=== PATIENT | male | born 1965 ===

== ENCOUNTER 2022-01-11 19:27 | Inpatient (IN) | payer MEDICAID, SELFPAY ==
[2022-01-11] VITALS (7 sets, daily range): BP systolic 120–142; BP diastolic 75–84; PULSE 112–123; RESP 18–22; TEMP 36.9–39.5; O2SAT 93–96; BMI 25.7
--- NOTE | ~2022-01-11 | US_ITS ---
EXAMINATION: US ABDOMEN LIMITED CLINICAL INFORMATION: Mild elevation of serum alkaline phosphatase level.. COMPARISON: None TECHNIQUE: Real-time imaging of the right upper quadrant abdominal viscera, utilizing pulse, grayscale and Doppler modalities. FINDINGS: PANCREAS: Normal. LIVER: The caudate lobe is enlarged. The liver is otherwise normal in size. The liver contour is scalloped. Parenchymal echogenicity is generally increased. No focal hepatic lesion. There is no intrahepatic biliary duct dilatation seen. GALLBLADDER: There is wall thickening to 7 mm at the gallbladder fossa. The gallbladder is physiologically distended without evidence of stones, sludge, wall thickening or pericholecystic fluid. COMMON BILE DUCT: Normal in caliber measuring 0.4 cm in diameter. RIGHT KIDNEY: Somewhat malrotated, consistent with prior CT findings. No hydronephrosis. No renal calculi or focal parenchymal lesions. The kidney measures 11.1 cm in maximum dimension. FREE FLUID: None. US/US duplex arterial venous comp IMPRESSION: 1. Findings are consistent with cirrhosis. Discoid clinically. No focal hepatic mass or intrahepatic biliary ductal dilatation is seen. 2. There is gallbladder wall thickening, without calculus noted. The possibility of acalculous cholecystitis is raised. Please correlate clinically. If of continued clinical concern, this could be further evaluated with nuclear HIDA scan. EXAMINATION: COMPLETE DUPLEX ULTRASOUND OF THE ABDOMEN CLINICAL INFORMATION: Mild elevation of serum alkaline phosphatase level.. COMPARISON: None. TECHNIQUE: Real-time abdominal ultrasound performed. Duplex Doppler ultrasound and pulse wave Doppler with spectral analysis were also performed. FINDINGS: The main, right, and left portal veins demonstrate normal corrected hepato-petal venous waveforms. The right, middle, and left hepatic veins demonstrates normal hepatofugal venous waveforms. The hepatic artery demonstrates normal arterial waveforms. The splenic vein demonstrates normal direction of flow. No evidence for venous thrombosis. There is splenomegaly, with a longitudinal span of 15.7 cm. The proximal abdominal aorta and IVC are normal in appearance. IMPRESSION: 1. Unremarkable abdominal duplex evaluation. 2. There is splenomegaly.
--- NOTE | ~2022-01-11 | CT_ITS ---
: EXAMINATION: CT SCAN OF THE CHEST ABDOMEN AND PELVIS WITHOUT CONTRAST CLINICAL INFORMATION: Fever dyspnea diarrhea COMPARISON: Chest x-ray performed same day TECHNIQUE: CT scan of the chest, abdomen and pelvis was performed without contrast Additional sagittal and coronal two-dimensional reconstruction imaging was obtained at the acquisition workstation. Chest 278mGycm/ Abdpel 714mGycm FINDINGS: CHEST: Lungs and pleural spaces: Normal. Airways: Normal. Esophagus: Normal. Thoracic inlet: Normal. CARDIOVASCULAR: Normal. Lymph nodes: Normal. Soft tissues: Normal. Osseous structures: Mild multilevel spondylosis ABDOMEN AND PELVIS: LIVER: Caudate lobe appears enlarged. There is some irregularity of the surface of the liver. Findings raise the question of mild cirrhosis. GALLBLADDER AND BILIARY TREE: Normal. PANCREAS: Normal. SPLEEN: Enlarged measuring 17 cm AP ADRENAL GLANDS: Normal. URINARY TRACT (KIDNEYS, URETERS, BLADDER): Normal. PELVIC ORGANS: Normal. PERITONEAL CAVITY: Normal. MESENTERY/OMENTUM: There is scattered small subcentimeter lymph nodes throughout the mesentery. There is scattered increased density throughout much of the mesentery which could be due to edema but overall nonspecific. GI TRACT (STOMACH, SMALL BOWEL, LARGE BOWEL: Diverticulosis without diverticulitis in the distal colon. Borderline dilated small bowel loops measuring up to 3.5 cm APPENDIX: Normal. LYMPH NODES: As noted above there numerous subcentimeter lymph nodes throughout the retroperitoneum and mesentery VASCULAR: Minimal arterial calcification throughout.. ABDOMINAL WALL/SOFT TISSUES: Normal. SKELETAL: Mild multilevel spondylosis of the thoracolumbar sacral spine with multilevel degenerative disc changes CT/CT abdomen pelvis wo con IMPRESSION: CHEST: No acute abnormality ABDOMEN AND PELVIS: Findings suspicious for mild cirrhosis. Splenomegaly. Borderline dilated fluid-filled loops of small bowel uncertain significance. No definite obstruction. Findings in the mesentery and retroperitoneum with multiple subcentimeter lymph nodes nonspecific with minimal streaky nonspecific density in the mesentery. This could reflect edema or inflammatory change
--- NOTE | ~2022-01-11 | XR_ITS ---
EXAMINATION: XR CHEST CLINICAL INFORMATION: Chest pain COMPARISON: None TECHNIQUE: Frontal view of the chest was obtained. FINDINGS: There are low volumes, but the lungs are clear. There are no gross pleural effusions. The cardiomediastinal silhouette is not enlarged. XR/XR chest 1V IMPRESSION: Poor inspiratory effort, but grossly clear chest otherwise.
--- NOTE | 2022-01-11 19:36 | ECG_ITS ---
Test Reason : CHEST PAIN Blood Pressure : / mmHG Vent. Rate : 116 BPM Atrial Rate : 116 BPM P-R Int : 178 ms QRS Dur : 086 ms QT Int : 310 ms P-R-T Axes : 032 -07 -02 degrees QTc Int : 430 ms Sinus tachycardia Possible Anterolateral infarct , age undetermined Abnormal ECG No previous ECGs available Referred By: Generic ED Physician Electronically Signed By:Jake Valencia
[2022-01-11] MEDS: Acetaminophen 325 MG TABLET 650 MG PO (19:40)
[2022-01-11 20:05] LABS: Hematocrit 33.3 % (42.0-52.0); Monocytes Absolute Auto 0.5 X10*3/uL (0.1-1.2); Monocytes Percent Auto 4.8 % (2-11); SCAN SMEAR FLAG 1
[2022-01-11 20:07] LABS: Basophils Percent Auto 0.1 % (0-2); Eosinophils Percent Auto 0.2 % (0-4); Hemoglobin 10.1 g/dl (14.0-18.0); Imm Gran Abs Auto 0.05 X10*3/uL (0.00-0.03); Imm Gran Pct Auto 0.5 % (0.0-0.4); Lymphocytes Absolute Auto 0.5 X10*3/uL (1.2-4.9); Lymphocytes Percent Auto 5.6 % (20-40); MANUAL DIFF FLAG SCAN; Mean Corpuscular HGB Conc 30.3 g/dl (31.0-36.0); Mean Corpuscular Hemoglobin 21.1 pg (27.0-33.0); Mean Corpuscular Volume 69.5 fL (80.0-98.0); Neutrophils Absolute Auto 8.5 x10*3/uL (2.0-8.3); Neutrophils Percent Auto 88.8 % (45-73); Red Blood Count 4.79 X10*6/uL (4.60-5.80); Red Cell Distribution Width 19.5 % (11.0-16.0); White Blood Count 9.6 X10*3/uL (4.8-10.8)
[2022-01-11 20:08] LABS: PLT ABN DIST 1
[2022-01-11 20:09] LABS: Glucose, Whole Blood 319 mg/dL (60-115)
[2022-01-11 20:15] LABS: Anion Gap 13 (12-20); Blood Urea Nitrogen 7 mg/dL (9-16); Calcium 8.8 mg/dL (8.4-10.2); Carbon Dioxide 22 mmol/L (22-29); Chloride 101 mmol/L (96-108); Creatinine Clr Calc Pharmacy 91.8; Estimated Glomerular Filt Rate > 60; Glucose Random 334 mg/dL (60-115); Potassium 3.9 mmol/L (3.3-5.1); Sodium 132 mmol/L (135-145)
[2022-01-11 20:17] LABS: Lactic Acid 2.4 mmol/L (0.5-2.0)
[2022-01-11 20:22] LABS: Mean Platelet Volume 9.4 fL (9.4-12.4); Platelet Count 72 X10*3/uL (160-400); SLIDE REVIEW VERIFIED
[2022-01-11 20:26] LABS: IDNOW Serial# 16C4AD1C
[2022-01-11 20:27] LABS: COVID-19 Test Negative (Negative)
[2022-01-11 20:28] LABS: Influenza A Negative (Negative); Influenza B2 Negative (Negative)
[2022-01-11] MEDS: 0.9 % Sodium Chloride 1,000 ML 999 ML IV (20:28)
[2022-01-11] MEDS: cefTRIAXone sodium 1 GM in 0.9 % Sodium Chloride 50 ML IV (20:33)
[2022-01-11] MEDS: Ibuprofen 600 MG TABLET PO (20:33)
--- NOTE | 2022-01-11 20:58 | ED.CHESTPAIN ---
HPI - Chest Pain General Chief Complaint: Chest Pain Stated Complaint: chest pain,chills ,dizziness Time Seen by Provider: 01/11/22 20:14 Source: patient Mode of arrival: ambulatory Limitations: no limitations History of Present Illness complaint: chest pain (fevers, chills, body aches, weakness) Onset (ago): hour(s) (4pm today ) Timing of current episode: constant Prior episodes: No Onset: during rest Pain location: other (generalized pain) Pain radiation: none Severity: moderate Quality: aching Relieving factors: nothing Exacerbating factors: exertion Associated symptoms: nausea, dyspnea and fever Treatment prior to arrival: none Related Data Allergies Allergy/AdvReac Type Severity Reaction Status Date / Time No Known Allergies Allergy Verified 01/11/22 19:35 Review of Systems Review of Systems: Constitutional : No Weight loss, pos Fever, pos Chills ENT/Mouth : No sore throat, No Rhinorrhea Eyes: No Eye Pain, No Swelling Cardiovascular : pos Chest Pain, pos SOB, no Dyspnea on Exertion, No Orthopnea, No Edema, No Palpitations Respiratory : No Cough, No Sputum Gastrointestinal : pos Nausea, No Vomiting, No Diarrhea, No abdominal Pain, No Hematochezia, No Melena Genitourinary : No Dysuria, No Urinary Frequency Musculoskeletal : No joint pain, pos Myalgias, No Joint Swelling Skin : No Skin Lesions, No rash Neuro : pos Weakness, No Numbness, No Dizziness, No Headache Psych : No Anxiety/Panic, No Depression Heme/Lymph: No Bruising, No Lymphadenopathy Endocrine : No Polyuria, No Polydipsia All other systems reviewed and are negative [facility] Past Medical History Attestation statement: The following information was validated with the patient. Medical History Diabetes Social History Social History (Updated 01/11/22 @ 20:59 by Chloe Curiel DO) Patient Tobacco Use Status: Never used Tobacco Physical Exam Vital Signs: Vital Signs: Last Vital Signs Temp 103.1 F H 01/11/22 19:30 Pulse 114 H 01/11/22 20:06 Resp 22 H 01/11/22 20:06 BP 138/84 01/11/22 20:06 Pulse Ox 95 01/11/22 20:06 O2 Del Method 01/11/22 20:06 BMI result Body Mass Index 25.7 Appearance: Alert. Oriented X3. Mild acute distress. Eyes: Pupils equal, round and reactive to light. ENT: Pharynx normal. Neck: Normal inspection. Neck supple. CVS: tachycardic heart rate and rhythm. Pulses normal. Respiratory: No respiratory distress. Breath sounds diminished Abdomen: Soft and nontender. Skin: Skin warm and dry. Normal skin color. Normal skin turgor. Extremities: No lower extremity edema. Neuro: Oriented X 3. No motor deficit. No sensory deficit. Course Course Course Narrative: signed out to Dr. 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 He has no localizing signs at this time will need labs, cultures, fever control, IV fluids, UA and CXR - possibly viral in nature. Empiric ceftriaxone ordered. Likely admit. Lab Data Result diagrams: 01/11/22 19:41 01/11/22 19:41 Labs: Lab Results 01/11/22 01/11/22 01/11/22 Range/Units 19:41 19:41 19:41 WBC 9.6 (4.8-10.8) X10*3/uL RBC 4.79 (4.60-5.80) X10*6/uL Hgb 10.1 L (14.0-18.0) g/dl Hct 33.3 L (42.0-52.0) % MCV 69.5 L (80.0-98.0) fL MCH 21.1 L (27.0-33.0) pg MCHC 30.3 L (31.0-36.0) g/dl RDW 19.5 H (11.0-16.0) % Plt Count 72 L (160-400) X10*3/uL MPV 9.4 (9.4-12.4) fL Immature Gran % (Auto) 0.5 H (0.0-0.4) % Neut % (Auto) 88.8 H (45-73) % Lymph % (Auto) 5.6 L (20-40) % [place] % (Auto) 4.8 (2-11) % Eos % (Auto) 0.2 (0-4) % Baso % (Auto) 0.1 (0-2) % Lymph # (Auto) 0.5 L (1.2-4.9) X10*3/uL [place] # (Auto) 0.5 (0.1-1.2) X10*3/uL Eos # (Auto) 0.0 (0.0-0.4) X10*3/uL Baso # (Auto) 0.0 (0.0-0.2) X10*3/uL Abs Immat Gran (auto) 0.05 H (0.00-0.03) X10*3/uL Absolute Neuts (auto) 8.5 H (2.0-8.3) x10*3/uL Absolute Nucleated RBC 0.000 (0.0-0.012) X10*3/uL Nucleated RBC % (auto) 0.0 (0.0-0.2) /100WBC Smear Tech's Comments VERIFIED Sodium 132 L (135-145) mmol/L Potassium 3.9 (3.3-5.1) mmol/L Chloride 101 (96-108) mmol/L Carbon Dioxide 22 (22-29) mmol/L Anion Gap 13 (12-20) BUN 7 L (9-16) mg/dL Creatinine 0.77 (0.5-1.4) mg/dL Estim Creat Clear Calc 91.8 Estimated GFR > 60 POC Glucose (60-115) mg/dL Random Glucose 334 H (60-115) mg/dL Lactic Acid (0.5-2.0) mmol/L Calcium 8.8 (8.4-10.2) mg/dL Troponin I High Sens 6.0 (<3.5-35.0) ng/L COVID-19 (JACKIE) (Negative) COVID-19 Clin Com Influenza Type A (DEMARCUS) (Negative) Influenza Type B (DEMARCUS) (Negative) Influenza A & B Note 01/11/22 01/11/22 01/11/22 Range/Units 19:41 19:42 19:43 WBC (4.8-10.8) X10*3/uL RBC (4.60-5.80) X10*6/uL Hgb (14.0-18.0) g/dl Hct (42.0-52.0) % MCV (80.0-98.0) fL MCH (27.0-33.0) pg MCHC (31.0-36.0) g/dl RDW (11.0-16.0) % Plt Count (160-400) X10*3/uL MPV (9.4-12.4) fL Immature Gran % (Auto) (0.0-0.4) % Neut % (Auto) (45-73) % Lymph % (Auto) (20-40) % [place] % (Auto) (2-11) % Eos % (Auto) (0-4) % Baso % (Auto) (0-2) % Lymph # (Auto) (1.2-4.9) X10*3/uL [place] # (Auto) (0.1-1.2) X10*3/uL Eos # (Auto) (0.0-0.4) X10*3/uL Baso # (Auto) (0.0-0.2) X10*3/uL Abs Immat Gran (auto) (0.00-0.03) X10*3/uL Absolute Neuts (auto) (2.0-8.3) x10*3/uL Absolute Nucleated RBC (0.0-0.012) X10*3/uL Nucleated RBC % (auto) (0.0-0.2) /100WBC Smear Tech's Comments Sodium (135-145) mmol/L Potassium (3.3-5.1) mmol/L Chloride (96-108) mmol/L Carbon Dioxide (22-29) mmol/L Anion Gap (12-20) BUN (9-16) mg/dL Creatinine (0.5-1.4) mg/dL Estim Creat Clear Calc Estimated GFR POC Glucose (60-115) mg/dL Random Glucose (60-115) mg/dL Lactic Acid 2.4 H* (0.5-2.0) mmol/L Calcium (8.4-10.2) mg/dL Troponin I High Sens (<3.5-35.0) ng/L COVID-19 (JACKIE) Negative (Negative) COVID-19 Clin Com See Note Influenza Type A (DEMARCUS) Negative (Negative) Influenza Type B (DEMARCUS) Negative (Negative) Influenza A & B Note See Note 01/11/22 Range/Units 19:51 WBC (4.8-10.8) X10*3/uL RBC (4.60-5.80) X10*6/uL Hgb (14.0-18.0) g/dl Hct (42.0-52.0) % MCV (80.0-98.0) fL MCH (27.0-33.0) pg MCHC (31.0-36.0) g/dl RDW (11.0-16.0) % Plt Count (160-400) X10*3/uL MPV (9.4-12.4) fL Immature Gran % (Auto) (0.0-0.4) % Neut % (Auto) (45-73) % Lymph % (Auto) (20-40) % [place] % (Auto) (2-11) % Eos % (Auto) (0-4) % Baso % (Auto) (0-2) % Lymph # (Auto) (1.2-4.9) X10*3/uL [place] # (Auto) (0.1-1.2) X10*3/uL Eos # (Auto) (0.0-0.4) X10*3/uL Baso # (Auto) (0.0-0.2) X10*3/uL Abs Immat Gran (auto) (0.00-0.03) X10*3/uL Absolute Neuts (auto) (2.0-8.3) x10*3/uL Absolute Nucleated RBC (0.0-0.012) X10*3/uL Nucleated RBC % (auto) (0.0-0.2) /100WBC Smear Tech's Comments Sodium (135-145) mmol/L Potassium (3.3-5.1) mmol/L Chloride (96-108) mmol/L Carbon Dioxide (22-29) mmol/L Anion Gap (12-20) BUN (9-16) mg/dL Creatinine (0.5-1.4) mg/dL Estim Creat Clear Calc Estimated GFR POC Glucose 319 H (60-115) mg/dL Random Glucose (60-115) mg/dL Lactic Acid (0.5-2.0) mmol/L Calcium (8.4-10.2) mg/dL Troponin I High Sens (<3.5-35.0) ng/L COVID-19 (JACKIE) (Negative) COVID-19 Clin Com Influenza Type A (DEMARCUS) (Negative) Influenza Type B (DEMARCUS) (Negative) Influenza A & B Note Discharge Plan Discharge Clinical Impression: Fever Patient Disposition: Still a Patient
[2022-01-11 21:01] LABS: Alanine Aminotransferase 40 U/L (0-40); Albumin Level 3.8 g/dL (3.5-5.0); Alkaline Phosphatase 191 U/L (39-117); Aspartate Amino Transferase 43 U/L (5-37); Bilirubin Direct 0.4 mg/dL (0.0-0.5); Bilirubin Total 0.9 mg/dL (0.0-1.0); Lipase 10 U/L (8-78); Magnesium 1.6 mg/dL (1.6-2.6); Total Protein 6.8 g/dL (6.5-8.0)
[2022-01-11 21:29] LABS: Appearance Urine CLEAR; Color Urine YELLOW; Glucose Urine UA >=1000 MG/DL (NEG); Leukocyte Esterase Urine NEG (NEG); Nitrite Urine NEG (NEG); PH 6.5 (5.0-8.0); Urine Blood NEG (NEG); Urine Ketones NEG (NEG); Urine Protein NEG (NEG-TRACE)
[2022-01-11 21:54] LABS: Troponin-I High Sensitivity 6.8 ng/L (<3.5-35.0)
[2022-01-11 21:54] LABS: Reflex Lactate? Lactic Acid Added
[2022-01-11 22:35] LABS: Squamous Epithelial Cell Urine TRACE /LPF
[2022-01-11 22:51] LABS: ~Lactic Acid-LAB USE ONLY 1.7 mmol/L (0.5-2.0)
[2022-01-12] MEDS: Acetaminophen 325 MG TABLET 650 MG PO (01:14)
[2022-01-12 01:15] LABS: Troponin-I High Sensitivity 7.5 ng/L (<3.5-35.0)
[2022-01-12 04:12] VITALS: BP 102/59; PULSE 85; RESP 20; TEMP 36.7; O2SAT 97
--- NOTE | 2022-01-12 04:49 | P.HPHOSP_ITS ---
History of Present Illness Date of Service: 01/12/22 Chief Complaint: Chest pain 56-year-old male with a past medical history of hypertension, diabetes-not on medications; presented to the hospital today with a chief complaint of chest pain. Patient reported that he had chest pain, located in the center of the chest, nonradiating, associated mild nausea; denies any shortness of breath or dyspnea on exertion. Denies any fever chills cough. Denies any urinary symptoms. Denies any chest pain with the time of my interview. Denies any recent travel or sick contacts. Mentioned that he has diabetes but not on any medications. Patient mentioned that he used to drink alcohol remotely. Review of all other systems is negative except mentioned above ER course: Per ER team patient's troponins x3 were negative; EKG was nonischemic; noted to have fever of 103 F; and also thrombocytopenia. Unclear source of fever. Received ceftriaxone. Send cultures. Also had mild lactic acidosis. COUNT INCLUDES THE [facility] Medical History Diabetes Pertinent family history: Mentioned the fall has heart disease Social History (Updated 01/11/22 @ 20:59 by Chloe Curiel DO) Patient Tobacco Use Status: Never used Tobacco Advance Directives: No Meds Allergies Allergy/AdvReac Type Severity Reaction Status Date / Time No Known Allergies Allergy Verified 01/11/22 19:35 Active Medications: Current Medications Acetaminophen (Acetaminophen 325 Mg Tablet) 650 mg PO Q6H PRN PRN Reason: Pain, Mild (Pain Scale 1-3) Doxycycline Hyclate (Doxycycline Hyclate 100 Mg Tablet) 100 mg PO Q12H ISHA Enoxaparin Sodium (Enoxaparin Sodium 40 Mg/0.4 Ml Syringe) 40 mg SUBCUT Q24H ISHA Sodium Chloride (Ns) 1,000 mls @ 100 mls/hr IVCONT .Q10H ISHA Ceftriaxone Sodium 1 gm/ (Sodium Chloride) 50 mls @ 100 mls/hr IV Q24H ISHA Melatonin (Melatonin 3 Mg Tablet) 6 mg PO BEDTIME PRN PRN Reason: Insomnia Senna (Sennosides 8.6 Mg Tablet) 17.2 mg PO BEDTIME PRN PRN Reason: Constipation Sodium Chloride (0.9 % Sodium Chloride Flush 3 Ml Syringe) 3 ml IVFLUSH QSHIFT ISHA Physical Exam Vital Signs and Narrative: Vital Signs: Last Vital Signs Temp 98.1 F 01/12/22 04:12 Pulse 85 01/12/22 04:12 Resp 20 01/12/22 04:12 BP 102/59 L 01/12/22 04:12 Pulse Ox 97 01/12/22 04:12 O2 Del Method 01/12/22 04:12 BMI result Body Mass Index 25.7 Gen: Appears be in no acute distress HEENT: NCAT, Moist mucosa. Pulmonary: Vesicular breath sounds, fair air entry CVS: Normal S1-S2 Abdomen: BS+, Soft, Nontender Extremities: Warm well perfused Neuro: Alert and awake. Results Labs CBC and Chem 7: 01/11/22 19:41 01/11/22 19:41 Labs: Laboratory Results - last 24 hr 01/11/22 01/11/22 01/11/22 19:41 19:41 19:41 MCV 69.5 L MCH 21.1 L MCHC 30.3 L RDW 19.5 H Plt Count 72 L MPV 9.4 Immature Gran % (Auto) 0.5 H Neut % (Auto) 88.8 H Lymph % (Auto) 5.6 L Edwards % (Auto) 4.8 Eos % (Auto) 0.2 Baso % (Auto) 0.1 Lymph # (Auto) 0.5 L Edwards # (Auto) 0.5 Eos # (Auto) 0.0 Baso # (Auto) 0.0 Abs Immat Gran (auto) 0.05 H Absolute Neuts (auto) 8.5 H Absolute Nucleated RBC 0.000 Nucleated RBC % (auto) 0.0 Smear Tech's Comments VERIFIED Anion Gap 13 Estim Creat Clear Calc 91.8 Estimated GFR > 60 POC Glucose Random Glucose 334 H Lactic Acid Lactic Acid F/U @ 2Hr Calcium 8.8 Magnesium 1.6 Total Bilirubin 0.9 Direct Bilirubin 0.4 AST 43 H ALT 40 Alkaline Phosphatase 191 H Troponin I High Sens 6.0 Total Protein 6.8 Albumin 3.8 Lipase 10 Urine Color Urine Appearance Urine pH Ur Specific [place] Urine Protein Urine Glucose (UA) Urine Ketones Urine Blood Urine Nitrite Ur Leukocyte Esterase Urine RBC Urine WBC Ur Squamous Epith Cells Urine Bacteria Urine Yeast COVID-19 (JACKIE) COVID-19 Clin Com Influenza Type A (DEMARCUS) Influenza Type B (DEMARCUS) Influenza A & B Note 01/11/22 01/11/22 01/11/22 19:41 19:42 19:43 MCV MCH MCHC RDW Plt Count MPV Immature Gran % (Auto) Neut % (Auto) Lymph % (Auto) Edwards % (Auto) Eos % (Auto) Baso % (Auto) Lymph # (Auto) Edwards # (Auto) Eos # (Auto) Baso # (Auto) Abs Immat Gran (auto) Absolute Neuts (auto) Absolute Nucleated RBC Nucleated RBC % (auto) Smear Tech's Comments Anion Gap Estim Creat Clear Calc Estimated GFR POC Glucose Random Glucose Lactic Acid 2.4 H* Lactic Acid F/U @ 2Hr Calcium Magnesium Total Bilirubin Direct Bilirubin AST ALT Alkaline Phosphatase Troponin I High Sens Total Protein Albumin Lipase Urine Color Urine Appearance Urine pH Ur Specific [place] Urine Protein Urine Glucose (UA) Urine Ketones Urine Blood Urine Nitrite Ur Leukocyte Esterase Urine RBC Urine WBC Ur Squamous Epith Cells Urine Bacteria Urine Yeast COVID-19 (JACKIE) Negative COVID-19 Clin Com See Note Influenza Type A (DEMARCUS) Negative Influenza Type B (DEMARCUS) Negative Influenza A & B Note See Note 01/11/22 01/11/22 01/11/22 19:51 21:06 21:28 MCV MCH MCHC RDW Plt Count MPV Immature Gran % (Auto) Neut % (Auto) Lymph % (Auto) Edwards % (Auto) Eos % (Auto) Baso % (Auto) Lymph # (Auto) Edwards # (Auto) Eos # (Auto) Baso # (Auto) Abs Immat Gran (auto) Absolute Neuts (auto) Absolute Nucleated RBC Nucleated RBC % (auto) Smear Tech's Comments Anion Gap Estim Creat Clear Calc Estimated GFR POC Glucose 319 H Random Glucose Lactic Acid Lactic Acid F/U @ 2Hr Calcium Magnesium Total Bilirubin Direct Bilirubin AST ALT Alkaline Phosphatase Troponin I High Sens 6.8 Total Protein Albumin Lipase Urine Color YELLOW Urine Appearance CLEAR Urine pH 6.5 Ur Specific [place] 1.010 Urine Protein NEG Urine Glucose (UA) >=1000 H Urine Ketones NEG Urine Blood NEG Urine Nitrite NEG Ur Leukocyte Esterase NEG Urine RBC 1-4 Urine WBC 1-4 Ur Squamous Epith Cells TRACE Urine Bacteria NONE Urine Yeast TRACE COVID-19 (JACKIE) COVID-19 Clin Com Influenza Type A (DEMARCUS) Influenza Type B (DEMARCUS) Influenza A & B Note 01/11/22 01/12/22 22:29 00:45 MCV MCH MCHC RDW Plt Count MPV Immature Gran % (Auto) Neut % (Auto) Lymph % (Auto) Edwards % (Auto) Eos % (Auto) Baso % (Auto) Lymph # (Auto) Edwards # (Auto) Eos # (Auto) Baso # (Auto) Abs Immat Gran (auto) Absolute Neuts (auto) Absolute Nucleated RBC Nucleated RBC % (auto) Smear Tech's Comments Anion Gap Estim Creat Clear Calc Estimated GFR POC Glucose Random Glucose Lactic Acid Lactic Acid F/U @ 2Hr 1.7 Calcium Magnesium Total Bilirubin Direct Bilirubin AST ALT Alkaline Phosphatase Troponin I High Sens 7.5 Total Protein Albumin Lipase Urine Color Urine Appearance Urine pH Ur Specific [place] Urine Protein Urine Glucose (UA) Urine Ketones Urine Blood Urine Nitrite Ur Leukocyte Esterase Urine RBC Urine WBC Ur Squamous Epith Cells Urine Bacteria Urine Yeast COVID-19 (JACKIE) COVID-19 Clin Com Influenza Type A (DEMARCUS) Influenza Type B (DEMARCUS) Influenza A & B Note Imaging Radiologist's Impressions: Impressions Chest X-Ray 01/11/22 20:17 IMPRESSION: Poor inspiratory effort, but grossly clear chest otherwise. Abdomen/Pelvis CT 01/11/22 22:30 IMPRESSION: CHEST: No acute abnormality ABDOMEN AND PELVIS: Findings suspicious for mild cirrhosis. Splenomegaly. Borderline dilated fluid-filled loops of small bowel uncertain significance. No definite obstruction. Findings in the mesentery and retroperitoneum with multiple subcentimeter lymph nodes nonspecific with minimal streaky nonspecific density in the mesentery. This could reflect edema or inflammatory change Chest CT 01/11/22 22:30 IMPRESSION: CHEST: No acute abnormality ABDOMEN AND PELVIS: Findings suspicious for mild cirrhosis. Splenomegaly. Borderline dilated fluid-filled loops of small bowel uncertain significance. No definite obstruction. Findings in the mesentery and retroperitoneum with multiple subcentimeter lymph nodes nonspecific with minimal streaky nonspecific density in the mesentery. This could reflect edema or inflammatory change Assessment and Plan (1) Fever: Qualifiers: Fever type: unspecified Qualified Code(s): R50.9 - Fever, unspecified Status: Acute Plan 56-year-old male with a past medical history of hypertension, diabetes-not on medications; presented to the hospital today with a chief complaint of chest pain. Noted to have fever. Admitted for further management. Fever: Unclear source. Urinalysis negative; CT chest showed no evidence of pneumonia. CT abdomen showed dilated bowel loops-unclear significance; patient denies any GI symptoms. Noted to have thrombocytopenia-will obtain tick panel, Anaplasma, babesia Also had mild elevation of alk-phos, ALT-> will obtain right upper quadrant ultrasound Empirically being covered with ceftriaxone and doxycycline. Id consult for further recommendations Follow up cultures Chest pain: Currently resolved. EKG nonischemic. Troponins x3 negative. Cardiology follow-up D-dimer pending Diabetes/hyperglycemia: Patient denies taking any home medications. Will obtain hemoglobin A1c. Insulin sliding scale for now. Liver cirrhosis: Patient currently denies any alcohol use. GI follow-up as outpatient. Mesenteric and retroperitoneal lymphadenopathy: Appears inflammatory Radiology. Follow-up with PCP. Anemia: Patient denies any signs of bleeding. Will obtain iron studies, folate, B12, stool guaiac test DVT prophylaxis: SCD boots. Avoiding pharmacological agents given thrombocytopenia. Code status: Full code Quality Stroke Does the patient have a stroke diagnosis?: No VTE Prior VTE?: No VTE Risk Level:: Medical - moderate - high VTE Device Contraindication: Treatment Not Indicated VTE Drug Contraindication: N/A - Med Ordered
[2022-01-12] MEDS: 0.9 % Sodium Chloride 1,000 ML 100 ML IVCONT ×2 (05:36→14:27)
[2022-01-12 05:40] VITALS: BP 100/59; PULSE 77; RESP 16; TEMP 37.2; O2SAT 97
[2022-01-12 06:02] LABS: Eosinophils Percent Auto 0.1 % (0-4); Hemoglobin 9.2 g/dl (14.0-18.0); PLT CLUMP 1; SCAN SMEAR FLAG 1
[2022-01-12 06:04] LABS: Imm Gran Abs Auto 0.05 X10*3/uL (0.00-0.03); Imm Gran Pct Auto 0.6 % (0.0-0.4); Lymphocytes Absolute Auto 0.5 X10*3/uL (1.2-4.9); Lymphocytes Percent Auto 5.9 % (20-40); Mean Corpuscular HGB Conc 29.7 g/dl (31.0-36.0); Mean Corpuscular Volume 70.6 fL (80.0-98.0); Mean Platelet Volume 9.1 fL (9.4-12.4); Monocytes Absolute Auto 0.4 X10*3/uL (0.1-1.2); Monocytes Percent Auto 5.3 % (2-11); Neutrophils Absolute Auto 6.9 x10*3/uL (2.0-8.3); Neutrophils Percent Auto 88.1 % (45-73); Red Blood Count 4.39 X10*6/uL (4.60-5.80); Red Cell Distribution Width 19.5 % (11.0-16.0)
[2022-01-12 06:05] LABS: Platelet Count 60 X10*3/uL (160-400); White Blood Count 7.8 X10*3/uL (4.8-10.8)
[2022-01-12 06:06] LABS: MANUAL DIFF FLAG NO
[2022-01-12 06:09] LABS: D Dimer High Sensitivity 1144 NG/ML
[2022-01-12 06:19] LABS: Anion Gap 10 (12-20); Blood Urea Nitrogen 9 mg/dL (9-16); Calcium 8.1 mg/dL (8.4-10.2); Carbon Dioxide 26 mmol/L (22-29); Chloride 104 mmol/L (96-108); Creatinine Clr Calc Pharmacy 88.3; Estimated Glomerular Filt Rate > 60; Glucose Random 279 mg/dL (60-115); Iron 22 mcg/dL (45-160); Percent Iron Saturation 6 % (15-50); Potassium 4.2 mmol/L (3.3-5.1); Sodium 136 mmol/L (135-145); Total Iron Binding Capacity 398 mcg/dL (228-428); Unsaturated Iron Binding 376 ug/dL
[2022-01-12 06:36] LABS: Ferritin 24 ng/mL (20-250)
--- NOTE | 2022-01-12 07:00 | CA_ITS ---
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 The visually estimated ejection fraction is between 60-65%. Diastolic function is normal for age. - Mildly increased right ventricular cavity size. There is normal right ventricular systolic function. Findings Left Ventricle Normal left ventricular size, thickness, systolic function, and wall motion. The visually estimated ejection fraction is between 60-65%. Diastolic function is normal for age. Right Ventricle Mildly increased right ventricular cavity size. There is normal right ventricular systolic function. Atria The left atrium is likely dilated. The right atrium is likely dilated. Aortic Valve Normal aortic valve structure and function. There is no aortic valve stenosis. There is no aortic valve regurgitation. Mitral Valve Normal mitral valve structure and function. There is no mitral valve regurgitation. There is no mitral valve stenosis. Pulmonic Valve Normal pulmonic valve structure and function. There is no pulmonic valve regurgitation. Tricuspid Valve There is trace tricuspid valve regurgitation. Normal right atrial pressure. There is no evidence of pulmonary hypertension. Great Vessels All visible segments of the aorta are normal in size. The visualized portions of the pulmonary artery and branches are normal. Venous The inferior vena cava is normal in size and collapses greater than 50% with inspiration. Pericardium/Pleural There is no evidence of pericardial effusion. Prior Study Comparison No prior study available for comparison. Measurements 2D Linear Measurements IVSd: 0.97 0.6-0.9/0.6-1.0 cm LVIDd: 5.07 3.9-5.3/4.2-5.9 cm LVIDd Index: 2.93 2.4-3.2/2.2-3.1 cm/m2 LVIDs: 3.16 2.0-3.6 cm LVPWd: 0.76 0.7-1.1 cm LA Diam: 3.60 2.7-3.8/3.0-4.0 cm LAIDs Index: 2.08 1.5-2.3 cm/m2 LV Mass: 191.33 67-162/88-224 g LV Mass Index: 110.59 43-95/49-115 g/m2 LVOT Diam: 2.40 3.0+(-)1.3 cm 2D Systolic Function EF 4C: 62.10 >55% EF 2C: 69.40 >55% EF BiP: 65.30 >55% Mitral Valve MV Pk E: 1.04 MV PK A: 0.84 MV Decel Time: 200.00 E/A: 1.20 E'Lateral: 9.79 E'Medial: 8.92 E/E' Med: 11.70 E/E' Lat: 10.60 PHT: 58.00 MVA PHT: 3.79 Decel [place]: 5.19 Aortic Valve AoV Pk [place]: 1.51 AoV Mn Taran: 1.07 AoV VTI: 0.26 AoV Pk Grad: 9.00 Aov Mn Grad: 5.00 EROS Cont.VTI: 3.73 LVOT LVOT Pk [place]: 1.04 LVOT Mn Taran: 0.76 LVOT VTI: 0.21 LVOT Pk Grad: 4.00 LVOT Mn Grad: 3.00 LVOT Diam: 2.40 LVOT Area: 4.52 Diastolic Function MV Pk E: 1.04 MV Pk A: 0.84 E/A: 1.20 E'Medial: 8.92 E/E' Med: 11.70 E' Laterial: 9.79 E/E' Lat: 10.60 Right Ventricle TAPSE (mm): 29.10 TVS' Taran: 15.10 Tricuspid Valve TR Pk Taran: 2.19 TR Pk Grad: 19.00 RA Press: 3.00 RVSP: 22.00 Great Vessels Aorta Sinus of Valsalva: 3.52 2.0-3.[address] [place]: 2.98 1.7-3.4 cm Ao Asc: 3.30 2.1-3.4 cm Updated in Other Vendor System with Status of Final Jake Valencia MD electronically signed on 01/12/2022 8:46:12 PM with status of Final
[2022-01-12 07:02] LABS: Estimated Average Glucose 286 mg/dL; Hemoglobin A1c % 11.6 %
[2022-01-12 07:17] VITALS: BP 113/69; PULSE 79; RESP 21; O2SAT 98
[2022-01-12 07:20] LABS: Glucose, Whole Blood 275 mg/dL (60-115)
--- NOTE | 2022-01-12 07:31 | PHA.PROG ---
Admission Date/Time: January 12, 2022 04:44 Indication: Bacteremia Weight in k.039 kg Adjusted body weight in K.736 [place] body weight in K.2 Obesity Dosing Indication % IBW: Serum Creatinine - Last 168 Hours 01/11/22 01/12/22 19:41 05:55 Creatinine 0.77 0.80 Estimated CrCl and GFR - Last 168 Hours 01/11/22 01/12/22 19:41 05:55 Estim Creat Clear Calc 91.8 88.3 Estimated GFR > 60 > 60 Vancomycin Loading Dose: 1500 mg Current Vancomycin Dosing Regimen: 1000 mg q12h Vancomycin Monitoring using AUC goal of 400 - 600 range with trough as surrogate marker: 505; 15.3 trough Date and Time for next Vancomycin Level to be drawn: 01/13 @1800 Pharmacist Comments on Vancomycin Plan: 22mg/kg load Vancomycin dosing will take advantage of [employer] as a clinical decision support tool that uses Bayesian modeling to calculate individual patient's pharmacokinetic parameters and forecast the patient's drug concentration time course with the target goal AUC 24 range of 400 - 600 mg/L/hr.
[2022-01-12] MEDS: Insulin Lispro 100 UNIT/ML 3 ML VIAL SUBCUT ×3 (07:34→21:09)
[2022-01-12] MEDS: vancomycin HCL 1,500 MG in 0.9 % Sodium Chloride 500 ML 333.33 MG IV (07:35)
[2022-01-12 08:26] LABS: Folate 12.6 ng/mL (> or = 4.0); Vitamin B12 716 pg/mL (200-900)
[2022-01-12 08:48] LABS: Immature Retic Fraction 29.4 % (2.3-13.4); Reticulocyte Percent 1.6 % (0.5-1.8)
[2022-01-12 09:03] LABS: C Reactive Protein 3.36 mg/dL (< or = 0.50); Lactate Dehydrogenase 186 U/L (118-273)
[2022-01-12 09:36] LABS: INTERNATIONAL NORM RATIO 1.4 (0.9-1.1); Prothrombin Time 15.7 SEC (9.9-13.0)
[2022-01-12 10:37] LABS: Procalcitonin 2.03 ng/mL
--- NOTE | 2022-01-12 12:09 | PM.EVENT ---
Event Note Date of Service: 01/12/22 Event Note: day hospitalist update S This history was taken in French from the patient. Fever resolved No abd pain Chest pain resolved Quit EtOH after heavy use about 4yr ago. Denies hepatitis or other liver problems O Last Vital Signs Temp 98.9 F 01/12/22 05:40 Pulse 79 01/12/22 07:17 Resp 21 H 01/12/22 07:17 BP 113/69 01/12/22 07:17 Pulse Ox 98 01/12/22 07:17 O2 Del Method 01/12/22 07:17 BMI result Body Mass Index 25.7 Gen: in no acute distress HEENT: sclera anicteric, moist mucus membranes Neck: supple Lungs: clear to auscultation bilaterally Heart: regular rate and rhythm, no murmurs Abd: soft, non-tender, non-distended Ext: no edema Skin: warm/well-perfused Neuro: alert and oriented x3, no focal findings Psych: appropriate affect A/P 56yo M with HTN, DM2 presenting with chest pain + found to be febrile, admitted for sepsis and found to have GPC bacteremia # severe sepsis # bacteremia - follow identification/susceptibilities, ceftriaxone + vancomycin d#1, TTE, surveillance BCx, ID consult # cirrhosis - not decompensated. ?cause. check HBV/HCV. US pending. GI consult. # iron deficiency anemia - FOBT, monitor Hb, avoid heparinoids # thrombocytopenia - due to cirrhosis vs. sepsis? monitor + avoid heparinoids # HTN - holding lisinopril # chest pain, atypical - resolved, hs-Tn-I x3 flat # DM2 - A1c 11.6, give correction-dose lispro, not on any home meds # VTE ppx - SCDs In my clinical judgment, the patient requires continued hospitalization for the following reasons: IV ABX for bacteremia
--- NOTE | 2022-01-12 12:14 | PHA.MEDREC ---
Pharmacy Consult ? Medication Reconciliation Pharmacy has completed the medication reconciliation. SPOKE WITH PT
--- NOTE | 2022-01-12 12:25 | PM.GICN ---
History of Present Illness Data of Consult Service Date: 01/12/22 Requesting physician: Dale Hewitt Primary Care Provider: Unknown Physician HPI Reason for consult: fever, cirrhosis 56-year-old male with a past medical history of hypertension, diabetes-not on medications; who I am seeing for assessment for cirrhosis and fever. He initially presented with central chest tightness radiating into the left arm worse with exertion asscoiated with SOB, dry mouth and feeling of the heart racing. He was noted to have fever but denies night sweats, no productive cough or sputum, sick contacts. He also describes a chronic epigastric burning pain for 3-4 yrs, takes ibuprofen on average 3 times a week for years. he also has reflux but denies dysphagia, only takes tums, no PPI per his report. This pain is worsened with food of any type. No diarrhea, no constiaption, no rectal bleeding no melena. He use to be heavy drinker of bacardi and rum but not drank for years. TESTS: troponins x3 were negative; EKG w/ poor r wave progression, no acute changes mild lactic acidosis. thrombocytopenia.' microcytic anemia, ferritin 24, low iron sat CT - possible cirrhosis, fluid filled small bowel, diverticulosis Review of Systems Review of Systems: Constitutional : No Weight loss, + Fever, No Chills ENT/Mouth : No sore throat, No Rhinorrhea Eyes: No Swelling, No Redness Cardiovascular :+ Chest Pain, + SOB, No Edema Respiratory : No Cough, No Sputum, No Wheezing Gastrointestinal : see HPI Genitourinary : NO Dysuria, No Urinary Frequency, No Hematuria, No Urgency Musculoskeletal : No joint pain, No Myalgias, No Joint Swelling Skin : No Skin Lesions, No rash Neuro : No Weakness, No Numbness, No Dizziness, No Headache Psych : No Anxiety/Panic, No Depression Heme/Lymph: No Bruising, No Lymphadenopathy Endocrine : No Polyuria, No Polydipsia All other systems reviewed and are negative. [facility] Past Medical History Medical History (Updated 01/12/22 @ 19:01 by Kellen Canseco MD) Diabetes Family History Pertinent family history: heart disease no liver disease Social History Social History Patient Tobacco Use Status: Never used Tobacco Advance Directives: No Meds Allergies Allergy/AdvReac Type Severity Reaction Status Date / Time No Known Allergies Allergy Verified 01/11/22 19:35 Active Medications: Current Medications Acetaminophen (Acetaminophen 325 Mg Tablet) 650 mg PO Q6H PRN PRN Reason: Pain, Mild (Pain Scale 1-3) Dextrose (Dextrose 50 % 25 Gm/50 Ml Syringe) 25 gm IVPUSH Q15M PRN; Protocol PRN Reason: per Hypoglycemia Standing Ord. Doxycycline Hyclate (Doxycycline Hyclate 100 Mg Tablet) 100 mg PO Q12H [facility] Last Admin: 01/12/22 07:35 Dose: 100 mg Glucose (Glucose Gel 15 Gm Gel..Gram.) 15 gm PO Q15M PRN; Protocol PRN Reason: per Hypoglycemia Standing Ord. Sodium Chloride (Ns) 1,000 mls @ 100 mls/hr IVCONT .Q10H [facility] Last Admin: 01/12/22 05:36 Dose: 100 mls/hr Ceftriaxone Sodium 1 gm/ (Sodium Chloride) 50 mls @ 100 mls/hr IV Q24H [facility] Vancomycin HCl 1,000 mg/ (Sodium Chloride) 270 mls @ 270 mls/hr IV Q12H [facility] Insulin Human Lispro (Insulin Lispro 100 Unit/Ml 3 Ml Vial) 0 unit SUBCUT QIDACHS [facility]; Protocol Last Admin: 01/12/22 07:34 Dose: 6 unit Melatonin (Melatonin 3 Mg Tablet) 6 mg PO BEDTIME PRN PRN Reason: Insomnia Pharmacy Consult (Consult Rx Vancomycin Dosing) 1 each MISCELLANE DAILY PRN PRN Reason: Consult order Senna (Sennosides 8.6 Mg Tablet) 17.2 mg PO BEDTIME PRN PRN Reason: Constipation Sodium Chloride (0.9 % Sodium Chloride Flush 3 Ml Syringe) 3 ml IVFLUSH QSHIFT [facility] Last Admin: 01/12/22 07:29 Dose: Not Given Home Medications Medication Instructions Recorded Confirmed Last Taken Type glipizide 5 mg tablet, extended 5 mg PO BID 01/12/22 01/12/22 Unknown History release 24 hr lisinopril 10 mg tablet 10 mg PO DAILY 01/12/22 01/12/22 Unknown History Physical Exam Vital Signs: Vital Signs: Last Vital Signs Temp 98.9 F 01/12/22 05:40 Pulse 79 01/12/22 07:17 Resp 21 H 01/12/22 07:17 BP 113/69 01/12/22 07:17 Pulse Ox 98 01/12/22 07:17 O2 Del Method 01/12/22 07:17 BMI result Body Mass Index 25.7 EXAM: GENERAL: The patient is lethargic VITAL SIGNS:see workflow HEENT: Nonicteric sclerae, PERRLA, EOMI. Oropharynx clear. Moist mucous membranes. Conjunctivae appear well perfused. No thyroid mass. CHEST: Chest wall is nontender. HEART: Regular rate and rhythm without murmurs. LUNGS: Clear to auscultation bilaterally. ABDOMEN: Soft, positive bowel sounds, nontender, no organomegaly.no flank tenderness SKIN: No rash, no excessive bruising, petechiae, or purpura. NEUROLOGIC: Cranial nerves II-XII intact without motor/sensory deficit. psych-nml affect Const: General: cooperative HEENT: Head: Yes normal to inspection Mouth: Normal oral and palatal mucosa present Resp: Effort & Inspection: normal respiratory effort Cardio: Rate: regular rate Rhythm: regular rhythm GI: Palpation (GI): Soft to palpation and nontender Extrem: General: Yes normal to inspection Results Labs CBC & Chem 7: 01/12/22 05:55 01/12/22 05:55 Labs: Short CBC 01/11/22 01/12/22 Range/Units 19:41 05:55 WBC 9.6 7.8 (4.8-10.8) X10*3/uL Hgb 10.1 L 9.2 L (14.0-18.0) g/dl Hct 33.3 L 31.0 L (42.0-52.0) % Plt Count 72 L 60 L (160-400) X10*3/uL BMP 01/11/22 01/12/22 19:41 05:55 Sodium 132 L 136 Potassium 3.9 4.2 Chloride 101 104 Carbon Dioxide 22 26 BUN 7 L 9 Creatinine 0.77 0.80 Calcium 8.8 8.1 L D Liver Function 01/11/22 Range/Units 19:41 Total Bilirubin 0.9 (0.0-1.0) mg/dL Direct Bilirubin 0.4 (0.0-0.5) mg/dL AST 43 H (5-37) U/L ALT 40 (0-40) U/L Alkaline Phosphatase 191 H (39-117) U/L Albumin 3.8 (3.5-5.0) g/dL Urine 01/11/22 Range/Units 21:06 Urine Color YELLOW Urine Appearance CLEAR Urine pH 6.5 (5.0-8.0) Ur Specific [place] 1.010 (1.005-1.025) Urine Protein NEG (NEG-TRACE) MG/DL Urine Glucose (UA) >=1000 H (NEG) MG/DL Microbiology Microbiology Results: Microbiology 01/11/22 20:25 Blood - Venous Blood Culture - Preliminary Prelim: GPC Gram Stain only ECG Attestation: I personally reviewed and interpreted this ECG as follows: (poor r wave progression, sinus tach) Assessment and Plan (1) Cirrhosis: Qualifiers: Hepatic cirrhosis type: unspecified hepatic cirrhosis Ascites presence: without ascites Qualified Code(s): K74.60 - Unspecified cirrhosis of liver Status: Acute (2) Fever: Qualifiers: Fever type: unspecified Qualified Code(s): R50.9 - Fever, unspecified Status: Acute Plan 1/Imaging and biochemical suspicion for cirrhosis possibly OLIVARES related or from prior alcohol use. Hep B/C status unknown. 2/ Chest pain with abn ECG, being seen by cardiology 3/ Fever with GPC on bld culture, no ascites on CT imaging, but mesenteric stranding noted 4/ Microcytic anemia, low iron indices, maybe due to low level blood loss, chronic gastritis and nsaid use PLAN: 1/ Needs to complete cardiac work up first 2/ o/p liver work up 3/ o/p EGD and colonoscopy unless he has overt GIB or worsening anemia 4/ [facility] status 5/ make usre up to date with pneumovax and other vaccines 6/ would commence on pantoprazole 40 mg daily, check H pylori first if possible Procedures Date of Service Date of Service: 01/12/22
--- NOTE | 2022-01-12 13:14 | MHC.CM.PN ---
Attempted to meet with patient in regards to discharge planning. Patient currently sleeping. No family present. Will attempt to meet again. Continue to monitor for d/c needs.
[2022-01-12 14:00] LABS: Glucose, Whole Blood 188 mg/dL (60-115)
--- NOTE | 2022-01-12 14:45 | P.CNID_ITS ---
History of Present Illness Data of Consult Service Date: 01/12/22 Requesting physician: Dale Hewitt Primary Care Provider: Unknown Physician HPI Reason for consult: fever of unknown origin,bacteremia He presents with temperature of 103 as well as fatigue. He has alcohol use disorder. He has no specific focal symptoms. CT abdomen and pelvis cirrhosis and splenomegaly but no ascites mentioned. Review of Systems Review of Systems: Yes all other systems are reviewed and are negative PMFSH Past Medical History Medical History (Updated 01/12/22 @ 14:49 by Denisa Sanchez MD) Bacteremia Diabetes Family History Family history: reviewed and not pertinent Social History Social History Patient Tobacco Use Status: Never used Tobacco Advance Directives: No Meds Allergies Allergy/AdvReac Type Severity Reaction Status Date / Time No Known Allergies Allergy Verified 01/11/22 19:35 Active Medications: Current Medications Acetaminophen (Acetaminophen 325 Mg Tablet) 650 mg PO Q6H PRN PRN Reason: Pain, Mild (Pain Scale 1-3) Dextrose (Dextrose 50 % 25 Gm/50 Ml Syringe) 25 gm IVPUSH Q15M PRN; Protocol PRN Reason: per Hypoglycemia Standing Ord. Doxycycline Hyclate (Doxycycline Hyclate 100 Mg Tablet) 100 mg PO Q12H [facility] Last Admin: 01/12/22 07:35 Dose: 100 mg Glucose (Glucose Gel 15 Gm Gel..Gram.) 15 gm PO Q15M PRN; Protocol PRN Reason: per Hypoglycemia Standing Ord. Sodium Chloride (Ns) 1,000 mls @ 100 mls/hr IVCONT .Q10H [facility] Last Admin: 01/12/22 14:27 Dose: 100 mls/hr Ceftriaxone Sodium 1 gm/ (Sodium Chloride) 50 mls @ 100 mls/hr IV Q24H [facility] Vancomycin HCl 1,000 mg/ (Sodium Chloride) 270 mls @ 270 mls/hr IV Q12H [facility] Insulin Human Lispro (Insulin Lispro 100 Unit/Ml 3 Ml Vial) 0 unit SUBCUT QIDACHS [facility]; Protocol Last Admin: 01/12/22 14:11 Dose: Not Given Melatonin (Melatonin 3 Mg Tablet) 6 mg PO BEDTIME PRN PRN Reason: Insomnia Pharmacy Consult (Consult Rx Vancomycin Dosing) 1 each MISCELLANE DAILY PRN PRN Reason: Consult order Senna (Sennosides 8.6 Mg Tablet) 17.2 mg PO BEDTIME PRN PRN Reason: Constipation Sodium Chloride (0.9 % Sodium Chloride Flush 3 Ml Syringe) 3 ml IVFLUSH QSHIFT [facility] Last Admin: 01/12/22 07:29 Dose: Not Given Home Medications Medication Instructions Recorded Confirmed Last Taken Type glipizide 5 mg tablet, extended 5 mg PO BID 01/12/22 01/12/22 Unknown History release 24 hr lisinopril 10 mg tablet 10 mg PO DAILY 01/12/22 01/12/22 Unknown History Physical Exam Vital Signs: Vital Signs: Last Vital Signs Temp 98.9 F 01/12/22 05:40 Pulse 79 01/12/22 07:17 Resp 21 H 01/12/22 07:17 BP 113/69 01/12/22 07:17 Pulse Ox 98 01/12/22 07:17 O2 Del Method 01/12/22 07:17 BMI result Body Mass Index 25.7 Const: General: cooperative HEENT: Head: Yes normal to inspection Mouth: Normal oral and palatal mucosa present Resp: Effort & Inspection: normal respiratory effort Cardio: Rate: regular rate Rhythm: regular rhythm GI: Palpation (GI): Soft to palpation and nontender Extrem: General: Yes normal to inspection Results Labs CBC & Chem 7: 01/12/22 05:55 01/12/22 05:55 Labs: Short CBC 01/11/22 01/12/22 Range/Units 19:41 05:55 WBC 9.6 7.8 (4.8-10.8) X10*3/uL Hgb 10.1 L 9.2 L (14.0-18.0) g/dl Hct 33.3 L 31.0 L (42.0-52.0) % Plt Count 72 L 60 L (160-400) X10*3/uL BMP 01/11/22 01/12/22 19:41 05:55 Sodium 132 L 136 Potassium 3.9 4.2 Chloride 101 104 Carbon Dioxide 22 26 BUN 7 L 9 Creatinine 0.77 0.80 Calcium 8.8 8.1 L D Liver Function 01/11/22 Range/Units 19:41 Total Bilirubin 0.9 (0.0-1.0) mg/dL Direct Bilirubin 0.4 (0.0-0.5) mg/dL AST 43 H (5-37) U/L ALT 40 (0-40) U/L Alkaline Phosphatase 191 H (39-117) U/L Albumin 3.8 (3.5-5.0) g/dL Urine 01/11/22 Range/Units 21:06 Urine Color YELLOW Urine Appearance CLEAR Urine pH 6.5 (5.0-8.0) Ur Specific [place] 1.010 (1.005-1.025) Urine Protein NEG (NEG-TRACE) MG/DL Urine Glucose (UA) >=1000 H (NEG) MG/DL Microbiology Microbiology Results: Microbiology 01/11/22 20:25 Blood - Venous Blood Culture - Preliminary Prelim: GPC Gram Stain only Assessment and Plan (1) Fever: Qualifiers: Fever type: unspecified Qualified Code(s): R50.9 - Fever, unspecified Status: Acute (2) Bacteremia: Status: Acute Fever likely due to bacteremia He may have skin source and [place] typeable Group A or B strep bacteria. He may have enterococcus,but doubt SBE is no ascites. Plan Continue Vancomycin and Ceftriaxone until organism in blood identified ?even contaminant. Consider abdominal u/s check for ascites Check echo evaluate endocarditis.
--- NOTE | 2022-01-12 15:17 | P.CONCA_ITS ---
History of Present Illness History of Present Illness Date of Service: 01/12/22 Requesting physician: Dale Hewitt Chief complaint: fever, chest pain Narrative: 56-year-old gentleman who is presenting with fever and chest discomfort. He is describing a pressure-like feeling which happened yesterday when he was coming back from [place]. He said he did not feel good and went back home to rest. He then called his friend and came to the emergency department. He has risk factor for coronary artery disease. Father had NH in his 70s and from heart attack. He is saying he did not have similar chest pressure before. He is quite vague in his description of symptoms as well as duration. Overall history is quite limited. He also has been experiencing fevers at home and inside the hospital has had fever as high as 103.1. [facility] Past Medical History Medical History (Updated 01/12/22 @ 15:20 by Jake Valencia MD) Bacteremia Diabetes Family History Family history: reviewed and not pertinent Social History Social History Patient Tobacco Use Status: Never used Tobacco Advance Directives: No Meds Allergies Allergy/AdvReac Type Severity Reaction Status Date / Time No Known Allergies Allergy Verified 01/11/22 19:35 Active Medications: Current Medications Acetaminophen (Acetaminophen 325 Mg Tablet) 650 mg PO Q6H PRN PRN Reason: Pain, Mild (Pain Scale 1-3) Dextrose (Dextrose 50 % 25 Gm/50 Ml Syringe) 25 gm IVPUSH Q15M PRN; Protocol PRN Reason: per Hypoglycemia Standing Ord. Doxycycline Hyclate (Doxycycline Hyclate 100 Mg Tablet) 100 mg PO Q12H [facility] Last Admin: 01/12/22 07:35 Dose: 100 mg Glucose (Glucose Gel 15 Gm Gel..Gram.) 15 gm PO Q15M PRN; Protocol PRN Reason: per Hypoglycemia Standing Ord. Sodium Chloride (Ns) 1,000 mls @ 100 mls/hr IVCONT .Q10H [facility] Last Admin: 01/12/22 14:27 Dose: 100 mls/hr Ceftriaxone Sodium 1 gm/ (Sodium Chloride) 50 mls @ 100 mls/hr IV Q24H [facility] Vancomycin HCl 1,000 mg/ (Sodium Chloride) 270 mls @ 270 mls/hr IV Q12H [facility] Insulin Human Lispro (Insulin Lispro 100 Unit/Ml 3 Ml Vial) 0 unit SUBCUT QIDACHS [facility]; Protocol Last Admin: 01/12/22 14:11 Dose: Not Given Melatonin (Melatonin 3 Mg Tablet) 6 mg PO BEDTIME PRN PRN Reason: Insomnia Pharmacy Consult (Consult Rx Vancomycin Dosing) 1 each MISCELLANE DAILY PRN PRN Reason: Consult order Senna (Sennosides 8.6 Mg Tablet) 17.2 mg PO BEDTIME PRN PRN Reason: Constipation Sodium Chloride (0.9 % Sodium Chloride Flush 3 Ml Syringe) 3 ml IVFLUSH QSHIFT [facility] Last Admin: 01/12/22 07:29 Dose: Not Given Home Medications Medication Instructions Recorded Confirmed Last Taken Type glipizide 5 mg tablet, extended 5 mg PO BID 01/12/22 01/12/22 Unknown History release 24 hr lisinopril 10 mg tablet 10 mg PO DAILY 01/12/22 01/12/22 Unknown History Physical Exam Vital Signs: Vital Signs: Last Vital Signs Temp 98.9 F 01/12/22 05:40 Pulse 79 01/12/22 07:17 Resp 21 H 01/12/22 07:17 BP 113/69 01/12/22 07:17 Pulse Ox 98 01/12/22 07:17 O2 Del Method 01/12/22 07:17 BMI result Body Mass Index 25.7 GENERAL APPEARANCE: in no acute distress, pleasant. NECK: no carotid bruit, no jugular venous distention. SKIN: no suspicious lesions, warm and dry. HEART: no murmurs, regular rate and rhythm. LUNGS: clear to auscultation bilaterally. ABDOMEN: soft, nontender. EXTREMITIES: no edema. PERIPHERAL PULSES: equal. NEUROLOGIC: No gross deficits, AAO X 3 Objective Labs and Meds Result diagrams: 01/12/22 05:55 01/12/22 05:55 Lab results: Laboratory Results - last 24 hr 01/11/22 01/11/22 01/11/22 19:41 19:41 19:41 WBC 9.6 RBC 4.79 Hgb 10.1 L Hct 33.3 L MCV 69.5 L MCH 21.1 L MCHC 30.3 L RDW 19.5 H Plt Count 72 L MPV 9.4 Immature Gran % (Auto) 0.5 H Neut % (Auto) 88.8 H Lymph % (Auto) 5.6 L [place] % (Auto) 4.8 Eos % (Auto) 0.2 Baso % (Auto) 0.1 Lymph # (Auto) 0.5 L [place] # (Auto) 0.5 Eos # (Auto) 0.0 Baso # (Auto) 0.0 Abs Immat Gran (auto) 0.05 H Absolute Neuts (auto) 8.5 H Absolute Nucleated RBC 0.000 Nucleated RBC % (auto) 0.0 Smear Tech's Comments VERIFIED Absolute Retic Percent Retic Immature Retic Fraction Retic Hgb Equivalent PT INR D-Dimer High Sensitivty Sodium 132 L Potassium 3.9 Chloride 101 Carbon Dioxide 22 Anion Gap 13 BUN 7 L Creatinine 0.77 Estim Creat Clear Calc 91.8 Estimated GFR > 60 POC Glucose Random Glucose 334 H Estimat Average Glucose Hemoglobin A1c % Lactic Acid Lactic Acid F/U @ 2Hr Calcium 8.8 Magnesium 1.6 Iron TIBC % Saturation Unsat Iron Binding Ferritin Total Bilirubin 0.9 Direct Bilirubin 0.4 AST 43 H ALT 40 Alkaline Phosphatase 191 H Lactate Dehydrogenase Troponin I High Sens 6.0 C-Reactive Protein Total Protein 6.8 Albumin 3.8 Lipase 10 Vitamin B12 Folate Procalcitonin Urine Color Urine Appearance Urine pH Ur Specific [place] Urine Protein Urine Glucose (UA) Urine Ketones Urine Blood Urine Nitrite Ur Leukocyte Esterase Urine RBC Urine WBC Ur Squamous Epith Cells Urine Bacteria Urine Yeast COVID-19 (JACKIE) COVID-19 Clin Com Influenza Type A (DEMARCUS) Influenza Type B (DEMARCUS) Influenza A & B Note 01/11/22 01/11/22 01/11/22 19:41 19:41 19:42 WBC RBC Hgb Hct MCV MCH MCHC RDW Plt Count MPV Immature Gran % (Auto) Neut % (Auto) Lymph % (Auto) [place] % (Auto) Eos % (Auto) Baso % (Auto) Lymph # (Auto) [place] # (Auto) Eos # (Auto) Baso # (Auto) Abs Immat Gran (auto) Absolute Neuts (auto) Absolute Nucleated RBC Nucleated RBC % (auto) Smear Tech's Comments Absolute Retic Percent Retic Immature Retic Fraction Retic Hgb Equivalent PT INR D-Dimer High Sensitivty Sodium Potassium Chloride Carbon Dioxide Anion Gap BUN Creatinine Estim Creat Clear Calc Estimated GFR POC Glucose Random Glucose Estimat Average Glucose 286 Hemoglobin A1c % 11.6 Lactic Acid 2.4 H* Lactic Acid F/U @ 2Hr Calcium Magnesium Iron TIBC % Saturation Unsat Iron Binding Ferritin Total Bilirubin Direct Bilirubin AST ALT Alkaline Phosphatase Lactate Dehydrogenase Troponin I High Sens C-Reactive Protein Total Protein Albumin Lipase Vitamin B12 Folate Procalcitonin Urine Color Urine Appearance Urine pH Ur Specific [place] Urine Protein Urine Glucose (UA) Urine Ketones Urine Blood Urine Nitrite Ur Leukocyte Esterase Urine RBC Urine WBC Ur Squamous Epith Cells Urine Bacteria Urine Yeast COVID-19 (JACKIE) COVID-19 Clin Com Influenza Type A (DEMARCUS) Negative Influenza Type B (DEMARCUS) Negative Influenza A & B Note See Note 01/11/22 01/11/22 01/11/22 19:43 19:51 21:06 WBC RBC Hgb Hct MCV MCH MCHC RDW Plt Count MPV Immature Gran % (Auto) Neut % (Auto) Lymph % (Auto) [place] % (Auto) Eos % (Auto) Baso % (Auto) Lymph # (Auto) [place] # (Auto) Eos # (Auto) Baso # (Auto) Abs Immat Gran (auto) Absolute Neuts (auto) Absolute Nucleated RBC Nucleated RBC % (auto) Smear Tech's Comments Absolute Retic Percent Retic Immature Retic Fraction Retic Hgb Equivalent PT INR D-Dimer High Sensitivty Sodium Potassium Chloride Carbon Dioxide Anion Gap BUN Creatinine Estim Creat Clear Calc Estimated GFR POC Glucose 319 H Random Glucose Estimat Average Glucose Hemoglobin A1c % Lactic Acid Lactic Acid F/U @ 2Hr Calcium Magnesium Iron TIBC % Saturation Unsat Iron Binding Ferritin Total Bilirubin Direct Bilirubin AST ALT Alkaline Phosphatase Lactate Dehydrogenase Troponin I High Sens C-Reactive Protein Total Protein Albumin Lipase Vitamin B12 Folate Procalcitonin Urine Color YELLOW Urine Appearance CLEAR Urine pH 6.5 Ur Specific [place] 1.010 Urine Protein NEG Urine Glucose (UA) >=1000 H Urine Ketones NEG Urine Blood NEG Urine Nitrite NEG Ur Leukocyte Esterase NEG Urine RBC 1-4 Urine WBC 1-4 Ur Squamous Epith Cells TRACE Urine Bacteria NONE Urine Yeast TRACE COVID-19 (JACKIE) Negative COVID-19 Clin Com See Note Influenza Type A (DEMARCUS) Influenza Type B (DEMARCUS) Influenza A & B Note 01/11/22 01/11/22 01/12/22 21:28 22:29 00:45 WBC RBC Hgb Hct MCV MCH MCHC RDW Plt Count MPV Immature Gran % (Auto) Neut % (Auto) Lymph % (Auto) [place] % (Auto) Eos % (Auto) Baso % (Auto) Lymph # (Auto) [place] # (Auto) Eos # (Auto) Baso # (Auto) Abs Immat Gran (auto) Absolute Neuts (auto) Absolute Nucleated RBC Nucleated RBC % (auto) Smear Tech's Comments Absolute Retic Percent Retic Immature Retic Fraction Retic Hgb Equivalent PT INR D-Dimer High Sensitivty Sodium Potassium Chloride Carbon Dioxide Anion Gap BUN Creatinine Estim Creat Clear Calc Estimated GFR POC Glucose Random Glucose Estimat Average Glucose Hemoglobin A1c % Lactic Acid Lactic Acid F/U @ 2Hr 1.7 Calcium Magnesium Iron TIBC % Saturation Unsat Iron Binding Ferritin Total Bilirubin Direct Bilirubin AST ALT Alkaline Phosphatase Lactate Dehydrogenase Troponin I High Sens 6.8 7.5 C-Reactive Protein Total Protein Albumin Lipase Vitamin B12 Folate Procalcitonin Urine Color Urine Appearance Urine pH Ur Specific [place] Urine Protein Urine Glucose (UA) Urine Ketones Urine Blood Urine Nitrite Ur Leukocyte Esterase Urine RBC Urine WBC Ur Squamous Epith Cells Urine Bacteria Urine Yeast COVID-19 (JACKIE) COVID-19 Clin Com Influenza Type A (DEMARCUS) Influenza Type B (DEMARCUS) Influenza A & B Note 01/12/22 01/12/22 01/12/22 05:55 05:55 05:55 WBC 7.8 RBC 4.39 L Hgb 9.2 L Hct 31.0 L MCV 70.6 L MCH 21.0 L MCHC 29.7 L RDW 19.5 H Plt Count 60 L MPV 9.1 L Immature Gran % (Auto) 0.6 H Neut % (Auto) 88.1 H Lymph % (Auto) 5.9 L [place] % (Auto) 5.3 Eos % (Auto) 0.1 Baso % (Auto) 0.0 Lymph # (Auto) 0.5 L [place] # (Auto) 0.4 Eos # (Auto) 0.0 Baso # (Auto) 0.0 Abs Immat Gran (auto) 0.05 H Absolute Neuts (auto) 6.9 Absolute Nucleated RBC 0.000 Nucleated RBC % (auto) 0.0 Smear Tech's Comments Absolute Retic 0.070 Percent Retic 1.6 Immature Retic Fraction 29.4 H Retic Hgb Equivalent 26.0 L PT INR D-Dimer High Sensitivty 1144 Sodium 136 Potassium 4.2 Chloride 104 Carbon Dioxide 26 Anion Gap 10 L BUN 9 Creatinine 0.80 Estim Creat Clear Calc 88.3 Estimated GFR > 60 POC Glucose Random Glucose 279 H Estimat Average Glucose Hemoglobin A1c % Lactic Acid Lactic Acid F/U @ 2Hr Calcium 8.1 L D Magnesium Iron 22 L TIBC 398 % Saturation 6 L Unsat Iron Binding 376 Ferritin Total Bilirubin Direct Bilirubin AST ALT Alkaline Phosphatase Lactate Dehydrogenase 186 Troponin I High Sens C-Reactive Protein 3.36 H Total Protein Albumin Lipase Vitamin B12 Folate Procalcitonin Urine Color Urine Appearance Urine pH Ur Specific [place] Urine Protein Urine Glucose (UA) Urine Ketones Urine Blood Urine Nitrite Ur Leukocyte Esterase Urine RBC Urine WBC Ur Squamous Epith Cells Urine Bacteria Urine Yeast COVID-19 (JACKIE) COVID-19 Clin Com Influenza Type A (DEMARCUS) Influenza Type B (DEMARCUS) Influenza A & B Note 01/12/22 01/12/22 01/12/22 05:55 05:55 05:55 WBC RBC Hgb Hct MCV MCH MCHC RDW Plt Count MPV Immature Gran % (Auto) Neut % (Auto) Lymph % (Auto) [place] % (Auto) Eos % (Auto) Baso % (Auto) Lymph # (Auto) [place] # (Auto) Eos # (Auto) Baso # (Auto) Abs Immat Gran (auto) Absolute Neuts (auto) Absolute Nucleated RBC Nucleated RBC % (auto) Smear Tech's Comments Absolute Retic Percent Retic Immature Retic Fraction Retic Hgb Equivalent PT 15.7 H INR 1.4 H D-Dimer High Sensitivty Sodium Potassium Chloride Carbon Dioxide Anion Gap BUN Creatinine Estim Creat Clear Calc Estimated GFR POC Glucose Random Glucose Estimat Average Glucose Hemoglobin A1c % Lactic Acid Lactic Acid F/U @ 2Hr Calcium Magnesium Iron TIBC % Saturation Unsat Iron Binding Ferritin 24 Total Bilirubin Direct Bilirubin AST ALT Alkaline Phosphatase Lactate Dehydrogenase Troponin I High Sens C-Reactive Protein Total Protein Albumin Lipase Vitamin B12 716 Folate 12.6 Procalcitonin Urine Color Urine Appearance Urine pH Ur Specific [place] Urine Protein Urine Glucose (UA) Urine Ketones Urine Blood Urine Nitrite Ur Leukocyte Esterase Urine RBC Urine WBC Ur Squamous Epith Cells Urine Bacteria Urine Yeast COVID-19 (JACKIE) COVID-19 Clin Com Influenza Type A (DEMARCUS) Influenza Type B (DEMARCUS) Influenza A & B Note 01/12/22 01/12/22 01/12/22 05:55 07:15 13:57 WBC RBC Hgb Hct MCV MCH MCHC RDW Plt Count MPV Immature Gran % (Auto) Neut % (Auto) Lymph % (Auto) [place] % (Auto) Eos % (Auto) Baso % (Auto) Lymph # (Auto) [place] # (Auto) Eos # (Auto) Baso # (Auto) Abs Immat Gran (auto) Absolute Neuts (auto) Absolute Nucleated RBC Nucleated RBC % (auto) Smear Tech's Comments Absolute Retic Percent Retic Immature Retic Fraction Retic Hgb Equivalent PT INR D-Dimer High Sensitivty Sodium Potassium Chloride Carbon Dioxide Anion Gap BUN Creatinine Estim Creat Clear Calc Estimated GFR POC Glucose 275 H 188 H Random Glucose Estimat Average Glucose Hemoglobin A1c % Lactic Acid Lactic Acid F/U @ 2Hr Calcium Magnesium Iron TIBC % Saturation Unsat Iron Binding Ferritin Total Bilirubin Direct Bilirubin AST ALT Alkaline Phosphatase Lactate Dehydrogenase Troponin I High Sens C-Reactive Protein Total Protein Albumin Lipase Vitamin B12 Folate Procalcitonin 2.03 Urine Color Urine Appearance Urine pH Ur Specific [place] Urine Protein Urine Glucose (UA) Urine Ketones Urine Blood Urine Nitrite Ur Leukocyte Esterase Urine RBC Urine WBC Ur Squamous Epith Cells Urine Bacteria Urine Yeast COVID-19 (JACKIE) COVID-19 Clin Com Influenza Type A (DEMARCUS) Influenza Type B (DEMARCUS) Influenza A & B Note Imaging Radiologist's impression: Impressions Chest X-Ray 01/11/22 20:17 IMPRESSION: Poor inspiratory effort, but grossly clear chest otherwise. Abdomen/Pelvis CT 01/11/22 22:30 IMPRESSION: CHEST: No acute abnormality ABDOMEN AND PELVIS: Findings suspicious for mild cirrhosis. Splenomegaly. Borderline dilated fluid-filled loops of small bowel uncertain significance. No definite obstruction. Findings in the mesentery and retroperitoneum with multiple subcentimeter lymph nodes nonspecific with minimal streaky nonspecific density in the mesentery. This could reflect edema or inflammatory change Chest CT 01/11/22 22:30 IMPRESSION: CHEST: No acute abnormality ABDOMEN AND PELVIS: Findings suspicious for mild cirrhosis. Splenomegaly. Borderline dilated fluid-filled loops of small bowel uncertain significance. No definite obstruction. Findings in the mesentery and retroperitoneum with multiple subcentimeter lymph nodes nonspecific with minimal streaky nonspecific density in the mesentery. This could reflect edema or inflammatory change Assessment and Plan (1) Chest pain: Status: Acute Plan 56 year gentleman presenting with fever and chest pain. He is describing a pressure-like feeling in his chest. This is the 1st time he ever felt this way. Biomarkers for inflammation are elevated. He also had high-grade fever. He is being worked for tick-borne disease. 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 He will need echocardiography to approved this and to assess his ejection fraction. I think as his fevers improved he will need an exercise stress tests. Obviously if he has cardiomyopathy on echocardiography or wall motion abnormalities then we may pursue diagnostic injured in him. This is yet to be decided. Currently focus is to find a cause and treat treat his fever. His troponins are negative. Thank you for allowing me to participate in the care of your patient. Please feel free to contact me if you have any questions. Procedures Date of Service Date of Service: 01/12/22
[2022-01-12 16:15] VITALS: BP 129/72; PULSE 88; RESP 27; O2SAT 95
[2022-01-12 17:19] VITALS: BP 131/80; PULSE 82; RESP 16; TEMP 36.8; O2SAT 97
[2022-01-12 17:25] LABS: Glucose, Whole Blood 208 mg/dL (60-115)
[2022-01-12 20:00] VITALS: BP 122/70; PULSE 83; RESP 16; TEMP 37.8; O2SAT 98
[2022-01-12 20:47] LABS: Glucose, Whole Blood 272 mg/dL (60-115)
[2022-01-12] MEDS: vancomycin HCL 1,000 MG in 0.9 % Sodium Chloride 250 ML 270 MG IV (21:10)
[2022-01-12] MEDS: cefTRIAXone sodium 1 GM in 0.9 % Sodium Chloride 50 ML IV (21:10)
[2022-01-13] MEDS: 0.9 % Sodium Chloride 1,000 ML 100 ML IVCONT ×3 (00:23→22:23)
[2022-01-13 02:40] VITALS: BP 152/76; PULSE 82; RESP 15; TEMP 37.1; O2SAT 96
[2022-01-13 07:01] LABS: Hematocrit 31.4 % (42.0-52.0)
[2022-01-13 07:03] LABS: Hemoglobin 9.3 g/dl (14.0-18.0); Mean Corpuscular HGB Conc 29.6 g/dl (31.0-36.0); Mean Corpuscular Hemoglobin 21.4 pg (27.0-33.0); Mean Corpuscular Volume 72.2 fL (80.0-98.0); Mean Platelet Volume 9.5 fL (9.4-12.4); Red Blood Count 4.35 X10*6/uL (4.60-5.80); Red Cell Distribution Width 19.7 % (11.0-16.0)
[2022-01-13 07:04] LABS: Platelet Count 50 X10*3/uL (160-400); White Blood Count 4.2 X10*3/uL (4.8-10.8)
[2022-01-13 07:32] LABS: Alanine Aminotransferase 37 U/L (0-40); Albumin Level 3.1 g/dL (3.5-5.0); Alkaline Phosphatase 142 U/L (39-117); Anion Gap 8 (12-20); Aspartate Amino Transferase 37 U/L (5-37); Bilirubin Total 0.7 mg/dL (0.0-1.0); Blood Urea Nitrogen 8 mg/dL (9-16); Carbon Dioxide 26 mmol/L (22-29); Chloride 106 mmol/L (96-108); Creatinine Clr Calc Pharmacy 95.5; Estimated Glomerular Filt Rate > 60; Glucose Random 245 mg/dL (60-115); Potassium 4.1 mmol/L (3.3-5.1); Sodium 136 mmol/L (135-145); Total Protein 5.6 g/dL (6.5-8.0)
[2022-01-13 07:53] LABS: Glucose, Whole Blood 227 mg/dL (60-115)
--- NOTE | 2022-01-13 07:58 | HE.PHANOTE ---
ROSALIE Rodriguez Continue current dose, next trough 01/13 @1800
[2022-01-13 08:00] VITALS: BP 129/71; PULSE 73; RESP 18; TEMP 36.7; O2SAT 96
[2022-01-13 08:50] LABS: HBS Num1 0.69 mIU/mL (0-7.99); HIV AB/AG Nonreactive (Nonreactive); HIV Num 1 0.06 S/CO (0.00-0.99); Hepatitis B Core Antibody Nonreactive (Nonreactive); Hepatitis B Surface Antigen Negative (Negative); ~HepC Num1 0.06 S/CO (0.00-0.79); ~Hepatitis B Surface Antibody NONREACTIVE (Nonreactive); ~Hepatitis C Antibody Nonreactive (Nonreactive)
[2022-01-13] MEDS: vancomycin HCL 1,000 MG in 0.9 % Sodium Chloride 250 ML 270 MG IV (09:28)
[2022-01-13] MEDS: Insulin Lispro 100 UNIT/ML 3 ML VIAL SUBCUT ×4 (09:30→20:40)
[2022-01-13] MEDS: 0.9 % Sodium Chloride Flush 3 ML SYRINGE IVFLUSH ×3 (09:30→20:40)
[2022-01-13 11:29] LABS: Glucose, Whole Blood 280 mg/dL (60-115)
[2022-01-13 11:49] VITALS: BP 120/77; PULSE 76; RESP 18; TEMP 36.6; O2SAT 96
--- NOTE | 2022-01-13 12:17 | MHC.CM.PN ---
Male 56 DX FEVER Chest pain He lives by himself. He is independent with all functional mobility. No PCP, [facility] list provided. Education re HCP. The patient declined the offer to document. A financial consult referral has been faxed. The patient states that he has health insurance. He does not have any information, Name or type of insurance. DP home no services, private transport.
--- NOTE | 2022-01-13 12:37 | PM.PNCARD ---
Subjective Subjective Date of Service: 01/13/22 <ROLA Roper - Last Filed: 01/13/22 12:53> 01/13/22 <Jake Valencia MD - Last Filed: 01/13/22 14:50> Principal diagnosis: Chest pain, bactermia, thrombocytopenia <ROLA Roper - Last Filed: 01/13/22 12:53> Interval history: Seen at 1000. Today he reports feeling better overall. No longer febrile. Does report discomfort in mid chest if he takes deep inspiration. No other CPs. No sob, palpitation, dizziness, edema. Tele shows table SR, without ectopy. <ROLA Roper - Last Filed: 01/13/22 12:53> Review of Systems Review of Systems as above <ROLA Roper - Last Filed: 01/13/22 12:53> Yes all other systems are reviewed and are negative <ROLA Roper - Last Filed: 01/13/22 12:53> Physical Exam Vital Signs: Last Vital Signs Temp 97.8 F 01/13/22 11:49 Pulse 76 01/13/22 11:49 Resp 18 01/13/22 11:49 BP 120/77 01/13/22 11:49 Pulse Ox 96 01/13/22 11:49 O2 Del Method 01/13/22 11:49 BMI result Body Mass Index 25.7 <ROLA Roper - Last Filed: 01/13/22 12:53> Const General: cooperative, no acute distress, alert and awake <ROLA Roper - Last Filed: 01/13/22 12:53> HEENT Head: Yes normal to inspection <ROLA Roper - Last Filed: 01/13/22 12:53> Neck Neck: Yes normal visual inspection <ROLA Roper Last Filed: 01/13/22 12:53> Resp Effort & Inspection: normal respiratory effort, able to speak in complete sentences and not labored <ROLA Roper - Last Filed: 01/13/22 12:53> Auscultation: clear to auscultation bilaterally, no crackles, no rales, no rhonchi and no wheezes <ROLA Roper - Last Filed: 01/13/22 12:53> Cardio Rate: regular rate <ROLA Roper - Last Filed: 01/13/22 12:53> Rhythm: regular rhythm <ROLA Roper Last Filed: 01/13/22 12:53> Heart sounds: S1 normal heart sound present and S2 normal heart sound present <ROLA Roper - Last Filed: 01/13/22 12:53> GI Inspection: Yes normal to inspection <ROLA Roper Last Filed: 01/13/22 12:53> Extrem General: Yes normal to inspection and No edema <ROLA Roper - Last Filed: 01/13/22 12:53> Objective Labs and Meds Result diagrams: : 01/13/22 06:42 01/13/22 06:42 <ROLA Roper - Last Filed: 01/13/22 12:53> Lab results: Laboratory Results - last 24 hr 01/12/22 01/12/22 01/12/22 13:57 17:17 20:42 WBC RBC Hgb Hct MCV MCH MCHC RDW Plt Count MPV Absolute Nucleated RBC Nucleated RBC % (auto) Sodium Potassium Chloride Carbon Dioxide Anion Gap BUN Creatinine Estim Creat Clear Calc Estimated GFR POC Glucose 188 H 208 H 272 H Random Glucose Calcium Total Bilirubin AST ALT Alkaline Phosphatase Total Protein Albumin Hep Bs Antigen Hep Bs Antibody Hep B Core Total Ab Hepatitis C Ab (EIA) HIV 1&2 Ab/P24 Ag 4thGn 01/13/22 01/13/22 01/13/22 06:42 06:42 06:42 WBC 4.2 L RBC 4.35 L Hgb 9.3 L Hct 31.4 L MCV 72.2 L MCH 21.4 L MCHC 29.6 L RDW 19.7 H Plt Count 50 L MPV 9.5 Absolute Nucleated RBC 0.000 Nucleated RBC % (auto) 0.0 Sodium 136 Potassium 4.1 Chloride 106 Carbon Dioxide 26 Anion Gap 8 L BUN 8 L Creatinine 0.74 Estim Creat Clear Calc 95.5 Estimated GFR > 60 POC Glucose Random Glucose 245 H Calcium 8.0 L Total Bilirubin 0.7 AST 37 ALT 37 Alkaline Phosphatase 142 H D Total Protein 5.6 L Albumin 3.1 L Hep Bs Antigen Negative Hep Bs Antibody NONREACTIVE Hep B Core Total Ab Nonreactive Hepatitis C Ab (EIA) Nonreactive HIV 1&2 Ab/P24 Ag 4thGn Nonreactive 01/13/22 01/13/22 07:13 11:15 WBC RBC Hgb Hct MCV MCH MCHC RDW Plt Count MPV Absolute Nucleated RBC Nucleated RBC % (auto) Sodium Potassium Chloride Carbon Dioxide Anion Gap BUN Creatinine Estim Creat Clear Calc Estimated GFR POC Glucose 227 H 280 H Random Glucose Calcium Total Bilirubin AST ALT Alkaline Phosphatase Total Protein Albumin Hep Bs Antigen Hep Bs Antibody Hep B Core Total Ab Hepatitis C Ab (EIA) HIV 1&2 Ab/P24 Ag 4thGn <ROLA Roper - Last Filed: 01/13/22 12:53> Imaging Radiologist's impression: Impressions Abdomen Ultrasound 01/12/22 17:09 IMPRESSION: 1. Findings are consistent with cirrhosis. Discoid clinically. No focal hepatic mass or intrahepatic biliary ductal dilatation is seen. 2. There is gallbladder wall thickening, without calculus noted. The possibility of acalculous cholecystitis is raised. Please correlate clinically. If of continued clinical concern, this could be further evaluated with nuclear HIDA scan. EXAMINATION: COMPLETE DUPLEX ULTRASOUND OF THE ABDOMEN CLINICAL INFORMATION: Mild elevation of serum alkaline phosphatase level.. COMPARISON: None. TECHNIQUE: Real-time abdominal ultrasound performed. Duplex Doppler ultrasound and pulse wave Doppler with spectral analysis were also performed. FINDINGS: The main, right, and left portal veins demonstrate normal corrected hepato-petal venous waveforms. The right, middle, and left hepatic veins demonstrates normal hepatofugal venous waveforms. The hepatic artery demonstrates normal arterial waveforms. The splenic vein demonstrates normal direction of flow. No evidence for venous thrombosis. There is splenomegaly, with a longitudinal span of 15.7 cm. The proximal abdominal aorta and IVC are normal in appearance. IMPRESSION: 1. Unremarkable abdominal duplex evaluation. 2. There is splenomegaly. Doppler Study Ultrasound 01/12/22 17:09 IMPRESSION: 1. Findings are consistent with cirrhosis. Discoid clinically. No focal hepatic mass or intrahepatic biliary ductal dilatation is seen. 2. There is gallbladder wall thickening, without calculus noted. The possibility of acalculous cholecystitis is raised. Please correlate clinically. If of continued clinical concern, this could be further evaluated with nuclear HIDA scan. EXAMINATION: COMPLETE DUPLEX ULTRASOUND OF THE ABDOMEN CLINICAL INFORMATION: Mild elevation of serum alkaline phosphatase level.. COMPARISON: None. TECHNIQUE: Real-time abdominal ultrasound performed. Duplex Doppler ultrasound and pulse wave Doppler with spectral analysis were also performed. FINDINGS: The main, right, and left portal veins demonstrate normal corrected hepato-petal venous waveforms. The right, middle, and left hepatic veins demonstrates normal hepatofugal venous waveforms. The hepatic artery demonstrates normal arterial waveforms. The splenic vein demonstrates normal direction of flow. No evidence for venous thrombosis. There is splenomegaly, with a longitudinal span of 15.7 cm. The proximal abdominal aorta and IVC are normal in appearance. IMPRESSION: 1. Unremarkable abdominal duplex evaluation. 2. There is splenomegaly. <ROLA Roper - Last Filed: 01/13/22 12:53> Progress Note: A&P Assessment and plan (1) Chest pain: Status: Acute <ROLA Roper - Last Filed: 01/13/22 12:53> Assessment and Plan: Report of chest pain and fever on admit. No known cardiac hx. 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 Troponins normal. CRP elevated. Echo showed normal EF, No regional WMA, mild increase in RV size, normal valves, normal pericardium. No ACS. He was noted to have bactermia and is being followed by hospitalist and ID. He is on IV antibiotics and no longer febrile. repeat blood cultures drawn today are still pending. If blood cultures are again positive, then he may need FAN. He is still reporting a pain in his mid chest with deep inspiration. CT of chest done on admit, did not show any lung or pleural abnormalities. We will follow. <ROLA Roper - Last Filed: 01/13/22 12:53> (2) Bacteremia: Status: Acute <ROLA Roper - Last Filed: 01/13/22 12:53> Assessment and Plan: Patient seen at bedside. Significant issues going on and he is being worked up for his fevers. He also has positive blood cultures. Once he improves from his medical issues and we can consider stress testing inpatient versus outpatient. Thank you for allowing me to participate in the care of your patient. Please feel free to contact me if you have any questions. <Jake Valencia MD - Last Filed: 01/13/22 14:50> Time Spent With Patient Time: Total time spent is greater than 50% in coordination of care (as documented) at patient's floor/unit and/or counseling patient: 18 <ROLA Roper - Last Filed: 01/13/22 12:53> Progress Note: Quality Stroke Does the patient have a stroke diagnosis?: No <ROLA Roper - Last Filed: 01/13/22 12:53> Procedures Date of Service Date of Service: 01/13/22 <ROLA Roper - Last Filed: 01/13/22 12:53>
--- NOTE | 2022-01-13 14:05 | P.PNIM_ITS ---
Subjective Subjective Date of Service: 01/13/22 Interval History: This history was taken in Slovak from the patient. BCx growing GBS No fever Chest pain resolved Review of Systems Review of Systems: Yes all other systems are reviewed and are negative Physical Exam Vital Signs: Vital Signs: Last Vital Signs Temp 97.8 F 01/13/22 11:49 Pulse 76 01/13/22 11:49 Resp 18 01/13/22 11:49 BP 120/77 01/13/22 11:49 Pulse Ox 96 01/13/22 11:49 O2 Del Method 01/13/22 11:49 BMI result Body Mass Index 25.7 Gen: in no acute distress HEENT: sclera anicteric, moist mucus membranes Neck: supple Lungs: clear to auscultation bilaterally Heart: regular rate and rhythm, no murmurs Abd: soft, non-tender, non-distended Ext: no edema Skin: warm/well-perfused Neuro: alert and oriented x3, no focal findings Psych: appropriate affect Objective Data Active Medications Acetaminophen (Acetaminophen 325 Mg Tablet) 650 mg PO Q6H PRN PRN Reason: Pain, Mild (Pain Scale 1-3) Dextrose (Dextrose 50 % 25 Gm/50 Ml Syringe) 25 gm IVPUSH Q15M PRN; Protocol PRN Reason: per Hypoglycemia Standing Ord. Doxycycline Hyclate (Doxycycline Hyclate 100 Mg Tablet) 100 mg PO Q12H [facility] Last Admin: 01/13/22 09:30 Dose: 100 mg Documented By: MICKY Glucose (Glucose Gel 15 Gm Gel..Gram.) 15 gm PO Q15M PRN; Protocol PRN Reason: per Hypoglycemia Standing Ord. Sodium Chloride (Ns) 1,000 mls @ 100 mls/hr IVCONT .Q10H [facility] Last Admin: 01/13/22 09:30 Dose: 100 mls/hr Documented By: MICKY Ceftriaxone Sodium 1 gm/ (Sodium Chloride) 50 mls @ 100 mls/hr IV Q24H [facility] Last Infusion: 01/13/22 05:58 Dose: 0 mls/hr Documented By: MGEHAN Insulin Human Lispro (Insulin Lispro 100 Unit/Ml 3 Ml Vial) 0 unit SUBCUT QIDACHS [facility]; Protocol Last Admin: 01/13/22 12:55 Dose: 6 unit Documented By: MICKY Melatonin (Melatonin 3 Mg Tablet) 6 mg PO BEDTIME PRN PRN Reason: Insomnia Pantoprazole Sodium (Pantoprazole Sodium 40 Mg/10 Ml Vial) 40 mg IVPUSH DAILY@0630 [facility] Pharmacy Consult (Consult Rx Vancomycin Dosing) 1 each MISCELLANE DAILY PRN PRN Reason: Consult order Senna (Sennosides 8.6 Mg Tablet) 17.2 mg PO BEDTIME PRN PRN Reason: Constipation Sodium Chloride (0.9 % Sodium Chloride Flush 3 Ml Syringe) 3 ml IVFLUSH QSHIFT [facility] Last Admin: 01/13/22 09:30 Dose: 3 ml Documented By: MICKY Labs CBC & Chem 7: 01/13/22 06:42 01/13/22 06:42 Labs: Laboratory Results - last 24 hr 01/12/22 01/12/22 01/13/22 17:17 20:42 06:42 MCV 72.2 L MCH 21.4 L MCHC 29.6 L RDW 19.7 H Plt Count 50 L MPV 9.5 Absolute Nucleated RBC 0.000 Nucleated RBC % (auto) 0.0 Anion Gap Estim Creat Clear Calc Estimated GFR POC Glucose 208 H 272 H Random Glucose Calcium Total Bilirubin AST ALT Alkaline Phosphatase Total Protein Albumin Hep Bs Antigen Hep Bs Antibody Hep B Core Total Ab Hepatitis C Ab (EIA) HIV 1&2 Ab/P24 Ag 4thGn 01/13/22 01/13/22 01/13/22 06:42 06:42 07:13 MCV MCH MCHC RDW Plt Count MPV Absolute Nucleated RBC Nucleated RBC % (auto) Anion Gap 8 L Estim Creat Clear Calc 95.5 Estimated GFR > 60 POC Glucose 227 H Random Glucose 245 H Calcium 8.0 L Total Bilirubin 0.7 AST 37 ALT 37 Alkaline Phosphatase 142 H D Total Protein 5.6 L Albumin 3.1 L Hep Bs Antigen Negative Hep Bs Antibody NONREACTIVE Hep B Core Total Ab Nonreactive Hepatitis C Ab (EIA) Nonreactive HIV 1&2 Ab/P24 Ag 4thGn Nonreactive 01/13/22 11:15 MCV MCH MCHC RDW Plt Count MPV Absolute Nucleated RBC Nucleated RBC % (auto) Anion Gap Estim Creat Clear Calc Estimated GFR POC Glucose 280 H Random Glucose Calcium Total Bilirubin AST ALT Alkaline Phosphatase Total Protein Albumin Hep Bs Antigen Hep Bs Antibody Hep B Core Total Ab Hepatitis C Ab (EIA) HIV 1&2 Ab/P24 Ag 4thGn TTE (01/12/22) - Normal left ventricular size, thickness, systolic function, and wall motion. The visually estimated ejection fraction is between 60-65%.? Diastolic function is normal for age. ? - Mildly increased right ventricular cavity size.? There is? ? ? normal right ventricular systolic function.?? Microbiology Microbiology Results: Microbiology 01/11/22 20:25 Blood Culture - Preliminary Blood - Venous Strep agalactiae (Grp B) 01/11/22 20:30 Blood Culture - Preliminary Blood - Venous No growth after 24 hours. Assessment and Plan (1) Cirrhosis: Status: Acute (2) Chest pain: Status: Acute Plan hospital d#2 56yo M with HTN, DM2 presenting with chest pain + found to be febrile, admitted for sepsis and found to have GPC bacteremia # severe sepsis # GBS bacteremia - ceftriaxone d#2, d/c vancomycin, ID following, surveillance BCx sent today # cirrhosis - not decompensated.? ?cause- could be OLIVARES or past EtOH abuse. HBV/HCV negative. GI consulted- will need outpt f/u for EGD. check H pylori stool Ag + start PI # iron deficiency anemia - FOBT, monitor Hb, avoid heparinoids # thrombocytopenia - due to cirrhosis vs. sepsis?? monitor + avoid heparinoids # HTN - holding lisinopril # chest pain, atypical - resolved, hs-Tn-I x3 flat. 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 No RWMA on TTE. Cardiology consulted; plan exercise stress when infection improves. # DM2 - A1c 11.6, give correction-dose lispro, not on any home meds [old Rx for GPZ only] # VTE ppx - SCDs In my clinical judgment, the patient requires continued hospitalization for the following reasons: IV ABX for bacteremia Quality Stroke Does the patient have a stroke diagnosis?: No VTE Prior VTE?: No VTE Risk Level:: Medical - moderate - high VTE Device Contraindication: Treatment Not Indicated VTE Drug Contraindication: N/A - Med Ordered
[2022-01-13 15:30] VITALS: BP 137/87; PULSE 78; RESP 17; TEMP 36.6; O2SAT 97
[2022-01-13 16:08] LABS: Glucose, Whole Blood 224 mg/dL (60-115)
[2022-01-13 19:23] LABS: Glucose, Whole Blood 240 mg/dL (60-115)
[2022-01-13 19:29] VITALS: BP 109/67; PULSE 81; RESP 17; TEMP 36.6; O2SAT 96
[2022-01-13] MEDS: cefTRIAXone sodium 1 GM in 0.9 % Sodium Chloride 50 ML IV (20:39)
[2022-01-14] VITALS (7 sets, daily range): BP systolic 113–139; BP diastolic 65–86; PULSE 72–87; RESP 15–20; TEMP 36.3–37.1; O2SAT 96–98
[2022-01-14] MEDS: Pantoprazole Sodium 40 MG/10 ML VIAL IVPUSH (05:50)
[2022-01-14 06:51] LABS: Hematocrit 33.6 % (42.0-52.0); Hemoglobin 9.9 g/dl (14.0-18.0); Mean Corpuscular HGB Conc 29.5 g/dl (31.0-36.0); Mean Corpuscular Hemoglobin 21.3 pg (27.0-33.0); Mean Corpuscular Volume 72.3 fL (80.0-98.0); Mean Platelet Volume 9.3 fL (9.4-12.4); Platelet Count 55 X10*3/uL (160-400); Red Blood Count 4.65 X10*6/uL (4.60-5.80); Red Cell Distribution Width 19.9 % (11.0-16.0)
[2022-01-14 07:09] LABS: Anion Gap 12 (12-20); Blood Urea Nitrogen 9 mg/dL (9-16); Calcium 8.4 mg/dL (8.4-10.2); Carbon Dioxide 23 mmol/L (22-29); Chloride 108 mmol/L (96-108); Creatinine Clr Calc Pharmacy 95.5; Estimated Glomerular Filt Rate > 60; Glucose Random 236 mg/dL (60-115); Potassium 4.6 mmol/L (3.3-5.1); Sodium 138 mmol/L (135-145)
[2022-01-14 08:44] LABS: Glucose, Whole Blood 241 mg/dL (60-115)
[2022-01-14] MEDS: 0.9 % Sodium Chloride Flush 3 ML SYRINGE IVFLUSH ×3 (09:16→21:47)
[2022-01-14] MEDS: Insulin Lispro 100 UNIT/ML 3 ML VIAL SUBCUT ×4 (09:16→21:45)
[2022-01-14 11:33] LABS: Glucose, Whole Blood 285 mg/dL (60-115)
--- NOTE | 2022-01-14 13:01 | MHC.CM.PN ---
Male 56 DX fever chest pain. Patient does not have a PCP. [facility] providers contact info provided. A financial consult has been sent for insurance coverage. DP home no services Patient will arrange for transport.
--- NOTE | 2022-01-14 13:58 | P.PNIM_ITS ---
Subjective Subjective Date of Service: 01/14/22 Interval History: This history was taken in Lithuanian from the patient. No fever No N/V Review of Systems Review of Systems: Yes all other systems are reviewed and are negative Physical Exam Vital Signs: Vital Signs: Last Vital Signs Temp 98.0 F 01/14/22 12:00 Pulse 77 01/14/22 12:00 Resp 20 01/14/22 12:00 BP 117/70 01/14/22 12:00 Pulse Ox 96 01/14/22 12:00 O2 Del Method 01/14/22 12:00 BMI result Body Mass Index 25.7 Gen: in no acute distress HEENT: sclera anicteric, moist mucus membranes Neck: supple Lungs: clear to auscultation bilaterally Heart: regular rate and rhythm, no murmurs Abd: soft, non-tender, non-distended Ext: no edema Skin: warm/well-perfused Neuro: alert and oriented x3, no focal findings Psych: appropriate affect Objective Data Active Medications Acetaminophen (Acetaminophen 325 Mg Tablet) 650 mg PO Q6H PRN PRN Reason: Pain, Mild (Pain Scale 1-3) Dextrose (Dextrose 50 % 25 Gm/50 Ml Syringe) 25 gm IVPUSH Q15M PRN; Protocol PRN Reason: per Hypoglycemia Standing Ord. Doxycycline Hyclate (Doxycycline Hyclate 100 Mg Tablet) 100 mg PO Q12H [facility] Last Admin: 01/14/22 09:16 Dose: 100 mg Documented By: MICKY Glucose (Glucose Gel 15 Gm Gel..Gram.) 15 gm PO Q15M PRN; Protocol PRN Reason: per Hypoglycemia Standing Ord. Ceftriaxone Sodium 1 gm/ (Sodium Chloride) 50 mls @ 100 mls/hr IV Q24H [facility] Last Infusion: 01/13/22 22:01 Dose: 0 mls/hr Documented By: LUCIEN Insulin Human Lispro (Insulin Lispro 100 Unit/Ml 3 Ml Vial) 0 unit SUBCUT QIDA [facility]; Protocol Last Admin: 01/14/22 12:25 Dose: 6 unit Documented By: MICKY Melatonin (Melatonin 3 Mg Tablet) 6 mg PO BEDTIME PRN PRN Reason: Insomnia Pantoprazole Sodium (Pantoprazole Sodium 40 Mg/10 Ml Vial) 40 mg IVPUSH DAILY@0630 [facility] Last Admin: 01/14/22 05:50 Dose: 40 mg Documented By: LUCIEN Pharmacy Consult (Consult Rx Vancomycin Dosing) 1 each MISCELLANE DAILY PRN PRN Reason: Consult order Senna (Sennosides 8.6 Mg Tablet) 17.2 mg PO BEDTIME PRN PRN Reason: Constipation Sodium Chloride (0.9 % Sodium Chloride Flush 3 Ml Syringe) 3 ml IVFLUSH QSHIFT [facility] Last Admin: 01/14/22 09:16 Dose: 3 ml Documented By: MICKY Labs CBC & Chem 7: 01/14/22 06:28 01/14/22 06:28 Labs: Laboratory Results - last 24 hr 01/13/22 01/13/22 01/13/22 16:02 18:03 19:03 MCV MCH MCHC RDW Plt Count MPV Absolute Nucleated RBC Nucleated RBC % (auto) Anion Gap Estim Creat Clear Calc Estimated GFR POC Glucose 224 H 240 H Random Glucose Calcium Vancomycin Trough 7.0 L 01/14/22 01/14/22 01/14/22 06:28 06:28 08:21 MCV 72.3 L MCH 21.3 L MCHC 29.5 L RDW 19.9 H Plt Count 55 L MPV 9.3 L Absolute Nucleated RBC 0.000 Nucleated RBC % (auto) 0.0 Anion Gap 12 Estim Creat Clear Calc 95.5 Estimated GFR > 60 POC Glucose 241 H Random Glucose 236 H Calcium 8.4 Vancomycin Trough 01/14/22 11:16 MCV MCH MCHC RDW Plt Count MPV Absolute Nucleated RBC Nucleated RBC % (auto) Anion Gap Estim Creat Clear Calc Estimated GFR POC Glucose 285 H Random Glucose Calcium Vancomycin Trough Microbiology Microbiology Results: Microbiology 01/13/22 06:42 Blood Culture - Preliminary Blood - Subclavian No growth after 24 hours. 01/13/22 06:42 Blood Culture - Preliminary Blood - Subclavian No growth after 24 hours. 01/11/22 20:25 Blood Culture - Final Blood - Venous Strep agalactiae (Grp B) 01/11/22 20:30 Blood Culture - Preliminary Blood - Venous No growth after 48 hours. Assessment and Plan (1) Cirrhosis: Status: Acute (2) Chest pain: Status: Acute Plan hospital d#3 56yo M with HTN and DM2 presenting with chest pain + found to be febrile, admitted for sepsis and found to have GPC bacteremia # severe sepsis # GBS bacteremia - ceftriaxone d#3, ID following, surveillance BCx from 01/13 negative thus far. if negative BCx tomorrow, complete therapy with cefuroxime for total 14d - was started on doxycycline for possibility of tickborne illness- will discontinue. PCR panel pending though unlikely # cirrhosis, new diagnosis - not decompensated.? ?cause- could be OLIVARES or past EtOH abuse. HBV/HCV negative. GI consulted- will need outpt f/u for EGD. check H pylori stool Ag + started PPI # iron deficiency anemia - FOBT, monitor Hb, avoid heparinoids # thrombocytopenia - due to cirrhosis + sepsis. monitor + avoid heparinoids # HTN - holding lisinopril due to severe sepsis and BP is normal # chest pain, atypical - resolved, hs-Tn-I x3 flat. old anterolateral infarct and poor RWP on EKG. No RWMA on TTE. Cardiology consulted; plan exercise stress testing as outpatient # DM2 - A1c 11.6, give correction-dose lispro, not on any home meds [old Rx for GPZ only] so will need oral hypoglycemic upon discharge # VTE ppx - SCDs In my clinical judgment, the patient requires continued hospitalization for the following reasons: IV ABX for bacteremia Quality Stroke Does the patient have a stroke diagnosis?: No VTE Prior VTE?: No VTE Risk Level:: Medical - moderate - high VTE Device Contraindication: Treatment Not Indicated VTE Drug Contraindication: N/A - Med Ordered
[2022-01-14 16:18] LABS: Glucose, Whole Blood 154 mg/dL (60-115)
[2022-01-14] MEDS: cefTRIAXone sodium 1 GM in 0.9 % Sodium Chloride 50 ML IV (20:03)
[2022-01-14 20:54] LABS: Glucose, Whole Blood 221 mg/dL (60-115)
[2022-01-14 21:27] LABS: A. Phagocytphilium DNA,RT-PCR NOT DETECTED (NOT DETECTED); Babesia Microti DNA, RT-PCR NOT DETECTED (NOT DETECTED); Borrelia Miyamotoi,DNA RT-PCR NOT DETECTED (NOT DETECTED); E.Chaffeensis DNA RT-PCR NOT DETECTED (NOT DETECTED); Lyme(Borrelia ssp)DNA RT-PCR NOT DETECTED (NOT DETECTED); Source-Tick borne disease BLOOD
[2022-01-14] MEDS: Melatonin 3 MG TABLET 6 MG PO (21:46)
[2022-01-15] VITALS: BP 131/82; PULSE 72; RESP 16; TEMP 36.7; O2SAT 96
[2022-01-15 03:28] LABS: A. Phagocytophilum Ab IgG <1:64 (<1:64); A. Phagocytophilum Ab IgM <1:20 (<1:20); E. Chaffeensis Ab IgG <1:64 (<1:64); E. Chaffeensis Ab IgM <1:20 (<1:20)
[2022-01-15 03:33] VITALS: BP 117/61; PULSE 70; RESP 17; TEMP 36.2; O2SAT 97
[2022-01-15 04:00] VITALS: BP 117/61; PULSE 70; RESP 17; TEMP 36.2; O2SAT 97
[2022-01-15] MEDS: Pantoprazole Sodium 40 MG/10 ML VIAL IVPUSH (05:45)
[2022-01-15 07:09] VITALS: BP 135/78; PULSE 73; RESP 18; TEMP 36.5; O2SAT 96
[2022-01-15 07:44] LABS: Glucose, Whole Blood 234 mg/dL (60-115)
[2022-01-15] MEDS: Insulin Lispro 100 UNIT/ML 3 ML VIAL SUBCUT ×2 (08:03→12:55)
[2022-01-15] MEDS: Ferrous Sulfate 324 MG TABLET.DR PO (08:03)
[2022-01-15] MEDS: 0.9 % Sodium Chloride Flush 3 ML SYRINGE IVFLUSH (08:04)
[2022-01-15 11:27] VITALS: BP 123/72; PULSE 75; RESP 18; TEMP 36.7; O2SAT 97
[2022-01-15 11:41] LABS: Glucose, Whole Blood 272 mg/dL (60-115)
--- NOTE | 2022-01-15 11:53 | PM.DS ---
DS: Providers Provider Date of Service: 01/15/22 Date of admission: 01/12/22 04:44 Date of discharge: 01/15/22 Primary care physician: Unknown Physician Consults: 01/12/22 04:45 Consult to Infectious Diseases Routine Consulting Provider: Denisa Sanchez Reason for consultation: Fever; unclear source 01/12/22 04:58 Consult to Cardiology Routine Consulting Provider: Melvin Nunez Reason for consultation: chest pain 01/12/22 08:23 Consult to Gastroenterology Routine Consulting Provider: [facility] Reason for consultation: new onset cirrhosis Attending physician on discharge: Dhruv Jeong Discharging clinician: Rufina Mccloud DS: Diagnosis Discharge Diagnosis (1) Cirrhosis: Status: Acute (2) Chest pain: Status: Acute (3) Bacteremia: Status: Acute (4) Thrombocytopenia: Status: Acute DS: Summary Hospital Course Hospital Course: From H&P on day of admission 56-year-old male with a past medical history of hypertension, diabetes-not on medications; presented to the hospital today with a chief complaint of chest pain.? Patient reported that he had chest pain, located in the center of the chest, nonradiating, associated mild nausea; denies any shortness of breath or dyspnea on exertion.? Denies any fever chills cough.? Denies any urinary symptoms.? Denies any chest pain with the time of my interview.? Denies any recent travel or sick contacts. Mentioned that he has diabetes but not on any medications. Patient mentioned that he used to drink alcohol remotely. Review of all other systems is negative except mentioned above ER course: Per ER team patient's troponins x3 were negative; EKG was nonischemic; noted to have fever of 103 F; and also thrombocytopenia.? Unclear source of fever.? Received ceftriaxone.? Send cultures.? Also had mild lactic acidosis. severe sepsis secondary to GBS bacteremia. Patient was initially treated with IV ceftriaxone. He was seen in consultation by ID who recommended abdominal ultrasound to rule out ascites as well as echocardiogram. Abdominal ultrasound showed no evidence of ascites, echocardiogram showed no evidence of endocarditis. surveillance BCx from 01/13 has remained negative times 48 hours. Will discharge with cefuroxime for total 14d He was started on doxycycline for possibility of tickborne illness this was discontinued and PCR panel negative cirrhosis, new diagnosis - not decompensated.? ?cause- could be OLIVARES or past EtOH abuse.? HBV/HCV negative.? GI consulted- will need outpt f/u for EGD . started on PPI iron deficiency anemia No evidence of overt bleeding. Started on iron supplementation. Outpatient follow-up with GI thrombocytopenia - due to cirrhosis + sepsis.? Outpatient follow-up HTN Lisinopril was initially held due to severe sepsis. Blood pressure has remained controlled without lisinopril, lisinopril will be discontinued. chest pain, atypical - resolved, hs-Tn-I x3 flat.? old anterolateral infarct and poor RWP on EKG.? No RWMA on TTE.? Cardiology consulted; plan exercise stress testing as outpatient DM2 - A1c 11.6, give correction-dose lispro, not on any home meds. Ran out of glipizide, will send prescription for the same at previous dose. He will be sent home with prescription for glucometer and testing supplies. He is encouraged should check his blood sugar at least twice daily morning and evening. Consider outpatient nutritional consult when PCP has been established. Patient does not have PCP. Recommended for patient to obtain PCP when able. Will need outpatient follow-up with Gastroenterology as well as Cardiology. He was unable be discharged home with [facility] services as he does not an active PCP. Case Management discussed with him in detail about renewing his insurance in obtaining PCP. Time Spent with Patient Time attestation: Total time spent providing and/or coordinating discharge services: Discharge coordination time: Greater than 30 minutes Quality: Safe Use of Opioids Does Pt have an Active Cancer Diagnosis on the Problem List?: No Quality: Stroke Does the patient have a stroke diagnosis?: No Physical Exam Vital Signs: Vital Signs: Last Vital Signs Temp 98.0 F 01/15/22 11:27 Pulse 75 01/15/22 11:27 Resp 18 01/15/22 11:27 BP 123/72 01/15/22 11:27 Pulse Ox 97 01/15/22 11:27 O2 Del Method 01/15/22 11:27 BMI result Body Mass Index 25.7 Const: General: cooperative, comfortable, no acute distress, alert and awake Nutritional Appearance: average body habitus Orientation/consciousness: patient oriented x3 Resp: Effort & Inspection: normal respiratory effort and able to speak in complete sentences Cardio: Rate: regular rate GI: Inspection: No distended Palpation (GI): Soft to palpation and nontender Neuro: General: patient oriented x3 Extrem: General: Yes no pedal edema DS: Data Data Completed and Pending Labs on day of discharge: Laboratory Results - last 24 hr 01/12/22 01/12/22 01/14/22 05:55 05:55 16:11 POC Glucose 154 H A. phagocytophilum IgG <1:64 A. phagocytophilum IgM <1:20 A.phagocytophil DNA PCR NOT DETECTED A.phagocytophilum Intrp A. phagocytophilum Cmmt See Below Babesia microti DNA PCR NOT DETECTED Borrelia sp DNA (PCR) NOT DETECTED Borrelia miyamotoi (PCR) NOT DETECTED E. chaffeensis IgG Ab <1:64 E. chaffeensis IgM Ab <1:20 E.chaffeensis DNA (PCR) NOT DETECTED E. chaffeensis Interp E. chaffeensis Comment See Below Tick-borne Disease PCR BLOOD 01/14/22 01/15/22 01/15/22 20:49 07:08 11:31 POC Glucose 221 H 234 H 272 H A. phagocytophilum IgG A. phagocytophilum IgM A.phagocytophil DNA PCR A.phagocytophilum Intrp A. phagocytophilum Cmmt Babesia microti DNA PCR Borrelia sp DNA (PCR) Borrelia miyamotoi (PCR) E. chaffeensis IgG Ab E. chaffeensis IgM Ab E.chaffeensis DNA (PCR) E. chaffeensis Interp E. chaffeensis Comment Tick-borne Disease PCR Preliminary micro results at discharge 01/13/22 06:42 Blood Culture - Preliminary Blood - Subclavian No growth after 48 hours. 01/13/22 06:42 Blood Culture - Preliminary Blood - Subclavian No growth after 48 hours. 01/11/22 20:30 Blood Culture - Preliminary Blood - Venous No growth after 48 hours. Discharge Plan Discharge Patient Disposition: Home, Self-Care Discharge Diagnosis: severe sepsis/bacteremia Liver cirrhosis Iron deficiency anemia Thrombocytopenia HTN atypical chest pain Diabetes Referrals: Kellen Canseco MD [Physician] - 1 Week Melvin Nunez MD [Physician] - 1 Week Physician,Unknown J [Primary Care Provider] - 1 Week Discharge Medications: New cefuroxime axetil 500 mg tablet 500 mg PO BID 12 Days Qty: 24 0RF ferrous sulfate 324 mg (65 mg iron) Tablet,Delayed Release (Dr/Ec) 324 mg PO DAILY 30 Days Qty: 30 0RF pantoprazole 40 mg tablet,delayed release (DR/EC) 40 mg PO DAILY 30 Days Qty: 30 0RF (DME) blood-glucose meter [FreeStyle Lite Meter] Kit See Rx Instructions .Route Qty: 1 0RF Rx Instructions: As directed (DME) FreeStyle Lite Strips Strip See Rx Instructions .Route Qty: 100 0RF Rx Instructions: As directed (DME) lancets [Lancets,Ultra Thin] Misc See Rx Instructions .Route Qty: 100 0RF Rx Instructions: As directed Continued glipizide 5 mg Tablet Extended Release 24 Hr 5 mg PO BID 30 Days Qty: 60 0RF Discontinued lisinopril 10 mg Tablet 10 mg PO DAILY Discharge Orders: Discharge Order (Routine); Ordered 01/15/22 Ordered By: Rufina Mccloud Activity on Discharge: As tolerated Stand Alone Forms: Patient Portal Discharge page Care Plan Goals: see below Health Concerns: severe sepsis secondary to Group B strep bacteremia liver cirrhosis anemia low platelets atypical chest pain Plan of Treatment: Complete antibiotics as prescribed for bacteremia Call to schedule follow-up appointment with GI office due to new diagnosis of liver cirrhosis/iron deficiency anemia Call to schedule follow-up appointment with cardiology office for possible outpatient exercise stress test Obtain PCP and schedule follow-up appointment for monitoring of blood pressure and blood sugar check blood sugar at least twice daily morning and at bedtime, keep track of blood sugar to discuss with PCP Assessment: see discharge summary Discharge Date/Time: 01/15/22 16:11
--- NOTE | 2022-01-15 12:54 | MHC.CM.PN ---
Patient has been medically cleared for dc to home today, self care.
== END 2022-01-15 16:11 | disposition home or self-care (01) | DRG 872 ==
LOC: HO.ED 01-12 03:38 → HO.EDOVER 01-12 04:59 → HO.IMC 01-13 00:42
PROVIDERS: Family Medicine; Internal Medicine; Admitting Provider Hospitalist; Emergency Provider Emergency Medicine; Responsible Provider Physician Assistant Medical; Visit Provider Family Medicine
DX: A40.1 Sepsis due to streptococcus, group B (principal); E87.2 Acidosis; R65.20 Severe sepsis without septic shock; D69.6 Thrombocytopenia, unspecified; K21.9 Gastro-esophageal reflux disease without esophagitis; I10 Essential (primary) hypertension; K75.81 Nonalcoholic steatohepatitis (NASH); D50.9 Iron deficiency anemia, unspecified; F10.11 Alcohol abuse, in remission; E11.65 Type 2 diabetes mellitus with hyperglycemia; Z20.822 Contact with and (suspected) exposure to COVID-19; Z79.899 Other long term (current) drug therapy
CPT/HCPCS: 36415; 71045; 71250; 74176; 76705; 80048; 80053; 80076; 80202; 81001; 82607; 82728; 82746; 82947; 83036; 83540; 83605; 83615; 83690; 83735; 84145; 84484; 85025; 85027; 85045; 85379; 85610; 86140; 86666; 86704; 86706; 86803; 87040; 87147; 87186; 87205; 87340; 87389; 87502; 87635; 87798; 87801; 93005; 93306; 93975; 96361; 96374; 99285; J0696; J3370

== ENCOUNTER → 2022-03-10 14:34 | Outpatient (BNVA) | payer OTHER, SELFPAY | PROVIDERS: Visit Provider Nurse Practitioner Family | DX: R07.89 Other chest pain (principal); R06.02 Shortness of breath; R94.31 Abnormal electrocardiogram [ECG] [EKG]; E11.22 Type 2 diabetes mellitus with diabetic chronic kidney disease; I10 Essential (primary) hypertension; Z09 Encounter for follow-up examination after completed treatment for conditions other than malignant neoplasm; Z79.899 Other long term (current) drug therapy | CPT/HCPCS: 99212 ==

== ENCOUNTER → 2022-03-13 08:40 | Outpatient (REF) | payer OTHER, SELFPAY ==
--- NOTE | ~2022-03-13 | NM_ITS ---
Lexiscan Myocardial perfusion study Indication: Chest pain, assess for coronary disease and ischemia Technique: The patient was brought in for a Lexiscan perfusion study on 03/13/2022 and was injected 0.4 mg of Lexiscan intravenously. Within a minute of this injection 30 mCi of sestamibi was given intravenously. Images were obtained using the SPECT gamma camera interlaced with the gating device. Images were obtained in supine position. Resting perfusion study was performed on 03/18/2022. Patient was administered 30 mCi of sestamibi intravenously at rest. Images were then obtained in supine position. Total DLP 133mGy-cm. Images were processed with the software and compared side to side in short axis, horizontal long axis and vertical long axis views. Findings: Raw acquisition reviewed. During stress arms by the patient's side. During rest left arm up and right arm down. The stress perfusion study showed diminished tracer uptake along the inferior wall, most prominently in the basal portion. With CT attenuation correction, there is some improvement but doesn't resolve completely. The gated study shows normal LV systolic function with calculated LVEF of 71%. LV cavity is normal in size. The gated study shows normal wall thickening and contraction of segments; basal inferior wall with some hypokinesis. Resting study shows slightly reduced tracer uptake in the basal part of inferior wall. There is significant improvement with CT attenuation correction suggestive of diaphragmatic attenuation artifact. Gating at rest reveals normal wall motion with ejection fraction at 70%. The findings are consistent with reversible basal inferior defect probably from diaphragmatic attenuation artifact. NM/NM cardiolite stress test Impression: 1. Myocardial perfusion imaging study shows reversible basal inferior defect probably from diaphragmatic attenuation artifact. Less likely ischemia. 2. Gated LVEF is 71% during stress and 70% during rest. 3. Transient ischemic dilatation not present. EKG component of the test reported separately.
--- NOTE | 2022-03-13 08:45 | CA_ITS ---
Acquisition Time: 2022-03-13 09:16:02 Total Exercise Time: 00:02:00 Test Indications: CP Medications: SEE CHART Protocol: LEXISCAN Max HR: 099 BPM 59% of Pred: 166 BPM Max BP: 136/072 mmHG Max Work Load: 1.6 METS Phaarmacological stress test with Lexiscan injection, while walking slow on treadmill, without anginal symptoms, without arrythmia, with normotensive response to injection, with nondiagnostic EKG for ischemia. Nuclear images pending. Test reviewed with Dr Nunez. Referred By: Meg Dimas Overread By: MEG DIMAS
== END ==
LOC: HO.CARD 08:40
PROVIDERS: Visit Provider Nurse Practitioner Family
DX: R07.9 Chest pain, unspecified (principal); R94.31 Abnormal electrocardiogram [ECG] [EKG]; E11.9 Type 2 diabetes mellitus without complications
CPT/HCPCS: 78452; 93017; A9500; J0280; J2785

== ENCOUNTER 2022-04-01 07:31 | Inpatient (IN) | payer OTHER, SELFPAY ==
[2022-04-01] VITALS (10 sets, daily range): BP systolic 123–152; BP diastolic 75–82; PULSE 75–101; RESP 14–20; TEMP 36.9–37.7; O2SAT 96–99; BMI 30.9
--- NOTE | ~2022-04-01 | XR_ITS ---
EXAMINATION: XR CHEST CLINICAL INFORMATION: Right-sided and left-sided chest pain. COMPARISON: 01/11/2022 chest radiograph. TECHNIQUE: 2 views of the chest were obtained. FINDINGS: No significant abnormality is noted involving the heart, lungs, mediastinum, bony thorax or soft tissues. XR/XR chest 2V IMPRESSION: No acute cardiopulmonary process.
--- NOTE | ~2022-04-01 | CT_ITS ---
EXAMINATION: CT ANGIOGRAM OF THE CHEST WITH AND WITHOUT CONTRAST (CT PULMONARY ANGIOGRAM FOR PE) CLINICAL INFORMATION: Left pleuritic chest pain with positive ddimer COMPARISON: None TECHNIQUE: Prior to contrast administration, noncontrast localization images were obtained. Subsequently, multidetector volumetric imaging was performed from the thoracic inlet to below the diaphragms following the administration of 80 mL Omnipaque 350 intravenous contrast. No contrast reaction reported Sagittal, coronal, and MIP oblique sagittal reformatted images were obtained on the CT workstation, uploaded to PACS, and reviewed. This CT examination was performed using dose optimization techniques as appropriate, variously including the following: *Automated exposure control *Adjustment of mA and/or kV according to patient size (this includes techniques or standardized protocols for targeted exams where dose is matched to indication/reason for exam; i.e. extremities or head) *Use of iterative reconstruction technique Total exam dose-length product 282 mGy-cm FINDINGS: QUALITY OF STUDY/CONTRAST BOLUS: Suboptimal distally with mild motion artifact. PULMONARY ARTERIES: Small filling defects in segmental and subsegmental branches in the upper and lower lobes. THORACIC AORTA: No aneurysm or dissection. LUNGS/PLEURA/AIRWAYS: No significant/suspicious pulmonary nodules. No pleural effusions. The airways are patent. MEDIASTINUM: The visualized thyroid gland is unremarkable. Normal heart size. No pericardial effusion. No hilar or mediastinal lymphadenopathy. No evidence of septal bowing or right heart strain. CHEST WALL/AXILLA: No axillary or internal mammary lymphadenopathy. OSSEOUS STRUCTURES: Mild multilevel degenerative changes. UPPER ABDOMEN: Diffuse decreased hepatic attenuation. Splenic enlargement measuring up to 16.6 cm present image 405, series 9). Trace ascites. No reflux of contrast into the hepatic veins to suggest elevated right heart pressures. CT/CT angio chest PE protocol IMPRESSION: 1. Limited study secondary to motion artifact however they do appear to be several definitive small filling defects in distal segmental and subsegmental branches in the upper and lower lobes of indeterminate age. No large central filling defects. 2. No acute cardiopulmonary process. 3. Hepatic enlargement, steatosis and probable cirrhosis. Splenomegaly. Trace ascites. VTE: positive
--- NOTE | ~2022-04-01 | US_ITS ---
EXAMINATION: US VENOUS ULTRASOUND WITH DOPPLER LOWER EXTREMITY, BILATERAL CLINICAL INFORMATION: Pain and swelling. Evaluate for deep vein thrombosis. COMPARISON: None TECHNIQUE: Ultrasound of the deep veins is performed from the hip to the calf with compression sonography and color and pulse Doppler assessment. Spectral analysis with color-flow imaging is performed. FINDINGS: RIGHT: There is normal venous compression and respiratory variation and augmented flow. The visualized common femoral vein, superficial femoral vein, profunda femoral vein, popliteal vein, and the trifurcation region shows no evidence of deep venous thrombosis. There is no significant popliteal fossa cyst. LEFT: There is normal venous compression and respiratory variation and augmented flow. The visualized common femoral vein, superficial femoral vein, profunda femoral vein, popliteal vein, and the trifurcation region shows no evidence of deep venous thrombosis. There is no significant popliteal fossa cyst. If the patient's symptoms persist, followup ultrasound in 5 days 7 days might be of value to exclude proximal propagation from a non-visualized calf vein. US/US venous duplex LE BI IMPRESSION: No DVT demonstrated in the bilateral lower extremity.
--- NOTE | 2022-04-01 07:48 | ED.DIZZY ---
HPI - Dizziness General Chief Complaint: Dizziness Stated Complaint: dizzy, not feeling well Time Seen by Provider: 04/01/22 07:48 Source: patient Mode of arrival: ambulatory Limitations: no limitations History of Present Illness HPI Narrative: Patient describes lightheadedness, with nausea with ambulation. patient with left side pleuritic chest pain. MD elicited complaint: dizziness and lightheadedness Onset (ago): hour(s) Timing: gradual onset Severity: moderate Description: lightheadedness Exacerbating factors: movement/ambulation Related Data Previous Rx's Medication Instructions Recorded blood sugar diagnostic (FreeStyle #100 ea 01/15/22 Lite Strips) blood-glucose meter (FreeStyle #1 ea 01/15/22 Lite Meter kit) cefuroxime axetil 500 mg tablet 500 mg PO BID 12 days #24 tabs 01/15/22 ferrous sulfate 324 mg (65 mg 324 mg PO DAILY 30 days #30 tabs 01/15/22 iron) tablet,delayed release glipizide 5 mg tablet, extended 5 mg PO BID 30 days #60 tabs 01/15/22 release 24 hr lancets (Lancets,Ultra Thin) #100 ea 01/15/22 pantoprazole 40 mg tablet,delayed 40 mg PO DAILY 30 days #30 tabs 01/15/22 release Allergies Allergy/AdvReac Type Severity Reaction Status Date / Time No Known Allergies Allergy Verified 03/10/22 14:58 Review of Systems Constitutional: Constitutional: Reports no additional constitutional complaints Eyes: Eyes: Reports no additional eye complaints ENT: Denies dizziness Cardiovascular: Cardiovascular: Reports no additional cardiovascular complaints Respiratory: Respiratory: Reports as per HPI Gastrointestinal: Gastrointestinal: Reports no additional gastrointestinal complaints Musculoskeletal: Musculoskeletal: Reports no additional musculoskeletal complaints Integumentary/Breasts: Skin/Breast: Denies rash Neurologic: Reports system reviewed and no additional complaints, except as documented, Denies dizziness and Denies Sensory deficit (Neuro) Psychiatric: Psychiatric: Denies anxiety PMFSH Past Medical History Medical History Bacteremia Diabetes Social History Social History Household Members: None Housing: House Do you presently have visiting nurse or other home services: No Patient Tobacco Use Status: Never used Tobacco Advance Directives: No Advance Directives Information Provided: No service: No Current occupational status: unemployed Physical Exam Vital Signs: Vital Signs: Last Vital Signs Temp 98.4 F 04/01/22 07:34 Pulse 83 04/01/22 09:39 Resp 16 04/01/22 09:39 BP 127/77 04/01/22 09:39 Pulse Ox 97 04/01/22 09:39 O2 Del Method 04/01/22 09:39 BMI result Body Mass Index 30.9 Const: Other: chronically ill male appearing weak Nutritional Appearance: average body habitus Orientation/consciousness: oriented to person and patient oriented x3 Limitations: no limitations HEENT: Head: Yes normal to inspection Ears: external ears normal General nose exam: Normal external nose present Mouth: Normal oral and palatal mucosa present and oropharynx normal Throat: Yes posterior oropharynx normal Eyes: Other: pale conjunctiva Neck: Other: supple Neck: Yes normal visual inspection Chest: Chest palpation & inspection: normal inspection of the chest Resp: Auscultation: clear to auscultation bilaterally Cardio: Other: loud click over the aorta., no other murmur Jugular venous distension: no JVD Rate: regular rate Rhythm: regular rhythm GI: Inspection: Yes normal to inspection Palpation (GI): Soft to palpation, nontender and No hepatosplenomegaly present Auscultation: normal bowel sounds : General: Yes no CVA tenderness Back/Spine/Pelvis: Back: no CVA tenderness Skin: General skin exam: no rashes or lesions noted Neuro: General: oriented to person and patient oriented x3 Cranial nerves: Yes CN's II-XII intact bilaterally Motor exam (neuro): 5/5 motor strength present throughout Sensory Exam: No Sensory deficit (Neuro) Extrem: General: Yes normal to inspection Psych: Appearance: grossly normal Course Reevaluation(s) Reevaluation #1: patient with positive ddimer and postive CTA will admit for PE MDM - Dizziness Lab Data Result diagrams: 04/01/22 08:13 04/01/22 08:13 Labs: Lab Results 04/01/22 04/01/22 04/01/22 Range/Units 08:13 08:13 08:13 WBC 2.6 L (4.8-10.8) X10*3/uL RBC 3.82 L (4.60-5.80) X10*6/uL Hgb 9.1 L (14.0-18.0) g/dl Hct 28.2 L (42.0-52.0) % MCV 73.8 L (80.0-98.0) fL MCH 23.8 L (27.0-33.0) pg MCHC 32.3 (31.0-36.0) g/dl RDW 17.7 H (11.0-16.0) % Plt Count 59 L (160-400) X10*3/uL MPV 9.1 L (9.4-12.4) fL Immature Gran % (Auto) 0.4 (0.0-0.4) % Neut % (Auto) 80.6 H (45-73) % Lymph % (Auto) 9.5 L (20-40) % [place] % (Auto) 8.7 (2-11) % Eos % (Auto) 0.8 (0-4) % Baso % (Auto) 0.0 (0-2) % Lymph # (Auto) 0.3 L (1.2-4.9) X10*3/uL [place] # (Auto) 0.2 (0.1-1.2) X10*3/uL Eos # (Auto) 0.0 (0.0-0.4) X10*3/uL Baso # (Auto) 0.0 (0.0-0.2) X10*3/uL Abs Immat Gran (auto) 0.01 (0.00-0.03) X10*3/uL Absolute Neuts (auto) 2.1 (2.0-8.3) x10*3/uL Absolute Nucleated RBC 0.000 (0.0-0.012) X10*3/uL Nucleated RBC % (auto) 0.0 (0.0-0.2) /100WBC D-Dimer High Sensitivty 503 NG/ML Sodium 136 (135-145) mmol/L Potassium 4.3 (3.3-5.1) mmol/L Chloride 104 (96-108) mmol/L Carbon Dioxide 22 (22-29) mmol/L Anion Gap 14 (12-20) BUN 14 D (9-16) mg/dL Creatinine 0.80 (0.5-1.4) mg/dL Estim Creat Clear Calc 101.7 Estimated GFR > 60 POC Glucose (60-115) mg/dL Random Glucose 419 H* (60-115) mg/dL Calcium 8.6 (8.4-10.2) mg/dL Total Bilirubin 0.6 (0.0-1.0) mg/dL AST 36 (5-37) U/L ALT 42 H (0-40) U/L Alkaline Phosphatase 168 H (39-117) U/L Troponin I High Sens (<3.5-35.0) ng/L Total Protein 6.3 L (6.5-8.0) g/dL Albumin 3.5 (3.5-5.0) g/dL 04/01/22 04/01/22 Range/Units 08:13 10:02 WBC (4.8-10.8) X10*3/uL RBC (4.60-5.80) X10*6/uL Hgb (14.0-18.0) g/dl Hct (42.0-52.0) % MCV (80.0-98.0) fL MCH (27.0-33.0) pg MCHC (31.0-36.0) g/dl RDW (11.0-16.0) % Plt Count (160-400) X10*3/uL MPV (9.4-12.4) fL Immature Gran % (Auto) (0.0-0.4) % Neut % (Auto) (45-73) % Lymph % (Auto) (20-40) % [place] % (Auto) (2-11) % Eos % (Auto) (0-4) % Baso % (Auto) (0-2) % Lymph # (Auto) (1.2-4.9) X10*3/uL [place] # (Auto) (0.1-1.2) X10*3/uL Eos # (Auto) (0.0-0.4) X10*3/uL Baso # (Auto) (0.0-0.2) X10*3/uL Abs Immat Gran (auto) (0.00-0.03) X10*3/uL Absolute Neuts (auto) (2.0-8.3) x10*3/uL Absolute Nucleated RBC (0.0-0.012) X10*3/uL Nucleated RBC % (auto) (0.0-0.2) /100WBC D-Dimer High Sensitivty NG/ML Sodium (135-145) mmol/L Potassium (3.3-5.1) mmol/L Chloride (96-108) mmol/L Carbon Dioxide (22-29) mmol/L Anion Gap (12-20) BUN (9-16) mg/dL Creatinine (0.5-1.4) mg/dL Estim Creat Clear Calc Estimated GFR POC Glucose 285 H (60-115) mg/dL Random Glucose (60-115) mg/dL Calcium (8.4-10.2) mg/dL Total Bilirubin (0.0-1.0) mg/dL AST (5-37) U/L ALT (0-40) U/L Alkaline Phosphatase (39-117) U/L Troponin I High Sens 4.1 (<3.5-35.0) ng/L Total Protein (6.5-8.0) g/dL Albumin (3.5-5.0) g/dL Imaging Data Chest x-ray: Radiologist's impression: IMPRESSION: No acute cardiopulmonary process. Critical Care Time Critical Care Time Attestation: I spent 40 minutes of critical care, with interventions, assessments, speaking to patient, consultants, and family. Discharge Plan Discharge Clinical Impression: Pulmonary emboli, Shortness of breath, Hyperglycemia Patient Disposition: Admitted As Inpatient
--- NOTE | 2022-04-01 07:57 | ECG_ITS ---
Test Reason : dizziness Blood Pressure : / mmHG Vent. Rate : 085 BPM Atrial Rate : 085 BPM P-R Int : 176 ms QRS Dur : 088 ms QT Int : 380 ms P-R-T Axes : 020 003 003 degrees QTc Int : 452 ms Normal sinus rhythm Cannot rule out Anterior infarct (cited on or before 11-JAN-2022) Abnormal ECG When compared with ECG of 11-JAN-2022 19:39, Questionable change in initial forces of Lateral leads Referred By: Negrito Wright Electronically Signed By:MELLISA MCMANUS
[2022-04-01 08:17] LABS: MANUAL DIFF FLAG NO
[2022-04-01 08:20] LABS: Eosinophils Percent Auto 0.8 % (0-4); Hematocrit 28.2 % (42.0-52.0); Hemoglobin 9.1 g/dl (14.0-18.0); Imm Gran Abs Auto 0.01 X10*3/uL (0.00-0.03); Imm Gran Pct Auto 0.4 % (0.0-0.4); Lymphocytes Absolute Auto 0.3 X10*3/uL (1.2-4.9); Lymphocytes Percent Auto 9.5 % (20-40); Mean Corpuscular HGB Conc 32.3 g/dl (31.0-36.0); Mean Corpuscular Hemoglobin 23.8 pg (27.0-33.0); Mean Corpuscular Volume 73.8 fL (80.0-98.0); Mean Platelet Volume 9.1 fL (9.4-12.4); Monocytes Absolute Auto 0.2 X10*3/uL (0.1-1.2); Monocytes Percent Auto 8.7 % (2-11); Neutrophils Absolute Auto 2.1 x10*3/uL (2.0-8.3); Neutrophils Percent Auto 80.6 % (45-73); Red Blood Count 3.82 X10*6/uL (4.60-5.80); Red Cell Distribution Width 17.7 % (11.0-16.0); White Blood Count 2.6 X10*3/uL (4.8-10.8)
[2022-04-01 08:27] LABS: Platelet Count 59 X10*3/uL (160-400)
[2022-04-01 08:30] LABS: D Dimer High Sensitivity 503 NG/ML
[2022-04-01 08:44] LABS: Troponin-I High Sensitivity 4.1 ng/L (<3.5-35.0)
[2022-04-01 08:47] LABS: Alanine Aminotransferase 42 U/L (0-40); Albumin Level 3.5 g/dL (3.5-5.0); Alkaline Phosphatase 168 U/L (39-117); Anion Gap 14 (12-20); Aspartate Amino Transferase 36 U/L (5-37); Bilirubin Total 0.6 mg/dL (0.0-1.0); Blood Urea Nitrogen 14 mg/dL (9-16); Calcium 8.6 mg/dL (8.4-10.2); Carbon Dioxide 22 mmol/L (22-29); Chloride 104 mmol/L (96-108); Creatinine Clr Calc Pharmacy 101.7; Estimated Glomerular Filt Rate > 60; Glucose Random 419 mg/dL (60-115); Potassium 4.3 mmol/L (3.3-5.1); Sodium 136 mmol/L (135-145); Total Protein 6.3 g/dL (6.5-8.0)
[2022-04-01] MEDS: Insulin Lispro 100 UNIT/ML 3 ML VIAL 10 UNIT SUBCUT (09:04)
[2022-04-01] MEDS: 0.9 % Sodium Chloride 1,000 ML 999 ML IVCONT ×2 (09:55→11:44)
[2022-04-01] MEDS: iohexoL 350 MG/ML 100 ML INFUS..BTL IV (10:02)
[2022-04-01 10:05] LABS: Glucose, Whole Blood 285 mg/dL (60-115)
[2022-04-01] MEDS: Enoxaparin Sodium 80 MG/0.8 ML SYRINGE SUBCUT (11:46)
--- NOTE | 2022-04-01 11:46 | PC.NURSE ---
Addendum entered by Gayle Marinelli RN 04/01/22 12:01: PT AMBULATING TO RESTROOM STEADILY AND INDEPENDENTLY WITH NO ISSUE. Original Note: INTRODUCED SELF TO PT. PT IN NAD AT THIS TIME, C/O L SIDED CHEST PRESSURE ON DEEP INSPIRATION AND SOB WITH EXERTION X 2-3 MONTHS. STATES DIZZINESS NOW RESOLVED. NSR ON MONITOR. SPEAKING IN CLEAR FULL SENTENCES. IVF RUNNING. SUBQ LOVENOX ADMINISTERED FOLLOWING ANTICOAG PANEL DRAW.
[2022-04-01 12:01] LABS: INTERNATIONAL NORM RATIO 1.2 (0.9-1.1); Prothrombin Time 13.5 SEC (10.0-13.1)
[2022-04-01 12:04] LABS: Partial Thromboplastin Time 29.3 SEC (26.0-36.4)
--- NOTE | 2022-04-01 12:12 | PHA.MEDREC ---
Pharmacy Consult ? Medication Reconciliation Pharmacy has completed the medication reconciliation. Spoke to patient. Patient knew medications
[2022-04-01 12:34] LABS: COVID-19 Test Negative (Negative); IDNOW Serial# 9DB6401D
[2022-04-01 13:28] LABS: Glucose, Whole Blood 184 mg/dL (60-115)
--- NOTE | 2022-04-01 13:59 | P.HPHOSP_ITS ---
History of Present Illness Date of Service: 04/01/22 Attending physician on admission: Ronaldo Galindo Chief Complaint: PE 56 year old with history of compensated cirrhosis with history of alcohol abuse, pancytopenia, non-insulin dependent type 2 diabetes, anemia, and GERD presented to ED this morning with 1 day of lightheadedness with nausea but no vomiting and gradual onset, left sided pleuritic chest pain currently rated as a 5/10. D- Dimer positive at 503 with follow up CTA chest showing small filling defects in fili distal segmental and subsegmental branches of the upper and lower lobes of indeterminate age. No central filling deficits. Received 80mg lovenox in ED. CTA chest Also a showed hepatic enlargement steatosis, and probable cirrhosis with trace ascites. No history of varices. AST 36, ALT 42, alk phos 168, total protein 6.3, total and direct bili normal. PT 13.5, INR 1.2, PTT 29.3. Glucose 419 improved to 186 following 10 units regular insulin. Last alcoholic beverage 7 years ago. No illicit drug use or tobacco use. No personal or family history of bleeding/clotting disorder. Review of Systems Review of Systems: General: No fevers, malaise, unintentional weight loss Cardiovascular: +left sided pleuritic chest pain. No chest pressure, palpitations, or leg edema Respiratory: +sob. Nowheezing, cough GI: + nausea, +diarrhea. No abdominal pain, vomiting, constipation, melena, hematochezia Neuro: No headaches, weakness, paresthesias Skin: No rashes or lesions PMFSH Medical History Bacteremia Cirrhosis Diabetes GERD (gastroesophageal reflux disease) Pancytopenia Pulmonary emboli Family History Father CVA (cerebral vascular accident) Social History Household Members: None Housing: House Do you presently have visiting nurse or other home services: No Patient Tobacco Use Status: Never used Tobacco Use of substances other than those prescribed or required for medical reasons: No Advance Directives: No Advance Directives Information Provided: No service: No Current occupational status: unemployed Meds Allergies Allergy/AdvReac Type Severity Reaction Status Date / Time No Known Allergies Allergy Verified 03/10/22 14:58 Active Medications: Current Medications Pharmacy Consult (Consult Rx Perform Med Rec) 1 each MISCELLANE ONCE PRN PRN Reason: Consult order Home Medications Medication Instructions Recorded Confirmed Last Taken Type glipizide 5 mg tablet 1 tab PO BID 04/01/22 04/01/22 Unknown History Physical Exam Vital Signs and Narrative: Vital Signs: Last Vital Signs Temp 98.4 F 04/01/22 07:34 Pulse 75 04/01/22 13:48 Resp 19 04/01/22 13:48 BP 125/76 04/01/22 13:48 Pulse Ox 98 04/01/22 13:48 O2 Del Method 04/01/22 13:48 BMI result Body Mass Index 30.9 Constitutional - Awake and Alert, No apparent distress Eyes - PERRLA, EOMI Cardiovascular - S1S2, RRR, No edema. 2+ radial and pedal pulses b/l Respiratory - Normal lung expansion, Normal respiratory effort, No respiratory distress, CTA bilaterally Gastrointestinal - NT / ND; +BS; No rebound or guarding Extremities - no calf tenderness bilaterally, no swelling Skin - Warm/Dry Neurological - Alert & oriented x3, No focal deficit Psychological - Appropriate affect Results Labs CBC and Chem 7: 04/01/22 08:13 04/01/22 08:13 Labs: Laboratory Results - last 24 hr 04/01/22 04/01/22 04/01/22 08:13 08:13 08:13 MCV 73.8 L MCH 23.8 L MCHC 32.3 RDW 17.7 H Plt Count 59 L MPV 9.1 L Immature Gran % (Auto) 0.4 Neut % (Auto) 80.6 H Lymph % (Auto) 9.5 L [place] % (Auto) 8.7 Eos % (Auto) 0.8 Baso % (Auto) 0.0 Lymph # (Auto) 0.3 L [place] # (Auto) 0.2 Eos # (Auto) 0.0 Baso # (Auto) 0.0 Abs Immat Gran (auto) 0.01 Absolute Neuts (auto) 2.1 Absolute Nucleated RBC 0.000 Nucleated RBC % (auto) 0.0 PT INR APTT D-Dimer High Sensitivty 503 Anion Gap 14 Estim Creat Clear Calc 101.7 Estimated GFR > 60 POC Glucose Random Glucose 419 H* Calcium 8.6 Total Bilirubin 0.6 AST 36 ALT 42 H Alkaline Phosphatase 168 H Total Protein 6.3 L Albumin 3.5 COVID-19 (JACKIE) COVID-19 Clin Com 04/01/22 04/01/22 04/01/22 10:02 11:49 11:49 MCV MCH MCHC RDW Plt Count MPV Immature Gran % (Auto) Neut % (Auto) Lymph % (Auto) [place] % (Auto) Eos % (Auto) Baso % (Auto) Lymph # (Auto) [place] # (Auto) Eos # (Auto) Baso # (Auto) Abs Immat Gran (auto) Absolute Neuts (auto) Absolute Nucleated RBC Nucleated RBC % (auto) PT 13.5 H INR 1.2 H APTT 29.3 D-Dimer High Sensitivty Anion Gap Estim Creat Clear Calc Estimated GFR POC Glucose 285 H Random Glucose Calcium Total Bilirubin AST ALT Alkaline Phosphatase Total Protein Albumin COVID-19 (JACKIE) Negative COVID-19 Clin Com See Note 04/01/22 12:49 MCV MCH MCHC RDW Plt Count MPV Immature Gran % (Auto) Neut % (Auto) Lymph % (Auto) [place] % (Auto) Eos % (Auto) Baso % (Auto) Lymph # (Auto) [place] # (Auto) Eos # (Auto) Baso # (Auto) Abs Immat Gran (auto) Absolute Neuts (auto) Absolute Nucleated RBC Nucleated RBC % (auto) PT INR APTT D-Dimer High Sensitivty Anion Gap Estim Creat Clear Calc Estimated GFR POC Glucose 184 H Random Glucose Calcium Total Bilirubin AST ALT Alkaline Phosphatase Total Protein Albumin COVID-19 (JACKIE) COVID-19 Clin Com Imaging Radiologist's Impressions: Impressions Chest X-Ray 04/01/22 08:26 IMPRESSION: No acute cardiopulmonary process. Chest CTA 04/01/22 10:00 IMPRESSION: 1. Limited study secondary to motion artifact however they do appear to be several definitive small filling defects in distal segmental and subsegmental branches in the upper and lower lobes of indeterminate age. No large central filling defects. 2. No acute cardiopulmonary process. 3. Hepatic enlargement, steatosis and probable cirrhosis. Splenomegaly. Trace ascites. VTE: positive Assessment and Plan (1) Pulmonary emboli: Status: Acute (2) Cirrhosis: Qualifiers: Hepatic cirrhosis type: unspecified hepatic cirrhosis Ascites presence: without ascites Qualified Code(s): K74.60 - Unspecified cirrhosis of liver Status: Acute Plan 56 year old with history of compensated cirrhosis with history of alcohol abuse, pancytopenia, non-insulin dependent type 2 diabetes, anemia, and GERD admitted for acute pulmonary embolism. 1- Acute pulmonary embolism- d-dimer 503 with small filling defects in upper and lower lobes on chest cta -increased risk due to cirrhosis, though PT/INR and PTT relatively stable at 13.5/1.2 and 29.3 respectively -Given 80mg lovenox in ED this morning. Transition to po eliquis tonight BID -Monitor CBC daily to evaluate for bleeding -Venous duplex ble to look for extensive DVT 2-Cirrhosis- compensated -LFTs stable -No history of varices. Small ascites on CTA to be follow outpatient GI -Serologies negative for hep B and C and HIV in 01/21 3-Chronic pancytopenia- stable -secondary to cirrhosis. Continue ferrous sulfate -Follow CBC daily 7-Gld-dcfbqqo dependent type 2 diabetes- uncontrolled -Hyperglycemia at 416 on arrival -Continue glipizide -Add humalog per sliding scale -POC glucose -Diabetic diet 5-GERD- stable -Continue pantoprazole DVT- prophylaxis- lovenox to be transitioned to eliquis Full code Patient requires inpatient stay of at least 2 midnights for treatment of acute PE requiring initiation of anticoagulation and monitoring in patient at high risk for bleeding to due cirrhosis. Quality Stroke Does the patient have a stroke diagnosis?: No VTE Prior VTE?: No VTE Risk Level:: Medical - moderate - high VTE Device Contraindication: Treatment Not Indicated VTE Drug Contraindication: N/A - Med Ordered
[2022-04-01 18:09] LABS: Glucose, Whole Blood 161 mg/dL (60-115)
[2022-04-01] MEDS: Insulin Lispro 100 UNIT/ML 3 ML VIAL SUBCUT ×2 (18:12→21:40)
[2022-04-01] MEDS: glipiZIDE 5 MG TABLET PO (18:37)
--- NOTE | 2022-04-01 19:34 | MHC.CM.PN ---
CM met with admitted patient with bed assignment pending. A&Ox4. Independent. Employed. Lives alone. Will stay with sister at discharge for recovery. No PCP. Has first appointment on 04/29. Cannot remember name. Sees Meg Dimas RN [facility] for Cardiology. Pfizer x2. No booster. Has DM supplies. No services. Uses a scooter to get to work. HCP reviewed, completed and signed. Copies given. [place] into [facility] [place] [facility] [place] [facility]. HCP/sister Tamar Brody ([phone]). D/C plan: home to sister's house. Pt to arrange transport. CM to follow for d/c needs.
[2022-04-01 21:29] LABS: Glucose, Whole Blood 236 mg/dL (60-115)
[2022-04-01] MEDS: Apixaban 5 MG TABLET PO (21:40)
[2022-04-01] MEDS: Acetaminophen 325 MG TABLET 650 MG PO (23:01)
--- NOTE | 2022-04-01 23:27 | PC.NURSE ---
Report received and care assumed. pt awake, alert, oriented with skin pwd, respirations even and unlabored without distress noted. pt up to restroom independently with even and steady gait without assistance required; pt denied dizziness/lightheadedness and/or SOB. Pt returned to bed, declines hospital bed at this time and call ayala is in reach. Pt sinus on the monitor with VSS at this time. RN will continue to monitor.
[2022-04-02] VITALS (7 sets, daily range): BP systolic 109–144; BP diastolic 66–77; PULSE 84–96; RESP 16–22; TEMP 36.8–38.7; O2SAT 95–97
[2022-04-02 04:41] LABS: MANUAL DIFF FLAG NO
[2022-04-02 04:42] LABS: Basophils Percent Auto 0.4 % (0-2); Eosinophils Percent Auto 0.4 % (0-4); Hematocrit 27.6 % (42.0-52.0); Hemoglobin 8.8 g/dl (14.0-18.0); Imm Gran Abs Auto 0.01 X10*3/uL (0.00-0.03); Imm Gran Pct Auto 0.4 % (0.0-0.4); Lymphocytes Absolute Auto 0.5 X10*3/uL (1.2-4.9); Lymphocytes Percent Auto 18.5 % (20-40); Mean Corpuscular HGB Conc 31.9 g/dl (31.0-36.0); Mean Corpuscular Hemoglobin 23.8 pg (27.0-33.0); Mean Corpuscular Volume 74.8 fL (80.0-98.0); Monocytes Absolute Auto 0.2 X10*3/uL (0.1-1.2); Monocytes Percent Auto 9.1 % (2-11); Neutrophils Absolute Auto 1.9 x10*3/uL (2.0-8.3); Neutrophils Percent Auto 71.2 % (45-73); Red Blood Count 3.69 X10*6/uL (4.60-5.80); Red Cell Distribution Width 17.6 % (11.0-16.0); White Blood Count 2.7 X10*3/uL (4.8-10.8)
[2022-04-02 04:46] LABS: Platelet Count 59 X10*3/uL (160-400)
[2022-04-02 07:16] LABS: Glucose, Whole Blood 138 mg/dL (60-115)
[2022-04-02] MEDS: Ferrous Sulfate 324 MG TABLET.DR PO (08:02)
[2022-04-02] MEDS: Apixaban 5 MG TABLET PO (08:03)
[2022-04-02] MEDS: Omeprazole 20 MG CAPSULE.DR PO (08:03)
[2022-04-02] MEDS: 0.9 % Sodium Chloride Flush 3 ML SYRINGE IVFLUSH ×3 (08:04→20:02)
--- NOTE | 2022-04-02 09:52 | MHC.CLN ---
PT NOTED 34# WT LOSS ON NURSING ADMISSION ASSESSMENT ADMISSION WT 81.6KG (04/01/22) PREVIOUS WT 68KG (01/11/22) PT WITH 19% SIGNIFICANT WT GAIN X 2 MONTHS
[2022-04-02 11:34] LABS: Glucose, Whole Blood 213 mg/dL (60-115)
[2022-04-02] MEDS: Insulin Lispro 100 UNIT/ML 3 ML VIAL SUBCUT ×3 (11:49→20:02)
--- NOTE | 2022-04-02 12:53 | HO.PM.IMPN ---
Subjective Subjective Date of Service: 04/02/22 Interval History: cc: chest pain interval history:some ipmrovement, still with pain on inspiration Cardiovascular Cardiovascular: Reports no additional cardiovascular complaints Respiratory Respiratory: Reports no additional respiratory complaints Physical Exam Vital Signs: Vital Signs: Last Vital Signs Temp 100 F 04/02/22 11:38 Pulse 90 04/02/22 11:38 Resp 20 04/02/22 11:38 BP 135/67 04/02/22 11:38 Pulse Ox 96 04/02/22 11:38 O2 Del Method 04/02/22 11:38 BMI result Body Mass Index 30.9 General: AO X 3, no acute distress Resp: CTA bilateral, no accessory muscles used CVS: S1,S2,RRR GI: soft, non tender, non distended Neuro: motor grossly intact, alert Psych: appropriate affect, appropriate insight Objective Data Active Medications Apixaban (Apixaban 5 Mg Tablet) 10 mg PO BID [facility] Ferrous Sulfate (Ferrous Sulfate 324 Mg Tablet.) 324 mg PO DAILY [facility] Last Admin: 04/02/22 08:02 Dose: 324 mg Documented By: LESLEE Insulin Human Lispro (Insulin Lispro 100 Unit/Ml 3 Ml Vial) 0 unit SUBCUT QIDACHS [facility]; Protocol Last Admin: 04/02/22 11:49 Dose: 4 unit Documented By: SABIHA Omeprazole (Omeprazole 20 Mg Capsule.) 20 mg PO DAILY@0630 [facility] Last Admin: 04/02/22 08:03 Dose: 20 mg Documented By: LESLEE Pharmacy Consult (Consult Rx Perform Med Rec) 1 each MISCELLANE ONCE PRN PRN Reason: Consult order Sodium Chloride (0.9 % Sodium Chloride Flush 3 Ml Syringe) 3 ml IVFLUSH QSHIFT [facility] Last Admin: 04/02/22 08:04 Dose: 3 ml Documented By: LESLEE Labs CBC & Chem 7: 04/02/22 04:38 04/01/22 08:13 Labs: Laboratory Results - last 24 hr 04/01/22 04/01/22 04/01/22 12:49 17:58 21:24 MCV MCH MCHC RDW Plt Count MPV Immature Gran % (Auto) Neut % (Auto) Lymph % (Auto) [place] % (Auto) Eos % (Auto) Baso % (Auto) Lymph # (Auto) [place] # (Auto) Eos # (Auto) Baso # (Auto) Abs Immat Gran (auto) Absolute Neuts (auto) Absolute Nucleated RBC Nucleated RBC % (auto) POC Glucose 184 H 161 H 236 H 04/02/22 04/02/22 04/02/22 04:38 07:09 11:07 MCV 74.8 L MCH 23.8 L MCHC 31.9 RDW 17.6 H Plt Count 59 L MPV 9.0 L Immature Gran % (Auto) 0.4 Neut % (Auto) 71.2 Lymph % (Auto) 18.5 L [place] % (Auto) 9.1 Eos % (Auto) 0.4 Baso % (Auto) 0.4 Lymph # (Auto) 0.5 L [place] # (Auto) 0.2 Eos # (Auto) 0.0 Baso # (Auto) 0.0 Abs Immat Gran (auto) 0.01 Absolute Neuts (auto) 1.9 L Absolute Nucleated RBC 0.000 Nucleated RBC % (auto) 0.0 POC Glucose 138 H 213 H Assessment and Plan (1) Cirrhosis: Status: Acute (2) Chest pain: Status: Resolved Plan 56 year old with history of compensated cirrhosis with history of alcohol abuse, pancytopenia, non-insulin dependent type 2 diabetes, anemia, and GERD admitted for acute pulmonary embolism. Acute pulmonary embolism- d-dimer 503 with small filling defects in upper and lower lobes on chest cta -increased risk due to cirrhosis continue eliquis 10mg bid for 7 days then decrease to 5mg bid -Monitor CBC daily to evaluate for bleeding -Venous duplex negative Cirrhosis- etoh -LFTs stable -No history of varices. Small ascites on CTA to be follow outpatient GI -Serologies negative for hep B and C and HIV in 01/21 Chronic pancytopenia- stable -secondary to cirrhosis. Continue ferrous sulfate -Follow CBC daily Non-insulin dependent type 2 diabetes- uncontrolled -Hyperglycemia at 416 on arrival -Continue insulin, monitor poc GERD- stable -Continue pantoprazole DVT- prophylaxis- eliquis Full code reason for continued hospitalization:close monitoring, new AC with thrombocytopenia Quality Stroke Does the patient have a stroke diagnosis?: No VTE Prior VTE?: No VTE Risk Level:: Medical - moderate - high VTE Device Contraindication: Treatment Not Indicated VTE Drug Contraindication: N/A - Med Ordered
[2022-04-02 15:51] LABS: Glucose, Whole Blood 169 mg/dL (60-115)
[2022-04-02 19:36] LABS: Glucose, Whole Blood 199 mg/dL (60-115)
[2022-04-02] MEDS: Apixaban 5 MG TABLET 10 MG PO (20:01)
[2022-04-03 03:04] VITALS: BP 134/76; PULSE 85; RESP 18; TEMP 37.1; O2SAT 96
[2022-04-03 06:17] LABS: Hematocrit 30.8 % (42.0-52.0); Hemoglobin 9.7 g/dl (14.0-18.0); Mean Corpuscular HGB Conc 31.5 g/dl (31.0-36.0); Mean Corpuscular Hemoglobin 23.3 pg (27.0-33.0); Mean Platelet Volume 10.2 fL (9.4-12.4); Red Blood Count 4.16 X10*6/uL (4.60-5.80); Red Cell Distribution Width 17.5 % (11.0-16.0)
[2022-04-03 06:20] LABS: Platelet Count 59 X10*3/uL (160-400)
[2022-04-03] MEDS: Omeprazole 20 MG CAPSULE.DR PO (06:34)
[2022-04-03 06:45] LABS: Anion Gap 13 (12-20); Blood Urea Nitrogen 10 mg/dL (9-16); Calcium 8.2 mg/dL (8.4-10.2); Carbon Dioxide 22 mmol/L (22-29); Chloride 104 mmol/L (96-108); Creatinine Clr Calc Pharmacy 114.6; Estimated Glomerular Filt Rate > 60; Glucose Fasting 173 mg/dL (60-99); Potassium 3.8 mmol/L (3.3-5.1); Sodium 135 mmol/L (135-145)
[2022-04-03 07:22] VITALS: BP 119/72; PULSE 89; RESP 20; TEMP 37.2; O2SAT 95
[2022-04-03 08:05] LABS: Glucose, Whole Blood 164 mg/dL (60-115)
[2022-04-03] MEDS: 0.9 % Sodium Chloride Flush 3 ML SYRINGE IVFLUSH (08:06)
[2022-04-03] MEDS: Apixaban 5 MG TABLET 10 MG PO (08:06)
[2022-04-03] MEDS: Insulin Lispro 100 UNIT/ML 3 ML VIAL SUBCUT ×2 (08:06→11:29)
[2022-04-03] MEDS: Ferrous Sulfate 324 MG TABLET.DR PO (08:06)
--- NOTE | 2022-04-03 10:12 | P.DS_ITS ---
DS: Providers Provider Date of Service: 04/03/22 Date of admission: 04/01/22 14:09 Primary care physician: Unknown Physician DS: Diagnosis Discharge Diagnosis (1) Cirrhosis: Status: Acute (2) Chest pain: Status: Resolved DS: Summary Hospital Course Hospital Course: from initial hpi: 56 year old with history of compensated cirrhosis with history of alcohol abuse, pancytopenia, non-insulin dependent type 2 diabetes, anemia, and GERD presented to ED this morning with 1 day of lightheadedness with nausea but no vomiting and gradual onset, left sided pleuritic chest pain currently rated as a 5/10. D- Dimer positive at 503 with follow up CTA chest showing small filling defects in fili distal segmental and subsegmental branches of the upper and lower lobes of indeterminate age. No central filling deficits. Received 80mg lovenox in ED.? CTA chest Also a showed hepatic enlargement steatosis, and probable cirrhosis with trace ascites. No history of varices. AST 36, ALT 42, alk phos 168, total protein 6.3, total and direct bili normal. PT 13.5, INR 1.2, PTT 29.3. Glucose? 419 improved to 186 following 10 units regular insulin. Last alcoholic beverage 7 years ago. No illicit drug use or tobacco use. No personal or family history of bleeding/clotting disorder. hospital course: Patient was admitted for acute bilateral pulmonary embolism with small filling defects in the upper and lower lobes. He was started on loading dose of apixaban, he was monitor closely due to high risk for bleed due to alcoholic cirrhosis with pancytopenia. Patient seems to be tolerating apixaban well and has not had any signs of bleeding. Venous duplex was negative for DVT. For his diabetes he was initially hypoglycemic, sugars became better controlled on insulin. For his history of GERD he was continued on pantoprazole. Patient is feeling will be discharged home on apixaban. Time Spent with Patient Time attestation: Total time spent providing and/or coordinating discharge services: Discharge coordination time: Greater than 30 minutes Quality: Safe Use of Opioids Does Pt have an Active Cancer Diagnosis on the Problem List?: No Quality: Stroke Does the patient have a stroke diagnosis?: No Physical Exam Vital Signs: Vital Signs: Last Vital Signs Temp 98.9 F 04/03/22 07:22 Pulse 89 04/03/22 07:22 Resp 20 04/03/22 07:22 BP 119/72 04/03/22 07:22 Pulse Ox 95 04/03/22 07:22 O2 Del Method 04/03/22 07:22 BMI result Body Mass Index 30.9 General: AO X 3, no acute distress Resp: CTA bilateral, no accessory muscles used CVS: S1,S2,RRR GI: soft, non tender, non distended Neuro: motor grossly intact, alert Psych: appropriate affect, appropriate insight DS: Data Data Completed and Pending Labs on day of discharge: Laboratory Results - last 24 hr 04/02/22 04/02/22 04/02/22 11:07 15:43 19:28 WBC RBC Hgb Hct MCV MCH MCHC RDW Plt Count MPV Absolute Nucleated RBC Nucleated RBC % (auto) Sodium Potassium Chloride Carbon Dioxide Anion Gap BUN Creatinine Estim Creat Clear Calc Estimated GFR POC Glucose 213 H 169 H 199 H Fasting Glucose Calcium 04/03/22 04/03/22 04/03/22 05:57 05:57 07:23 WBC 3.0 L RBC 4.16 L Hgb 9.7 L Hct 30.8 L MCV 74.0 L MCH 23.3 L MCHC 31.5 RDW 17.5 H Plt Count 59 L MPV 10.2 Absolute Nucleated RBC 0.000 Nucleated RBC % (auto) 0.0 Sodium 135 Potassium 3.8 Chloride 104 Carbon Dioxide 22 Anion Gap 13 BUN 10 Creatinine 0.71 Estim Creat Clear Calc 114.6 Estimated GFR > 60 POC Glucose 164 H Fasting Glucose 173 H Calcium 8.2 L Discharge Plan Discharge Patient Disposition: Home, Self-Care Discharge Diagnosis: PE Referrals: Physician,Unknown J [Primary Care Provider] - 1 Week Discharge Medications: New Eliquis 5 mg Tablet 10 mg PO BID Qty: 70 0RF Rx Instructions: 10mg bid for 6 more days, then decrease to 5mg bid Continued glipizide 5 mg tablet 1 tab PO BID ferrous sulfate 324 mg (65 mg iron) Tablet,Delayed Release (Dr/Ec) 324 mg PO DAILY 30 Days Qty: 30 0RF pantoprazole 40 mg tablet,delayed release (DR/EC) 40 mg PO DAILY 30 Days Qty: 30 0RF (DME) blood-glucose meter [FreeStyle Lite Meter] Kit See Rx Instructions .Route Qty: 1 0RF Rx Instructions: As directed (DME) FreeStyle Lite Strips Strip See Rx Instructions .Route Qty: 100 0RF Rx Instructions: As directed (DME) lancets [Lancets,Ultra Thin] Misc See Rx Instructions .Route Qty: 100 0RF Rx Instructions: As directed Discharge Orders: Discharge Order (Routine); Ordered 04/03/22 Ordered By: Ronaldo Galindo Diet: Advance to usual diet Activity on Discharge: As tolerated Stand Alone Forms: Patient Portal Discharge page Care Plan Goals: recovery Health Concerns: PE with cirrhosis Plan of Treatment: eliquis 10mg bid for 6 more days, then decrease to 5mg bid, watch for bleeding Assessment: see above
--- NOTE | 2022-04-03 10:24 | MHC.CM.PN ---
PT TO DC HOME TODAY WITH NO SERVICES PT WILL BE DISCHARGED WITH A NEW SCRIPT FOR ELIQUIS 30 COUPON PROVIDED ALONG WITH INSTRUCTIONS FOR USE PT INDICATES UNDERSTANDING PT TO ARRANGE TRANSPORT
[2022-04-03 11:06] VITALS: BP 116/70; PULSE 90; RESP 20; TEMP 37.2; O2SAT 97
[2022-04-03 11:23] LABS: Glucose, Whole Blood 218 mg/dL (60-115)
--- NOTE | 2022-04-03 13:43 | PC.NURSE ---
Alert and oriented. Denies pain, VSS, afebrile, no acute resp. distress noted. Took all schedule meds as ordered. New order to discharge patient home. Went over discharge instructions, follow up apt, medication administrations with patient, verbalized understanding back. [facility] Left via car with his friend.
== END 2022-04-03 14:00 | disposition home or self-care (01) | DRG 134 ==
LOC: HO.ED 11:26 → HO.EDOVER 14:19 → HO.IMC 04-02 06:46
PROVIDERS: Admitting Provider Physician Assistant; Emergency Provider Emergency Medicine; PCP Internal Medicine; Visit Provider Internal Medicine
DX: I26.99 Other pulmonary embolism without acute cor pulmonale (principal); D61.818 Other pancytopenia; K70.30 Alcoholic cirrhosis of liver without ascites; K21.9 Gastro-esophageal reflux disease without esophagitis; E11.65 Type 2 diabetes mellitus with hyperglycemia; Z20.822 Contact with and (suspected) exposure to COVID-19; Z79.01 Long term (current) use of anticoagulants; Z79.84 Long term (current) use of oral hypoglycemic drugs; Z79.899 Other long term (current) drug therapy
CPT/HCPCS: 36415; 71046; 71275; 80048; 80053; 82947; 84484; 85025; 85027; 85379; 85610; 85730; 87635; 93005; 93970; 99219; 99285; J1650; Q9967

== ENCOUNTER 2022-04-17 09:54 | Inpatient (IN) | payer OTHER, SELFPAY ==
--- NOTE | ~2022-04-17 | US_ITS ---
EXAMINATION: US ABDOMEN COMPLETE CLINICAL INFORMATION: Upper abdominal pain. COMPARISON: CT abdomen from 01/11/2022 and 04/01/2022. TECHNIQUE: Real-time imaging of the abdominal viscera. FINDINGS: PANCREAS: The pancreatic tail is obscured by bowel gas. Otherwise, the visualized pancreas is has homogeneous echotexture. No focal pancreatic lesion or pancreatic ductal dilatation. ABDOMINAL AORTA: The visualized proximal and distal abdominal aorta are normal in caliber. The mid abdominal aorta is obscured by bowel gas. INFERIOR VENA CAVA: Visualized portions are normal. LIVER: The cirrhotic liver has nodular contour and coarse parenchymal echotexture. No evidence of focal liver lesion or intrahepatic bile duct dilatation. GALLBLADDER: Normal. The gallbladder is physiologically distended without evidence of stones, sludge, polyps, wall thickening or pericholecystic fluid. COMMON BILE DUCT: Normal in caliber measuring 0.3 cm in diameter. KIDNEYS: The right kidney is approximately 11.5 cm and left kidney 13 cm in length. The kidneys have normal cortical thickness and echotexture. No focal parenchymal lesion, nephrolithiasis or hydronephrosis. SPLEEN: Chronic splenomegaly. The spleen measures up to 16 cm maximum dimension. 1.1 cm hyperechoic focus within the spleen is statistically likely a hemangioma. Otherwise, spleen is unremarkable. FREE FLUID: Trace volume of ascitic fluid is detected within the upper abdomen. US/US abdomen complete IMPRESSION: * Liver cirrhosis and splenomegaly. * A trace amount of ascitic fluid is visualized in the upper abdomen. * A small, 1.1 cm echogenic focus in the spleen is likely a hemangioma.
--- NOTE | ~2022-04-17 | XR_ITS ---
EXAMINATION: XR CHEST CLINICAL INFORMATION: Shortness of breath, chest pain COMPARISON: CXR from 04/01/2022 TECHNIQUE: 2 views of the chest were obtained. FINDINGS: Lungs are hypoinflated. Minimal linear opacity of discoid atelectasis at the left lateral base. No airspace disease, edema or pleural effusion. Cardiac silhouette is normal in size and contour. No acute osseous abnormality. There is chronic narrowing of the acromiohumeral distances at each shoulder, as may be observed in the setting of chronic rotator cuff tears. XR/XR chest 2V IMPRESSION: No acute cardiopulmonary disease. However, evaluation of lower lobes is partially limited by the hypoinflation.
--- NOTE | ~2022-04-17 | CT_ITS ---
EXAMINATION: CT ANGIOGRAM OF THE CHEST WITH AND WITHOUT CONTRAST (CT PULMONARY ANGIOGRAM FOR PE) CLINICAL INFORMATION: Reason for Exam hx of pe c sob noncompliant with meds/poor histori COMPARISON: Previous chest CTA 04/01/2022 and chest x-ray from earlier the same day TECHNIQUE: Prior to contrast administration, noncontrast localization images were obtained. Subsequently, multidetector volumetric imaging was performed from the thoracic inlet to below the diaphragms following the administration of 85 mL Omnipaque 350 intravenous contrast. No contrast reaction reported Sagittal, coronal, and MIP oblique sagittal reformatted images were obtained on the CT workstation, uploaded to PACS, and reviewed. This CT examination was performed using dose optimization techniques as appropriate, variously including the following: *Automated exposure control *Adjustment of mA and/or kV according to patient size (this includes techniques or standardized protocols for targeted exams where dose is matched to indication/reason for exam; i.e. extremities or head) *Use of iterative reconstruction technique Total exam dose-length product 359 mGy-cm FINDINGS: QUALITY OF STUDY/CONTRAST BOLUS: Satisfactory. PULMONARY ARTERIES: No central or segmental pulmonary emboli. THORACIC AORTA: No aneurysm or dissection. LUNG: No focal consolidation, nodules or masses. PLEURA: No pleural effusion or pneumothorax. MEDIASTINUM: Normal heart size. No pericardial effusion. No hilar or mediastinal lymphadenopathy. Small right cardiophrenic angle or anterior diaphragmatic lymph nodes. No evidence of septal bowing or right heart strain. There are small paraesophageal varices. CHEST WALL/AXILLA: No axillary or internal mammary lymphadenopathy. OSSEOUS STRUCTURES: No acute or suspicious osseous abnormality. UPPER ABDOMEN: No reflux of contrast into the hepatic veins to suggest elevated right heart pressures. CT/CT angio chest PE protocol IMPRESSION: No evidence of pulmonary embolism. VTE: negative
--- NOTE | ~2022-04-17 | CT_ITS ---
EXAMINATION: CT ABDOMEN AND PELVIS WITH CONTRAST CLINICAL INFORMATION: Abdominal pain and shortness of breath COMPARISON: Previous abdominal ultrasound most recent from earlier the same day and CT of the abdomen and pelvis December 2021 TECHNIQUE: Multidetector volumetric images were obtained from the superior aspect of the liver through the pubic symphysis following administration 85 mL of Omnipaque 350 intravenous contrast. Sagittal and coronal reformatted images were obtained on the technologist's workstation. Oral contrast: Yes This CT examination was performed using dose optimization techniques as appropriate, variously including the following: *Automated exposure control *Adjustment of mA and/or kV according to patient size (this includes techniques or standardized protocols for targeted exams where dose is matched to indication/reason for exam; i.e. extremities or head) *Use of iterative reconstruction technique DLP: 610 mGy-cm FINDINGS: LUNG BASES: The visualized lung bases are unremarkable. LIVER, GALLBLADDER, AND BILIARY TREE: The liver is cirrhotic. No focal liver lesion. The gallbladder is upper normal in size. There is no intra or extrahepatic biliary duct dilatation. PANCREAS: The pancreas appears atrophic. SPLEEN: The spleen is enlarged and measures 15.5 cm in length. ADRENAL GLANDS: Unremarkable. KIDNEYS AND URETERS: The kidneys are normal in size, shape, and attenuation. No hydronephrosis, hydroureter, or calculi seen. No perinephric stranding. BLADDER: Unremarkable. GASTROINTESTINAL TRACT: There is wall thickening and edema of the right colon and hepatic flexure questionable for colitis. There is question of mild dilatation and wall thickening of the proximal small bowel/jejunum in the left upper quadrant as well. Small and large bowel is otherwise unremarkable. The appendix is unremarkable. Stomach is unremarkable. ABDOMINAL WALL: No significant hernia is appreciated. LYMPH NODES: There is periportal, upper abdominal retroperitoneal, small bowel mesentery and bilateral inguinal shotty lymphadenopathy. No enlarged lymph nodes are seen. VASCULAR: There are multiple varices and evidence of portal hypertension. No evidence of arteriovenous occlusion is seen. PELVIC VISCERA: Unremarkable. OSSEOUS STRUCTURES: Unremarkable. CT/CT abdomen pelvis w IV con IMPRESSION: Cirrhosis, splenomegaly, small amount of ascites, multiple varices and evidence of portal hypertension. Wall thickening and edema of the right colon and hepatic flexure suggestive of colitis and question mild dilatation and wall thickening of the jejunum. Fleischner guidelines were followed.
--- NOTE | ~2022-04-17 | CT_ITS ---
STUDY PERFORMED: CTA ABDOMEN AND PELVIS WITHOUT AND WITH CONTRAST HISTORY: Abdominal pain, evaluate for mesenteric ischemia DESCRIPTION: Routine abdomen and pelvis CTA protocol with contrast was performed. 80 mL of Omnipaque 350 was administered. 3D POSTPROCESSING: Multiple 3-D angiographic images were processed from the initial data set by the tomography technologist at the modality workstation under concurrent physician supervision. DOSE LOWERING TECHNIQUES: This CT examination was performed using dose optimization techniques as appropriate, variously including the following: - Automated exposure control - Adjustment of mA and/or kV according to patient size (this includes techniques or standardized protocols for targeted exams where dose is matched to indication/reason for exam; i.e. extremities or head) - Use of iterative reconstruction technique DLP: 700 mGycm. COMPARISON: CT of the abdomen and pelvis from 04/17/2022 FINDINGS: VASCULAR: ABDOMINAL AORTA: Normal in caliber and widely patent. No evidence of atherosclerotic plaque, aneurysm or stenosis. RIGHT LOWER EXTREMITY: Common iliac, external iliac, internal iliac and visualized femoral arteries are widely patent. LEFT LOWER EXTREMITY: Common iliac, external iliac, internal iliac and visualized femoral arteries are widely patent. CELIOMESENTERIC ARTERIES: Celiac artery including the hepatic artery, splenic artery and a gastric arteries are widely patent. The superior mesenteric artery and inferior mesenteric artery are widely patent. Secondary and tertiary branches of the mesenteric arteries are patent RENAL ARTERIES: Patent. NONVASCULAR: Lung Bases: Dependent atelectasis seen in the bilateral lower globes. No pleural effusions Liver, Gallbladder and Biliary Tree: Liver is nodular contour consistent with underlying cirrhosis. No focal hepatic lesions seen. Trace perihepatic ascites is unchanged The gallbladder is unremarkable with no evidence of radiopaque gallstones, gallbladder wall thickening, or obvious pericholecystic inflammatory changes. Pancreas: Unremarkable. Spleen: Spleen is markedly enlarged consistent with underlying portal hypertension Adrenal Glands: Unremarkable. Kidneys and Ureters: The kidneys are normal in size, shape, and attenuation. No hydronephrosis, hydroureter, or calculi seen. No perinephric stranding. Bladder: Unremarkable. Gastrointestinal Tract: The small is decompressed and appears unremarkable. Colon is decompressed. There appears to be some persistent wall thickening along the right colon which is grossly unchanged. The appendix is unremarkable. Diffuse mesenteric edema is seen and unchanged. Abdominal Wall: No significant hernia is appreciated. Lymph Nodes: Normal. Pelvic Viscera: Unremarkable. Osseous Structures: Unremarkable. CT/CT angio abdomen pelvis IMPRESSION: Mesenteric vessels are widely patent. Nonspecific wall thickening and edema of the right colon is grossly unchanged. Cirrhosis with splenomegaly consistent with portal hypertension. Nonspecific mesenteric edema and trace perihepatic ascites is unchanged.
[2022-04-17 10:02] VITALS: BP 121/55; PULSE 103; O2SAT 97
[2022-04-17 10:09] VITALS: BP 141/99; PULSE 100; RESP 20; TEMP 39.5; O2SAT 97; BMI 29.5
[2022-04-17 10:38] LABS: IDNOW Serial# 9DB6401D
[2022-04-17 10:39] LABS: COVID-19 Test Negative (Negative)
--- NOTE | 2022-04-17 11:37 | ECG_ITS ---
Test Reason : fever Blood Pressure : / mmHG Vent. Rate : 108 BPM Atrial Rate : 108 BPM P-R Int : 176 ms QRS Dur : 088 ms QT Int : 346 ms P-R-T Axes : 021 -04 -01 degrees QTc Int : 463 ms Sinus tachycardia Nonspecific T wave abnormality Cannot rule out Anterior infarct (cited on or before 11-JAN-2022) Abnormal ECG When compared with ECG of 01-APR-2022 07:52, Nonspecific T wave abnormality now evident in Lateral leads Referred By: Anastacia Hardy Electronically Signed By:MELLISA MCMANUS
--- NOTE | 2022-04-17 11:38 | ED.FEVER ---
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 Patient reports he was in his normal state of health this morning however when he was at work he developed symptoms suddenly shortness of breath and dizziness, prompting his coworkers to call 911. Patient states ?I feel like it did last time ?. Patient has recent admission on 04/02 for acute bilateral pulmonary embolisms with small filling defects in the upper in lowers lobes. Patient is unable to tell me if he has been taking his medications as prescribed at home. Denies vomiting, diarrhea, recent fevers, hematochezia, hematemesis. Denies any smoking, denies recent alcohol use. Patient seems to be a poor historian. MD elicited complaint: fever Pertinent past history: diabetes and other (Pulmonary embolisms) Onset (ago): hour(s) Context: recent hospitalization Associated symptoms: chills and myalgias Related Data Home Medications Medication Instructions Recorded Confirmed glipizide 5 mg tablet 1 tab PO BID 04/01/22 04/17/22 apixaban 5 mg tablet (Eliquis) 5 mg PO BID 04/17/22 04/17/22 lisinopril 5 mg tablet 1 tab PO DAILY 04/17/22 04/17/22 metformin 1,000 mg tablet 1 tab PO BIDAC 04/17/22 04/17/22 Previous Rx's Medication Instructions Recorded blood sugar diagnostic (FreeStyle #100 ea 01/15/22 Lite Strips) blood-glucose meter (FreeStyle #1 ea 01/15/22 Lite Meter kit) ferrous sulfate 324 mg (65 mg 324 mg PO DAILY 30 days #30 tabs 01/15/22 iron) tablet,delayed release lancets (Lancets,Ultra Thin) #100 ea 01/15/22 pantoprazole 40 mg tablet,delayed 40 mg PO DAILY 30 days #30 tabs 01/15/22 release Allergies Allergy/AdvReac Type Severity Reaction Status Date / Time No Known Allergies Allergy Verified 03/10/22 14:58 Review of Systems Review of Systems: Constitutional : No Weight loss, No Fever, No Chills, No Night Sweats, + Fatigue, + malaise ENT/Mouth : No Hearing loss, No Ear Pain, No Nasal Congestion, No Sinus Pain, No hoarseness, No sore throat, No Rhinorrhea, No Swallowing Difficulty Eyes: No Eye Pain, No Swelling, No Redness, No Foreign Body, No Discharge, No Vision changes Cardiovascular : +chest pain, + SOB, + Dyspnea on Exertion, No Orthopnea, No Edema, No extremity swelling, No Palpitations Respiratory : + Cough, No Sputum, No Wheezing, + Dyspnea Gastrointestinal : + Nausea, No Vomiting, No Diarrhea, + abdominal Pain, No hematochezia, No Melena Genitourinary : No irregular bleeding, No Dysuria, No Urinary Frequency, No Hematuria, No Urinary Incontinence, No Urgency, No Flank Pain, No Urinary Flow Changes, No Hesitancy Musculoskeletal : No joint pain, + Myalgias, No Joint Swelling Skin : No Skin Lesions, No rash Neuro : + Weakness, No Numbness, No Paresthesias, No Loss of Consciousness, + dizziness, No Headache Psych : No Anxiety/Panic, No Depression, No SI/HI/AH/VH Heme/Lymph: No Bruising, No Bleeding,No Lymphadenopathy Endocrine : No Polyuria, No Polydipsia, No Temperature Intolerance Yes all other systems are reviewed and are negative [facility] Past Medical History Attestation statement: The following information was validated with the patient. Source: old records reviewed, obtained from family and nursing notes reviewed Medical History Bacteremia Cirrhosis Diabetes GERD (gastroesophageal reflux disease) Pancytopenia Pulmonary emboli Family History Family History Father CVA (cerebral vascular accident) Social History Social History (Updated 04/17/22 @ 17:41 by LUZ Reilly) Household Members: None Housing: Apartment Do you presently have visiting nurse or other home services: No Alcohol intake: former Patient Tobacco Use Status: Never used Tobacco e-Cigarette/Vaping Use: Never Used Second Hand Smoke Exposure: No Advance Directives: Yes Advance Directives on File: Yes Advance Directives Date on File: 04/02/22 service: No Current occupational status: employed Physical Exam Vital Signs: Vital Signs: Last Vital Signs Temp 100.1 F 04/17/22 13:39 Pulse 104 H 04/17/22 17:18 Resp 25 H 04/17/22 17:18 BP 94/57 L 04/17/22 17:18 Pulse Ox 98 04/17/22 17:18 O2 Del Method 04/17/22 17:18 BMI result Body Mass Index 29.5 Vital signs reviewed patient with a blood pressure of 141/99. Pulse 100. Respiration 20. Temperature 103.1 degrees. Oxygen saturation 97% on room air. Appearance: Alert. Oriented X3. Appears uncomfortable. Head: Normal external exam. Normocephalic. Atraumatic. Eyes: PERRLA. EOMI. Conjunctiva and sclera normal. Eyelids normal. ENT: No teeth, EAC normal. TM's Normal. Pharynx normal. Uvula midline. Moist mucous membranes. No lesions/ulcerations or masses noted on the tongue. Neck: Normal inspection. Neck supple. FROM. No adenopathy. Thyroid Normal. CVS: Tachycardic, normal rhythm Heart sound normal. No murmurs/rales/gallops. Respiratory: Increased respiratory rate, chest pain with inspiration. Breath sounds normal. No wheezes/rales/rhonchi noted. No accessory muscle usage noted or decreased air movement noted. No signs of trauma. Abdomen: Soft, epigastric tenderness, left lower quadrant tenderness, nondistended. No guarding. No rigidity. Bowel sounds normal in all 4 quadrants. Back: No CVA tenderness. Full range of motion noted. Nontender. No signs of trauma. Skin: Appears diaphoretic, skin warm Normal skin color. Normal skin turgor. No rashes/lesions/lacerations noted. Extremities: No lower extremity edema. No calf tenderness is noted. Extremities exhibit normal range of motion and nontender. Neuro: Oriented X 3. No motor deficit. No sensory deficit. Reflexes normal. Normal steady gait. No focal neuro deficits noted. CN's II-XII intact bilaterally? Course Course Course Narrative: 11:40am 56 year old with history of compensated cirrhosis with history of alcohol abuse, pancytopenia, non-insulin dependent type 2 diabetes, anemia, and GERD presented to ED via EMS with sudden onset of shortness of breath, dizziness, nausea, body aches, sweating. Patient recently admitted for bilateral pulmonary embolisms. On exam, patient appears uncomfortable with increased respiratory rate. Temperature 103.1 degrees on arrival, pulse tachycardic, satting 97% on room air. Lungs clear to auscultation bilaterally, no wheezes rales rhonchi noted. Patient tender to palpation in epigastric area as low well as left lower quadrant, abdomen soft, nondistended. Plan: Will obtain labs, EKG, chest x-ray, abdominal ultrasound, COVID swab, blood cultures, lactic acid. Provide a L of IV fluids along with 975 mg of Tylenol and obtain a UA and re-evaluate Reevaluation(s) Reevaluation #1: - labs reviewed patient mild baseline anemia similar when compared to prior. Random glucose 215. AST 43. Alkaline phosphate 186. Similar compared to prior. CRP 1.21. BNP 105. Total protein 6.1. Albumin 3.3. Troponin 6.1. Lactic acid 1.9. Patient negative for COVID. Negative for any ETOH intake. Chest x-ray was negative for any acute processes although not a great x-ray revealed hypoinflation. - abdominal ultrasound revealed liver cirrhosis and splenomegaly. A trace amount of ascites fluid is visual in the upper abdomen. A small 1.1 cm focus in the spleen is likely a hemangioma otherwise no other acute processes. - therefore at this time will obtain a CTA of chest for PE due to patient being noncompliant with medications and being a poor historian and a CT scan abdomen pelvis with IV contrast and re-evaluate. Time: 13:21 Reevaluation #2: - CTA of chest for PE negative for PE. - CT scan of abdomen and pelvis with IV contrast return at this time and reveals possible colitis. Therefore Zosyn ordered at this time for possible colitis - otherwise the CT scan of abdomen pelvis with IV contrast also reveals cirrhosis, splenomegaly, small amount of ascites, multiple varices and evidence of portal hypertension. Wall thickening and edema of the right colon and hepatic flexure suggestive of colitis and question mild dilatation and wall thickening of the jejunum. - Time: 16:06 MDM - Fever Medical Records Attestation: I reviewed the patient's medical records. Lab Data Attestation: I reviewed the patient's lab results. Result diagrams: 04/17/22 12:16 04/17/22 12:16 Labs: Lab Results 04/17/22 04/17/22 04/17/22 Range/Units 10:13 12:14 12:15 WBC (4.8-10.8) X10*3/uL RBC (4.60-5.80) X10*6/uL Hgb (14.0-18.0) g/dl Hct (42.0-52.0) % MCV (80.0-98.0) fL MCH (27.0-33.0) pg MCHC (31.0-36.0) g/dl RDW (11.0-16.0) % Plt Count (160-400) X10*3/uL MPV (9.4-12.4) fL Immature Gran % (Auto) (0.0-0.4) % Neut % (Auto) (45-73) % Lymph % (Auto) (20-40) % [place] % (Auto) (2-11) % Eos % (Auto) (0-4) % Baso % (Auto) (0-2) % Lymph # (Auto) (1.2-4.9) X10*3/uL [place] # (Auto) (0.1-1.2) X10*3/uL Eos # (Auto) (0.0-0.4) X10*3/uL Baso # (Auto) (0.0-0.2) X10*3/uL Abs Immat Gran (auto) (0.00-0.03) X10*3/uL Absolute Neuts (auto) (2.0-8.3) x10*3/uL Absolute Nucleated RBC (0.0-0.012) X10*3/uL Nucleated RBC % (auto) (0.0-0.2) /100WBC Smear Tech's Comments ESR 14 (0-15) MM/HR PT (10.0-13.1) SEC INR (0.9-1.1) Sodium (135-145) mmol/L Potassium (3.3-5.1) mmol/L Chloride (96-108) mmol/L Carbon Dioxide (22-29) mmol/L Anion Gap (12-20) BUN (9-16) mg/dL Creatinine (0.5-1.4) mg/dL Estim Creat Clear Calc Estimated GFR Random Glucose (60-115) mg/dL Lactic Acid 1.9 (0.5-2.0) mmol/L Calcium (8.4-10.2) mg/dL Magnesium (1.6-2.6) mg/dL Total Bilirubin (0.0-1.0) mg/dL AST (5-37) U/L ALT (0-40) U/L Alkaline Phosphatase (39-117) U/L Lactate Dehydrogenase (118-273) U/L Total Creatine Kinase (38-174) U/L Troponin I High Sens (<3.5-35.0) ng/L C-Reactive Protein (< or = 0.50) mg/dL B-Natriuretic Peptide (<100) pg/mL Total Protein (6.5-8.0) g/dL Albumin (3.5-5.0) g/dL Amylase (28-100) U/L Lipase (8-78) U/L Urine Color Urine Appearance Urine pH (5.0-9.0) Ur Specific [place] (1.005-1.025) Urine Protein (Neg-Trace) mg/dL Urine Glucose (UA) (Negative) mg/dL Urine Ketones (Negative) mg/dL Urine Blood (Negative) Urine Nitrite (Negative) Ur Leukocyte Esterase (Negative) Urine RBC (0-2) /HPF Urine WBC (0-5) /HPF Ur Squamous Epith Cells (0-2) /HPF Urine Bacteria (None Seen) Hyaline Casts (0-2) /LPF Stool Occult Blood (NEGATIVE) Ethyl Alcohol mg/dL COVID-19 (JACKIE) Negative (Negative) COVID-19 Clin Com See Note 04/17/22 04/17/22 04/17/22 Range/Units 12:15 12:16 12:16 WBC 7.5 (4.8-10.8) X10*3/uL RBC 4.21 L (4.60-5.80) X10*6/uL Hgb 9.6 L (14.0-18.0) g/dl Hct 31.2 L (42.0-52.0) % MCV 74.1 L (80.0-98.0) fL MCH 22.8 L (27.0-33.0) pg MCHC 30.8 L (31.0-36.0) g/dl RDW 16.4 H (11.0-16.0) % Plt Count 103 L D (160-400) X10*3/uL MPV 9.4 (9.4-12.4) fL Immature Gran % (Auto) 0.1 (0.0-0.4) % Neut % (Auto) 93.7 H (45-73) % Lymph % (Auto) 3.6 L (20-40) % [place] % (Auto) 2.4 (2-11) % Eos % (Auto) 0.1 (0-4) % Baso % (Auto) 0.1 (0-2) % Lymph # (Auto) 0.3 L (1.2-4.9) X10*3/uL [place] # (Auto) 0.2 (0.1-1.2) X10*3/uL Eos # (Auto) 0.0 (0.0-0.4) X10*3/uL Baso # (Auto) 0.0 (0.0-0.2) X10*3/uL Abs Immat Gran (auto) 0.01 (0.00-0.03) X10*3/uL Absolute Neuts (auto) 7.1 (2.0-8.3) x10*3/uL Absolute Nucleated RBC 0.000 (0.0-0.012) X10*3/uL Nucleated RBC % (auto) 0.0 (0.0-0.2) /100WBC Smear Tech's Comments VERIFIED ESR (0-15) MM/HR PT 16.6 H (10.0-13.1) SEC INR 1.4 H (0.9-1.1) Sodium (135-145) mmol/L Potassium (3.3-5.1) mmol/L Chloride (96-108) mmol/L Carbon Dioxide (22-29) mmol/L Anion Gap (12-20) BUN (9-16) mg/dL Creatinine (0.5-1.4) mg/dL Estim Creat Clear Calc Estimated GFR Random Glucose (60-115) mg/dL Lactic Acid (0.5-2.0) mmol/L Calcium (8.4-10.2) mg/dL Magnesium (1.6-2.6) mg/dL Total Bilirubin (0.0-1.0) mg/dL AST (5-37) U/L ALT (0-40) U/L Alkaline Phosphatase (39-117) U/L Lactate Dehydrogenase (118-273) U/L Total Creatine Kinase (38-174) U/L Troponin I High Sens (<3.5-35.0) ng/L C-Reactive Protein (< or = 0.50) mg/dL B-Natriuretic Peptide (<100) pg/mL Total Protein (6.5-8.0) g/dL Albumin (3.5-5.0) g/dL Amylase 72 (28-100) U/L Lipase (8-78) U/L Urine Color Urine Appearance Urine pH (5.0-9.0) Ur Specific [place] (1.005-1.025) Urine Protein (Neg-Trace) mg/dL Urine Glucose (UA) (Negative) mg/dL Urine Ketones (Negative) mg/dL Urine Blood (Negative) Urine Nitrite (Negative) Ur Leukocyte Esterase (Negative) Urine RBC (0-2) /HPF Urine WBC (0-5) /HPF Ur Squamous Epith Cells (0-2) /HPF Urine Bacteria (None Seen) Hyaline Casts (0-2) /LPF Stool Occult Blood (NEGATIVE) Ethyl Alcohol < 10 mg/dL COVID-19 (JACKIE) (Negative) COVID-19 Clin Com 04/17/22 04/17/22 04/17/22 Range/Units 12:16 12:16 12:16 WBC (4.8-10.8) X10*3/uL RBC (4.60-5.80) X10*6/uL Hgb (14.0-18.0) g/dl Hct (42.0-52.0) % MCV (80.0-98.0) fL MCH (27.0-33.0) pg MCHC (31.0-36.0) g/dl RDW (11.0-16.0) % Plt Count (160-400) X10*3/uL MPV (9.4-12.4) fL Immature Gran % (Auto) (0.0-0.4) % Neut % (Auto) (45-73) % Lymph % (Auto) (20-40) % [place] % (Auto) (2-11) % Eos % (Auto) (0-4) % Baso % (Auto) (0-2) % Lymph # (Auto) (1.2-4.9) X10*3/uL [place] # (Auto) (0.1-1.2) X10*3/uL Eos # (Auto) (0.0-0.4) X10*3/uL Baso # (Auto) (0.0-0.2) X10*3/uL Abs Immat Gran (auto) (0.00-0.03) X10*3/uL Absolute Neuts (auto) (2.0-8.3) x10*3/uL Absolute Nucleated RBC (0.0-0.012) X10*3/uL Nucleated RBC % (auto) (0.0-0.2) /100WBC Smear Tech's Comments ESR (0-15) MM/HR PT (10.0-13.1) SEC INR (0.9-1.1) Sodium 138 (135-145) mmol/L Potassium 3.9 (3.3-5.1) mmol/L Chloride 105 (96-108) mmol/L Carbon Dioxide 23 (22-29) mmol/L Anion Gap 14 (12-20) BUN 16 D (9-16) mg/dL Creatinine 0.73 (0.5-1.4) mg/dL Estim Creat Clear Calc 109.1 Estimated GFR > 60 Random Glucose 215 H D (60-115) mg/dL Lactic Acid (0.5-2.0) mmol/L Calcium 8.6 (8.4-10.2) mg/dL Magnesium 1.6 (1.6-2.6) mg/dL Total Bilirubin 0.9 (0.0-1.0) mg/dL AST 43 H (5-37) U/L ALT 40 (0-40) U/L Alkaline Phosphatase 186 H (39-117) U/L Lactate Dehydrogenase 241 (118-273) U/L Total Creatine Kinase 104 (38-174) U/L Troponin I High Sens 6.1 (<3.5-35.0) ng/L C-Reactive Protein 1.21 H (< or = 0.50) mg/dL B-Natriuretic Peptide 105 H (<100) pg/mL Total Protein 6.1 L (6.5-8.0) g/dL Albumin 3.3 L (3.5-5.0) g/dL Amylase (28-100) U/L Lipase 14 (8-78) U/L Urine Color Urine Appearance Urine pH (5.0-9.0) Ur Specific [place] (1.005-1.025) Urine Protein (Neg-Trace) mg/dL Urine Glucose (UA) (Negative) mg/dL Urine Ketones (Negative) mg/dL Urine Blood (Negative) Urine Nitrite (Negative) Ur Leukocyte Esterase (Negative) Urine RBC (0-2) /HPF Urine WBC (0-5) /HPF Ur Squamous Epith Cells (0-2) /HPF Urine Bacteria (None Seen) Hyaline Casts (0-2) /LPF Stool Occult Blood (NEGATIVE) Ethyl Alcohol mg/dL COVID-19 (JACKIE) (Negative) COVID-19 Clin Com 04/17/22 04/17/22 04/17/22 Range/Units 16:02 16:26 16:27 WBC (4.8-10.8) X10*3/uL RBC (4.60-5.80) X10*6/uL Hgb (14.0-18.0) g/dl Hct (42.0-52.0) % MCV (80.0-98.0) fL MCH (27.0-33.0) pg MCHC (31.0-36.0) g/dl RDW (11.0-16.0) % Plt Count (160-400) X10*3/uL MPV (9.4-12.4) fL Immature Gran % (Auto) (0.0-0.4) % Neut % (Auto) (45-73) % Lymph % (Auto) (20-40) % [place] % (Auto) (2-11) % Eos % (Auto) (0-4) % Baso % (Auto) (0-2) % Lymph # (Auto) (1.2-4.9) X10*3/uL [place] # (Auto) (0.1-1.2) X10*3/uL Eos # (Auto) (0.0-0.4) X10*3/uL Baso # (Auto) (0.0-0.2) X10*3/uL Abs Immat Gran (auto) (0.00-0.03) X10*3/uL Absolute Neuts (auto) (2.0-8.3) x10*3/uL Absolute Nucleated RBC (0.0-0.012) X10*3/uL Nucleated RBC % (auto) (0.0-0.2) /100WBC Smear Tech's Comments ESR (0-15) MM/HR PT (10.0-13.1) SEC INR (0.9-1.1) Sodium (135-145) mmol/L Potassium (3.3-5.1) mmol/L Chloride (96-108) mmol/L Carbon Dioxide (22-29) mmol/L Anion Gap (12-20) BUN (9-16) mg/dL Creatinine (0.5-1.4) mg/dL Estim Creat Clear Calc Estimated GFR Random Glucose (60-115) mg/dL Lactic Acid (0.5-2.0) mmol/L Calcium (8.4-10.2) mg/dL Magnesium (1.6-2.6) mg/dL Total Bilirubin (0.0-1.0) mg/dL AST (5-37) U/L ALT (0-40) U/L Alkaline Phosphatase (39-117) U/L Lactate Dehydrogenase (118-273) U/L Total Creatine Kinase (38-174) U/L Troponin I High Sens 6.3 (<3.5-35.0) ng/L C-Reactive Protein (< or = 0.50) mg/dL B-Natriuretic Peptide (<100) pg/mL Total Protein (6.5-8.0) g/dL Albumin (3.5-5.0) g/dL Amylase (28-100) U/L Lipase (8-78) U/L Urine Color Dark Yellow Urine Appearance Clear Urine pH 6.0 (5.0-9.0) Ur Specific [place] >= 1.030 H (1.005-1.025) Urine Protein Negative (Neg-Trace) mg/dL Urine Glucose (UA) 100 H (Negative) mg/dL Urine Ketones Negative (Negative) mg/dL Urine Blood Negative (Negative) Urine Nitrite Negative (Negative) Ur Leukocyte Esterase Small (1+) H (Negative) Urine RBC 0-2 (0-2) /HPF Urine WBC 6-10 H (0-5) /HPF Ur Squamous Epith Cells 0-2 (0-2) /HPF Urine Bacteria None Seen (None Seen) Hyaline Casts 0-2 (0-2) /LPF Stool Occult Blood POSITIVE (NEGATIVE) Ethyl Alcohol mg/dL COVID-19 (JACKIE) (Negative) COVID-19 Clin Com Imaging Data Abdominal ultrasound: Attestation: I personally reviewed and interpreted this imaging study as follows: Radiologist's impression: FINDINGS: PANCREAS: The pancreatic tail is obscured by bowel gas. Otherwise, the visualized pancreas is has homogeneous echotexture. No focal pancreatic lesion or pancreatic ductal dilatation. ABDOMINAL AORTA: The visualized proximal and distal abdominal aorta are normal in caliber. The mid abdominal aorta is obscured by bowel gas. INFERIOR VENA CAVA: Visualized portions are normal. LIVER: The cirrhotic liver has nodular contour and coarse parenchymal echotexture. No evidence of focal liver lesion or intrahepatic bile duct dilatation. GALLBLADDER: Normal. The gallbladder is physiologically distended without evidence of stones, sludge, polyps, wall thickening or pericholecystic fluid. COMMON BILE DUCT: Normal in caliber measuring 0.3 cm in diameter. KIDNEYS: The right kidney is approximately 11.5 cm and left kidney 13 cm in length. The kidneys have normal cortical thickness and echotexture. No focal parenchymal lesion, nephrolithiasis or hydronephrosis. SPLEEN: Chronic splenomegaly. The spleen measures up to 16 cm maximum dimension. 1.1 cm hyperechoic focus within the spleen is statistically likely a hemangioma. Otherwise, spleen is unremarkable. FREE FLUID: Trace volume of ascitic fluid is detected within the upper abdomen. US/US abdomen complete IMPRESSION: *? Liver cirrhosis and splenomegaly. *? A trace amount of ascitic fluid is visualized in the upper abdomen. *? A small, 1.1 cm echogenic focus in the spleen is likely a hemangioma. Chest x-ray: Attestation: I personally reviewed and interpreted this imaging study as follows: Radiologist's impression: FINDINGS: Lungs are hypoinflated. Minimal linear opacity of discoid atelectasis at the left lateral base. No airspace disease, edema or pleural effusion. Cardiac silhouette is normal in size and contour. No acute osseous abnormality. There is chronic narrowing of the acromiohumeral distances at each shoulder, as may be observed in the setting of chronic rotator cuff tears. XR/XR chest 2V IMPRESSION: No acute cardiopulmonary disease. However, evaluation of lower lobes is partially limited by the hypoinflation. CTA of chest for PE: Attestation: I personally reviewed and interpreted this imaging study as follows: Radiologist's impression: FINDINGS: QUALITY OF STUDY/CONTRAST BOLUS: Satisfactory. PULMONARY ARTERIES: No central or segmental pulmonary emboli.? THORACIC AORTA: No aneurysm or dissection. LUNG: No focal consolidation, nodules or masses. PLEURA: No pleural effusion or pneumothorax. MEDIASTINUM: Normal heart size.? No pericardial effusion.? No hilar or mediastinal lymphadenopathy. Small right cardiophrenic angle or anterior diaphragmatic lymph nodes. No evidence of septal bowing or right heart strain. There are small paraesophageal varices. CHEST WALL/AXILLA: No axillary or internal mammary lymphadenopathy. OSSEOUS STRUCTURES: No acute or suspicious osseous abnormality.? UPPER ABDOMEN:? No reflux of contrast into the hepatic veins to suggest elevated right heart pressures. CT/CT angio chest PE protocol IMPRESSION: No evidence of pulmonary embolism. ? VTE: negative CT scan of abdomen pelvis with IV contrast: Attestation: I personally reviewed and interpreted this imaging study as follows: Radiologist's impression: FINDINGS: LUNG BASES: The visualized lung bases are unremarkable.? LIVER, GALLBLADDER, AND BILIARY TREE: The liver is cirrhotic. No focal liver lesion. The gallbladder is upper normal in size. There is no intra or extrahepatic biliary duct dilatation. PANCREAS: The pancreas appears atrophic. SPLEEN: The spleen is enlarged and measures 15.5 cm in length. ADRENAL GLANDS: Unremarkable.? KIDNEYS AND URETERS: The kidneys are normal in size, shape, and attenuation. No hydronephrosis, hydroureter, or calculi seen. No perinephric stranding. ? BLADDER: Unremarkable.? GASTROINTESTINAL TRACT: There is wall thickening and edema of the right colon and hepatic flexure questionable for colitis. There is question of mild dilatation and wall thickening of the proximal small bowel/jejunum in the left upper quadrant as well. Small and large bowel is otherwise unremarkable. The appendix is unremarkable. Stomach is unremarkable. ABDOMINAL WALL: No significant hernia is appreciated.? LYMPH NODES: There is periportal, upper abdominal retroperitoneal, small bowel mesentery and bilateral inguinal shotty lymphadenopathy. No enlarged lymph nodes are seen. VASCULAR: There are multiple varices and evidence of portal hypertension. No evidence of arteriovenous occlusion is seen. PELVIC VISCERA: Unremarkable.? OSSEOUS STRUCTURES: Unremarkable.? CT/CT abdomen pelvis w IV con IMPRESSION: Cirrhosis, splenomegaly, small amount of ascites, multiple varices and evidence of portal hypertension. Wall thickening and edema of the right colon and hepatic flexure suggestive of colitis and question mild dilatation and wall thickening of the jejunum. ? Fleischner guidelines were followed. ECG Data ECG #1: Attestation: I personally reviewed and interpreted this ECG as follows: ECG interpretation date: 04/17/22 ECG interpretation time: 11:47 Interpretation: Sinus tachycardia ventricular rate of 108 with a normal FL interval normal QRS duration normal QT/QTC interval. No acute ischemic change are noted. Similar compared to prior EKG. Critical Care Time Critical Care Time Critical Care Time: Yes Total Critical Care Time: 60 Attestation: I personally attest to this time spent taking care of the patient Discharge Plan Discharge Clinical Impression: Colitis, Breath shortness, Fever, Fecal occult blood test positive, Anemia
[2022-04-17] MEDS: 0.9 % Sodium Chloride 1,000 ML 999 ML IVCONT ×3 (11:41→21:44)
[2022-04-17 12:26] LABS: Basophils Percent Auto 0.1 % (0-2); Eosinophils Percent Auto 0.1 % (0-4); Hematocrit 31.2 % (42.0-52.0); Hemoglobin 9.6 g/dl (14.0-18.0); Imm Gran Abs Auto 0.01 X10*3/uL (0.00-0.03); Imm Gran Pct Auto 0.1 % (0.0-0.4); Lymphocytes Absolute Auto 0.3 X10*3/uL (1.2-4.9); Lymphocytes Percent Auto 3.6 % (20-40); MANUAL DIFF FLAG SCAN; Mean Corpuscular HGB Conc 30.8 g/dl (31.0-36.0); Mean Corpuscular Hemoglobin 22.8 pg (27.0-33.0); Mean Corpuscular Volume 74.1 fL (80.0-98.0); Mean Platelet Volume 9.4 fL (9.4-12.4); Monocytes Absolute Auto 0.2 X10*3/uL (0.1-1.2); Monocytes Percent Auto 2.4 % (2-11); Neutrophils Absolute Auto 7.1 x10*3/uL (2.0-8.3); Neutrophils Percent Auto 93.7 % (45-73); Platelet Count 103 X10*3/uL (160-400); Red Blood Count 4.21 X10*6/uL (4.60-5.80); Red Cell Distribution Width 16.4 % (11.0-16.0); SCAN SMEAR FLAG 1; White Blood Count 7.5 X10*3/uL (4.8-10.8)
[2022-04-17 12:33] LABS: INTERNATIONAL NORM RATIO 1.4 (0.9-1.1); Prothrombin Time 16.6 SEC (10.0-13.1)
[2022-04-17 12:37] LABS: Lactic Acid 1.9 mmol/L (0.5-2.0)
[2022-04-17 12:41] LABS: Ethanol < 10 mg/dL
[2022-04-17 12:43] LABS: Alanine Aminotransferase 40 U/L (0-40); Albumin Level 3.3 g/dL (3.5-5.0); Alkaline Phosphatase 186 U/L (39-117); Anion Gap 14 (12-20); Aspartate Amino Transferase 43 U/L (5-37); Bilirubin Total 0.9 mg/dL (0.0-1.0); Blood Urea Nitrogen 16 mg/dL (9-16); C Reactive Protein 1.21 mg/dL (< or = 0.50); Calcium 8.6 mg/dL (8.4-10.2); Carbon Dioxide 23 mmol/L (22-29); Chloride 105 mmol/L (96-108); Creatinine Clr Calc Pharmacy 109.1; Estimated Glomerular Filt Rate > 60; Glucose Random 215 mg/dL (60-115); Lactate Dehydrogenase 241 U/L (118-273); Lipase 14 U/L (8-78); Magnesium 1.6 mg/dL (1.6-2.6); Potassium 3.9 mmol/L (3.3-5.1); Sodium 138 mmol/L (135-145); Total Protein 6.1 g/dL (6.5-8.0)
[2022-04-17 12:47] LABS: B Type Natriuretic Peptide 105 pg/mL (<100); Troponin-I High Sensitivity 6.1 ng/L (<3.5-35.0)
[2022-04-17 12:48] LABS: Amylase 72 U/L (28-100)
[2022-04-17 13:04] LABS: SLIDE REVIEW VERIFIED
[2022-04-17 13:24] LABS: Erythrocyte Sedimentation Rate 14 MM/HR (0-15)
[2022-04-17 13:39] VITALS: BP 106/64; PULSE 101; RESP 20; TEMP 37.8; O2SAT 96
[2022-04-17] MEDS: iohexoL 350 MG/ML 100 ML INFUS..BTL IV (14:58)
[2022-04-17] MEDS: Acetaminophen 325 MG TABLET 975 MG PO (16:20)
[2022-04-17 16:27] LABS: Troponin-I High Sensitivity 6.3 ng/L (<3.5-35.0)
[2022-04-17 16:39] LABS: OBS Int Ctl Valid YES; OBS1 POSITIVE (NEGATIVE)
[2022-04-17 16:40] LABS: Appearance Urine Clear; Color Urine Dark Yellow; Glucose Urine UA 100 mg/dL (Negative); Leukocyte Esterase Urine Small (1+) (Negative); Nitrite Urine Negative (Negative); Specific Gravity - Urine >= 1.030 (1.005-1.025); UMIC TRIGGER UACC YES; Urine Blood Negative (Negative); Urine Ketones Negative (Negative); Urine Protein Negative (Neg-Trace)
[2022-04-17] MEDS: Piperacillin Sodium/Tazobactam 2.25 GM in 0.9 % Sodium Chloride 50 ML IV (16:42)
[2022-04-17 16:46] LABS: Bacteria Urine None Seen (None Seen); Hyaline Casts Urine 0-2 /LPF (0-2); RBC Urine 0-2 /HPF (0-2); Squamous Epithelial Cell Urine 0-2 /HPF (0-2); UACC Culture Trigger YES
[2022-04-17 17:18] VITALS: BP 94/57; PULSE 104; RESP 25; O2SAT 98
--- NOTE | 2022-04-17 17:37 | P.HPHOSP_ITS ---
History of Present Illness Date of Service: 04/17/22 Attending physician on admission: Patrice Waterman Chief Complaint: abdominal pain This is a 56-year-old male with history of alcoholic liver cirrhosis, diabetes and recent diagnosis of bilateral PE who presents to the emergency department to day with complaints of abdominal pain. Patient starts that yesterday morning he began having epigastric abdominal pain which has been constant since onset. He denies any associated nausea, vomiting, diarrhea. He denies any rectal bleeding or bloody diarrhea. He has had fever and associated chills. He was admitted to the hospital at the end of March and diagnosed with bilateral PE, he was dis charged on April 03 with apixaban. Today in the ED he was noted to have an initial temperature of a 103.1 degrees, he was tachycardic as well. Repeat CTA showed no evidence of PE. CT scan of the abdomen showed evidence of colitis involving the right colon and hepatic flexure as well as changes associated with cirrhosis, varices and portal hypertension. He was treated with IV Zosyn and IV fluid and a decision was made to admit him to the hospital for further management. He denies any chest pain or palpitations at this time. Review of Systems Review of Systems: Yes all other systems are reviewed and are negative Constitutional: Constitutional: Reports chills and Reports fever(s) Cardiovascular: Cardiovascular: Denies chest pain, Denies palpitations and Denies dyspnea Respiratory: Respiratory: Denies cough and Denies dyspnea Gastrointestinal: Gastrointestinal: Denies diarrhea, Denies nausea and Denies vomiting Endocrine: Endocrine: Denies palpitations [facility] Medical History Bacteremia Cirrhosis Diabetes GERD (gastroesophageal reflux disease) Pancytopenia Pulmonary emboli Family History Father CVA (cerebral vascular accident) Social History (Updated 04/17/22 @ 17:41 by LUZ Reilly) Household Members: None Housing: Apartment Do you presently have visiting nurse or other home services: No Alcohol intake: former Patient Tobacco Use Status: Never used Tobacco e-Cigarette/Vaping Use: Never Used Second Hand Smoke Exposure: No Advance Directives: Yes Advance Directives on File: Yes Advance Directives Date on File: 04/02/22 service: No Current occupational status: employed Meds Allergies Allergy/AdvReac Type Severity Reaction Status Date / Time No Known Allergies Allergy Verified 03/10/22 14:58 Active Medications: Current Medications Apixaban (Apixaban 5 Mg Tablet) 5 mg PO BID [facility] Ferrous Sulfate (Ferrous Sulfate 324 Mg Tablet.Dr) 324 mg PO DAILY [facility] Pharmacy Consult (Consult Rx Perform Med Rec) 1 each MISCELLANE ONCE PRN PRN Reason: Consult order Home Medications Medication Instructions Recorded Confirmed Last Taken Type glipizide 5 mg tablet 1 tab PO BID 04/01/22 04/17/22 Unknown History apixaban 5 mg tablet (Eliquis) 5 mg PO BID 04/17/22 04/17/22 Unknown History lisinopril 5 mg tablet 1 tab PO DAILY 04/17/22 04/17/22 Unknown History metformin 1,000 mg tablet 1 tab PO BIDAC 04/17/22 04/17/22 Unknown History Physical Exam Vital Signs and Narrative: Vital Signs: Last Vital Signs Temp 100.1 F 04/17/22 13:39 Pulse 104 H 04/17/22 17:18 Resp 25 H 04/17/22 17:18 BP 94/57 L 04/17/22 17:18 Pulse Ox 98 04/17/22 17:18 O2 Del Method 04/17/22 17:18 BMI result Body Mass Index 29.5 Const: Other: appears uncomfortable General: alert and awake Nutritional Appearance: average body habitus Orientation/consciousness: patient oriented x3 Resp: Effort & Inspection: normal respiratory effort and able to speak in complete sentences Auscultation: clear to auscultation bilaterally Cardio: Rate: regular rate Heart sounds: S1 normal heart sound present and S2 normal heart sound present GI: Other: tender primarily epigastrum; +BS Inspection: No distended Palpation (GI): Soft to palpation Neuro: General: patient oriented x3 and CN's II-XI intact bilaterally Extrem: Other: trace b/l LE edema; wearing b/l compression socks Results Labs CBC and Chem 7: 04/17/22 12:16 04/17/22 12:16 Labs: Laboratory Results - last 24 hr 04/17/22 04/17/22 04/17/22 10:13 12:14 12:15 MCV MCH MCHC RDW Plt Count MPV Immature Gran % (Auto) Neut % (Auto) Lymph % (Auto) Emmet % (Auto) Eos % (Auto) Baso % (Auto) Lymph # (Auto) Emmet # (Auto) Eos # (Auto) Baso # (Auto) Abs Immat Gran (auto) Absolute Neuts (auto) Absolute Nucleated RBC Nucleated RBC % (auto) Smear Tech's Comments ESR 14 PT INR Anion Gap Estim Creat Clear Calc Estimated GFR Random Glucose Lactic Acid 1.9 Calcium Magnesium Total Bilirubin AST ALT Alkaline Phosphatase Lactate Dehydrogenase Total Creatine Kinase C-Reactive Protein B-Natriuretic Peptide Total Protein Albumin Amylase Lipase Urine Color Urine Appearance Urine pH Ur Specific [place] Urine Protein Urine Glucose (UA) Urine Ketones Urine Blood Urine Nitrite Ur Leukocyte Esterase Urine RBC Urine WBC Ur Squamous Epith Cells Urine Bacteria Hyaline Casts Stool Occult Blood Ethyl Alcohol COVID-19 (JACKIE) Negative COVID-[place]perian Com See Note 04/17/22 04/17/22 04/17/22 12:15 12:16 12:16 MCV 74.1 L MCH 22.8 L MCHC 30.8 L RDW 16.4 H Plt Count 103 L D MPV 9.4 Immature Gran % (Auto) 0.1 Neut % (Auto) 93.7 H Lymph % (Auto) 3.6 L Emmet % (Auto) 2.4 Eos % (Auto) 0.1 Baso % (Auto) 0.1 Lymph # (Auto) 0.3 L Emmet # (Auto) 0.2 Eos # (Auto) 0.0 Baso # (Auto) 0.0 Abs Immat Gran (auto) 0.01 Absolute Neuts (auto) 7.1 Absolute Nucleated RBC 0.000 Nucleated RBC % (auto) 0.0 Smear Tech's Comments VERIFIED ESR PT 16.6 H INR 1.4 H Anion Gap Estim Creat Clear Calc Estimated GFR Random Glucose Lactic Acid Calcium Magnesium Total Bilirubin AST ALT Alkaline Phosphatase Lactate Dehydrogenase Total Creatine Kinase C-Reactive Protein B-Natriuretic Peptide Total Protein Albumin Amylase 72 Lipase Urine Color Urine Appearance Urine pH Ur Specific [place] Urine Protein Urine Glucose (UA) Urine Ketones Urine Blood Urine Nitrite Ur Leukocyte Esterase Urine RBC Urine WBC Ur Squamous Epith Cells Urine Bacteria Hyaline Casts Stool Occult Blood Ethyl Alcohol < 10 COVID-19 (JACKIE) COVID-19 Clin Com 04/17/22 04/17/22 04/17/22 12:16 12:16 16:26 MCV MCH MCHC RDW Plt Count MPV Immature Gran % (Auto) Neut % (Auto) Lymph % (Auto) Emmet % (Auto) Eos % (Auto) Baso % (Auto) Lymph # (Auto) Emmet # (Auto) Eos # (Auto) Baso # (Auto) Abs Immat Gran (auto) Absolute Neuts (auto) Absolute Nucleated RBC Nucleated RBC % (auto) Smear Tech's Comments ESR PT INR Anion Gap 14 Estim Creat Clear Calc 109.1 Estimated GFR > 60 Random Glucose 215 H D Lactic Acid Calcium 8.6 Magnesium 1.6 Total Bilirubin 0.9 AST 43 H ALT 40 Alkaline Phosphatase 186 H Lactate Dehydrogenase 241 Total Creatine Kinase 104 C-Reactive Protein 1.21 H B-Natriuretic Peptide 105 H Total Protein 6.1 L Albumin 3.3 L Amylase Lipase 14 Urine Color Dark Yellow Urine Appearance Clear Urine pH 6.0 Ur Specific [place] >= 1.030 H Urine Protein Negative Urine Glucose (UA) 100 H Urine Ketones Negative Urine Blood Negative Urine Nitrite Negative Ur Leukocyte Esterase Small (1+) H Urine RBC 0-2 Urine WBC 6-10 H Ur Squamous Epith Cells 0-2 Urine Bacteria None Seen Hyaline Casts 0-2 Stool Occult Blood Ethyl Alcohol COVID-19 (JACKIE) COVID-19 Engrade Com 04/17/22 16:27 MCV MCH MCHC RDW Plt Count MPV Immature Gran % (Auto) Neut % (Auto) Lymph % (Auto) Emmet % (Auto) Eos % (Auto) Baso % (Auto) Lymph # (Auto) Emmet # (Auto) Eos # (Auto) Baso # (Auto) Abs Immat Gran (auto) Absolute Neuts (auto) Absolute Nucleated RBC Nucleated RBC % (auto) Smear Tech's Comments ESR PT INR Anion Gap Estim Creat Clear Calc Estimated GFR Random Glucose Lactic Acid Calcium Magnesium Total Bilirubin AST ALT Alkaline Phosphatase Lactate Dehydrogenase Total Creatine Kinase C-Reactive Protein B-Natriuretic Peptide Total Protein Albumin Amylase Lipase Urine Color Urine Appearance Urine pH Ur Specific [place] Urine Protein Urine Glucose (UA) Urine Ketones Urine Blood Urine Nitrite Ur Leukocyte Esterase Urine RBC Urine WBC Ur Squamous Epith Cells Urine Bacteria Hyaline Casts Stool Occult Blood POSITIVE Ethyl Alcohol COVID-19 (JACKIE) COVID-19 Clin Com Imaging Radiologist's Impressions: Impressions Chest X-Ray 04/17/22 11:59 IMPRESSION: No acute cardiopulmonary disease. However, evaluation of lower lobes is partially limited by the hypoinflation. Abdomen Ultrasound 04/17/22 12:23 IMPRESSION: * Liver cirrhosis and splenomegaly. * A trace amount of ascitic fluid is visualized in the upper abdomen. * A small, 1.1 cm echogenic focus in the spleen is likely a hemangioma. Abdomen/Pelvis CT 04/17/22 14:49 IMPRESSION: Cirrhosis, splenomegaly, small amount of ascites, multiple varices and evidence of portal hypertension. Wall thickening and edema of the right colon and hepatic flexure suggestive of colitis and question mild dilatation and wall thickening of the jejunum. Fleischner guidelines were followed. Chest CTA 04/17/22 14:49 IMPRESSION: No evidence of pulmonary embolism. VTE: negative Assessment and Plan (1) Colitis: Status: Acute (2) Occult blood positive stool: Status: Acute (3) Pulmonary emboli: Status: Acute Plan This is a 56-year-old male with history of alcoholic liver cirrhosis, diabetes, recently diagnosed bilateral PE on Eliquis who presents to the emergency department with abdominal pain found to colitis and heme-positive stools Sepsis secondary to Acute colitis patient with fever 103 and tachycardia. no leukocytosis no severe features, lactic acid 1.9. (thrombocytopenia chronic and r/t liver dz not sepsis) -IV zosyn -clear liquid diet -GI eval -pain control -GI panel, cdif ordered if pt develops diarrhea -follow blood cultures Guaiac-positive stools No evidence of active bleeding Likely secondary to colitis Given bilateral PE diagnosed in previous 2 weeks will continue Eliquis unless patient develops active bleeding -follow CBC -IV PPI Alcoholic liver cirrhosis with thrombocytopenia Denies drinking in the past 7 years; hepatitis screen negative from CT abdomen shows evidence of varices, small ascites and portal hypertension b/l PE Multiple segmental and subsegmental emboli seen on last CTA. Repeat CTA from today shows no pulmonary emboli no hypoxia, currently saturating well on room air Continue Eliquis Chronic anemia H/H at baseline -continue baseline iron supplementation -follow CBC DM Hold metformin, glipizide -SSI,follow POCs HTN hold lisinopril DVT ppx - eliquis code status - full code Given sepsis and colitis patient will require 2 midnight stay in the hospital for further management with IV antibiotics, IV pain control as well as Quality Stroke Does the patient have a stroke diagnosis?: No VTE Prior VTE?: No VTE Risk Level:: Medical - moderate - high VTE Device Contraindication: N/A - Device Ordered VTE Drug Contraindication: N/A - Med Ordered
--- NOTE | 2022-04-17 17:42 | PHA.MEDREC ---
Pharmacy Consult ? Medication Reconciliation Pharmacy has completed the medication reconciliation. Patient is a poor historian. Patient does not know any medication he takes. He reports he takes medications for diabetes. Called [facility] pharmacy to confirm medicaitons and that they were picked up. patient reported he took medications prior to coming to the ER. Tabatha Malhotra, AmritD
[2022-04-17 18:45] LABS: Glucose, Whole Blood 148 mg/dL (60-115)
[2022-04-17] MEDS: Lactated Ringers 1,000 ML 100 ML IVCONT (21:40)
[2022-04-17 22:17] LABS: Glucose, Whole Blood 106 mg/dL (60-115)
[2022-04-17] MEDS: Apixaban 5 MG TABLET PO (22:45)
[2022-04-17] MEDS: Docusate Sodium 100 MG CAPSULE PO (22:45)
[2022-04-17 22:46] VITALS: BP 92/54; PULSE 89; RESP 15; TEMP 36.9; O2SAT 98
--- NOTE | 2022-04-17 23:01 | PC.NURSE ---
pt resting in bed during shift, did get oob to have a bowl movement at 2100, pt alert oriented, able to take meds whole. verbalizes he feels better than this morning upper aqbdominal pain now 11/09. LR running at 100ml/hour as directed. no acute distress
[2022-04-18] MEDS: Piperacillin Sodium/Tazobactam 3.375 GM in 0.9 % Sodium Chloride 50 ML IV ×3 (02:31→21:40)
[2022-04-18 06:44] LABS: MANUAL DIFF FLAG NO
[2022-04-18 08:02] LABS: Anion Gap 12 (12-20); Blood Urea Nitrogen 12 mg/dL (9-16); Carbon Dioxide 22 mmol/L (22-29); Chloride 109 mmol/L (96-108); Creatinine Clr Calc Pharmacy 117.2; Estimated Glomerular Filt Rate > 60; Glucose Random 143 mg/dL (60-115); Potassium 3.8 mmol/L (3.3-5.1); Sodium 139 mmol/L (135-145)
[2022-04-18] MEDS: Apixaban 5 MG TABLET PO (08:33)
[2022-04-18] MEDS: Docusate Sodium 100 MG CAPSULE PO ×2 (08:33→21:41)
[2022-04-18] MEDS: Ferrous Sulfate 324 MG TABLET.DR PO (08:33)
[2022-04-18] MEDS: 0.9 % Sodium Chloride Flush 3 ML SYRINGE IVFLUSH (08:33)
[2022-04-18 08:48] LABS: Calcium 7.9 mg/dL (8.4-10.2)
[2022-04-18] MEDS: Pantoprazole Sodium 40 MG/10 ML VIAL IVPUSH (08:49)
[2022-04-18 08:52] LABS: Glucose, Whole Blood 104 mg/dL (60-115)
[2022-04-18 08:55] LABS: Basophils Percent Auto 0.2 % (0-2); Eosinophils Absolute Auto 0.1 X10*3/uL (0.0-0.4); Eosinophils Percent Auto 0.5 % (0-4); Hematocrit 27.6 % (42.0-52.0); Hemoglobin 8.5 g/dl (14.0-18.0); Imm Gran Abs Auto 0.09 X10*3/uL (0.00-0.03); Imm Gran Pct Auto 0.6 % (0.0-0.4); Lymphocytes Absolute Auto 0.8 X10*3/uL (1.2-4.9); Lymphocytes Percent Auto 5.5 % (20-40); Mean Corpuscular HGB Conc 30.8 g/dl (31.0-36.0); Mean Corpuscular Hemoglobin 23.4 pg (27.0-33.0); Mean Corpuscular Volume 75.8 fL (80.0-98.0); Mean Platelet Volume 10.7 fL (9.4-12.4); Monocytes Absolute Auto 0.6 X10*3/uL (0.1-1.2); Monocytes Percent Auto 4.2 % (2-11); Neutrophils Absolute Auto 12.4 x10*3/uL (2.0-8.3); Red Blood Count 3.64 X10*6/uL (4.60-5.80); Red Cell Distribution Width 16.9 % (11.0-16.0); White Blood Count 13.9 X10*3/uL (4.8-10.8)
[2022-04-18 08:57] LABS: Platelet Count 90 X10*3/uL (160-400)
[2022-04-18] MEDS: Lactated Ringers 1,000 ML 100 ML IVCONT (09:07)
[2022-04-18 11:40] VITALS: BP 105/65; PULSE 77; RESP 22; O2SAT 97
--- NOTE | 2022-04-18 11:53 | P.PNIM_ITS ---
Subjective Subjective Date of Service: 04/18/22 Interval History: Follow-up abdominal pain, colitis Still with pain to the mid abdomen Denies nausea, vomiting, diarrhea Cardiovascular Cardiovascular: Reports no additional cardiovascular complaints Respiratory Respiratory: Reports no additional respiratory complaints Physical Exam Vital Signs: Vital Signs: Last Vital Signs Temp 98.4 F 04/17/22 22:46 Pulse 77 04/18/22 11:40 Resp 22 H 04/18/22 11:40 BP 105/65 04/18/22 11:40 Pulse Ox 97 04/18/22 11:40 O2 Del Method 04/18/22 11:40 BMI result Body Mass Index 29.5 Appearing in no acute distress heart regular rate rhythm, clear S1, S2 positive bowel sounds, abdomen is soft, nontender neuro patient is alert x3, no focal deficits Objective Data Active Medications Apixaban (Apixaban 5 Mg Tablet) 5 mg PO BID [facility] Last Admin: 04/18/22 08:33 Dose: 5 mg Documented By: NATI Dextrose (Dextrose 50 % 25 Gm/50 Ml Syringe) 25 gm IVPUSH Q15M PRN; Protocol PRN Reason: per Hypoglycemia Standing Ord. Docusate Sodium (Docusate Sodium 100 Mg Capsule) 100 mg PO BID [facility] Last Admin: 04/18/22 08:33 Dose: 100 mg Documented By: NATI Ferrous Sulfate (Ferrous Sulfate 324 Mg Tablet.Dr) 324 mg PO DAILY [facility] Last Admin: 04/18/22 08:33 Dose: 324 mg Documented By: NATI Glucose (Glucose Gel 15 Gm Gel..Gram.) 15 gm PO Q15M PRN; Protocol PRN Reason: per Hypoglycemia Standing Ord. Lactated Ringer's (Lr) 1,000 mls @ 100 mls/hr IVCONT .Q10H [facility] Last Admin: 04/18/22 09:07 Dose: 100 mls/hr Documented By: NATI Piperacillin Sod/Tazobactam (Sod 3.375 gm/ Sodium Chloride) 50 mls @ 100 mls/hr IV Q6H [facility] Last Infusion: 04/18/22 09:26 Dose: 0 mls/hr Documented By: NATI Insulin Human Lispro (Insulin Lispro 100 Unit/Ml 3 Ml Vial) 0 unit SUBCUT QIDACHS [facility]; Protocol Last Admin: 04/18/22 09:10 Dose: Not Given Documented By: NATI Non-Admin Reason: No Insulin Coverage Morphine Sulfate (Morphine Sulfate 4 Mg/Ml Cartridge) 2 mg IVPUSH Q3H PRN; Protocol PRN Reason: Pain, Severe (Pain Scale 7-10) Oxycodone HCl (Oxycodone Hcl Immed Release 5 Mg Tablet) 5 mg PO Q6H PRN PRN Reason: Pain, Severe (Pain Scale 7-10) Pantoprazole Sodium (Pantoprazole Sodium 40 Mg/10 Ml Vial) 40 mg IVPUSH DAILY@0630 [facility] Last Admin: 04/18/22 08:49 Dose: 40 mg Documented By: NATI Pharmacy Consult (Consult Rx Perform Med Rec) 1 each MISCELLANE ONCE PRN PRN Reason: Consult order Sodium Chloride (0.9 % Sodium Chloride Flush 3 Ml Syringe) 3 ml IVFLUSH QSHIFT [facility] Last Admin: 04/18/22 08:33 Dose: 3 ml Documented By: NATI Labs CBC & Chem 7: 04/18/22 06:24 04/18/22 06:24 Labs: Laboratory Results - last 24 hr 04/17/22 04/17/22 04/17/22 12:14 12:15 12:15 MCV MCH MCHC RDW Plt Count MPV Immature Gran % (Auto) Neut % (Auto) Lymph % (Auto) [place] % (Auto) Eos % (Auto) Baso % (Auto) Lymph # (Auto) [place] # (Auto) Eos # (Auto) Baso # (Auto) Abs Immat Gran (auto) Absolute Neuts (auto) Absolute Nucleated RBC Nucleated RBC % (auto) Smear Tech's Comments ESR 14 PT INR Anion Gap Estim Creat Clear Calc Estimated GFR POC Glucose Random Glucose Lactic Acid 1.9 Calcium Magnesium Total Bilirubin AST ALT Alkaline Phosphatase Lactate Dehydrogenase Total Creatine Kinase C-Reactive Protein B-Natriuretic Peptide Total Protein Albumin Amylase 72 Lipase Urine Color Urine Appearance Urine pH Ur Specific [place] Urine Protein Urine Glucose (UA) Urine Ketones Urine Blood Urine Nitrite Ur Leukocyte Esterase Urine RBC Urine WBC Ur Squamous Epith Cells Urine Bacteria Hyaline Casts Stool Occult Blood Ethyl Alcohol < 10 04/17/22 04/17/22 04/17/22 12:16 12:16 12:16 MCV 74.1 L MCH 22.8 L MCHC 30.8 L RDW 16.4 H Plt Count 103 L D MPV 9.4 Immature Gran % (Auto) 0.1 Neut % (Auto) 93.7 H Lymph % (Auto) 3.6 L [place] % (Auto) 2.4 Eos % (Auto) 0.1 Baso % (Auto) 0.1 Lymph # (Auto) 0.3 L [place] # (Auto) 0.2 Eos # (Auto) 0.0 Baso # (Auto) 0.0 Abs Immat Gran (auto) 0.01 Absolute Neuts (auto) 7.1 Absolute Nucleated RBC 0.000 Nucleated RBC % (auto) 0.0 Smear Tech's Comments VERIFIED ESR PT 16.6 H INR 1.4 H Anion Gap 14 Estim Creat Clear Calc 109.1 Estimated GFR > 60 POC Glucose Random Glucose 215 H D Lactic Acid Calcium 8.6 Magnesium 1.6 Total Bilirubin 0.9 AST 43 H ALT 40 Alkaline Phosphatase 186 H Lactate Dehydrogenase 241 Total Creatine Kinase 104 C-Reactive Protein 1.21 H B-Natriuretic Peptide Total Protein 6.1 L Albumin 3.3 L Amylase Lipase 14 Urine Color Urine Appearance Urine pH Ur Specific [place] Urine Protein Urine Glucose (UA) Urine Ketones Urine Blood Urine Nitrite Ur Leukocyte Esterase Urine RBC Urine WBC Ur Squamous Epith Cells Urine Bacteria Hyaline Casts Stool Occult Blood Ethyl Alcohol 04/17/22 04/17/22 04/17/22 12:16 16:26 16:27 MCV MCH MCHC RDW Plt Count MPV Immature Gran % (Auto) Neut % (Auto) Lymph % (Auto) [place] % (Auto) Eos % (Auto) Baso % (Auto) Lymph # (Auto) [place] # (Auto) Eos # (Auto) Baso # (Auto) Abs Immat Gran (auto) Absolute Neuts (auto) Absolute Nucleated RBC Nucleated RBC % (auto) Smear Tech's Comments ESR PT INR Anion Gap Estim Creat Clear Calc Estimated GFR POC Glucose Random Glucose Lactic Acid Calcium Magnesium Total Bilirubin AST ALT Alkaline Phosphatase Lactate Dehydrogenase Total Creatine Kinase C-Reactive Protein B-Natriuretic Peptide 105 H Total Protein Albumin Amylase Lipase Urine Color Dark Yellow Urine Appearance Clear Urine pH 6.0 Ur Specific [place] >= 1.030 H Urine Protein Negative Urine Glucose (UA) 100 H Urine Ketones Negative Urine Blood Negative Urine Nitrite Negative Ur Leukocyte Esterase Small (1+) H Urine RBC 0-2 Urine WBC 6-10 H Ur Squamous Epith Cells 0-2 Urine Bacteria None Seen Hyaline Casts 0-2 Stool Occult Blood POSITIVE Ethyl Alcohol 04/17/22 04/17/22 04/18/22 18:41 22:14 06:24 MCV 75.8 L MCH 23.4 L MCHC 30.8 L RDW 16.9 H Plt Count 90 L MPV 10.7 Immature Gran % (Auto) 0.6 H Neut % (Auto) 89.0 H Lymph % (Auto) 5.5 L [place] % (Auto) 4.2 Eos % (Auto) 0.5 Baso % (Auto) 0.2 Lymph # (Auto) 0.8 L [place] # (Auto) 0.6 Eos # (Auto) 0.1 Baso # (Auto) 0.0 Abs Immat Gran (auto) 0.09 H Absolute Neuts (auto) 12.4 H Absolute Nucleated RBC 0.000 Nucleated RBC % (auto) 0.0 Smear Tech's Comments ESR PT INR Anion Gap Estim Creat Clear Calc Estimated GFR POC Glucose 148 H 106 Random Glucose Lactic Acid Calcium Magnesium Total Bilirubin AST ALT Alkaline Phosphatase Lactate Dehydrogenase Total Creatine Kinase C-Reactive Protein B-Natriuretic Peptide Total Protein Albumin Amylase Lipase Urine Color Urine Appearance Urine pH Ur Specific [place] Urine Protein Urine Glucose (UA) Urine Ketones Urine Blood Urine Nitrite Ur Leukocyte Esterase Urine RBC Urine WBC Ur Squamous Epith Cells Urine Bacteria Hyaline Casts Stool Occult Blood Ethyl Alcohol 04/18/22 04/18/22 06:24 08:47 MCV MCH MCHC RDW Plt Count MPV Immature Gran % (Auto) Neut % (Auto) Lymph % (Auto) [place] % (Auto) Eos % (Auto) Baso % (Auto) Lymph # (Auto) [place] # (Auto) Eos # (Auto) Baso # (Auto) Abs Immat Gran (auto) Absolute Neuts (auto) Absolute Nucleated RBC Nucleated RBC % (auto) Smear Tech's Comments ESR PT INR Anion Gap 12 Estim Creat Clear Calc 117.2 Estimated GFR > 60 POC Glucose 104 Random Glucose 143 H Lactic Acid Calcium 7.9 L D Magnesium Total Bilirubin AST ALT Alkaline Phosphatase Lactate Dehydrogenase Total Creatine Kinase C-Reactive Protein B-Natriuretic Peptide Total Protein Albumin Amylase Lipase Urine Color Urine Appearance Urine pH Ur Specific [place] Urine Protein Urine Glucose (UA) Urine Ketones Urine Blood Urine Nitrite Ur Leukocyte Esterase Urine RBC Urine WBC Ur Squamous Epith Cells Urine Bacteria Hyaline Casts Stool Occult Blood Ethyl Alcohol Microbiology Microbiology Results: Microbiology 04/17/22 17:42 Urine Culture - Preliminary Urine clean catch - Urine zheng top Culture too young to evaluate. Assessment and Plan (1) Colitis: Status: Acute Plan 56-year-old male with history of alcoholic liver cirrhosis, diabetes, recently diagnosed bilateral PE on Eliquis who presents to the emergency department with abdominal pain found to colitis and heme-positive stools Sepsis secondary to Acute colitis patient with fever 103 and tachycardia. no leukocytosis, normal lactic acid (thrombocytopenia chronic and r/t liver dz not sepsis) Continue IV Zosyn NPO Discussed with Gastroenterology question of ischemia will obtain CT angio of the abdomen and pelvis Will stop Eliquis for now and start IV heparin If positive consult General surgery Pain control Blood cultures Guaiac-positive stools No evidence of active bleeding Likely secondary to colitis Given bilateral PE diagnosed in previous 2 weeks will continue anticoagulation with heparin for now IV PPI Alcoholic liver cirrhosis with thrombocytopenia Denies drinking in the past 7 years; hepatitis screen negative from December CT abdomen shows evidence of varices, small ascites and portal hypertension b/l PE Multiple segmental and subsegmental emboli seen on last CTA.? Repeat CTA from today shows no pulmonary emboli no hypoxia, currently saturating well on room air On Eliquis but stopped due to concern for ischemia, heparin IV started Chronic anemia H/H at baseline Iron supplementation DM Sliding scale HTN with hypotension hold lisinopril DVT ppx -IV heparin Attending Dr. Galindo code status - full code Patient requires continued hospitalization for further management of colitis with IV antibiotics, IV pain control as well, further workup Quality Stroke Does the patient have a stroke diagnosis?: No VTE Prior VTE?: No VTE Risk Level:: Medical - moderate - high VTE Device Contraindication: N/A - Device Ordered VTE Drug Contraindication: N/A - Med Ordered
[2022-04-18 12:25] VITALS: BMI 31.1
[2022-04-18] MEDS: iohexoL 350 MG/ML 100 ML INFUS..BTL 80 ML IV (12:44)
[2022-04-18 12:46] LABS: PTT Heparin Drip 35.7 SEC (53-77.9)
[2022-04-18] MEDS: iohexoL 350 MG/ML 100 ML INFUS..BTL IV (12:51)
[2022-04-18 13:12] VITALS: BP 109/67; PULSE 82; RESP 22; O2SAT 97
--- NOTE | 2022-04-18 13:26 | P.CNGI_ITS ---
History of Present Illness Data of Consult Service Date: 04/18/22 Requesting physician: Rufina Mccloud Primary Care Provider: [facility] Reason for consult: Fever, colitis This is a 56-year-old gentleman with past medical history of alcohol use disorder, that has led to cirrhosis, type 2 diabetes, anemia, GERD, who was sent to the hospital for chills and shakes noted at work. Patient states that for the past 1 week he has been having feeling of unwellness with some shortness of breath. No fevers or chills until the day of arrival. Denies any nausea or vomiting. A day before admission he also developed RLQ abd pain with nausea and loose stools. No blood in stools. He had a similar admission in December when he was found to have group B strep bacteremia. No endocarditis at that time. He was treated with cefuroxime for 2 weeks. GI was also involved during that same admission for question of anemia and abdominal pain. On arrival patient was noted to have T-max of 103 degrees. Labs were significant for elevated white count and microcytic anemia. Chem 7 within normal limits including renal function. Noted to have low calcium, no concurrent albumin available. Imaging so far includes CT abdomen and pelvis with IV contrast that shows cirrhosis with splenomegaly as well as trace ascites. He also has evidence of portal hypertension with varices. Right colon wall is thickened up to hepatic flexure. Review of Systems Review of Systems: Yes all other systems are reviewed and are negative [facility] Past Medical History Medical History Bacteremia Cirrhosis Diabetes GERD (gastroesophageal reflux disease) Pancytopenia Pulmonary emboli Family History Family History Father CVA (cerebral vascular accident) Social History Social History (Updated 04/17/22 @ 17:41 by LUZ Reilly) Household Members: None Housing: Apartment Do you presently have visiting nurse or other home services: No Alcohol intake: former Patient Tobacco Use Status: Never used Tobacco e-Cigarette/Vaping Use: Never Used Second Hand Smoke Exposure: No Advance Directives: Yes Advance Directives on File: Yes Advance Directives Date on File: 04/02/22 service: No Current occupational status: employed Meds Allergies Allergy/AdvReac Type Severity Reaction Status Date / Time No Known Allergies Allergy Verified 03/10/22 14:58 Active Medications: Current Medications Dextrose (Dextrose 50 % 25 Gm/50 Ml Syringe) 25 gm IVPUSH Q15M PRN; Protocol PRN Reason: per Hypoglycemia Standing Ord. Docusate Sodium (Docusate Sodium 100 Mg Capsule) 100 mg PO BID [facility] Last Admin: 04/18/22 08:33 Dose: 100 mg Ferrous Sulfate (Ferrous Sulfate 324 Mg Tablet.Dr) 324 mg PO DAILY [facility] Last Admin: 04/18/22 08:33 Dose: 324 mg Glucose (Glucose Gel 15 Gm Gel..Gram.) 15 gm PO Q15M PRN; Protocol PRN Reason: per Hypoglycemia Standing Ord. Heparin Sodium (Porcine) (Heparin Sodium,Porcine 5,000 Unit/Ml Vial) 3,300 unit 40 unit/kg (3300 unit) IVPUSH PROTOCOL BOLUS PRN; Protocol PRN Reason: 40 unit/kg - Heparin Protocol Heparin Sodium (Porcine) (Heparin Sodium,Porcine 5,000 Unit/Ml Vial) 6,600 unit 80 unit/kg (6600 unit) IVPUSH PROTOCOL BOLUS PRN; Protocol PRN Reason: 80 unit/kg - Heparin Protocol Lactated Ringer's (Lr) 1,000 mls @ 100 mls/hr IVCONT .Q10H [facility] Last Admin: 04/18/22 09:07 Dose: 100 mls/hr Piperacillin Sod/Tazobactam (Sod 3.375 gm/ Sodium Chloride) 50 mls @ 100 mls/hr IV Q6H [facility] Last Infusion: 04/18/22 09:26 Dose: Infused Heparin Sodium/Sodium Chloride (Heparin Sodium,Porcine/1/2ns) 25,000 unit in 250 mls @ 0 mls/hr IVCONT .Q0M [facility]; Protocol Insulin Human Lispro (Insulin Lispro 100 Unit/Ml 3 Ml Vial) 0 unit SUBCUT QIDACHS [facility]; Protocol Last Admin: 04/18/22 09:10 Dose: Not Given Morphine Sulfate (Morphine Sulfate 4 Mg/Ml Cartridge) 2 mg IVPUSH Q3H PRN; Protocol PRN Reason: Pain, Severe (Pain Scale 7-10) Oxycodone HCl (Oxycodone Hcl Immed Release 5 Mg Tablet) 5 mg PO Q6H PRN PRN Reason: Pain, Severe (Pain Scale 7-10) Pantoprazole Sodium (Pantoprazole Sodium 40 Mg/10 Ml Vial) 40 mg IVPUSH DAILY@0630 [facility] Last Admin: 04/18/22 08:49 Dose: 40 mg Pharmacy Consult (Consult Rx Perform Med Rec) 1 each MISCELLANE ONCE PRN PRN Reason: Consult order Sodium Chloride (0.9 % Sodium Chloride Flush 3 Ml Syringe) 3 ml IVFLUSH QSHIFT [facility] Last Admin: 04/18/22 08:33 Dose: 3 ml Home Medications Medication Instructions Recorded Confirmed Last Taken Type glipizide 5 mg tablet 1 tab PO BID 04/01/22 04/17/22 04/17/22 History apixaban 5 mg tablet (Eliquis) 5 mg PO BID 04/17/22 04/17/22 04/17/22 History lisinopril 5 mg tablet 1 tab PO DAILY 04/17/22 04/17/22 04/17/22 History metformin 1,000 mg tablet 1 tab PO BIDAC 04/17/22 04/17/22 04/17/22 History Physical Exam Vital Signs: Vital Signs: Last Vital Signs Temp 98.4 F 04/17/22 22:46 Pulse 82 04/18/22 13:12 Resp 22 H 04/18/22 13:12 BP 109/67 04/18/22 13:12 Pulse Ox 97 04/18/22 13:12 O2 Del Method 04/18/22 13:12 BMI result Body Mass Index 31.1 Gen appear: Appears older than stated age, ill appearing HEENT: no icterus, no cervical lymphadenopathy Chest: No overt resp distress CVS: S1/S2, regular Abd: soft, exquisitely tender, no guarding, bowel sounds + Psych: Stable affect, answering questions appropriately Neuro: A/Ox3 noted to move all extremities spontaneously Ext: no peripheral edema, no rash Results Labs CBC & Chem 7: 04/18/22 06:24 04/18/22 06:24 Labs: Short CBC 04/18/22 Range/Units 06:24 WBC 13.9 H (4.8-10.8) X10*3/uL Hgb 8.5 L (14.0-18.0) g/dl Hct 27.6 L (42.0-52.0) % Plt Count 90 L (160-400) X10*3/uL [facility] 04/18/22 06:24 Sodium 139 Potassium 3.8 Chloride 109 H Carbon Dioxide 22 BUN 12 Creatinine 0.68 Calcium 7.9 L D Urine 04/17/22 Range/Units 16:26 Urine Color Dark Yellow Urine Appearance Clear Urine pH 6.0 (5.0-9.0) Ur Specific [place] >= 1.030 H (1.005-1.025) Urine Protein Negative (Neg-Trace) mg/dL Urine Glucose (UA) 100 H (Negative) mg/dL Microbiology Microbiology Results: Microbiology 04/17/22 17:42 Urine clean catch - Urine zheng top Urine Culture - Preliminary Culture too young to evaluate. Imaging CT scan - abdomen: Attestation: I personally reviewed and interpreted this imaging study as follows: My impression: cirrhosis with splenomegaly as well as trace ascites. He also has evidence of portal hypertension with varices. Right colon wall is thickened up to hepatic flexure. Assessment and Plan (1) Cirrhosis: Qualifiers: Hepatic cirrhosis type: unspecified hepatic cirrhosis Ascites presence: without ascites Qualified Code(s): K74.60 - Unspecified cirrhosis of liver Status: Acute (2) Colitis: Status: Acute (3) Fever: Status: Acute Plan Differentials for colon wall thickening noted on the CT scan include portal colopathy, infectious colitis, ischemic especially isolated right-sided colon ischemia given his pain out of proportion to the exam findings + loose stools without blood + fever. Recommend: -CTA to rule out mesenteric ischemia -Complete infectious work up - BCx results pending -C Diff -GI panel -Consider switching to IV anticoagulation in anticipation of inpatient procedures. Reviewed with the hospitalist. Procedures Date of Service Date of Service: 04/18/22
[2022-04-18] MEDS: Heparin Sodium,Porcine/1/2NS 25,000 UNIT/250 ML IV.SOLN 11.52 UNIT IVCONT (14:06)
[2022-04-18 16:00] VITALS: BP 111/66; PULSE 86; RESP 21; O2SAT 96
[2022-04-18 20:34] LABS: PTT Heparin Drip 34.2 SEC (53-77.9)
--- NOTE | 2022-04-18 20:53 | PC.NURSE ---
phone with Tabatha from pharmacy - continue heparin drip at 14u/kg/hr. Pt brought to ED from overflow unit during change of shift with report not received from previous RN - heparin drip likely disconnected during transport, never resumed - continuing heparin drip at 14u/kg/hr per pharmacy orders. will recheck ptt in 6 hours from now. pt resting comfortably on stretcher. call ayala within reach.
--- NOTE | 2022-04-18 20:57 | HE.PHANOTE ---
Patient's aPTT decreased to 34.2 from 35.7. I ask RN Celena to check to make sure the pump was working and running. Per Celena, heparin drip was not attached to patient even though it was documented running. Since drip was not actively running and we are unsure if the patient received any heparin, I recommended that the drip to be restart at the same rate of 14 unit/kg/hr so patient does not get over anticoagulated by increasing the dose. Tabatha Malhotra, AmritD
[2022-04-18 21:11] VITALS: BP 109/67; PULSE 87; RESP 18; O2SAT 95
[2022-04-18 21:11] LABS: Glucose, Whole Blood 121 mg/dL (60-115)
[2022-04-19 02:48] LABS: PTT Heparin Drip 44.3 SEC (53-77.9)
[2022-04-19 02:50] VITALS: BMI 29.6
[2022-04-19] MEDS: Heparin Sodium,Porcine 5,000 UNIT/ML VIAL 3300 UNIT IVPUSH ×2 (03:15→15:45)
[2022-04-19 03:32] VITALS: BP 128/63; PULSE 86; RESP 18; TEMP 37.1; O2SAT 92
--- NOTE | 2022-04-19 04:33 | PC.NURSE ---
Pt admitted to floor on heparin drip running at 14u/kg/hr. Lab draws show PTTHD has been drawn three times but no titration is shown under the heparin drip in the SEP. PTTHD drawn at 0230, came back low. Bolus given and titrated per protocol. Drip now running at 16u/kg/hr. Protocol says to notify doctor if PTTHD draws have been below 53 for two consecutive draws, Dr. Gomez notified. No new orders. Next PTTHD at 0918 04/19/22.
[2022-04-19] MEDS: Pantoprazole Sodium 40 MG/10 ML VIAL IVPUSH (05:23)
[2022-04-19 07:06] LABS: Hematocrit 27.3 % (42.0-52.0); Hemoglobin 8.4 g/dl (14.0-18.0); Mean Corpuscular HGB Conc 30.8 g/dl (31.0-36.0); Mean Corpuscular Hemoglobin 23.2 pg (27.0-33.0); Mean Corpuscular Volume 75.4 fL (80.0-98.0); Mean Platelet Volume 10.1 fL (9.4-12.4); Platelet Count 92 X10*3/uL (160-400); Red Blood Count 3.62 X10*6/uL (4.60-5.80); Red Cell Distribution Width 16.5 % (11.0-16.0); White Blood Count 10.5 X10*3/uL (4.8-10.8)
[2022-04-19 07:30] VITALS: BP 106/64; PULSE 82; RESP 18; TEMP 36.7; O2SAT 96
[2022-04-19 07:55] LABS: Glucose, Whole Blood 99 mg/dL (60-115)
[2022-04-19] MEDS: Ferrous Sulfate 324 MG TABLET.DR PO (08:02)
[2022-04-19] MEDS: Piperacillin Sodium/Tazobactam 3.375 GM in 0.9 % Sodium Chloride 50 ML IV ×3 (08:03→18:04)
[2022-04-19] MEDS: 0.9 % Sodium Chloride Flush 3 ML SYRINGE IVFLUSH (08:04)
[2022-04-19] MEDS: Lactated Ringers 1,000 ML 100 ML IVCONT (08:38)
--- NOTE | 2022-04-19 09:25 | HO.PM.IMPN ---
Subjective Subjective Date of Service: 04/19/22 Interval History: Follow-up abdominal pain, colitis Some improvement in mid abdominal pain Denies nausea, vomiting, diarrhea Cardiovascular Cardiovascular: Reports no additional cardiovascular complaints Respiratory Respiratory: Reports no additional respiratory complaints Physical Exam Vital Signs: Vital Signs: Last Vital Signs Temp 98.0 F 04/19/22 07:30 Pulse 82 04/19/22 07:30 Resp 18 04/19/22 07:30 BP 106/64 04/19/22 07:30 Pulse Ox 96 04/19/22 07:30 O2 Del Method 04/19/22 07:30 BMI result Body Mass Index 29.6 Appearing in no acute distress lung sounds are clear to auscultation heart regular rate rhythm, clear S1, S2 positive bowel sounds, tenderness to mid abdomen neuro patient is alert x3, no focal deficits Objective Data Active Medications Dextrose (Dextrose 50 % 25 Gm/50 Ml Syringe) 25 gm IVPUSH Q15M PRN; Protocol PRN Reason: per Hypoglycemia Standing Ord. Docusate Sodium (Docusate Sodium 100 Mg Capsule) 100 mg PO BID [facility] Last Admin: 04/19/22 07:59 Dose: Not Given Documented By: NATI Non-Admin Reason: Patient Condition Contraindication Ferrous Sulfate (Ferrous Sulfate 324 Mg Tablet.Dr) 324 mg PO DAILY [facility] Last Admin: 04/19/22 08:02 Dose: 324 mg Documented By: NATI Glucose (Glucose Gel 15 Gm Gel..Gram.) 15 gm PO Q15M PRN; Protocol PRN Reason: per Hypoglycemia Standing Ord. Heparin Sodium (Porcine) (Heparin Sodium,Porcine 5,000 Unit/Ml Vial) 3,300 unit 40 unit/kg (3300 unit) IVPUSH PROTOCOL BOLUS PRN; Protocol PRN Reason: 40 unit/kg - Heparin Protocol Last Admin: 04/19/22 03:15 Dose: 3,300 unit Documented By: MALLY Heparin Sodium (Porcine) (Heparin Sodium,Porcine 5,000 Unit/Ml Vial) 6,600 unit 80 unit/kg (6600 unit) IVPUSH PROTOCOL BOLUS PRN; Protocol PRN Reason: 80 unit/kg - Heparin Protocol Lactated Ringer's (Lr) 1,000 mls @ 100 mls/hr IVCONT .Q10H [facility] Last Admin: 04/19/22 08:38 Dose: 100 mls/hr Documented By: NATI Heparin Sodium/Sodium Chloride (Heparin Sodium,Porcine/1/2ns) 25,000 unit in 250 mls @ 0 mls/hr IVCONT .Q0M [facility]; Protocol Last Titration: 04/19/22 03:18 Dose: 16 units/kg/hr, 13.17 mls/hr Documented By: MALLY Co-signed By: ELVIS Piperacillin Sod/Tazobactam (Sod 3.375 gm/ Sodium Chloride) 50 mls @ 100 mls/hr IV Q6H [facility] Last Infusion: 04/19/22 08:43 Dose: 0 mls/hr Documented By: NATI Insulin Human Lispro (Insulin Lispro 100 Unit/Ml 3 Ml Vial) 0 unit SUBCUT QIDACHS [facility]; Protocol Last Admin: 04/19/22 08:12 Dose: Not Given Documented By: NATI Non-Admin Reason: No Insulin Coverage Morphine Sulfate (Morphine Sulfate 4 Mg/Ml Cartridge) 2 mg IVPUSH Q3H PRN; Protocol PRN Reason: Pain, Severe (Pain Scale 7-10) Oxycodone HCl (Oxycodone Hcl Immed Release 5 Mg Tablet) 5 mg PO Q6H PRN PRN Reason: Pain, Severe (Pain Scale 7-10) Pantoprazole Sodium (Pantoprazole Sodium 40 Mg/10 Ml Vial) 40 mg IVPUSH DAILY@0630 [facility] Last Admin: 04/19/22 05:23 Dose: 40 mg Documented By: MALLY Pharmacy Consult (Consult Rx Perform Med Rec) 1 each MISCELLANE ONCE PRN PRN Reason: Consult order Sodium Chloride (0.9 % Sodium Chloride Flush 3 Ml Syringe) 3 ml IVFLUSH QSHIFT [facility] Last Admin: 04/19/22 08:04 Dose: 3 ml Documented By: NATI Labs CBC & Chem 7: 04/19/22 06:48 04/18/22 06:24 Labs: Laboratory Results - last 24 hr 04/18/22 04/18/22 04/18/22 12:28 20:06 21:06 MCV MCH MCHC RDW Plt Count MPV Absolute Nucleated RBC Nucleated RBC % (auto) aPTT Heparin Protocol 35.7 L 34.2 L POC Glucose 121 H 09/04/19/22 04/19/22 02:34 06:48 07:40 MCV 75.4 L MCH 23.2 L MCHC 30.8 L RDW 16.5 H Plt Count 92 L MPV 10.1 Absolute Nucleated RBC 0.000 Nucleated RBC % (auto) 0.0 aPTT Heparin Protocol 44.3 L D POC Glucose 99 Microbiology Microbiology Results: Microbiology 04/17/22 12:43 Blood Culture - Preliminary Blood - Venous No growth after 24 hours. 04/17/22 12:15 Blood Culture - Preliminary Blood - Venous No growth after 24 hours. 04/17/22 17:42 Urine Culture - Preliminary Urine clean catch - Urine zheng top Culture too young to evaluate. Assessment and Plan (1) Colitis: Status: Acute Plan 56-year-old male with history of alcoholic liver cirrhosis, diabetes, recently diagnosed bilateral PE on Eliquis who presents to the emergency department with abdominal pain found to colitis and heme-positive stools Sepsis secondary to Acute colitis patient with fever 103 and tachycardia. no leukocytosis, normal lactic acid (thrombocytopenia chronic and r/t liver dz not sepsis) Continue IV Zosyn Discussed with Gastroenterology question of ischemia, CT angio of the abdomen and pelvis negative for ischemia Eliquis stopped and IV heparin started anticipation for any procedure Pain control Blood cultures negative after 24 hours Advance diet to clears Guaiac-positive stools No evidence of active bleeding Likely secondary to colitis Given bilateral PE diagnosed in previous 2 weeks will continue anticoagulation with heparin for now IV PPI Alcoholic liver cirrhosis with thrombocytopenia Denies drinking in the past 7 years; hepatitis screen negative from December CT abdomen shows evidence of varices, small ascites and portal hypertension b/l PE Multiple segmental and subsegmental emboli seen on last CTA.? Repeat CTA from today shows no pulmonary emboli no hypoxia, currently saturating well on room air heparin IV started in anticipation for any possible procedure required, will discuss with GI in terms of restarting Eliquis Chronic anemia H/H at baseline Iron supplementation DM Sliding scale HTN with hypotension hold lisinopril DVT ppx -IV heparin Attending Dr. Josie kenney status - full code Patient requires continued hospitalization for further management of colitis with IV antibiotics, IV pain control as well, further workup Quality Stroke Does the patient have a stroke diagnosis?: No VTE Prior VTE?: No VTE Risk Level:: Medical - moderate - high VTE Device Contraindication: N/A - Device Ordered VTE Drug Contraindication: N/A - Med Ordered
[2022-04-19 09:46] LABS: PTT Heparin Drip 56.6 SEC (53-77.9)
[2022-04-19 11:30] VITALS: BP 114/72; PULSE 78; RESP 18; TEMP 37; O2SAT 95
[2022-04-19] MEDS: Heparin Sodium,Porcine/1/2NS 25,000 UNIT/250 ML IV.SOLN 13.17 UNIT IVCONT (11:51)
[2022-04-19 11:54] LABS: Glucose, Whole Blood 92 mg/dL (60-115)
--- NOTE | 2022-04-19 13:10 | P.PNGI_ITS ---
Subjective Subjective Date of Service: 04/19/22 Interval History: Reports improvement in abd pain. Still having loose BMs but not as many. Now complains of severe headache and back pain. Critical Care Time (minutes): 0 Physical Exam Vital Signs: Vital Signs: Last Vital Signs Temp 98.6 F 04/19/22 11:30 Pulse 78 04/19/22 11:30 Resp 18 04/19/22 11:30 BP 114/72 04/19/22 11:30 Pulse Ox 95 04/19/22 11:30 O2 Del Method 04/19/22 11:30 BMI result Body Mass Index 29.6 Gen appear: NAD Abd: soft, mildly distended MSK: no point tenderness elicited Objective Data Labs CBC & Chem 7: 04/19/22 06:48 04/18/22 06:24 Labs: Laboratory Results - last 24 hr 04/18/22 04/18/22 04/19/22 20:06 21:06 02:34 WBC RBC Hgb Hct MCV MCH MCHC RDW Plt Count MPV Absolute Nucleated RBC Nucleated RBC % (auto) aPTT Heparin Protocol 34.2 L 44.3 L D POC Glucose 121 H 04/19/22 04/19/22 04/19/22 06:48 07:40 09:13 WBC 10.5 RBC 3.62 L Hgb 8.4 L Hct 27.3 L MCV 75.4 L MCH 23.2 L MCHC 30.8 L RDW 16.5 H Plt Count 92 L MPV 10.1 Absolute Nucleated RBC 0.000 Nucleated RBC % (auto) 0.0 aPTT Heparin Protocol 56.6 D POC Glucose 99 04/19/22 11:32 WBC RBC Hgb Hct MCV MCH MCHC RDW Plt Count MPV Absolute Nucleated RBC Nucleated RBC % (auto) aPTT Heparin Protocol POC Glucose 92 Microbiology Microbiology Results: Microbiology 04/17/22 17:42 Urine clean catch - Urine zheng top Urine Culture - Final 04/17/22 12:43 Blood - Venous Blood Culture - Preliminary No growth after 24 hours. 04/17/22 12:15 Blood - Venous Blood Culture - Preliminary No growth after 24 hours. Procedures Date of Service Date of Service: 04/19/22 Progress Note: A&P Assessment and plan (1) Fever: Status: Acute (2) Colitis: Status: Acute (3) Cirrhosis: Status: Acute Plan Unclear what led to the initial sepsis. Hes certainly predisponsed to bacterial translocation with cirrhosis - GI infectious work up pending. Consider checking tick panel. Will defer to hospitalist re utility of [employer] infection w/up. Will tentatively schedule EGD/colonoscopy for Wednesday for i) worsening anemia ii) r/o varices as pt needs anticoagulation iii) chronic diarrhea Time Spent With Patient Time: Total time spent is greater than 50% in coordination of care (as documented) at patient's floor/unit and/or counseling patient: Quality Stroke Does the patient have a stroke diagnosis?: No VTE Prior VTE?: No VTE Risk Level:: Medical - moderate - high VTE Device Contraindication: N/A - Device Ordered VTE Drug Contraindication: N/A - Med Ordered
[2022-04-19 14:48] LABS: Iron 26 mcg/dL (45-160); Percent Iron Saturation 8 % (15-50); Total Iron Binding Capacity 343 mcg/dL (228-428); Unsaturated Iron Binding 317 ug/dL
[2022-04-19 15:08] LABS: Ferritin 107 ng/mL (20-250)
[2022-04-19 15:25] LABS: PTT Heparin Drip 51.2 SEC (53-77.9)
[2022-04-19 16:00] VITALS: BP 104/59; PULSE 82; RESP 17; TEMP 37.1; O2SAT 97
[2022-04-19 16:24] LABS: Glucose, Whole Blood 136 mg/dL (60-115)
[2022-04-19 19:07] VITALS: BP 108/63; PULSE 76; RESP 17; TEMP 37; O2SAT 97
[2022-04-19 20:15] LABS: Glucose, Whole Blood 173 mg/dL (60-115)
[2022-04-19] MEDS: Insulin Lispro 100 UNIT/ML 3 ML VIAL SUBCUT (20:57)
[2022-04-19 21:58] LABS: PTT Heparin Drip 68.7 SEC (53-77.9)
[2022-04-19 23:16] VITALS: BP 113/69; PULSE 75; RESP 17; TEMP 36.8; O2SAT 95
[2022-04-20] MEDS: Piperacillin Sodium/Tazobactam 3.375 GM in 0.9 % Sodium Chloride 50 ML IV ×4 (00:30→20:20)
[2022-04-20] MEDS: 0.9 % Sodium Chloride Flush 3 ML SYRINGE IVFLUSH ×2 (00:33→16:35)
[2022-04-20 04:00] VITALS: BP 102/64; PULSE 70; RESP 20; TEMP 36.7; O2SAT 94
[2022-04-20 04:00] LABS: Hematocrit 27.3 % (42.0-52.0); Hemoglobin 8.4 g/dl (14.0-18.0); Mean Corpuscular HGB Conc 30.8 g/dl (31.0-36.0); Mean Corpuscular Hemoglobin 23.1 pg (27.0-33.0); Mean Platelet Volume 9.9 fL (9.4-12.4); Platelet Count 87 X10*3/uL (160-400); Red Blood Count 3.64 X10*6/uL (4.60-5.80); Red Cell Distribution Width 16.5 % (11.0-16.0); White Blood Count 4.6 X10*3/uL (4.8-10.8)
[2022-04-20 04:11] LABS: PTT Heparin Drip 65.9 SEC (53-77.9)
[2022-04-20] MEDS: Pantoprazole Sodium 40 MG/10 ML VIAL IVPUSH (05:44)
[2022-04-20 05:58] LABS: Anion Gap 12 (12-20); Blood Urea Nitrogen 8 mg/dL (9-16); Calcium 7.7 mg/dL (8.4-10.2); Carbon Dioxide 21 mmol/L (22-29); Chloride 109 mmol/L (96-108); Creatinine Clr Calc Pharmacy 119.1; Estimated Glomerular Filt Rate > 60; Glucose Random 126 mg/dL (60-115); Potassium 3.4 mmol/L (3.3-5.1); Sodium 139 mmol/L (135-145)
[2022-04-20 06:58] LABS: Hematocrit 26.4 % (42.0-52.0); Hemoglobin 8.2 g/dl (14.0-18.0); Mean Corpuscular HGB Conc 31.1 g/dl (31.0-36.0); Mean Corpuscular Hemoglobin 23.4 pg (27.0-33.0); Mean Corpuscular Volume 75.4 fL (80.0-98.0); Red Cell Distribution Width 16.5 % (11.0-16.0); White Blood Count 4.2 X10*3/uL (4.8-10.8)
[2022-04-20 06:59] LABS: Platelet Count 87 X10*3/uL (160-400)
[2022-04-20 07:01] LABS: PTT Heparin Drip 51.9 SEC (53-77.9)
[2022-04-20 07:17] VITALS: BP 109/67; PULSE 73; RESP 18; TEMP 36.4; O2SAT 95
[2022-04-20 07:27] LABS: Glucose, Whole Blood 122 mg/dL (60-115)
[2022-04-20] MEDS: Ferrous Sulfate 324 MG TABLET.DR PO (08:45)
[2022-04-20] MEDS: Docusate Sodium 100 MG CAPSULE PO ×2 (08:45→20:20)
[2022-04-20] MEDS: Heparin Sodium,Porcine/1/2NS 25,000 UNIT/250 ML IV.SOLN 14.81 UNIT IVCONT (08:46)
--- NOTE | 2022-04-20 08:54 | HE.PHANOTE ---
Spoke to Sandra 04/20 @0830; aPTT came back at 51.9 @0626 but she checked with Nina who does not want to change the rate or give bolus.
--- NOTE | 2022-04-20 10:32 | HO.PM.IMPN ---
Subjective Subjective Date of Service: 04/20/22 Interval History: Follow-up abdominal pain, colitis Some improvement in mid abdominal pain Denies nausea, vomiting, diarrhea Cardiovascular Cardiovascular: Reports no additional cardiovascular complaints Respiratory Respiratory: Reports no additional respiratory complaints Physical Exam Vital Signs: Vital Signs: Last Vital Signs Temp 97.6 F 04/20/22 07:17 Pulse 73 04/20/22 07:17 Resp 18 04/20/22 07:17 BP 109/67 04/20/22 07:17 Pulse Ox 95 04/20/22 07:17 O2 Del Method 04/20/22 07:17 BMI result Body Mass Index 29.6 Objective Data Active Medications Dextrose (Dextrose 50 % 25 Gm/50 Ml Syringe) 25 gm IVPUSH Q15M PRN; Protocol PRN Reason: per Hypoglycemia Standing Ord. Docusate Sodium (Docusate Sodium 100 Mg Capsule) 100 mg PO BID [facility] Last Admin: 04/20/22 08:45 Dose: 100 mg Documented By: ASHLEY Ferrous Sulfate (Ferrous Sulfate 324 Mg Tablet.Dr) 324 mg PO DAILY [facility] Last Admin: 04/20/22 08:45 Dose: 324 mg Documented By: ASHLEY Glucose (Glucose Gel 15 Gm Gel..Gram.) 15 gm PO Q15M PRN; Protocol PRN Reason: per Hypoglycemia Standing Ord. Heparin Sodium (Porcine) (Heparin Sodium,Porcine 5,000 Unit/Ml Vial) 3,300 unit 40 unit/kg (3300 unit) IVPUSH PROTOCOL BOLUS PRN; Protocol PRN Reason: 40 unit/kg - Heparin Protocol Last Admin: 04/19/22 15:45 Dose: 3,300 unit Documented By: NATI Heparin Sodium (Porcine) (Heparin Sodium,Porcine 5,000 Unit/Ml Vial) 6,600 unit 80 unit/kg (6600 unit) IVPUSH PROTOCOL BOLUS PRN; Protocol PRN Reason: 80 unit/kg - Heparin Protocol Heparin Sodium/Sodium Chloride (Heparin Sodium,Porcine/1/2ns) 25,000 unit in 250 mls @ 0 mls/hr IVCONT .Q0M [facility]; Protocol Last Admin: 04/20/22 08:46 Dose: 18 units/kg/hr, 14.81 mls/hr Documented By: ASHLEY Co-signed By: MONIKA Piperacillin Sod/Tazobactam (Sod 3.375 gm/ Sodium Chloride) 50 mls @ 100 mls/hr IV Q6H [facility] Last Infusion: 04/20/22 06:43 Dose: 100 mls/hr Documented By: ISMAEL Insulin Human Lispro (Insulin Lispro 100 Unit/Ml 3 Ml Vial) 0 unit SUBCUT QIDACHS [facility]; Protocol Last Admin: 04/20/22 08:51 Dose: Not Given Documented By: ASHLEY Non-Admin Reason: No Insulin Coverage Morphine Sulfate (Morphine Sulfate 4 Mg/Ml Cartridge) 2 mg IVPUSH Q3H PRN; Protocol PRN Reason: Pain, Severe (Pain Scale 7-10) Oxycodone HCl (Oxycodone Hcl Immed Release 5 Mg Tablet) 5 mg PO Q6H PRN PRN Reason: Pain, Severe (Pain Scale 7-10) Pantoprazole Sodium (Pantoprazole Sodium 40 Mg/10 Ml Vial) 40 mg IVPUSH DAILY@0630 [facility] Last Admin: 04/20/22 05:44 Dose: 40 mg Documented By: ISMAEL Pharmacy Consult (Consult Rx Perform Med Rec) 1 each MISCELLANE ONCE PRN PRN Reason: Consult order Polyethylene Glycol/Electrolytes (Peg 3350/Na Sulf,Bicarb,Cl/Kcl 4,000 Ml Soln.Recon) 4,000 ml PO ONCE@1630 [facility] Stop: 04/20/22 16:31 Sodium Chloride (0.9 % Sodium Chloride Flush 3 Ml Syringe) 3 ml IVFLUSH QSHIFT [facility] Last Admin: 04/20/22 08:45 Dose: Not Given Documented By: ASHLEY Non-Admin Reason: IV Running Labs CBC & Chem 7: 04/20/22 06:26 04/20/22 03:53 Labs: Laboratory Results - last 24 hr 04/19/22 04/19/22 04/19/22 11:32 14:25 15:08 MCV MCH MCHC RDW Plt Count MPV Absolute Nucleated RBC Nucleated RBC % (auto) aPTT Heparin Protocol 51.2 L Anion Gap Estim Creat Clear Calc Estimated GFR POC Glucose 92 Random Glucose Calcium Iron 26 L TIBC 343 % Saturation 8 L Unsat Iron Binding 317 Ferritin 107 04/19/22 04/19/22 04/19/22 16:07 19:09 21:31 MCV MCH MCHC RDW Plt Count MPV Absolute Nucleated RBC Nucleated RBC % (auto) aPTT Heparin Protocol 68.7 D Anion Gap Estim Creat Clear Calc Estimated GFR POC Glucose 136 H 173 H Random Glucose Calcium Iron TIBC % Saturation Unsat Iron Binding Ferritin 04/20/22 04/20/22 04/20/22 03:53 03:53 03:53 MCV 75.0 L MCH 23.1 L MCHC 30.8 L RDW 16.5 H Plt Count 87 L MPV 9.9 Absolute Nucleated RBC 0.000 Nucleated RBC % (auto) 0.0 aPTT Heparin Protocol 65.9 Anion Gap 12 Estim Creat Clear Calc 119.1 Estimated GFR > 60 POC Glucose Random Glucose 126 H Calcium 7.7 L Iron TIBC % Saturation Unsat Iron Binding Ferritin 04/20/22 04/20/22 04/20/22 06:26 06:26 07:16 MCV 75.4 L MCH 23.4 L MCHC 31.1 RDW 16.5 H Plt Count 87 L MPV 10.0 Absolute Nucleated RBC 0.000 Nucleated RBC % (auto) 0.0 aPTT Heparin Protocol 51.9 L D Anion Gap Estim Creat Clear Calc Estimated GFR POC Glucose 122 H Random Glucose Calcium Iron TIBC % Saturation Unsat Iron Binding Ferritin Microbiology Microbiology Results: Microbiology 04/17/22 12:43 Blood Culture - Preliminary Blood - Venous No growth after 48 hours. 04/17/22 12:15 Blood Culture - Preliminary Blood - Venous No growth after 48 hours. 04/17/22 17:42 Urine Culture - Final Urine clean catch - Urine zheng top Assessment and Plan (1) Colitis: Status: Acute Plan 56-year-old male with history of alcoholic liver cirrhosis, diabetes, recently diagnosed bilateral PE on Eliquis who presents to the emergency department with abdominal pain found to colitis and heme-positive stools Sepsis secondary to Acute colitis patient with fever 103 and tachycardia. no leukocytosis, normal lactic acid (thrombocytopenia chronic and r/t liver dz not sepsis) Continue IV Zosyn Discussed with Gastroenterology question of ischemia, CT angio of the abdomen and pelvis negative for ischemia Eliquis stopped and IV heparin started anticipation upcoming procedure Pain control Blood cultures negative after 48hours clear diet for now NPO after midnight for colonoscopy tomorrow Guaiac-positive stools No evidence of active bleeding Likely secondary to colitis Given bilateral PE diagnosed in previous 2 weeks will continue anticoagulation with heparin for now IV PPI Alcoholic liver cirrhosis with thrombocytopenia Denies drinking in the past 7 years; hepatitis screen negative from December CT abdomen shows evidence of varices, small ascites and portal hypertension b/l PE Multiple segmental and subsegmental emboli seen on last CTA.? Repeat CTA from today shows no pulmonary emboli no hypoxia, currently saturating well on room air heparin IV started in anticipation for any possible procedure required, will discuss with GI in terms of restarting Eliquis Chronic anemia H/H at baseline Iron supplementation DM Sliding scale HTN with hypotension hold lisinopril DVT ppx -IV heparin Attending Dr. Jeong code status - full code Patient requires continued hospitalization for further management of colitis with IV antibiotics, IV pain control as well, further workup Quality Stroke Does the patient have a stroke diagnosis?: No VTE Prior VTE?: No VTE Risk Level:: Medical - moderate - high VTE Device Contraindication: N/A - Device Ordered VTE Drug Contraindication: N/A - Med Ordered
[2022-04-20 10:57] LABS: CDiff Gene PCR NEGATIVE (Negative)
[2022-04-20 11:01] LABS: Glucose, Whole Blood 217 mg/dL (60-115)
[2022-04-20 11:10] VITALS: BP 106/63; PULSE 80; RESP 20; TEMP 36.9; O2SAT 96
[2022-04-20 11:12] LABS: Glucose, Whole Blood 201 mg/dL (60-115)
[2022-04-20] MEDS: Insulin Lispro 100 UNIT/ML 3 ML VIAL SUBCUT ×3 (12:34→21:06)
--- NOTE | 2022-04-20 13:24 | MHC.CLN ---
RE: CONSULT PT REPORTED # WT LOSS ON NURSING ADMISSION ASSESSMENT PREVIOUS WT HX REVEALS: CURRENT WT 78.3KG 68KG (01/11/22) PT TRIGGERS FOR 15% SIGNIFICANT WT GAIN X 90DAYS DIET RX: C/L-APPOPRIATE MONITOR PO INTAKE CLOSELY
[2022-04-20 15:45] VITALS: BP 106/64; PULSE 78; RESP 18; TEMP 37.2; O2SAT 94
[2022-04-20 16:24] LABS: Glucose, Whole Blood 176 mg/dL (60-115)
[2022-04-20] MEDS: PEG 3350/Na Sulf,Bicarb,Cl/KCL 4,000 ML SOLN.RECON 4000 ML PO (16:35)
[2022-04-20 20:00] VITALS: BP 117/79; PULSE 79; RESP 20; TEMP 36.9; O2SAT 98
[2022-04-20 20:58] LABS: Glucose, Whole Blood 168 mg/dL (60-115)
[2022-04-20 23:38] VITALS: BP 118/72; PULSE 74; RESP 16; TEMP 36.8; O2SAT 93
[2022-04-21] VITALS (9 sets, daily range): BP systolic 100–129; BP diastolic 63–75; PULSE 67–91; RESP 16–20; TEMP 36.1–37.1; O2SAT 94–97
[2022-04-21] MEDS: Piperacillin Sodium/Tazobactam 3.375 GM in 0.9 % Sodium Chloride 50 ML IV ×3 (00:30→19:41)
[2022-04-21] MEDS: Heparin Sodium,Porcine/1/2NS 25,000 UNIT/250 ML IV.SOLN 14.81 UNIT IVCONT (02:33)
[2022-04-21 07:04] LABS: Hematocrit 27.6 % (42.0-52.0); Hemoglobin 8.6 g/dl (14.0-18.0); Mean Corpuscular HGB Conc 31.2 g/dl (31.0-36.0); Mean Corpuscular Hemoglobin 23.4 pg (27.0-33.0); Mean Corpuscular Volume 75.2 fL (80.0-98.0); Mean Platelet Volume 9.5 fL (9.4-12.4); Red Blood Count 3.67 X10*6/uL (4.60-5.80); Red Cell Distribution Width 16.2 % (11.0-16.0)
[2022-04-21 07:05] LABS: Platelet Count 91 X10*3/uL (160-400)
[2022-04-21 07:08] LABS: PTT Heparin Drip 66.5 SEC (53-77.9)
[2022-04-21 07:20] LABS: Anion Gap 13 (12-20); Blood Urea Nitrogen 6 mg/dL (9-16); Carbon Dioxide 23 mmol/L (22-29); Chloride 108 mmol/L (96-108); Creatinine Clr Calc Pharmacy 120.9; Estimated Glomerular Filt Rate > 60; Glucose Random 148 mg/dL (60-115); Potassium 3.4 mmol/L (3.3-5.1); Sodium 141 mmol/L (135-145)
[2022-04-21 07:53] LABS: Glucose, Whole Blood 150 mg/dL (60-115)
--- NOTE | 2022-04-21 09:00 | MHC.CM.PN ---
MALE 56 DX COLITIS He lives alone; but will stay w sister @ ct. Patient is independent with all functional mobility and works. [facility] x2 HCP on file. DP home no services with a friend providing transportation home.
[2022-04-21] MEDS: Ferrous Sulfate 324 MG TABLET.DR PO (10:00)
[2022-04-21] MEDS: Docusate Sodium 100 MG CAPSULE PO ×2 (10:00→19:41)
--- NOTE | 2022-04-21 10:38 | PC.NURSE ---
upon arrival assessing patient and he stated he is allergic to penicillin but history stated nka. text primary rn to let hospitalists know.
[2022-04-21] MEDS: Lactated Ringers 1,000 ML 100 ML IVCONT (11:00)
[2022-04-21 11:04] LABS: Glucose, Whole Blood 145 mg/dL (60-115)
--- NOTE | 2022-04-21 11:49 | MHC.SHP ---
Pre-Procedural Eval Section A Date of Service: 04/21/22 The patient is an INPATIENT: Yes The History & Physical has been completed within 30 days and I have reviewed it.: Yes Section B Chief Complaint: Anemia, diarrhea, colitis Allergies: Allergies Allergy/AdvReac Type Severity Reaction Status Date / Time Penicillins [PCN] AdvReac Angioedema Verified 04/21/22 10:37 Plan Diagnosis/Plan: Unchanged I have reviewed the history and physical and performed a pertinent physical examination on my patient. No changes have occurred unless specified.
--- NOTE | 2022-04-21 11:50 | P.OP_ITS ---
Operative Note Operative Note Date of Service: 04/21/22 Narrative: Procedure: Esophagogastroduodenoscopy Endoscopist: Perla To MD Indication: Anemia, chronic diarrhea, colitis Anesthesia Provider: Tamiko Cagle CRNA Anesthesia Type: MAC Instrument: Olympus GIF-H190 and [id number]-H190L ?? EGD Procedure:?? The procedure, indications, preparation and potential complications were reviewed with the patient, who indicated understanding and gave written informed consent to proceed. A physical exam was performed. The patient was electively intubated for airway protection the anesthesiologist. The endoscope was introduced through the mouth, and advanced to the second part of duodenum. The mucosa was carefully examined on slow withdrawal of the endoscope. The patient tolerated the procedure well. There were no immediate complications.? ? EGD findings:? * Esophagus:? 2 columns of large varices noted from 24 to 39 cm with red alturas. The Z line was at 39cm. Using a [employer] multiple band ligator, 3 bands were placed in a spiral fashion from 37 to 34 cm with complete collapse of the variceal columns. * Stomach:?Diffuse congestion and erythema in mosaic pattern consistent with portal hypertensive gastropathy was noted in the whole stomach. Some oozing noted on contact. * Duodenum: At least 3 subcentimeter nodules with whitish tips were noted in the second portion of the duodenum. Using a cold biospy forceps the largest one was biopsied. More than usual bleeding was noted after forceps biopsy. One hemoclip was applied with immediate hemostasis. ? Colonoscopy procedure: The patient was then turned for the colonoscopy. A digital rectal exam was performed which was normal. The colonoscope was then inserted through the anus and advanced through the colon to the cecum at 85 cm. Mucosa was carefully examined under high definition white light as the instrument was slowly withdrawn in a retrograde panoramic fashion. Retroflexion was performed in rectum. The procedure was not difficult. There were no immediate obvious complications. The quality of the prep was BBPS:2+2+2 = adequate Withdrawal time 9 minutes. Limitations: No limitations. Colonoscopy findings: Mucosa: At least 3 AVMs noted in the colon (sigmoid colon, transverse colon and ascending colon). None of these were spontaneously oozing. They also did not bleed when agitated with water jet. Loss of normal vascular pattern in the whole colon. Random cold forceps biopsies. Protruding lesions: * Medium external hemorrhoids without stigmata of recent bleeding. Excavated lesions: * Small few diverticulosis of sigmoid colon. Impression:? * Esophageal varices with red alturas (banding) * Portal hypertensive gastropathy * Duodenal nodules (biopsy, hemoclip) * Abnormal colonic mucosa (biopsy) * Colonic AVMs * Mild sigmoid diverticulosis * External hemorrhoids ?? Recommendations:?? * Anemia likely a combination of bleeding from PHG, portal colopathy and AVMs. * Repeat EGD in 4 weeks for variceal obliteration. * Hold anticoagulation for 48-72 hours * NPO for 6h followed by clear liquid diet for 24h before advancing diet to regular diet * Follow biopsy results. Our office will call or send a letter with results within 7-10 days. * Avoid NSAIDs. * Above has been reviewed with the patient. Educational hand outs were provided at discharge. * Repeat colonoscopy in 7-10 years if still in good health.
--- NOTE | 2022-04-21 12:04 | P.PNIM_ITS ---
Subjective Subjective Date of Service: 04/21/22 Interval History: Follow-up abdominal pain, colitis Some improvement in mid abdominal pain Denies nausea, vomiting, diarrhea Cardiovascular Cardiovascular: Reports no additional cardiovascular complaints Respiratory Respiratory: Reports no additional respiratory complaints Physical Exam Vital Signs: Vital Signs: Last Vital Signs Temp 98 F 04/21/22 10:55 Pulse 77 04/21/22 10:55 Resp 16 04/21/22 10:55 BP 120/73 04/21/22 10:55 Pulse Ox 95 04/21/22 10:55 O2 Del Method 04/21/22 10:55 BMI result Body Mass Index 29.6 Appearing in no acute distress lung sounds are clear to auscultation heart regular rate rhythm, clear S1, S2 positive bowel sounds, abdomen is soft, nontender neuro patient is alert x3, no focal deficits Objective Data Active Medications Dextrose (Dextrose 50 % 25 Gm/50 Ml Syringe) 25 gm IVPUSH Q15M PRN; Protocol PRN Reason: per Hypoglycemia Standing Ord. Docusate Sodium (Docusate Sodium 100 Mg Capsule) 100 mg PO BID [facility] Last Admin: 04/21/22 10:00 Dose: 100 mg Documented By: JOSE Ferrous Sulfate (Ferrous Sulfate 324 Mg Tablet.Dr) 324 mg PO DAILY [facility] Last Admin: 04/21/22 10:00 Dose: 324 mg Documented By: JOSE Glucose (Glucose Gel 15 Gm Gel..Gram.) 15 gm PO Q15M PRN; Protocol PRN Reason: per Hypoglycemia Standing Ord. Heparin Sodium (Porcine) (Heparin Sodium,Porcine 5,000 Unit/Ml Vial) 3,300 unit 40 unit/kg (3300 unit) IVPUSH PROTOCOL BOLUS PRN; Protocol PRN Reason: 40 unit/kg - Heparin Protocol Last Admin: 04/19/22 15:45 Dose: 3,300 unit Documented By: NATI Heparin Sodium (Porcine) (Heparin Sodium,Porcine 5,000 Unit/Ml Vial) 6,600 unit 80 unit/kg (6600 unit) IVPUSH PROTOCOL BOLUS PRN; Protocol PRN Reason: 80 unit/kg - Heparin Protocol Heparin Sodium/Sodium Chloride (Heparin Sodium,Porcine/1/2ns) 25,000 unit in 250 mls @ 0 mls/hr IVCONT .Q0M [facility]; Protocol Last Titration: 04/21/22 08:40 Dose: 0 units/kg/hr, 0 mls/hr Documented By: NATI Co-signed By: HALEY Piperacillin Sod/Tazobactam (Sod 3.375 gm/ Sodium Chloride) 50 mls @ 100 mls/hr IV Q6H [facility] Last Infusion: 04/21/22 10:16 Dose: 0 mls/hr Documented By: NATI Insulin Human Lispro (Insulin Lispro 100 Unit/Ml 3 Ml Vial) 0 unit SUBCUT QIDACHS [facility]; Protocol Last Admin: 04/21/22 08:00 Dose: Not Given Documented By: NATI Non-Admin Reason: NPO Morphine Sulfate (Morphine Sulfate 4 Mg/Ml Cartridge) 2 mg IVPUSH Q3H PRN; Protocol PRN Reason: Pain, Severe (Pain Scale 7-10) Oxycodone HCl (Oxycodone Hcl Immed Release 5 Mg Tablet) 5 mg PO Q6H PRN PRN Reason: Pain, Severe (Pain Scale 7-10) Pharmacy Consult (Consult Rx Perform Med Rec) 1 each MISCELLANE ONCE PRN PRN Reason: Consult order Sodium Chloride (0.9 % Sodium Chloride Flush 3 Ml Syringe) 3 ml IVFLUSH QSHIFT [facility] Last Admin: 04/21/22 09:36 Dose: Not Given Documented By: NATI Non-Admin Reason: Previously Administered Labs CBC & Chem 7: 04/21/22 06:42 04/21/22 06:42 Labs: Laboratory Results - last 24 hr 04/20/22 04/20/22 04/21/22 16:15 20:54 06:42 MCV 75.2 L MCH 23.4 L MCHC 31.2 RDW 16.2 H Plt Count 91 L MPV 9.5 Absolute Nucleated RBC 0.000 Nucleated RBC % (auto) 0.0 aPTT Heparin Protocol Anion Gap Estim Creat Clear Calc Estimated GFR POC Glucose 176 H 168 H Random Glucose Calcium 04/21/22 04/21/22 04/21/22 06:42 06:42 07:39 MCV MCH MCHC RDW Plt Count MPV Absolute Nucleated RBC Nucleated RBC % (auto) aPTT Heparin Protocol 66.5 D Anion Gap 13 Estim Creat Clear Calc 120.9 Estimated GFR > 60 POC Glucose 150 H Random Glucose 148 H Calcium 8.0 L 04/21/22 11:00 MCV MCH MCHC RDW Plt Count MPV Absolute Nucleated RBC Nucleated RBC % (auto) aPTT Heparin Protocol Anion Gap Estim Creat Clear Calc Estimated GFR POC Glucose 145 H Random Glucose Calcium Assessment and Plan (1) Colitis: Status: Acute Plan 56-year-old male with history of alcoholic liver cirrhosis, diabetes, recently diagnosed bilateral PE on Eliquis who presents to the emergency department with abdominal pain found to colitis and heme-positive stools Sepsis secondary to Acute colitis s/p fever 103 and tachycardia. no leukocytosis, normal lactic acid (thrombocytopenia chronic and r/t liver dz not sepsis) Continue IV Zosyn CT angio of the abdomen and pelvis negative for ischemia Eliquis stopped and IV heparin started anticipation of upcoming colo Pain control Blood cultures negative after 48hours colonoscopy today Guaiac-positive stools No evidence of active bleeding Likely secondary to colitis Given bilateral PE diagnosed in previous 2 weeks will continue anticoagulation with heparin for now IV PPI Alcoholic liver cirrhosis with thrombocytopenia Denies drinking in the past 7 years; hepatitis screen negative from December CT abdomen shows evidence of varices, small ascites and portal hypertension b/l PE Multiple segmental and subsegmental emboli seen on last CTA.? Repeat CTA from today shows no pulmonary emboli no hypoxia, currently saturating well on room air heparin IV started in anticipation for any possible procedure required, will discuss with GI in terms of restarting Eliquis Chronic anemia H/H at baseline Iron supplementation DM Sliding scale HTN with hypotension hold lisinopril DVT ppx -IV heparin Attending Dr. Jeong code status - full code Patient requires continued hospitalization for further management of colitis with IV antibiotics, IV pain control as well, further workup Quality Stroke Does the patient have a stroke diagnosis?: No VTE Prior VTE?: No VTE Risk Level:: Medical - moderate - high VTE Device Contraindication: N/A - Device Ordered VTE Drug Contraindication: N/A - Med Ordered
--- NOTE | 2022-04-21 12:56 | P.CONAN_ITS ---
HPI - Anesthesia Eval Consult details Narrative: 56 yo male patient for EGD, Colonoscopy [facility] Active Problems Active Problems: All Active Problems (Updated 04/17/22 @ 17:05 by LUZ Jones) Colitis (Acute) Breath shortness (Acute) Fever (Acute) Occult blood positive stool (Acute) Anemia (Acute) Cirrhosis (Acute) Pulmonary emboli (Acute)03/2022. Prescribed eliquis at home. On heparin gtt [facility] admission on 04/17/22. Infusion stopped 08:14 this morning Pancytopenia (Acute) GERD (gastroesophageal reflux disease) (Acute) Shortness of breath (Acute) Hyperglycemia (Acute) Hospital discharge follow-up (Acute) Shortness of breath (Acute) Chest discomfort (Acute) Abnormal finding on EKG (Acute) Bacteremia (Acute) Thrombocytopenia (Acute) Past Medical History Medical History Bacteremia Cirrhosis Diabetes GERD (gastroesophageal reflux disease) Pancytopenia Pulmonary emboli Family History Family History Father CVA (cerebral vascular accident) Family history of problems with anesthesia: No Surgical History History of Problems with Anesthesia: No Social History Social History Household Members: Family Housing: House Do you presently have visiting nurse or other home services: No Alcohol intake: former Patient Tobacco Use Status: Never used Tobacco e-Cigarette/Vaping Use: Never Used Second Hand Smoke Exposure: No Advance Directives Date on File: 04/02/22 service: No Current occupational status: employed Meds Allergies Allergy/AdvReac Type Severity Reaction Status Date / Time Penicillins [PCN] AdvReac Angioedema Verified 04/21/22 10:37 Active Medications: Current Medications Dextrose (Dextrose 50 % 25 Gm/50 Ml Syringe) 25 gm IVPUSH Q15M PRN; Protocol PRN Reason: per Hypoglycemia Standing Ord. Docusate Sodium (Docusate Sodium 100 Mg Capsule) 100 mg PO BID [facility] Last Admin: 04/21/22 10:00 Dose: 100 mg Ferrous Sulfate (Ferrous Sulfate 324 Mg Tablet.Dr) 324 mg PO DAILY [facility] Last Admin: 04/21/22 10:00 Dose: 324 mg Glucose (Glucose Gel 15 Gm Gel..Gram.) 15 gm PO Q15M PRN; Protocol PRN Reason: per Hypoglycemia Standing Ord. Heparin Sodium (Porcine) (Heparin Sodium,Porcine 5,000 Unit/Ml Vial) 3,300 unit 40 unit/kg (3300 unit) IVPUSH PROTOCOL BOLUS PRN; Protocol PRN Reason: 40 unit/kg - Heparin Protocol Last Admin: 04/19/22 15:45 Dose: 3,300 unit Heparin Sodium (Porcine) (Heparin Sodium,Porcine 5,000 Unit/Ml Vial) 6,600 unit 80 unit/kg (6600 unit) IVPUSH PROTOCOL BOLUS PRN; Protocol PRN Reason: 80 unit/kg - Heparin Protocol Heparin Sodium/Sodium Chloride (Heparin Sodium,Porcine/1/2ns) 25,000 unit in 250 mls @ 0 mls/hr IVCONT .Q0M [facility]; Protocol Last Titration: 04/21/22 08:40 Dose: 0 units/kg/hr, 0 mls/hr Piperacillin Sod/Tazobactam (Sod 3.375 gm/ Sodium Chloride) 50 mls @ 100 mls/hr IV Q6H [facility] Last Infusion: 04/21/22 10:16 Dose: Infused Insulin Human Lispro (Insulin Lispro 100 Unit/Ml 3 Ml Vial) 0 unit SUBCUT QIDACHS [facility]; Protocol Last Admin: 04/21/22 12:28 Dose: Not Given Morphine Sulfate (Morphine Sulfate 4 Mg/Ml Cartridge) 2 mg IVPUSH Q3H PRN; Protocol PRN Reason: Pain, Severe (Pain Scale 7-10) Oxycodone HCl (Oxycodone Hcl Immed Release 5 Mg Tablet) 5 mg PO Q6H PRN PRN Reason: Pain, Severe (Pain Scale 7-10) Pharmacy Consult (Consult Rx Perform Med Rec) 1 each MISCELLANE ONCE PRN PRN Reason: Consult order Sodium Chloride (0.9 % Sodium Chloride Flush 3 Ml Syringe) [facility] Last Admin: 04/21/22 09:36 Dose: Not Given Home Medications Medication Instructions Recorded Confirmed Last Taken Type glipizide 5 mg tablet 1 tab PO BID 04/01/22 04/17/22 04/17/22 History apixaban 5 mg tablet (Eliquis) 5 mg PO BID 04/17/22 04/17/22 04/17/22 History lisinopril 5 mg tablet 1 tab PO DAILY 04/17/22 04/17/22 04/17/22 History metformin 1,000 mg tablet 1 tab PO BIDAC 04/17/22 04/17/22 04/17/22 History Exam Exam Date and Time: April 21, 2022 1256 Height,Weight and Vital Signs: Height 5 ft 4 in Weight 78.3 kg Last Vital Signs Temp 98 F 04/21/22 10:55 Pulse 77 04/21/22 10:55 Resp 16 04/21/22 10:55 BP 120/73 04/21/22 10:55 Pulse Ox 95 04/21/22 10:55 O2 Del Method 04/21/22 10:55 Pertinent Lab Results Pertinent Lab Results: Laboratory Tests 04/17/22 04/17/22 04/17/22 10:13 12:14 12:15 WBC RBC Hgb Hct MCV MCH MCHC RDW Plt Count MPV Immature Gran % (Auto) Neut % (Auto) Lymph % (Auto) [place] % (Auto) Eos % (Auto) Baso % (Auto) Lymph # (Auto) [place] # (Auto) Eos # (Auto) Baso # (Auto) Abs Immat Gran (auto) Absolute Neuts (auto) Absolute Nucleated RBC Nucleated RBC % (auto) Smear Tech's Comments ESR 14 PT INR aPTT Heparin Protocol Sodium Potassium Chloride Carbon Dioxide Anion Gap BUN Creatinine Estim Creat Clear Calc Estimated GFR POC Glucose Random Glucose Lactic Acid 1.9 Calcium Magnesium Iron TIBC % Saturation Unsat Iron Binding Ferritin Total Bilirubin AST ALT Alkaline Phosphatase Lactate Dehydrogenase Total Creatine Kinase Troponin I High Sens C-Reactive Protein B-Natriuretic Peptide Total Protein Albumin Amylase Lipase Urine Color Urine Appearance Urine pH Ur Specific [place] Urine Protein Urine Glucose (UA) Urine Ketones Urine Blood Urine Nitrite Ur Leukocyte Esterase Urine RBC Urine WBC Ur Squamous Epith Cells Urine Bacteria Hyaline Casts Stool Occult Blood Stl C. cayetanensis PCR Stool Rotavirus A PCR Stl Adenov F 40/41 PCR Stool Astrovirus (PCR) Stool Campylobacter PCR Stool Cryptosporidium PCR Stl Sh Tox Pr E STEC PCR Stool E coli O157 PCR Stl Enterotoxigenic E PCR Stool EPEC (PCR) Stool EAEC (PCR) Stl E. histolytica PCR Stool Giardia Lamblia PCR Stl P. shigelloides PCR Stool Salmonella PCR Stool Sapovirus (PCR) Stl Shigella/EIEC PCR St Y.enterocolitica PCR Stool Vibrio (PCR) Stl Vibrio cholerae PCR Stl Norovirus GI/GII PCR Ethyl Alcohol C. difficile Tox B Gene COVID-19 (JACKIE) Negative COVID-19 Clin Com See Note 04/17/22 04/17/22 04/17/22 12:15 12:16 12:16 WBC 7.5 RBC 4.21 L Hgb 9.6 L Hct 31.2 L MCV 74.1 L MCH 22.8 L MCHC 30.8 L RDW 16.4 H Plt Count 103 L D MPV 9.4 Immature Gran % (Auto) 0.1 Neut % (Auto) 93.7 H Lymph % (Auto) 3.6 L [place] % (Auto) 2.4 Eos % (Auto) 0.1 Baso % (Auto) 0.1 Lymph # (Auto) 0.3 L [place] # (Auto) 0.2 Eos # (Auto) 0.0 Baso # (Auto) 0.0 Abs Immat Gran (auto) 0.01 Absolute Neuts (auto) 7.1 Absolute Nucleated RBC 0.000 Nucleated RBC % (auto) 0.0 Smear Tech's Comments VERIFIED ESR PT 16.6 H INR 1.4 H aPTT Heparin Protocol Sodium Potassium Chloride Carbon Dioxide Anion Gap BUN Creatinine Estim Creat Clear Calc Estimated GFR POC Glucose Random Glucose Lactic Acid Calcium Magnesium Iron TIBC % Saturation Unsat Iron Binding Ferritin Total Bilirubin AST ALT Alkaline Phosphatase Lactate Dehydrogenase Total Creatine Kinase Troponin I High Sens C-Reactive Protein B-Natriuretic Peptide Total Protein Albumin Amylase 72 Lipase Urine Color Urine Appearance Urine pH Ur Specific [place] Urine Protein Urine Glucose (UA) Urine Ketones Urine Blood Urine Nitrite Ur Leukocyte Esterase Urine RBC Urine WBC Ur Squamous Epith Cells Urine Bacteria Hyaline Casts Stool Occult Blood Stl C. cayetanensis PCR Stool Rotavirus A PCR Stl Adenov F 40/41 PCR Stool Astrovirus (PCR) Stool Campylobacter PCR Stool Cryptosporidium PCR Stl Sh Tox Pr E STEC PCR Stool E coli O157 PCR Stl Enterotoxigenic E PCR Stool EPEC (PCR) Stool EAEC (PCR) Stl E. histolytica PCR Stool Giardia Lamblia PCR Stl P. shigelloides PCR Stool Salmonella PCR Stool Sapovirus (PCR) Stl Shigella/EIEC PCR St Y.enterocolitica PCR Stool Vibrio (PCR) Stl Vibrio cholerae PCR Stl Norovirus GI/GII PCR Ethyl Alcohol < 10 C. difficile Tox B Gene COVID-19 (JACKIE) COVID-19 Clin Com 04/17/22 04/17/22 04/17/22 12:16 12:16 12:16 WBC RBC Hgb Hct MCV MCH MCHC RDW Plt Count MPV Immature Gran % (Auto) Neut % (Auto) Lymph % (Auto) [place] % (Auto) Eos % (Auto) Baso % (Auto) Lymph # (Auto) [place] # (Auto) Eos # (Auto) Baso # (Auto) Abs Immat Gran (auto) Absolute Neuts (auto) Absolute Nucleated RBC Nucleated RBC % (auto) Smear Tech's Comments ESR PT INR aPTT Heparin Protocol Sodium 138 Potassium 3.9 Chloride 105 Carbon Dioxide 23 Anion Gap 14 BUN 16 D Creatinine 0.73 Estim Creat Clear Calc 109.1 Estimated GFR > 60 POC Glucose Random Glucose 215 H D Lactic Acid Calcium 8.6 Magnesium 1.6 Iron TIBC % Saturation Unsat Iron Binding Ferritin Total Bilirubin 0.9 AST 43 H ALT 40 Alkaline Phosphatase 186 H Lactate Dehydrogenase 241 Total Creatine Kinase 104 Troponin I High Sens 6.1 C-Reactive Protein 1.21 H B-Natriuretic Peptide 105 H Total Protein 6.1 L Albumin 3.3 L Amylase Lipase 14 Urine Color Urine Appearance Urine pH Ur Specific [place] Urine Protein Urine Glucose (UA) Urine Ketones Urine Blood Urine Nitrite Ur Leukocyte Esterase Urine RBC Urine WBC Ur Squamous Epith Cells Urine Bacteria Hyaline Casts Stool Occult Blood Stl C. cayetanensis PCR Stool Rotavirus A PCR Stl Adenov F 40/41 PCR Stool Astrovirus (PCR) Stool Campylobacter PCR Stool Cryptosporidium PCR Stl Sh Tox Pr E STEC PCR Stool E coli O157 PCR Stl Enterotoxigenic E PCR Stool EPEC (PCR) Stool EAEC (PCR) Stl E. histolytica PCR Stool Giardia Lamblia PCR Stl P. shigelloides PCR Stool Salmonella PCR Stool Sapovirus (PCR) Stl Shigella/EIEC PCR St Y.enterocolitica PCR Stool Vibrio (PCR) Stl Vibrio cholerae PCR Stl Norovirus GI/GII PCR Ethyl Alcohol C. difficile Tox B Gene COVID-19 (JACKIE) COVID-19 Clin Com 04/17/22 04/17/22 04/17/22 16:02 16:26 16:27 WBC RBC Hgb Hct MCV MCH MCHC RDW Plt Count MPV Immature Gran % (Auto) Neut % (Auto) Lymph % (Auto) [place] % (Auto) Eos % (Auto) Baso % (Auto) Lymph # (Auto) [place] # (Auto) Eos # (Auto) Baso # (Auto) Abs Immat Gran (auto) Absolute Neuts (auto) Absolute Nucleated RBC Nucleated RBC % (auto) Smear Tech's Comments ESR PT INR aPTT Heparin Protocol Sodium Potassium Chloride Carbon Dioxide Anion Gap BUN Creatinine Estim Creat Clear Calc Estimated GFR POC Glucose Random Glucose Lactic Acid Calcium Magnesium Iron TIBC % Saturation Unsat Iron Binding Ferritin Total Bilirubin AST ALT Alkaline Phosphatase Lactate Dehydrogenase Total Creatine Kinase Troponin I High Sens 6.3 C-Reactive Protein B-Natriuretic Peptide Total Protein Albumin Amylase Lipase Urine Color Dark Yellow Urine Appearance Clear Urine pH 6.0 Ur Specific [place] >= 1.030 H Urine Protein Negative Urine Glucose (UA) 100 H Urine Ketones Negative Urine Blood Negative Urine Nitrite Negative Ur Leukocyte Esterase Small (1+) H Urine RBC 0-2 Urine WBC 6-10 H Ur Squamous Epith Cells 0-2 Urine Bacteria None Seen Hyaline Casts 0-2 Stool Occult Blood POSITIVE Stl C. cayetanensis PCR Stool Rotavirus A PCR Stl Adenov F PCR Stool Astrovirus (PCR) Stool Campylobacter PCR Stool Cryptosporidium PCR Stl Sh Tox Pr E STEC PCR Stool E coli O157 PCR Stl Enterotoxigenic E PCR Stool EPEC (PCR) Stool EAEC (PCR) Stl E. histolytica PCR Stool Giardia Lamblia PCR Stl P. shigelloides PCR Stool Salmonella PCR Stool Sapovirus (PCR) Stl Shigella/EIEC PCR St Y.enterocolitica PCR Stool Vibrio (PCR) Stl Vibrio cholerae PCR Stl Norovirus GI/GII PCR Ethyl Alcohol C. difficile Tox B Gene COVID-19 (JACKIE) COVID-19 Clin Com 04/17/22 04/17/22 04/18/22 18:41 22:14 06:24 WBC 13.9 H RBC 3.64 L Hgb 8.5 L Hct 27.6 L MCV 75.8 L MCH 23.4 L MCHC 30.8 L RDW 16.9 H Plt Count 90 L MPV 10.7 Immature Gran % (Auto) 0.6 H Neut % (Auto) 89.0 H Lymph % (Auto) 5.5 L [place] % (Auto) 4.2 Eos % (Auto) 0.5 Baso % (Auto) 0.2 Lymph # (Auto) 0.8 L [place] # (Auto) 0.6 Eos # (Auto) 0.1 Baso # (Auto) 0.0 Abs Immat Gran (auto) 0.09 H Absolute Neuts (auto) 12.4 H Absolute Nucleated RBC 0.000 Nucleated RBC % (auto) 0.0 Smear Tech's Comments ESR PT INR aPTT Heparin Protocol Sodium Potassium Chloride Carbon Dioxide Anion Gap BUN Creatinine Estim Creat Clear Calc Estimated GFR POC Glucose 148 H 106 Random Glucose Lactic Acid Calcium Magnesium Iron TIBC % Saturation Unsat Iron Binding Ferritin Total Bilirubin AST ALT Alkaline Phosphatase Lactate Dehydrogenase Total Creatine Kinase Troponin I High Sens C-Reactive Protein B-Natriuretic Peptide Total Protein Albumin Amylase Lipase Urine Color Urine Appearance Urine pH Ur Specific [place] Urine Protein Urine Glucose (UA) Urine Ketones Urine Blood Urine Nitrite Ur Leukocyte Esterase Urine RBC Urine WBC Ur Squamous Epith Cells Urine Bacteria Hyaline Casts Stool Occult Blood Stl C. cayetanensis PCR Stool Rotavirus A PCR Stl Adenov F 40/41 PCR Stool Astrovirus (PCR) Stool Campylobacter PCR Stool Cryptosporidium PCR Stl Sh Tox Pr E STEC PCR Stool E coli O157 PCR Stl Enterotoxigenic E PCR Stool EPEC (PCR) Stool EAEC (PCR) Stl E. histolytica PCR Stool Giardia Lamblia PCR Stl P. shigelloides PCR Stool Salmonella PCR Stool Sapovirus (PCR) Stl Shigella/EIEC PCR St Y.enterocolitica PCR Stool Vibrio (PCR) Stl Vibrio cholerae PCR Stl Norovirus GI/GII PCR Ethyl Alcohol C. difficile Tox B Gene COVID-19 (JACKIE) COVID-19 Clin Com 04/18/22 04/18/22 04/18/22 06:24 08:47 12:28 WBC RBC Hgb Hct MCV MCH MCHC RDW Plt Count MPV Immature Gran % (Auto) Neut % (Auto) Lymph % (Auto) [place] % (Auto) Eos % (Auto) Baso % (Auto) Lymph # (Auto) [place] # (Auto) Eos # (Auto) Baso # (Auto) Abs Immat Gran (auto) Absolute Neuts (auto) Absolute Nucleated RBC Nucleated RBC % (auto) Smear Tech's Comments ESR PT INR aPTT Heparin Protocol 35.7 L Sodium 139 Potassium 3.8 Chloride 109 H Carbon Dioxide 22 Anion Gap 12 BUN 12 Creatinine 0.68 Estim Creat Clear Calc 117.2 Estimated GFR > 60 POC Glucose 104 Random Glucose 143 H Lactic Acid Calcium 7.9 L D Magnesium Iron TIBC % Saturation Unsat Iron Binding Ferritin Total Bilirubin AST ALT Alkaline Phosphatase Lactate Dehydrogenase Total Creatine Kinase Troponin I High Sens C-Reactive Protein B-Natriuretic Peptide Total Protein Albumin Amylase Lipase Urine Color Urine Appearance Urine pH Ur Specific [place] Urine Protein Urine Glucose (UA) Urine Ketones Urine Blood Urine Nitrite Ur Leukocyte Esterase Urine RBC Urine WBC Ur Squamous Epith Cells Urine Bacteria Hyaline Casts Stool Occult Blood Stl C. cayetanensis PCR Stool Rotavirus A PCR Stl Adenov F 40/41 PCR Stool Astrovirus (PCR) Stool Campylobacter PCR Stool Cryptosporidium PCR Stl Sh Tox Pr E STEC PCR Stool E coli O157 PCR Stl Enterotoxigenic E PCR Stool EPEC (PCR) Stool EAEC (PCR) Stl E. histolytica PCR Stool Giardia Lamblia PCR Stl P. shigelloides PCR Stool Salmonella PCR Stool Sapovirus (PCR) Stl Shigella/EIEC PCR St Y.enterocolitica PCR Stool Vibrio (PCR) Stl Vibrio cholerae PCR Stl Norovirus GI/GII PCR Ethyl Alcohol C. difficile Tox B Gene COVID-19 (JACKIE) COVID-19 Clin Com 04/18/22 04/18/22 04/19/22 20:06 21:06 02:34 WBC RBC Hgb Hct MCV MCH MCHC RDW Plt Count MPV Immature Gran % (Auto) Neut % (Auto) Lymph % (Auto) [place] % (Auto) Eos % (Auto) Baso % (Auto) Lymph # (Auto) [place] # (Auto) Eos # (Auto) Baso # (Auto) Abs Immat Gran (auto) Absolute Neuts (auto) Absolute Nucleated RBC Nucleated RBC % (auto) Smear Tech's Comments ESR PT INR aPTT Heparin Protocol 34.2 L 44.3 L D Sodium Potassium Chloride Carbon Dioxide Anion Gap BUN Creatinine Estim Creat Clear Calc Estimated GFR POC Glucose 121 H Random Glucose Lactic Acid Calcium Magnesium Iron TIBC % Saturation Unsat Iron Binding Ferritin Total Bilirubin AST ALT Alkaline Phosphatase Lactate Dehydrogenase Total Creatine Kinase Troponin I High Sens C-Reactive Protein B-Natriuretic Peptide Total Protein Albumin Amylase Lipase Urine Color Urine Appearance Urine pH Ur Specific [place] Urine Protein Urine Glucose (UA) Urine Ketones Urine Blood Urine Nitrite Ur Leukocyte Esterase Urine RBC Urine WBC Ur Squamous Epith Cells Urine Bacteria Hyaline Casts Stool Occult Blood Stl C. cayetanensis PCR Stool Rotavirus A PCR Stl Adenov F PCR Stool Astrovirus (PCR) Stool Campylobacter PCR Stool Cryptosporidium PCR Stl Sh Tox Pr E STEC PCR Stool E coli O157 PCR Stl Enterotoxigenic E PCR Stool EPEC (PCR) Stool EAEC (PCR) Stl E. histolytica PCR Stool Giardia Lamblia PCR Stl P. shigelloides PCR Stool Salmonella PCR Stool Sapovirus (PCR) Stl Shigella/EIEC PCR St Y.enterocolitica PCR Stool Vibrio (PCR) Stl Vibrio cholerae PCR Stl Norovirus GI/GII PCR Ethyl Alcohol C. difficile Tox B Gene COVID-19 (JACKIE) COVID-19 Clin Com 04/19/22 04/19/22 04/19/22 06:48 07:40 09:13 WBC 10.5 RBC 3.62 L Hgb 8.4 L Hct 27.3 L MCV 75.4 L MCH 23.2 L MCHC 30.8 L RDW 16.5 H Plt Count 92 L MPV 10.1 Immature Gran % (Auto) Neut % (Auto) Lymph % (Auto) [place] % (Auto) Eos % (Auto) Baso % (Auto) Lymph # (Auto) [place] # (Auto) Eos # (Auto) Baso # (Auto) Abs Immat Gran (auto) Absolute Neuts (auto) Absolute Nucleated RBC 0.000 Nucleated RBC % (auto) 0.0 Smear Tech's Comments ESR PT INR aPTT Heparin Protocol 56.6 D Sodium Potassium Chloride Carbon Dioxide Anion Gap BUN Creatinine Estim Creat Clear Calc Estimated GFR POC Glucose 99 Random Glucose Lactic Acid Calcium Magnesium Iron TIBC % Saturation Unsat Iron Binding Ferritin Total Bilirubin AST ALT Alkaline Phosphatase Lactate Dehydrogenase Total Creatine Kinase Troponin I High Sens C-Reactive Protein B-Natriuretic Peptide Total Protein Albumin Amylase Lipase Urine Color Urine Appearance Urine pH Ur Specific [place] Urine Protein Urine Glucose (UA) Urine Ketones Urine Blood Urine Nitrite Ur Leukocyte Esterase Urine RBC Urine WBC Ur Squamous Epith Cells Urine Bacteria Hyaline Casts Stool Occult Blood Stl C. cayetanensis PCR Stool Rotavirus A PCR Stl Adenov F PCR Stool Astrovirus (PCR) Stool Campylobacter PCR Stool Cryptosporidium PCR Stl Sh Tox Pr E STEC PCR Stool E coli O157 PCR Stl Enterotoxigenic E PCR Stool EPEC (PCR) Stool EAEC (PCR) Stl E. histolytica PCR Stool Giardia Lamblia PCR Stl P. shigelloides PCR Stool Salmonella PCR Stool Sapovirus (PCR) Stl Shigella/EIEC PCR St Y.enterocolitica PCR Stool Vibrio (PCR) Stl Vibrio cholerae PCR Stl Norovirus GI/GII PCR Ethyl Alcohol C. difficile Tox B Gene COVID-19 (JACKIE) COVID-19 Clin Com 04/19/22 04/19/22 04/19/22 11:32 14:25 15:08 WBC RBC Hgb Hct MCV MCH MCHC RDW Plt Count MPV Immature Gran % (Auto) Neut % (Auto) Lymph % (Auto) [place] % (Auto) Eos % (Auto) Baso % (Auto) Lymph # (Auto) [place] # (Auto) Eos # (Auto) Baso # (Auto) Abs Immat Gran (auto) Absolute Neuts (auto) Absolute Nucleated RBC Nucleated RBC % (auto) Smear Tech's Comments ESR PT INR aPTT Heparin Protocol 51.2 L Sodium Potassium Chloride Carbon Dioxide Anion Gap BUN Creatinine Estim Creat Clear Calc Estimated GFR POC Glucose 92 Random Glucose Lactic Acid Calcium Magnesium Iron 26 L TIBC 343 % Saturation 8 L Unsat Iron Binding 317 Ferritin 107 Total Bilirubin AST ALT Alkaline Phosphatase Lactate Dehydrogenase Total Creatine Kinase Troponin I High Sens C-Reactive Protein B-Natriuretic Peptide Total Protein Albumin Amylase Lipase Urine Color Urine Appearance Urine pH Ur Specific [place] Urine Protein Urine Glucose (UA) Urine Ketones Urine Blood Urine Nitrite Ur Leukocyte Esterase Urine RBC Urine WBC Ur Squamous Epith Cells Urine Bacteria Hyaline Casts Stool Occult Blood Stl C. cayetanensis PCR Stool Rotavirus A PCR Stl Adenov F 40/41 PCR Stool Astrovirus (PCR) Stool Campylobacter PCR Stool Cryptosporidium PCR Stl Sh Tox Pr E STEC PCR Stool E coli O157 PCR Stl Enterotoxigenic E PCR Stool EPEC (PCR) Stool EAEC (PCR) Stl E. histolytica PCR Stool Giardia Lamblia PCR Stl P. shigelloides PCR Stool Salmonella PCR Stool Sapovirus (PCR) Stl Shigella/EIEC PCR St Y.enterocolitica PCR Stool Vibrio (PCR) Stl Vibrio cholerae PCR Stl Norovirus GI/GII PCR Ethyl Alcohol C. difficile Tox B Gene COVID-19 (JACKIE) COVID-19 Clin Com 09/18/22 09/18/22 09/18/22 16:07 16:14 16:14 WBC RBC Hgb Hct MCV MCH MCHC RDW Plt Count MPV Immature Gran % (Auto) Neut % (Auto) Lymph % (Auto) [place] % (Auto) Eos % (Auto) Baso % (Auto) Lymph # (Auto) [place] # (Auto) Eos # (Auto) Baso # (Auto) Abs Immat Gran (auto) Absolute Neuts (auto) Absolute Nucleated RBC Nucleated RBC % (auto) Smear Tech's Comments ESR PT INR aPTT Heparin Protocol Sodium Potassium Chloride Carbon Dioxide Anion Gap BUN Creatinine Estim Creat Clear Calc Estimated GFR POC Glucose 136 H Random Glucose Lactic Acid Calcium Magnesium Iron TIBC % Saturation Unsat Iron Binding Ferritin Total Bilirubin AST ALT Alkaline Phosphatase Lactate Dehydrogenase Total Creatine Kinase Troponin I High Sens C-Reactive Protein B-Natriuretic Peptide Total Protein Albumin Amylase Lipase Urine Color Urine Appearance Urine pH Ur Specific [place] Urine Protein Urine Glucose (UA) Urine Ketones Urine Blood Urine Nitrite Ur Leukocyte Esterase Urine RBC Urine WBC Ur Squamous Epith Cells Urine Bacteria Hyaline Casts Stool Occult Blood Stl C. cayetanensis PCR Cancelled Stool Rotavirus A PCR Cancelled Stl Adenov F 40/41 PCR Cancelled Stool Astrovirus (PCR) Cancelled Stool Campylobacter PCR Cancelled Stool Cryptosporidium PCR Cancelled Stl Sh Tox Pr E STEC PCR Cancelled Stool E coli O157 PCR Cancelled Stl Enterotoxigenic E PCR Cancelled Stool EPEC (PCR) Cancelled Stool EAEC (PCR) Cancelled Stl E. histolytica PCR Cancelled Stool Giardia Lamblia PCR Cancelled Stl P. shigelloides PCR Cancelled Stool Salmonella PCR Cancelled Stool Sapovirus (PCR) Cancelled Stl Shigella/EIEC PCR Cancelled St Y.enterocolitica PCR Cancelled Stool Vibrio (PCR) Cancelled Stl Vibrio cholerae PCR Cancelled Stl Norovirus GI/GII PCR Cancelled Ethyl Alcohol C. difficile Tox B Gene NEGATIVE COVID-19 (JACKIE) COVID-19 Clin Com 04/19/22 04/19/22 04/20/22 19:09 21:31 03:53 WBC 4.6 L RBC 3.64 L Hgb 8.4 L Hct 27.3 L MCV 75.0 L MCH 23.1 L MCHC 30.8 L RDW 16.5 H Plt Count 87 L MPV 9.9 Immature Gran % (Auto) Neut % (Auto) Lymph % (Auto) [place] % (Auto) Eos % (Auto) Baso % (Auto) Lymph # (Auto) [place] # (Auto) Eos # (Auto) Baso # (Auto) Abs Immat Gran (auto) Absolute Neuts (auto) Absolute Nucleated RBC 0.000 Nucleated RBC % (auto) 0.0 Smear Tech's Comments ESR PT INR aPTT Heparin Protocol 68.7 D Sodium Potassium Chloride Carbon Dioxide Anion Gap BUN Creatinine Estim Creat Clear Calc Estimated GFR POC Glucose 173 H Random Glucose Lactic Acid Calcium Magnesium Iron TIBC % Saturation Unsat Iron Binding Ferritin Total Bilirubin AST ALT Alkaline Phosphatase Lactate Dehydrogenase Total Creatine Kinase Troponin I High Sens C-Reactive Protein B-Natriuretic Peptide Total Protein Albumin Amylase Lipase Urine Color Urine Appearance Urine pH Ur Specific [place] Urine Protein Urine Glucose (UA) Urine Ketones Urine Blood Urine Nitrite Ur Leukocyte Esterase Urine RBC Urine WBC Ur Squamous Epith Cells Urine Bacteria Hyaline Casts Stool Occult Blood Stl C. cayetanensis PCR Stool Rotavirus A PCR Stl Adenov F 40/41 PCR Stool Astrovirus (PCR) Stool Campylobacter PCR Stool Cryptosporidium PCR Stl Sh Tox Pr E STEC PCR Stool E coli O157 PCR Stl Enterotoxigenic E PCR Stool EPEC (PCR) Stool EAEC (PCR) Stl E. histolytica PCR Stool Giardia Lamblia PCR Stl P. shigelloides PCR Stool Salmonella PCR Stool Sapovirus (PCR) Stl Shigella/EIEC PCR St Y.enterocolitica PCR Stool Vibrio (PCR) Stl Vibrio cholerae PCR Stl Norovirus GI/GII PCR Ethyl Alcohol C. difficile Tox B Gene COVID-19 (JACKIE) COVID-19 Clin Com 04/20/22 04/20/22 04/20/22 03:53 03:53 06:26 WBC 4.2 L RBC 3.50 L Hgb 8.2 L Hct 26.4 L MCV 75.4 L MCH 23.4 L MCHC 31.1 RDW 16.5 H Plt Count 87 L MPV 10.0 Immature Gran % (Auto) Neut % (Auto) Lymph % (Auto) [place] % (Auto) Eos % (Auto) Baso % (Auto) Lymph # (Auto) [place] # (Auto) Eos # (Auto) Baso # (Auto) Abs Immat Gran (auto) Absolute Neuts (auto) Absolute Nucleated RBC 0.000 Nucleated RBC % (auto) 0.0 Smear Tech's Comments ESR PT INR aPTT Heparin Protocol 65.9 Sodium 139 Potassium 3.4 Chloride 109 H Carbon Dioxide 21 L Anion Gap 12 BUN 8 L Creatinine 0.67 Estim Creat Clear Calc 119.1 Estimated GFR > 60 POC Glucose Random Glucose 126 H Lactic Acid Calcium 7.7 L Magnesium Iron TIBC % Saturation Unsat Iron Binding Ferritin Total Bilirubin AST ALT Alkaline Phosphatase Lactate Dehydrogenase Total Creatine Kinase Troponin I High Sens C-Reactive Protein B-Natriuretic Peptide Total Protein Albumin Amylase Lipase Urine Color Urine Appearance Urine pH Ur Specific [place] Urine Protein Urine Glucose (UA) Urine Ketones Urine Blood Urine Nitrite Ur Leukocyte Esterase Urine RBC Urine WBC Ur Squamous Epith Cells Urine Bacteria Hyaline Casts Stool Occult Blood Stl C. cayetanensis PCR Stool Rotavirus A PCR Stl Adenov F 40/41 PCR Stool Astrovirus (PCR) Stool Campylobacter PCR Stool Cryptosporidium PCR Stl Sh Tox Pr E STEC PCR Stool E coli O157 PCR Stl Enterotoxigenic E PCR Stool EPEC (PCR) Stool EAEC (PCR) Stl E. histolytica PCR Stool Giardia Lamblia PCR Stl P. shigelloides PCR Stool Salmonella PCR Stool Sapovirus (PCR) Stl Shigella/EIEC PCR St Y.enterocolitica PCR Stool Vibrio (PCR) Stl Vibrio cholerae PCR Stl Norovirus GI/GII PCR Ethyl Alcohol C. difficile Tox B Gene COVID-19 (JACKIE) COVID-19 Clin Com 04/20/22 04/20/22 04/20/22 06:26 07:16 10:54 WBC RBC Hgb Hct MCV MCH MCHC RDW Plt Count MPV Immature Gran % (Auto) Neut % (Auto) Lymph % (Auto) [place] % (Auto) Eos % (Auto) Baso % (Auto) Lymph # (Auto) [place] # (Auto) Eos # (Auto) Baso # (Auto) Abs Immat Gran (auto) Absolute Neuts (auto) Absolute Nucleated RBC Nucleated RBC % (auto) Smear Tech's Comments ESR PT INR aPTT Heparin Protocol 51.9 L D Sodium Potassium Chloride Carbon Dioxide Anion Gap BUN Creatinine Estim Creat Clear Calc Estimated GFR POC Glucose 122 H 217 H Random Glucose Lactic Acid Calcium Magnesium Iron TIBC % Saturation Unsat Iron Binding Ferritin Total Bilirubin AST ALT Alkaline Phosphatase Lactate Dehydrogenase Total Creatine Kinase Troponin I High Sens C-Reactive Protein B-Natriuretic Peptide Total Protein Albumin Amylase Lipase Urine Color Urine Appearance Urine pH Ur Specific [place] Urine Protein Urine Glucose (UA) Urine Ketones Urine Blood Urine Nitrite Ur Leukocyte Esterase Urine RBC Urine WBC Ur Squamous Epith Cells Urine Bacteria Hyaline Casts Stool Occult Blood Stl C. cayetanensis PCR Stool Rotavirus A PCR Stl Adenov PCR Stool Astrovirus (PCR) Stool Campylobacter PCR Stool Cryptosporidium PCR Stl Sh Tox Pr E STEC PCR Stool E coli O157 PCR Stl Enterotoxigenic E PCR Stool EPEC (PCR) Stool EAEC (PCR) Stl E. histolytica PCR Stool Giardia Lamblia PCR Stl P. shigelloides PCR Stool Salmonella PCR Stool Sapovirus (PCR) Stl Shigella/EIEC PCR St Y.enterocolitica PCR Stool Vibrio (PCR) Stl Vibrio cholerae PCR Stl Norovirus GI/GII PCR Ethyl Alcohol C. difficile Tox B Gene COVID-19 (JACKIE) COVID-19 Clin Com 04/20/22 04/20/22 04/20/22 11:09 16:15 20:54 WBC RBC Hgb Hct MCV MCH MCHC RDW Plt Count MPV Immature Gran % (Auto) Neut % (Auto) Lymph % (Auto) [place] % (Auto) Eos % (Auto) Baso % (Auto) Lymph # (Auto) [place] # (Auto) Eos # (Auto) Baso # (Auto) Abs Immat Gran (auto) Absolute Neuts (auto) Absolute Nucleated RBC Nucleated RBC % (auto) Smear Tech's Comments ESR PT INR aPTT Heparin Protocol Sodium Potassium Chloride Carbon Dioxide Anion Gap BUN Creatinine Estim Creat Clear Calc Estimated GFR POC Glucose 201 H 176 H 168 H Random Glucose Lactic Acid Calcium Magnesium Iron TIBC % Saturation Unsat Iron Binding Ferritin Total Bilirubin AST ALT Alkaline Phosphatase Lactate Dehydrogenase Total Creatine Kinase Troponin I High Sens C-Reactive Protein B-Natriuretic Peptide Total Protein Albumin Amylase Lipase Urine Color Urine Appearance Urine pH Ur Specific [place] Urine Protein Urine Glucose (UA) Urine Ketones Urine Blood Urine Nitrite Ur Leukocyte Esterase Urine RBC Urine WBC Ur Squamous Epith Cells Urine Bacteria Hyaline Casts Stool Occult Blood Stl C. cayetanensis PCR Stool Rotavirus A PCR Stl Adenov F PCR Stool Astrovirus (PCR) Stool Campylobacter PCR Stool Cryptosporidium PCR Stl Sh Tox Pr E STEC PCR Stool E coli O157 PCR Stl Enterotoxigenic E PCR Stool EPEC (PCR) Stool EAEC (PCR) Stl E. histolytica PCR Stool Giardia Lamblia PCR Stl P. shigelloides PCR Stool Salmonella PCR Stool Sapovirus (PCR) Stl Shigella/EIEC PCR St Y.enterocolitica PCR Stool Vibrio (PCR) Stl Vibrio cholerae PCR Stl Norovirus GI/GII PCR Ethyl Alcohol C. difficile Tox B Gene COVID-19 (JACKIE) COVID-19 Clin [facility] 04/21/22 04/21/22 04/21/22 06:42 06:42 06:42 WBC 3.0 L RBC 3.67 L Hgb 8.6 L Hct 27.6 L MCV 75.2 L MCH 23.4 L MCHC 31.2 RDW 16.2 H Plt Count 91 L MPV 9.5 Immature Gran % (Auto) Neut % (Auto) Lymph % (Auto) [place] % (Auto) Eos % (Auto) Baso % (Auto) Lymph # (Auto) [place] # (Auto) Eos # (Auto) Baso # (Auto) Abs Immat Gran (auto) Absolute Neuts (auto) Absolute Nucleated RBC 0.000 Nucleated RBC % (auto) 0.0 Smear Tech's Comments ESR PT INR aPTT Heparin Protocol 66.5 D Sodium 141 Potassium 3.4 Chloride 108 Carbon Dioxide 23 Anion Gap 13 BUN 6 L Creatinine 0.66 Estim Creat Clear Calc 120.9 Estimated GFR > 60 POC Glucose Random Glucose 148 H Lactic Acid Calcium 8.0 L Magnesium Iron TIBC % Saturation Unsat Iron Binding Ferritin Total Bilirubin AST ALT Alkaline Phosphatase Lactate Dehydrogenase Total Creatine Kinase Troponin I High Sens C-Reactive Protein B-Natriuretic Peptide Total Protein Albumin Amylase Lipase Urine Color Urine Appearance Urine pH Ur Specific [place] Urine Protein Urine Glucose (UA) Urine Ketones Urine Blood Urine Nitrite Ur Leukocyte Esterase Urine RBC Urine WBC Ur Squamous Epith Cells Urine Bacteria Hyaline Casts Stool Occult Blood Stl C. cayetanensis PCR Stool Rotavirus A PCR Stl Adenov F 40/41 PCR Stool Astrovirus (PCR) Stool Campylobacter PCR Stool Cryptosporidium PCR Stl Sh Tox Pr E STEC PCR Stool E coli O157 PCR Stl Enterotoxigenic E PCR Stool EPEC (PCR) Stool EAEC (PCR) Stl E. histolytica PCR Stool Giardia Lamblia PCR Stl P. shigelloides PCR Stool Salmonella PCR Stool Sapovirus (PCR) Stl Shigella/EIEC PCR St Y.enterocolitica PCR Stool Vibrio (PCR) Stl Vibrio cholerae PCR Stl Norovirus GI/GII PCR Ethyl Alcohol C. difficile Tox B Gene COVID-19 (JACIKE) COVID-19 Clin Com 04/21/22 04/21/22 07:39 11:00 WBC RBC Hgb Hct MCV MCH MCHC RDW Plt Count MPV Immature Gran % (Auto) Neut % (Auto) Lymph % (Auto) [place] % (Auto) Eos % (Auto) Baso % (Auto) Lymph # (Auto) [place] # (Auto) Eos # (Auto) Baso # (Auto) Abs Immat Gran (auto) Absolute Neuts (auto) Absolute Nucleated RBC Nucleated RBC % (auto) Smear Tech's Comments ESR PT INR aPTT Heparin Protocol Sodium Potassium Chloride Carbon Dioxide Anion Gap BUN Creatinine Estim Creat Clear Calc Estimated GFR POC Glucose 150 H 145 H Random Glucose Lactic Acid Calcium Magnesium Iron TIBC % Saturation Unsat Iron Binding Ferritin Total Bilirubin AST ALT Alkaline Phosphatase Lactate Dehydrogenase Total Creatine Kinase Troponin I High Sens C-Reactive Protein B-Natriuretic Peptide Total Protein Albumin Amylase Lipase Urine Color Urine Appearance Urine pH Ur Specific [place] Urine Protein Urine Glucose (UA) Urine Ketones Urine Blood Urine Nitrite Ur Leukocyte Esterase Urine RBC Urine WBC Ur Squamous Epith Cells Urine Bacteria Hyaline Casts Stool Occult Blood Stl C. cayetanensis PCR Stool Rotavirus A PCR Stl Adenov F 40/41 PCR Stool Astrovirus (PCR) Stool Campylobacter PCR Stool Cryptosporidium PCR Stl Sh Tox Pr E STEC PCR Stool E coli O157 PCR Stl Enterotoxigenic E PCR Stool EPEC (PCR) Stool EAEC (PCR) Stl E. histolytica PCR Stool Giardia Lamblia PCR Stl P. shigelloides PCR Stool Salmonella PCR Stool Sapovirus (PCR) Stl Shigella/EIEC PCR St Y.enterocolitica PCR Stool Vibrio (PCR) Stl Vibrio cholerae PCR Stl Norovirus GI/GII PCR Ethyl Alcohol C. difficile Tox B Gene COVID-19 (JACKIE) COVID-19 Clin Com Airway Mallampati Class: III TM Dist: >3cm Neck ROM: Full Loose/Missing/Broken Teeth: Yes (No teeth) Heart: RRR + murmur Lungs: CTAB Assessment and Plan Assessment Anesthesia Assessment: Anesthesia Plan Discussed and Chart Reviewed Final Anesthetic Review Family History of Problems with Anesthesia: No History of Problems with Anesthesia: No NPO: Yes ASA Class: III Final Preanesthetic Review: No Changes in Pt Med Stat, Meds/Allgs Chart Reviewed, Consent Obtained/Reviewed and Anes Risks/Benef Reviewed Patient Risk: Intermediate Procedure Risk: Low Assessment/Block/Sedation in SS: Assess/Block/Sedation-SS Anesthetic Plan Anesthetic Plan: MAC: Disposition: Standard PACU and Inp. Admit - I[facility]
[2022-04-21] MEDS: 0.9 % Sodium Chloride Flush 3 ML SYRINGE IVFLUSH (19:41)
[2022-04-21 20:37] LABS: Glucose, Whole Blood 146 mg/dL (60-115)
[2022-04-22] VITALS (9 sets, daily range): BP systolic 98–129; BP diastolic 60–83; PULSE 70–84; RESP 18; TEMP 36.2–36.9; O2SAT 93–98
[2022-04-22] MEDS: Piperacillin Sodium/Tazobactam 3.375 GM in 0.9 % Sodium Chloride 50 ML IV ×4 (01:01→19:50)
[2022-04-22] MEDS: Omeprazole 20 MG CAPSULE.DR PO ×2 (05:14→17:06)
[2022-04-22 06:22] LABS: MANUAL DIFF FLAG NO
[2022-04-22 06:44] LABS: Basophils Percent Auto 0.4 % (0-2); Eosinophils Absolute Auto 0.1 X10*3/uL (0.0-0.4); Eosinophils Percent Auto 3.2 % (0-4); Hemoglobin 8.7 g/dl (14.0-18.0); Imm Gran Abs Auto 0.01 X10*3/uL (0.00-0.03); Imm Gran Pct Auto 0.4 % (0.0-0.4); Lymphocytes Absolute Auto 0.7 X10*3/uL (1.2-4.9); Lymphocytes Percent Auto 25.5 % (20-40); Mean Corpuscular HGB Conc 31.1 g/dl (31.0-36.0); Mean Corpuscular Hemoglobin 23.3 pg (27.0-33.0); Mean Corpuscular Volume 75.1 fL (80.0-98.0); Mean Platelet Volume 10.2 fL (9.4-12.4); Monocytes Absolute Auto 0.2 X10*3/uL (0.1-1.2); Monocytes Percent Auto 6.8 % (2-11); Neutrophils Absolute Auto 1.8 x10*3/uL (2.0-8.3); Neutrophils Percent Auto 63.7 % (45-73); Red Blood Count 3.73 X10*6/uL (4.60-5.80); Red Cell Distribution Width 15.9 % (11.0-16.0); White Blood Count 2.8 X10*3/uL (4.8-10.8)
[2022-04-22 06:45] LABS: Anion Gap 13 (12-20); Blood Urea Nitrogen 5 mg/dL (9-16); Calcium 8.2 mg/dL (8.4-10.2); Carbon Dioxide 25 mmol/L (22-29); Chloride 108 mmol/L (96-108); Creatinine Clr Calc Pharmacy 122.8; Estimated Glomerular Filt Rate > 60; Glucose Random 131 mg/dL (60-115); Potassium 3.6 mmol/L (3.3-5.1); Sodium 142 mmol/L (135-145)
[2022-04-22 06:47] LABS: Platelet Count 90 X10*3/uL (160-400)
[2022-04-22 07:47] LABS: Glucose, Whole Blood 122 mg/dL (60-115)
[2022-04-22] MEDS: 0.9 % Sodium Chloride Flush 3 ML SYRINGE IVFLUSH ×2 (08:54→17:08)
[2022-04-22] MEDS: Ferrous Sulfate 324 MG TABLET.DR PO (08:54)
[2022-04-22] MEDS: Docusate Sodium 100 MG CAPSULE PO (08:54)
--- NOTE | 2022-04-22 09:13 | PM.GIPN ---
Subjective Subjective Date of Service: 04/22/22 Interval History: s/p EGD and colonoscopy 04/21 - pls see report for details Having regular diet for lunch. Reports improvement in abd pain and appetite. Denies nausea, vomiting, blood in stools Critical Care Time (minutes): 0 Physical Exam Vital Signs: Vital Signs: Last Vital Signs Temp 97.7 F 04/22/22 07:34 Pulse 84 04/22/22 07:34 Resp 18 04/22/22 07:34 BP 107/68 04/22/22 07:34 Pulse Ox 95 04/22/22 07:34 O2 Del Method 04/22/22 07:34 BMI result Body Mass Index 29.6 Gen appear: thin male NAD Abd: soft, nontender, nondistended Objective Data Labs CBC & Chem 7: 04/22/22 05:56 04/22/22 05:56 Labs: Laboratory Results - last 24 hr 04/21/22 04/21/22 04/22/22 11:00 20:28 05:56 WBC 2.8 L RBC 3.73 L Hgb 8.7 L Hct 28.0 L MCV 75.1 L MCH 23.3 L MCHC 31.1 RDW 15.9 Plt Count 90 L MPV 10.2 Immature Gran % (Auto) 0.4 Neut % (Auto) 63.7 Lymph % (Auto) 25.5 [place] % (Auto) 6.8 Eos % (Auto) 3.2 Baso % (Auto) 0.4 Lymph # (Auto) 0.7 L [place] # (Auto) 0.2 Eos # (Auto) 0.1 Baso # (Auto) 0.0 Abs Immat Gran (auto) 0.01 Absolute Neuts (auto) 1.8 L Absolute Nucleated RBC 0.000 Nucleated RBC % (auto) 0.0 Sodium Potassium Chloride Carbon Dioxide Anion Gap BUN Creatinine Estim Creat Clear Calc Estimated GFR POC Glucose 145 H 146 H Random Glucose Calcium 04/22/22 04/22/22 05:56 07:36 WBC RBC Hgb Hct MCV MCH MCHC RDW Plt Count MPV Immature Gran % (Auto) Neut % (Auto) Lymph % (Auto) [place] % (Auto) Eos % (Auto) Baso % (Auto) Lymph # (Auto) [place] # (Auto) Eos # (Auto) Baso # (Auto) Abs Immat Gran (auto) Absolute Neuts (auto) Absolute Nucleated RBC Nucleated RBC % (auto) Sodium 142 Potassium 3.6 Chloride 108 Carbon Dioxide 25 Anion Gap 13 BUN 5 L Creatinine 0.65 Estim Creat Clear Calc 122.8 Estimated GFR > 60 POC Glucose 122 H Random Glucose 131 H Calcium 8.2 L Microbiology Microbiology Results: Microbiology 04/17/22 12:43 Blood - Venous Blood Culture - Preliminary No growth after 48 hours. 04/17/22 12:15 Blood - Venous Blood Culture - Preliminary No growth after 48 hours. 04/17/22 17:42 Urine clean catch - Urine zheng top Urine Culture - Final Procedures Date of Service Date of Service: 04/22/22 Progress Note: A&P Assessment and plan (1) Fever: Status: Acute (2) Colitis: Status: Acute (3) Cirrhosis: Status: Acute (4) Anemia: Status: Acute Plan Unclear source of sepsis ? transient translocation in the setting of slow GI bleed. Appears much better clinically today. Recommendations: - Cont to hold anticoagulation for total 48-72 hours since banding - Will arrange office follow up as well as repeat EGD - Cont at least total 5d of Abx. If pt gets discharged before this, okay to discharge on cipro PO Time Spent With Patient Time: Total time spent is greater than 50% in coordination of care (as documented) at patient's floor/unit and/or counseling patient: Quality Stroke Does the patient have a stroke diagnosis?: No VTE Prior VTE?: No VTE Risk Level:: Medical - moderate - high VTE Device Contraindication: N/A - Device Ordered VTE Drug Contraindication: N/A - Med Ordered
--- NOTE | 2022-04-22 10:19 | MHC.CM.PN ---
Addendum entered by Oriana Hannah 04/22/22 12:39: The PT eval recommendation is home with family support. Pt does not qualify for Home services or STR. DP tomorrow Home no services private transport. Original Note: Male 56 A PT eval has been ordered for today. DP is Home with private transportation. PT has been ordered to evaluate if the patient qualifies for STR. CM will follow for changes needed to the discharge plan.
--- NOTE | 2022-04-22 10:31 | HO.PM.IMPN ---
Subjective Subjective Date of Service: 04/22/22 Interval History: Follow-up abdominal pain, colitis Some improvement in mid abdominal pain s/p colonoscopy Denies nausea, vomiting, diarrhea Cardiovascular Cardiovascular: Reports no additional cardiovascular complaints Respiratory Respiratory: Reports no additional respiratory complaints Physical Exam Vital Signs: Vital Signs: Last Vital Signs Temp 97.7 F 04/22/22 07:34 Pulse 84 04/22/22 10:17 Resp 18 04/22/22 07:34 BP 107/68 04/22/22 10:17 Pulse Ox 95 04/22/22 10:17 O2 Del Method 04/22/22 07:34 BMI result Body Mass Index 29.6 Appearing in no acute distress lung sounds are clear to auscultation heart regular rate rhythm, clear S1, S2 positive bowel sounds, abdomen is soft, nontender neuro patient is alert x3, no focal deficits Objective Data Active Medications Dextrose (Dextrose 50 % 25 Gm/50 Ml Syringe) 25 gm IVPUSH Q15M PRN; Protocol PRN Reason: per Hypoglycemia Standing Ord. Docusate Sodium (Docusate Sodium 100 Mg Capsule) 100 mg PO BID [facility] Last Admin: 04/22/22 08:54 Dose: 100 mg Documented By: NATI Ferrous Sulfate (Ferrous Sulfate 324 Mg Tablet.) 324 mg PO DAILY [facility] Last Admin: 04/22/22 08:54 Dose: 324 mg Documented By: NATI Glucose (Glucose Gel 15 Gm Gel..Gram.) 15 gm PO Q15M PRN; Protocol PRN Reason: per Hypoglycemia Standing Ord. Heparin Sodium (Porcine) (Heparin Sodium,Porcine 5,000 Unit/Ml Vial) 3,300 unit 40 unit/kg (3300 unit) IVPUSH PROTOCOL BOLUS PRN; Protocol PRN Reason: 40 unit/kg - Heparin Protocol Last Admin: 04/19/22 15:45 Dose: 3,300 unit Documented By: NATI Heparin Sodium (Porcine) (Heparin Sodium,Porcine 5,000 Unit/Ml Vial) 6,600 unit 80 unit/kg (6600 unit) IVPUSH PROTOCOL BOLUS PRN; Protocol PRN Reason: 80 unit/kg - Heparin Protocol Heparin Sodium/Sodium Chloride (Heparin Sodium,Porcine/1/2ns) 25,000 unit in 250 mls @ 0 mls/hr IVCONT .Q0M [facility]; Protocol Last Titration: 04/21/22 08:40 Dose: 0 units/kg/hr, 0 mls/hr Documented By: NATI Co-signed By: HALEY Piperacillin Sod/Tazobactam (Sod 3.375 gm/ Sodium Chloride) 50 mls @ 100 mls/hr IV Q6H [facility] Last Infusion: 04/22/22 09:34 Dose: 0 mls/hr Documented By: NATI Lactated Ringer's (Lr) 1,000 mls @ 100 mls/hr IVCONT .Q10H [facility] Last Admin: 04/22/22 09:35 Dose: Not Given Documented By: NATI Non-Admin Reason: Medication Discontinued Insulin Human Lispro (Insulin Lispro 100 Unit/Ml 3 Ml Vial) 0 unit SUBCUT QIDACHS [facility]; Protocol Last Admin: 04/22/22 08:18 Dose: Not Given Documented By: NATI Non-Admin Reason: No Insulin Coverage Morphine Sulfate (Morphine Sulfate 4 Mg/Ml Cartridge) 2 mg IVPUSH Q3H PRN; Protocol PRN Reason: Pain, Severe (Pain Scale 7-10) Omeprazole (Omeprazole 20 Mg Capsule.Dr) 20 mg PO BID@0630,1630 [facility] Last Admin: 04/22/22 05:14 Dose: 20 mg Documented By: NEMO Ondansetron HCl (Ondansetron Hcl 4 Mg/2 Ml Vial) 4 mg IVPUSH ONCE PRN PRN Reason: Nausea and Vomiting Oxycodone HCl (Oxycodone Hcl Immed Release 5 Mg Tablet) 5 mg PO Q6H PRN PRN Reason: Pain, Severe (Pain Scale 7-10) Pharmacy Consult (Consult Rx Perform Med Rec) 1 each MISCELLANE ONCE PRN PRN Reason: Consult order Sodium Chloride (0.9 % Sodium Chloride Flush 3 Ml Syringe) 3 ml IVFLUSH QSHIFT [facility] Last Admin: 04/22/22 08:54 Dose: 3 ml Documented By: NATI Labs CBC & Chem 7: 04/22/22 05:56 04/22/22 05:56 Labs: Laboratory Results - last 24 hr 04/21/22 04/21/22 04/22/22 11:00 20:28 05:56 MCV 75.1 L MCH 23.3 L MCHC 31.1 RDW 15.9 Plt Count 90 L MPV 10.2 Immature Gran % (Auto) 0.4 Neut % (Auto) 63.7 Lymph % (Auto) 25.5 [place] % (Auto) 6.8 Eos % (Auto) 3.2 Baso % (Auto) 0.4 Lymph # (Auto) 0.7 L [place] # (Auto) 0.2 Eos # (Auto) 0.1 Baso # (Auto) 0.0 Abs Immat Gran (auto) 0.01 Absolute Neuts (auto) 1.8 L Absolute Nucleated RBC 0.000 Nucleated RBC % (auto) 0.0 Anion Gap Estim Creat Clear Calc Estimated GFR POC Glucose 145 H 146 H Random Glucose Calcium 04/22/22 04/22/22 05:56 07:36 MCV MCH MCHC RDW Plt Count MPV Immature Gran % (Auto) Neut % (Auto) Lymph % (Auto) [place] % (Auto) Eos % (Auto) Baso % (Auto) Lymph # (Auto) [place] # (Auto) Eos # (Auto) Baso # (Auto) Abs Immat Gran (auto) Absolute Neuts (auto) Absolute Nucleated RBC Nucleated RBC % (auto) Anion Gap 13 Estim Creat Clear Calc 122.8 Estimated GFR > 60 POC Glucose 122 H Random Glucose 131 H Calcium 8.2 L Assessment and Plan (1) Colitis: Status: Acute Plan 56-year-old male with history of alcoholic liver cirrhosis, diabetes, recently diagnosed bilateral PE on Eliquis who presents to the emergency department with abdominal pain found to colitis and heme-positive stools Sepsis secondary to Acute colitis. Resolved s/p fever 103 and tachycardia. no leukocytosis, normal lactic acid (thrombocytopenia chronic and r/t liver dz not sepsis) Continue IV Zosyn day 3 CT angio of the abdomen and pelvis negative for ischemia Blood cultures negative after 48hours Status post colonoscopy/endoscopy found to have large esophageal varices status post banding, portal hypertensive gastropathy, duodenal biopsy. Colonoscopy showed 3 AVMs in the colon, hemorrhoids with recent bleeding. Plan hold anticoagulation for 48-72 hours as of 04/22/2022, advanced diet, follow biopsy results outpatient avoid NSAIDs Advanced to regular diet Guaiac-positive stools No evidence of active bleeding Likely secondary to hemorrhoidal bleeding IV PPI, will transition to oral Alcoholic liver cirrhosis with thrombocytopenia Denies drinking in the past 7 years; hepatitis screen negative from December CT abdomen shows evidence of varices, small ascites and portal hypertension b/l PE Multiple segmental and subsegmental emboli seen on last CTA.? Repeat CTA from today shows no pulmonary emboli no hypoxia, currently saturating well on room air Had been on IV heparin for procedure, now status post colonoscopy plan is to hold Eliquis for 48-72 hours as of 04/22/2022 Chronic anemia H/H at baseline Iron supplementation DM Sliding scale HTN with hypotension hold lisinopril DVT ppx -IV heparin Attending Dr. Jeong code status - full code Disposition. Seen and evaluated by Physical therapy plan is to discharge home when medically stable Patient requires continued hospitalization for further management of colitis with IV antibiotics, IV pain control as well, further workup Quality Stroke Does the patient have a stroke diagnosis?: No VTE Prior VTE?: No VTE Risk Level:: Medical - moderate - high VTE Device Contraindication: N/A - Device Ordered VTE Drug Contraindication: N/A - Med Ordered
[2022-04-22] MEDS: Insulin Lispro 100 UNIT/ML 3 ML VIAL SUBCUT ×2 (12:13→17:06)
[2022-04-22 12:21] LABS: Glucose, Whole Blood 197 mg/dL (60-115)
--- NOTE | 2022-04-22 14:13 | HO.POSTANES ---
Post Anesthesia Evaluation Post Anesthesia Evaluation Vital Signs: Vital Signs Temp Pulse Resp BP Pulse Ox O2 Del Method 04/22/22 13:35 Room Air 04/22/22 11:24 97.9 F 80 18 107/70 95 Room Air 04/22/22 10:17 84 107/68 95 04/22/22 07:34 97.7 F 84 18 107/68 95 Room Air 04/22/22 03:50 98.5 F 70 18 129/83 98 Room Air Anesthesia: Monitored Mental Status: Awake Pain Control: Satisfactory Nausea/Vomiting: None Hydration: Adequate Anesthesia-Related Issues: No Anes. Related Issues
[2022-04-22 16:30] LABS: Glucose, Whole Blood 180 mg/dL (60-115)
[2022-04-22 21:10] LABS: Glucose, Whole Blood 146 mg/dL (60-115)
[2022-04-23] MEDS: 0.9 % Sodium Chloride Flush 3 ML SYRINGE IVFLUSH ×2 (00:27→08:23)
[2022-04-23] MEDS: Piperacillin Sodium/Tazobactam 3.375 GM in 0.9 % Sodium Chloride 50 ML IV ×2 (00:27→08:31)
[2022-04-23] MEDS: oxyCODONE HCl Immed Release 5 MG TABLET PO (02:01)
[2022-04-23 04:00] VITALS: BP 112/67; PULSE 70; RESP 17; TEMP 36.1; O2SAT 94
[2022-04-23] MEDS: Omeprazole 20 MG CAPSULE.DR PO (05:45)
[2022-04-23 07:28] VITALS: BP 126/71; PULSE 75; RESP 18; TEMP 36.4; O2SAT 95
[2022-04-23 07:34] LABS: Glucose, Whole Blood 131 mg/dL (60-115)
[2022-04-23] MEDS: Docusate Sodium 100 MG CAPSULE PO (08:21)
[2022-04-23] MEDS: Ferrous Sulfate 324 MG TABLET.DR PO (08:21)
[2022-04-23 11:26] VITALS: BP 120/75; PULSE 86; RESP 18; TEMP 36.4; O2SAT 98
[2022-04-23 11:29] LABS: Glucose, Whole Blood 183 mg/dL (60-115)
--- NOTE | 2022-04-23 11:33 | P.DS_ITS ---
DS: Providers Provider Date of Service: 04/23/22 Date of admission: 04/17/22 17:33 Date of discharge: 04/23/22 Primary care physician: [facility] Consults: 04/17/22 17:44 Consult to Gastroenterology Routine Consulting Provider: Perla To Reason for consultation: colitis, heme +stools; h/o etoh cirrhosis Has provider been notified: No Attending physician on discharge: Dhruv Jeong Discharging clinician: Rufina Mccloud DS: Diagnosis Discharge Diagnosis (1) Fever: Status: Acute (2) Colitis: Status: Acute (3) Cirrhosis: Status: Acute (4) Anemia: Status: Acute (5) Esophageal varices: Status: Acute DS: Summary Hospital Course Hospital Course: From H&P on day of admission This is a 56-year-old male with history of alcoholic liver cirrhosis, diabetes and recent diagnosis of bilateral PE who presents to the emergency department today with complaints of abdominal pain.? Patient starts that yesterday morning he began having epigastric abdominal pain which has been constant since onset.? He denies any associated nausea, vomiting, diarrhea.? He denies any rectal bleeding or bloody diarrhea.? He has had fever and associated chills.? He was admitted to the hospital at the end of March and diagnosed with bilateral PE, he was discharged on April 03 with apixaban.? Today in the ED he was noted to have an initial temperature of a 103.1 degrees, he was tachycardic as well.? Repeat CTA showed no evidence of PE.? CT scan of the abdomen showed evidence of colitis involving the right colon and hepatic flexure as well as changes associated with cirrhosis, varices and portal hypertension.? He was treated with IV Zosyn and IV fluid and a decision was made to admit him to the hospital for further management.? He denies any chest pain or palpitations at this time. Sepsis secondary to Acute colitis.? Resolved Initially presented with fever 103 and tachycardia. no leukocytosis, normal lactic acid (thrombocytopenia chronic and r/t liver dz not sepsis). THought related to colitis seen on CT scan. Treated with IV zoyn. CT angio of the abdomen and pelvis negative for ischemia. Blood cultures negative to date. Patient was seen by GI,Status post colonoscopy/endoscopy found to have large esophageal varices status post banding, portal hypertensive gastropathy, duodenal biopsy.? Colonoscopy showed 3 AVMs in the colon, hemo rrhoids with recent bleeding.? Plan to hold anticoagulation with Eliquis for 48- 72 hours as of 04/22/2022, advanced diet, follow biopsy results outpatient avoid NSAIDs. Patient has advanced to regular diet. His abdominal pain has improved. He has remained afebrile. Completed course of antibiotics. Guaiac-positive stools Likely secondary to hemorrhoids. Colonoscopy with external hemorrhoids without stigmata of recent bleeding. Also with colonic AVMs Initially treated with IV PPI, transitioned back to home oral PPI. H/H has remained stable. Alcoholic liver cirrhosis with thrombocytopenia Denies drinking in the past 7 years; hepatitis screen negative from December CT abdomen shows evidence of varices, small ascites and portal hypertension Underwent endoscopy found to have Esophageal varices status post banding, portal hypertensive gastropathy b/l PE Multiple segmental and subsegmental emboli seen on last CTA.? Repeat CTA from day of admission shows no pulmonary emboli. no hypoxia, currently saturating well on room air Was switched to IV heparin in preparation for procedure, now status post endoscopy with esophageal varices and banding plan is to hold Eliquis for 48-72 hours as of 04/22/2022,. To resume 04/24. Will repeat CBC on Wednesday Chronic anemia H/H at baseline. Continue home Iron supplementation. H/H has remained stable. HTN Bp on softer side. lisinopril on hold. hold until follow up with PCP. Time Spent with Patient Time attestation: Total time spent providing and/or coordinating discharge services: Discharge coordination time: Greater than 30 minutes Quality: Safe Use of Opioids Does Pt have an Active Cancer Diagnosis on the Problem List?: No Quality: Stroke Does the patient have a stroke diagnosis?: No Physical Exam Vital Signs: Vital Signs: Last Vital Signs Temp 97.6 F 04/23/22 11:26 Pulse 86 04/23/22 11:26 Resp 18 04/23/22 11:26 BP 120/75 04/23/22 11:26 Pulse Ox 98 04/23/22 11:26 O2 Del Method 04/23/22 11:26 Oxygen Flow Rate 95 04/22/22 13:35 BMI result Body Mass Index 29.6 DS: Data Data Completed and Pending Completed studies during hospitalization [Text1]: Pending at discharge 04/21/22 13:50 Surgical [PTH] Routine Labs on day of discharge: Laboratory Results - last 24 hr 04/22/22 04/22/22 04/22/22 11:26 16:19 21:05 POC Glucose 197 H 180 H 146 H 04/23/22 04/23/22 07:28 11:22 POC Glucose 131 H 183 H Discharge Plan Discharge Patient Disposition: Home, Self-Care Discharge Diagnosis: Esophageal varices s/p banding Referrals: [place] [Physician] - 04/30/22 1:45 pm (you have a scheduled follow up with a provider. call if you need to reschedule.) Perla To MD [Physician] - 1 Week Discharge Medications: Continued glipizide 5 mg tablet 1 tab PO BID ferrous sulfate 324 mg (65 mg iron) Tablet,Delayed Release (Dr/Ec) 324 mg PO DAILY 30 Days Qty: 30 0RF pantoprazole 40 mg tablet,delayed release (DR/EC) 40 mg PO DAILY 30 Days Qty: 30 0RF metformin 1,000 mg tablet 1 tab PO BIDAC Held lisinopril 5 mg tablet 1 tab PO DAILY Hold Instructions: BP soft, follow up with PCP before resuming Eliquis 5 mg tablet 5 mg PO BID Hold Instructions: Resume on 04/24/22. Rx Instructions: 10mg bid for 6 more days, then decrease to 5mg bid No Action (DME) blood-glucose meter [FreeStyle Lite Meter] Kit See Rx Instructions .Route Qty: 1 0RF Rx Instructions: As directed (DME) FreeStyle Lite Strips Strip See Rx Instructions .Route Qty: 100 0RF Rx Instructions: As directed (DME) lancets [Lancets,Ultra Thin] Misc See Rx Instructions .Route Qty: 100 0RF Rx Instructions: As directed Discharge Orders: Discharge Order (Routine); Ordered 04/23/22 Ordered By: Rufina Mccloud Activity on Discharge: As tolerated Stand Alone Forms: Patient Portal Discharge page Other Ambulatory Orders: Complete Blood Count no Diff (Routine) Timeframe: [id number] Facility: [facility] - Location: Laboratory Ordered By: Rufina Mccloud Care Plan Goals: see below Health Concerns: Esophageal vacries, colonic AVMs, external hemorrhoids Anemia. blood numbers have remained stable Liver cirrhosis Thrombocytopenia-related to liver disease Plan of Treatment: Do not use NSAIDs (ibuprofen, aspirin, etc) Resume Eliquis tomorrow Follow up with GI - call to schedule appointment. Will need follow up endoscopy Monitor for signs of bleeding Do not take lisinopril for now until follow up with PCP because blood pressure has been on the lower side Assessment: see discharge summary Discharge Date/Time: 04/23/22 13:54
[2022-04-23] MEDS: Insulin Lispro 100 UNIT/ML 3 ML VIAL SUBCUT (11:41)
--- NOTE | 2022-04-23 12:39 | MHC.CM.PN ---
Patient has been medically cleared for dc to home today, self care.
[2022-04-23 13:00] VITALS: O2SAT 98
== END 2022-04-23 13:54 | disposition home or self-care (01) | DRG 720 ==
LOC: HO.ED 11:32 → HO.EDOVER 17:42 → HO.IMC 04-19 01:00
PROVIDERS: Hospitalist; Internal Medicine; Nurse Practitioner Acute Care; Physician Assistant Medical; Admitting Provider Physician Assistant Medical; Emergency Provider Emergency Medicine Emergency Medical Services; PCP Registered Nurse; Visit Provider Physician Assistant Medical
PROC: 0DB98ZX Excision of Duodenum, Via Natural or Artificial Opening Endoscopic, Diagnostic (ICD-10-PCS; principal; 2022-04-21 13:00)
DX: A41.9 Sepsis, unspecified organism (principal); I85.11 Secondary esophageal varices with bleeding; K55.21 Angiodysplasia of colon with hemorrhage; K70.31 Alcoholic cirrhosis of liver with ascites; K57.31 Diverticulosis of large intestine without perforation or abscess with bleeding; K76.6 Portal hypertension; I95.9 Hypotension, unspecified; E11.9 Type 2 diabetes mellitus without complications; D64.9 Anemia, unspecified; D69.59 Other secondary thrombocytopenia; F10.21 Alcohol dependence, in remission; I10 Essential (primary) hypertension; K21.9 Gastro-esophageal reflux disease without esophagitis; K31.89 Other diseases of stomach and duodenum; K52.9 Noninfective gastroenteritis and colitis, unspecified; Z20.822 Contact with and (suspected) exposure to COVID-19; Z86.711 Personal history of pulmonary embolism; Z88.0 Allergy status to penicillin; Z79.01 Long term (current) use of anticoagulants; Z79.84 Long term (current) use of oral hypoglycemic drugs; Z79.899 Other long term (current) drug therapy
CPT/HCPCS: 36415; 71046; 71275; 74174; 74177; 76700; 80048; 80053; 81001; 82077; 82150; 82272; 82550; 82728; 82947; 83540; 83605; 83615; 83690; 83735; 83880; 84484; 85025; 85027; 85610; 85652; 85730; 86140; 87040; 87086; 87493; 87507; 87635; 88305; 93005; 97162; 99285; J2250; J2543; J3010; Q9967

== ENCOUNTER 2022-04-27 07:56 | Outpatient (REF) | payer OTHER, SELFPAY ==
[2022-04-27 08:39] LABS: Hematocrit 32.3 % (42.0-52.0); Hemoglobin 9.8 g/dl (14.0-18.0); Mean Corpuscular HGB Conc 30.3 g/dl (31.0-36.0); Mean Corpuscular Hemoglobin 22.8 pg (27.0-33.0); Mean Corpuscular Volume 75.3 fL (80.0-98.0); Mean Platelet Volume 9.4 fL (9.4-12.4); Red Blood Count 4.29 X10*6/uL (4.60-5.80); Red Cell Distribution Width 15.9 % (11.0-16.0); White Blood Count 3.6 X10*3/uL (4.8-10.8)
[2022-04-27 08:40] LABS: Platelet Count 91 X10*3/uL (160-400)
== END 2022-04-27 07:57 | disposition home or self-care (01) ==
LOC: HO.LAB 07:56
PROVIDERS: Visit Provider Physician Assistant Medical
DX: D64.9 Anemia, unspecified (principal)
CPT/HCPCS: 36415; 85027

== ENCOUNTER → 2022-05-05 08:15 | Outpatient (BNVA) | payer MEDICAID, SELFPAY | PROVIDERS: PCP Registered Nurse; Visit Provider Internal Medicine | DX: K74.60 Unspecified cirrhosis of liver (principal); I85.00 Esophageal varices without bleeding; D64.9 Anemia, unspecified | CPT/HCPCS: 99212 ==

== ENCOUNTER 2022-05-19 10:41 | Emergency (ER) | payer MEDICAID, SELFPAY ==
--- NOTE | ~2022-05-19 | CT_ITS ---
EXAMINATION: CT ABDOMEN AND PELVIS WITH CONTRAST CLINICAL INFORMATION: Left lower quadrant abdominal pain COMPARISON: 04/17/2022 TECHNIQUE: Multidetector volumetric images were obtained from the superior aspect of the liver through the pubic symphysis following administration 85 mL of Omnipaque 350 intravenous contrast. Sagittal and coronal reformatted images were obtained on the technologist's workstation. Oral contrast: No This CT examination was performed using dose optimization techniques as appropriate, variously including the following: *Automated exposure control *Adjustment of mA and/or kV according to patient size (this includes techniques or standardized protocols for targeted exams where dose is matched to indication/reason for exam; i.e. extremities or head) *Use of iterative reconstruction technique DLP: 611 mGy-cm FINDINGS: LUNG BASES: The visualized lung bases are unremarkable. LIVER, GALLBLADDER, AND BILIARY TREE: Nodular liver contour compatible with cirrhosis. No focal hepatic lesion is visualized on this single phase study. The gallbladder is unremarkable with no evidence of radiopaque gallstones, gallbladder wall thickening, or obvious pericholecystic inflammatory changes. PANCREAS: Unremarkable. SPLEEN: Splenomegaly. ADRENAL GLANDS: Unremarkable. KIDNEYS AND URETERS: The kidneys are normal in size, shape, and attenuation. No hydronephrosis, hydroureter, or calculi seen. No perinephric stranding. BLADDER: Unremarkable. GASTROINTESTINAL TRACT:: There is a metallic density linear structure the gastric pylorus/first duodenum. Colonic diverticulosis. There is extensive colonic wall thickening and edema, similar to prior. There is diffuse mesenteric edema. Fluid is seen in the bilateral paracolic gutters. ABDOMINAL WALL: No significant hernia is appreciated. LYMPH NODES: Mildly prominent retroperitoneal nodes, similar to prior study. VASCULAR: Unremarkable. PELVIC VISCERA: Unremarkable. OSSEOUS STRUCTURES: Unremarkable. CT/CT abdomen pelvis w IV con IMPRESSION: Cirrhotic liver with findings compatible with portal venous hypertension including splenomegaly. There is a metallic density linear structure the gastric pylorus/first duodenum. Correlate with recent ingestion versus recent instrumentation. Redemonstration of diffuse mesenteric edema and diffuse colonic wall thickening. Differential considerations portal colopathy, however colitis, including inflammatory, infectious, or ischemic, can have a similar appearance. Correlate with clinical symptoms. Nonspecific multiple mildly prominent mesenteric and retroperitoneal nodes, similar to prior study, likely reactive. Fleischner guidelines were followed.
[2022-05-19 11:08] VITALS: BP 127/70; PULSE 79; RESP 20; TEMP 36.6; O2SAT 98; BMI 28.8
[2022-05-19 11:26] LABS: MANUAL DIFF FLAG NO
[2022-05-19 11:27] LABS: Basophils Percent Auto 0.2 % (0-2); Eosinophils Absolute Auto 0.1 X10*3/uL (0.0-0.4); Eosinophils Percent Auto 1.4 % (0-4); Hematocrit 32.9 % (42.0-52.0); Hemoglobin 10.5 g/dl (14.0-18.0); Imm Gran Abs Auto 0.01 X10*3/uL (0.00-0.03); Imm Gran Pct Auto 0.2 % (0.0-0.4); Lymphocytes Absolute Auto 0.8 X10*3/uL (1.2-4.9); Lymphocytes Percent Auto 15.5 % (20-40); Mean Corpuscular HGB Conc 31.9 g/dl (31.0-36.0); Mean Corpuscular Hemoglobin 23.4 pg (27.0-33.0); Mean Corpuscular Volume 73.4 fL (80.0-98.0); Mean Platelet Volume 9.9 fL (9.4-12.4); Monocytes Absolute Auto 0.3 X10*3/uL (0.1-1.2); Monocytes Percent Auto 5.5 % (2-11); Neutrophils Absolute Auto 3.8 x10*3/uL (2.0-8.3); Neutrophils Percent Auto 77.2 % (45-73); Red Blood Count 4.48 X10*6/uL (4.60-5.80); Red Cell Distribution Width 17.4 % (11.0-16.0); White Blood Count 4.9 X10*3/uL (4.8-10.8)
[2022-05-19 11:30] LABS: Platelet Count 89 X10*3/uL (160-400)
[2022-05-19 11:54] LABS: Alanine Aminotransferase 27 U/L (0-40); Albumin Level 3.7 g/dL (3.5-5.0); Alkaline Phosphatase 170 U/L (39-117); Anion Gap 15 (12-20); Aspartate Amino Transferase 30 U/L (5-37); Bilirubin Direct 0.3 mg/dL (0.0-0.5); Bilirubin Total 0.9 mg/dL (0.0-1.0); Blood Urea Nitrogen 9 mg/dL (9-16); Calcium 8.7 mg/dL (8.4-10.2); Carbon Dioxide 24 mmol/L (22-29); Chloride 103 mmol/L (96-108); Creatinine Clr Calc Pharmacy 109.7; Estimated Glomerular Filt Rate > 60; Glucose Random 236 mg/dL (60-115); Lipase 5 U/L (8-78); Sodium 138 mmol/L (135-145); Total Protein 6.8 g/dL (6.5-8.0)
[2022-05-19 14:29] VITALS: BP 123/75; PULSE 76; RESP 18; TEMP 36.6; O2SAT 99
--- NOTE | 2022-05-19 17:35 | ED.ABDPAIN ---
HPI - Abdominal Pain General Chief Complaint: Abdominal Pain Stated Complaint: Sharp pain L abd, blood in stool Time Seen by Provider: 05/19/22 17:07 Source: patient Mode of arrival: ambulatory Limitations: no limitations History of Present Illness HPI narrative: 56 year old with history of compensated cirrhosis with history of alcohol abuse, pancytopenia, non-insulin dependent type 2 diabetes, anemia, PE ? on eliquis and GERD?who presents with 1 month of left-sided abdominal pain with intermittent diarrhea and nausea. Patient was recently admitted for colitis/heme + stools and was treated with antibiotics. Seen during his admission and had a endoscopy and colonoscopy which showed esophageal varices (had EVBL 04/21) portal hypertension, duodenal nodules, colonic AVMs, mild sigmoid diverticulosis and external hemorrhoid. His eliquis was held during his admission for several days, unsure if he resumed this (patient cannot recall). Patient also had some confusion and there was concern for hepatic encephalopathy so he was started on lactulose. He did follow-up with GI and has orders for repeat labs and abdominal ultrasound which the patient is thinks is scheduled for May 26. Patient denies any current alcohol use. No substance use. . Related Data Home Medications Medication Instructions Recorded Confirmed glipizide 5 mg tablet 1 tab PO BID 04/01/22 04/17/22 apixaban 5 mg tablet (Eliquis) 5 mg PO BID 04/17/22 04/17/22 lisinopril 5 mg tablet 1 tab PO DAILY 04/17/22 04/17/22 metformin 1,000 mg tablet 1 tab PO BIDAC 04/17/22 04/17/22 Previous Rx's Medication Instructions Recorded blood sugar diagnostic (FreeStyle #100 ea 01/15/22 Lite Strips) blood-glucose meter (FreeStyle #1 ea 01/15/22 Lite Meter kit) ferrous sulfate 324 mg (65 mg 324 mg PO DAILY 30 days #30 tabs 01/15/22 iron) tablet,delayed release lancets (Lancets,Ultra Thin) #100 ea 01/15/22 pantoprazole 40 mg tablet,delayed 40 mg PO DAILY 30 days #30 tabs 01/15/22 release lactulose 20 gram/30 mL oral 20 g (30 mL) PO TID 1 month #2,700 05/05/22 solution mL peg 3350-electrolytes 236 240 ml PO Q10M colonoscopy #4,000 05/05/22 gram-22.74 gram-6.74 gram-5.86 mL gram solution (Golytely) Allergies Allergy/AdvReac Type Severity Reaction Status Date / Time Penicillins [PCN] AdvReac Angioedema Verified 05/05/22 08:31 Review of Systems Review of Systems Yes all other systems are reviewed and are negative Constitutional: Reports no additional constitutional complaints, Denies body ache(s), Denies chills, Denies fever(s), Denies headache(s) and Denies weakness Eyes: Reports no additional eye complaints and Denies change in vision Reports system reviewed and no additional complaints, except as documented, Denies dizziness, Denies headache(s), Denies nasal congestion, Denies nasal discharge and Denies neck pain Cardiovascular: Reports no additional cardiovascular complaints, Denies chest pain, Denies leg edema and Denies dyspnea Respiratory: Reports no additional respiratory complaints, Denies cough and Denies dyspnea Gastrointestinal: Reports no additional gastrointestinal complaints, Reports abdominal pain, Denies hematochezia, Reports diarrhea, Reports nausea and Denies vomiting Genitourinary: Denies urinary incontinence Musculoskeletal: Reports no additional musculoskeletal complaints, Denies back pain, Denies arthralgias, Denies joint swelling, Denies neck pain, Denies numbness and Denies tingling Skin/Breast: Reports system reviewed and no additional complaints, except as docu and Denies rash Reports system reviewed and no additional complaints, except as documented, Denies dizziness, Denies headache(s), Denies numbness, Denies tingling and Denies weakness [facility] Past Medical History Attestation statement: The following information was validated with the patient. Source: old records reviewed and nursing notes reviewed Medical History Bacteremia Cirrhosis Diabetes GERD (gastroesophageal reflux disease) Pancytopenia Pulmonary emboli Family History Family History Father CVA (cerebral vascular accident) Social History Social History Household Members: Family Housing: House Do you presently have visiting nurse or other home services: No Alcohol intake: former Patient Tobacco Use Status: Never used Tobacco e-Cigarette/Vaping Use: Never Used Second Hand Smoke Exposure: No Use of substances other than those prescribed or required for medical reasons: No Advance Directives: Yes Advance Directives on File: Yes Advance Directives Date on File: 04/02/22 service: No Current occupational status: employed Physical Exam ED Vital Signs: Vital Signs - 24 hr 05/19/22 11:08 05/19/22 14:29 05/19/22 17:57 Temperature 98 F 98 F 98.4 F Pulse Rate 79 76 76 Respiratory Rate 20 18 16 Blood Pressure 127/70 123/75 109/63 Pulse Oximetry 98 99 99 Oxygen Delivery Method Room Air Room Air 05/19/22 18:33 05/19/22 21:03 Temperature 98.1 F 98.2 F Pulse Rate 70 64 Respiratory Rate 18 17 Blood Pressure 113/75 126/71 Pulse Oximetry 99 98 Oxygen Delivery Method Room Air BMI result Body Mass Index 28.8 Const General: cooperative, healthy appearing, comfortable and no acute distress Orientation/consciousness: patient oriented x3 Limitations: no limitations HENMT Head: Yes normal to inspection Ears: hearing grossly normal bilaterally Eyes General: appearance normal, both eyes and all related structures Pupils: Equal, round and reactive pupils present Neck Neck: Yes normal visual inspection, Yes full ROM and Yes no lymphadenopathy Chest Chest palpation & inspection: normal inspection of the chest Resp Effort & Inspection: normal respiratory effort Auscultation: clear to auscultation bilaterally Cardio Rate: regular rate Rhythm: regular rhythm Peripheral pulses: Peripheral pulses 2+ throughout 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 Stool is brown Inspection: Yes normal to inspection Palpation (GI): Soft to palpation and Tenderness to palpation present (GI) in the LLQ Auscultation: normal bowel sounds Rectal Exam - Male: Yes visual inspection normal and Yes normal sphincter tone General: Yes no CVA tenderness Back/Spine/Pelvis Back: no CVA tenderness Thoracic/Lumbar Spine: thoracic and lumbar spine normal to inspection Skin General skin exam: no rashes or lesions noted Neuro General: patient oriented x3 and moves all extremities Cranial nerves: Yes Equal, round and reactive pupils present Cognition (Neuro): normal cognition Gait exam (Neuro): Normal gait present Motor exam (neuro): 5/5 motor strength present throughout Sensory Exam: Normal double simultaneous stimulation for sensation Extrem General: Yes normal to inspection Course Course Course Narrative: Reviewed labs which show microcytic anemia actually improved from baseline, thrombocytopenia unchanged. Occult card was positive for hematuria but stool was brown on exam. CT the abdomen pelvis shows Cirrhotic liver with findings compatible with portal venous hypertension including splenomegaly. ? There is a metallic density linear structure the gastric pylorus/first duodenum. Correlate with recent ingestion versus recent instrumentation. ? Redemonstration of diffuse mesenteric edema and diffuse colonic wall thickening. Differential considerations portal colopathy, however colitis, including inflammatory, infectious, or ischemic, can have a similar appearance. Correlate with clinical symptoms. ? Nonspecific multiple mildly prominent mesenteric and retroperitoneal nodes, similar to prior study, likely reactive.? -findings of metallic density linear structure in the gastric pylorus and 1st duodenum is likely from recent procedure. Patient has redemonstration of colitis but no leukocytosis, no fever. Diarrhea is intermittent and patient was recently started on lactulose which is likely the cause of diarrhea. His abdominal pain is intermittent. He was offered analgesia while he was here in the emergency room but he declined it because he was feeling quite comfortable. He is tolerating p.o. with no vomiting. Patient is being followed by GI outpatient and most recently saw them on May 05. He has follow-up later this month. I do not believe that he has infectious colitis or needs antibiotics for this. I believe that he can continue to follow-up with GI outpatient. He should return for any worsening pain, fever, vomiting. This is related to the patient and discussed with attending physician Dr. Curiel who agrees with plan of care. MDM - Abdominal Pain MDM Narrative Medical decision making narrative: This is a 57-year-old male who has an extensive medical history which includes liver cirrhosis from former alcohol use, esophageal varices with recent banding, recent admission for colitis and heme-positive stools and history of pulmonary embolism unsure if currently on anticoagulation. Patient presents with 1 month of left-sided abdominal pain with diarrhea and nausea. Of note patient was started on lactulose within the last month with some concern for hepatic encephalopathy. On exam patient does have left lower quadrant abdominal pain. Will check CT. Will also obtain labs, UA, occult stool Consider colitis, diverticulitis, renal colic, pyelo, pancreatitis Medical Records Attestation: I reviewed the patient's medical records. Lab Data Attestation: I reviewed the patient's lab results. Result diagrams: 05/19/22 11:17 05/19/22 11:17 Labs: Lab Results 05/19/22 05/19/22 05/19/22 Range/Units 11:17 11:17 17:40 WBC 4.9 (4.8-10.8) X10*3/uL RBC 4.48 L (4.60-5.80) X10*6/uL Hgb 10.5 L (14.0-18.0) g/dl Hct 32.9 L (42.0-52.0) % MCV 73.4 L (80.0-98.0) fL MCH 23.4 L (27.0-33.0) pg MCHC 31.9 (31.0-36.0) g/dl RDW 17.4 H (11.0-16.0) % Plt Count 89 L (160-400) X10*3/uL MPV 9.9 (9.4-12.4) fL Immature Gran % (Auto) 0.2 (0.0-0.4) % Neut % (Auto) 77.2 H (45-73) % Lymph % (Auto) 15.5 L (20-40) % [place] % (Auto) 5.5 (2-11) % Eos % (Auto) 1.4 (0-4) % Baso % (Auto) 0.2 (0-2) % Lymph # (Auto) 0.8 L (1.2-4.9) X10*3/uL [place] # (Auto) 0.3 (0.1-1.2) X10*3/uL Eos # (Auto) 0.1 (0.0-0.4) X10*3/uL Baso # (Auto) 0.0 (0.0-0.2) X10*3/uL Abs Immat Gran (auto) 0.01 (0.00-0.03) X10*3/uL Absolute Neuts (auto) 3.8 (2.0-8.3) x10*3/uL Absolute Nucleated RBC 0.000 (0.0-0.012) X10*3/uL Nucleated RBC % (auto) 0.0 (0.0-0.2) /100WBC Sodium 138 (135-145) mmol/L Potassium 4.0 (3.3-5.1) mmol/L Chloride 103 (96-108) mmol/L Carbon Dioxide 24 (22-29) mmol/L Anion Gap 15 (12-20) BUN 9 D (9-16) mg/dL Creatinine 0.71 (0.5-1.4) mg/dL Estim Creat Clear Calc 109.7 Estimated GFR > 60 Random Glucose 236 H D (60-115) mg/dL Calcium 8.7 D (8.4-10.2) mg/dL Total Bilirubin 0.9 (0.0-1.0) mg/dL Direct Bilirubin 0.3 (0.0-0.5) mg/dL AST 30 (5-37) U/L ALT 27 (0-40) U/L Alkaline Phosphatase 170 H (39-117) U/L Total Protein 6.8 (6.5-8.0) g/dL Albumin 3.7 (3.5-5.0) g/dL Lipase 5 L (8-78) U/L Urine Color Urine Appearance Urine pH (5.0-9.0) Ur Specific [place] (1.005-1.025) Urine Protein (Neg-Trace) mg/dL Urine Glucose (UA) (Negative) mg/dL Urine Ketones (Negative) mg/dL Urine Blood (Negative) Urine Nitrite (Negative) Ur Leukocyte Esterase (Negative) Urine RBC (0-2) /HPF Urine WBC (0-5) /HPF Ur Squamous Epith Cells (0-2) /HPF Urine Bacteria (None Seen) Hyaline Casts (0-2) /LPF Stool Occult Blood POSITIVE (NEGATIVE) 05/19/22 Range/Units 21:45 WBC (4.8-10.8) X10*3/uL RBC (4.60-5.80) X10*6/uL Hgb (14.0-18.0) g/dl Hct (42.0-52.0) % MCV (80.0-98.0) fL MCH (27.0-33.0) pg MCHC (31.0-36.0) g/dl RDW (11.0-16.0) % Plt Count (160-400) X10*3/uL MPV (9.4-12.4) fL Immature Gran % (Auto) (0.0-0.4) % Neut % (Auto) (45-73) % Lymph % (Auto) (20-40) % [place] % (Auto) (2-11) % Eos % (Auto) (0-4) % Baso % (Auto) (0-2) % Lymph # (Auto) (1.2-4.9) X10*3/uL [place] # (Auto) (0.1-1.2) X10*3/uL Eos # (Auto) (0.0-0.4) X10*3/uL Baso # (Auto) (0.0-0.2) X10*3/uL Abs Immat Gran (auto) (0.00-0.03) X10*3/uL Absolute Neuts (auto) (2.0-8.3) x10*3/uL Absolute Nucleated RBC (0.0-0.012) X10*3/uL Nucleated RBC % (auto) (0.0-0.2) /100WBC Sodium (135-145) mmol/L Potassium (3.3-5.1) mmol/L Chloride (96-108) mmol/L Carbon Dioxide (22-29) mmol/L Anion Gap (12-20) BUN (9-16) mg/dL Creatinine (0.5-1.4) mg/dL Estim Creat Clear Calc Estimated GFR Random Glucose (60-115) mg/dL Calcium (8.4-10.2) mg/dL Total Bilirubin (0.0-1.0) mg/dL Direct Bilirubin (0.0-0.5) mg/dL AST (5-37) U/L ALT (0-40) U/L Alkaline Phosphatase (39-117) U/L Total Protein (6.5-8.0) g/dL Albumin (3.5-5.0) g/dL Lipase (8-78) U/L Urine Color Yellow Urine Appearance Clear Urine pH 5.5 (5.0-9.0) Ur Specific [place] >= 1.030 H (1.005-1.025) Urine Protein 30 (1+) H (Neg-Trace) mg/dL Urine Glucose (UA) Negative (Negative) mg/dL Urine Ketones Negative (Negative) mg/dL Urine Blood Negative (Negative) Urine Nitrite Negative (Negative) Ur Leukocyte Esterase Negative (Negative) Urine RBC 0-2 (0-2) /HPF Urine WBC 11-20 H (0-5) /HPF Ur Squamous Epith Cells 3-5 (0-2) /HPF Urine Bacteria None Seen (None Seen) Hyaline Casts 0-2 (0-2) /LPF Stool Occult Blood (NEGATIVE) Imaging Data CT scan - abdomen: Attestation: I personally reviewed and interpreted this imaging study as follows: Radiologist's impression: FINDINGS: LUNG BASES: The visualized lung bases are unremarkable.? LIVER, GALLBLADDER, AND BILIARY TREE: Nodular liver contour compatible with cirrhosis. No focal hepatic lesion is visualized on this single phase study. The gallbladder is unremarkable with no evidence of radiopaque gallstones, gallbladder wall thickening, or obvious pericholecystic inflammatory changes.? PANCREAS: Unremarkable.? SPLEEN: Splenomegaly.? ADRENAL GLANDS: Unremarkable.? KIDNEYS AND URETERS: The kidneys are normal in size, shape, and attenuation. No hydronephrosis, hydroureter, or calculi seen. No perinephric stranding. ? BLADDER: Unremarkable.? GASTROINTESTINAL TRACT:: There is a metallic density linear structure the gastric pylorus/first duodenum. Colonic diverticulosis. There is extensive colonic wall thickening and edema, similar to prior. There is diffuse mesenteric edema. Fluid is seen in the bilateral paracolic gutters. ABDOMINAL WALL: No significant hernia is appreciated.? LYMPH NODES: Mildly prominent retroperitoneal nodes, similar to prior study. VASCULAR: Unremarkable. PELVIC VISCERA: Unremarkable.? OSSEOUS STRUCTURES: Unremarkable.? CT/CT abdomen pelvis w IV con IMPRESSION: Cirrhotic liver with findings compatible with portal venous hypertension including splenomegaly. ? There is a metallic density linear structure the gastric pylorus/first duodenum. Correlate with recent ingestion versus recent instrumentation. ? Redemonstration of diffuse mesenteric edema and diffuse colonic wall thickening. Differential considerations portal colopathy, however colitis, including inflammatory, infectious, or ischemic, can have a similar appearance. Correlate with clinical symptoms. ? Nonspecific multiple mildly prominent mesenteric and retroperitoneal nodes, similar to prior study, likely reactive.? ? Fleischner guidelines were followed. Discharge Plan Discharge Clinical Impression: Colitis Patient Disposition: Home, Self-Care Instructions: Colitis (ED) Additional Instructions: Call your dormitory counselor tomorrow in follow-up Return for worsening pain, vomiting, fever Prescriptions: No Action glipizide 5 mg tablet 1 tab PO BID ferrous sulfate 324 mg (65 mg iron) Tablet,Delayed Release (Dr/Ec) 324 mg PO DAILY 30 Days Qty: 30 0RF pantoprazole 40 mg tablet,delayed release (DR/EC) 40 mg PO DAILY 30 Days Qty: 30 0RF (DME) blood-glucose meter [FreeStyle Lite Meter] Kit See Rx Instructions .Route Qty: 1 0RF Rx Instructions: As directed (DME) FreeStyle Lite Strips Strip See Rx Instructions .Route Qty: 100 0RF Rx Instructions: As directed (DME) lancets [Lancets,Ultra Thin] Misc See Rx Instructions .Route Qty: 100 0RF Rx Instructions: As directed metformin 1,000 mg tablet 1 tab PO BIDAC lisinopril 5 mg tablet 1 tab PO DAILY Hold Instructions: BP soft, follow up with PCP before resuming Eliquis 5 mg tablet 5 mg PO BID Hold Instructions: Resume on 04/24/22. Rx Instructions: 10mg bid for 6 more days, then decrease to 5mg bid lactulose 20 gram/30 mL solution 20 g PO TID 30 Days Qty: 2700 1RF peg 3350-electrolytes [Golytely] 236-22.74-6.74 -5.86 gram recon soln 240 ml PO Q10M Qty: 4000 0RF Rx Instructions: as per split prep instructions, until fecal effluent is clear Referrals: Perla To MD [Physician] -
[2022-05-19 17:50] LABS: OBS Int Ctl Valid YES; OBS1 POSITIVE (NEGATIVE)
[2022-05-19 17:57] VITALS: BP 109/63; PULSE 76; RESP 16; TEMP 36.9; O2SAT 99
--- NOTE | 2022-05-19 18:02 | PC.NURSE ---
RN went in to medicate patient with pain meds. patient stated he did not feel as though meds were necessary at this time since he did not have pain. instructed patient to call for RN if pain returns. Alexa RONQUILLO aware, will leave pain meds ordered in case needed.
[2022-05-19 18:33] VITALS: BP 113/75; PULSE 70; RESP 18; TEMP 36.7; O2SAT 99
--- NOTE | 2022-05-19 19:14 | PC.NURSE ---
Pt. does not want his medications at this time per Radha Rich RN in report. Per Onofre Sharp NP, leave meds. flagging and do not chart against them, just in case pt. changes his mind and wants them in the future
[2022-05-19] MEDS: iohexoL 350 MG/ML 100 ML INFUS..BTL IV (19:30)
[2022-05-19 21:03] VITALS: BP 126/71; PULSE 64; RESP 17; TEMP 36.8; O2SAT 98
[2022-05-19 21:53] LABS: Appearance Urine Clear; Color Urine Yellow; Glucose Urine UA Negative (Negative); Leukocyte Esterase Urine Negative (Negative); Nitrite Urine Negative (Negative); PH 5.5 (5.0-9.0); Specific Gravity - Urine >= 1.030 (1.005-1.025); UMIC TRIGGER UACC YES; Urine Blood Negative (Negative); Urine Ketones Negative (Negative); Urine Protein 30 (1+) mg/dL (Neg-Trace)
[2022-05-19 22:04] LABS: Bacteria Urine None Seen (None Seen); Hyaline Casts Urine 0-2 /LPF (0-2); RBC Urine 0-2 /HPF (0-2); UACC Culture Trigger YES
--- NOTE | 2022-05-19 22:30 | PC.NURSE ---
Addendum entered by Blessing Lopez 05/19/22 22:31: notified ARCELIA Jackson Original Note: Reviewed discharge instructions with pt. pt verbalized understanding. no sign of distress, pt able to ambulated with a steady gait.
== END 2022-05-19 22:25 | disposition home or self-care (01) ==
PROVIDERS: Nurse Practitioner Family; Emergency Provider Emergency Medicine; PCP Registered Nurse
DX: K52.9 Noninfective gastroenteritis and colitis, unspecified (principal); R10.32 Left lower quadrant pain; Z79.899 Other long term (current) drug therapy
CPT/HCPCS: 36415; 74177; 80048; 80076; 81001; 82272; 83690; 85025; 87086; 87147; 99284; Q9967

== ENCOUNTER → 2022-05-26 11:28 | Outpatient (BNVA) | payer MEDICAID, SELFPAY | PROVIDERS: PCP Registered Nurse; Visit Provider Internal Medicine | DX: K52.1 Toxic gastroenteritis and colitis (principal); K74.60 Unspecified cirrhosis of liver; I85.00 Esophageal varices without bleeding; R54 Age-related physical debility | CPT/HCPCS: 99212 ==

== ENCOUNTER 2022-06-02 21:49 | Emergency (ER) | payer OTHER, SELFPAY ==
--- NOTE | ~2022-06-02 | CT_ITS ---
EXAMINATION: CT ABDOMEN AND PELVIS WITH CONTRAST CLINICAL INFORMATION: Left lower quadrant pain, rule out diverticulitis COMPARISON: 05/19/2022 TECHNIQUE: Multidetector volumetric images were obtained from the superior aspect of the liver through the pubic symphysis following administration 85 mL of Omnipaque 350 intravenous contrast. Sagittal and coronal reformatted images were obtained on the technologist's workstation. Oral contrast: No This CT examination was performed using dose optimization techniques as appropriate, variously including the following: *Automated exposure control *Adjustment of mA and/or kV according to patient size (this includes techniques or standardized protocols for targeted exams where dose is matched to indication/reason for exam; i.e. extremities or head) *Use of iterative reconstruction technique DLP: 765 mGy-cm FINDINGS: LUNG BASES: Minimal dependent atelectasis. LIVER, GALLBLADDER, AND BILIARY TREE: The liver demonstrates a nodular contour consistent with cirrhosis. No focal hepatic lesion or biliary ductal dilatation is present. The gallbladder is physiologically distended with a mildly thick-walled appearance which may be reactive. PANCREAS: Partially atrophic. SPLEEN: Redemonstrated splenomegaly, measuring approximately 17.4 cm in the axial plane. ADRENAL GLANDS: Unremarkable. KIDNEYS AND URETERS: The kidneys are normal in size, shape, and attenuation. No hydronephrosis, hydroureter, or calculi seen. No perinephric stranding. BLADDER: Unremarkable. GASTROINTESTINAL TRACT: Redemonstrated linear metallic density in the proximal duodenum, unchanged from prior and favoring a clip. No evidence of bowel obstruction. Thick-walled appearance of the descending and sigmoid colon is similar to prior accounting for differences in luminal distention. No focal diverticulitis is seen. Appendix appears nondilated. Redemonstrated edema throughout the mesentery. Trace fluid in the left paracolic gutter. No free air is seen. ABDOMINAL WALL: No significant hernia is appreciated. LYMPH NODES: Redemonstrated mildly prominent lymph nodes throughout the retroperitoneum, similar to prior. VASCULAR: Dilated portal and splenic veins, in keeping with portal hypertension. PELVIC VISCERA: Unremarkable. OSSEOUS STRUCTURES: Facet arthropathy of the lower lumbar spine. Endplate osteophytes noted in the visualized thoracic spine. CT/CT abdomen pelvis w IV con IMPRESSION: 1. Thick-walled appearance of the descending and sigmoid colon, similar to 05/19/2022 accounting for differences in luminal distention. This could reflect sequelae of portal colopathy, though infectious or inflammatory colitis would be difficult to entirely exclude in the proper clinical setting. No focal diverticulitis identified. 2. Redemonstrated findings of cirrhosis and portal hypertension. 3. Redemonstrated mildly prominent retroperitoneal lymph nodes, similar to prior and which may be reactive. 4. Redemonstrated linear metallic density in the proximal duodenum, favoring a clip.
[2022-06-02 22:03] VITALS: BP 115/82; PULSE 97; RESP 16; TEMP 36.7; O2SAT 99; BMI 28.1
[2022-06-02 22:38] LABS: PLT CLUMP 1; Red Cell Distribution Width 17.2 % (11.0-16.0); SCAN SMEAR FLAG 1
[2022-06-02 22:40] LABS: Eosinophils Absolute Auto 0.1 X10*3/uL (0.0-0.4); Eosinophils Percent Auto 2.6 % (0-4); Hematocrit 31.9 % (42.0-52.0); Hemoglobin 10.1 g/dl (14.0-18.0); Lymphocytes Absolute Auto 0.9 X10*3/uL (1.2-4.9); Lymphocytes Percent Auto 25.6 % (20-40); MANUAL DIFF FLAG SCAN; Mean Corpuscular HGB Conc 31.7 g/dl (31.0-36.0); Mean Corpuscular Hemoglobin 23.4 pg (27.0-33.0); Mean Platelet Volume 10.5 fL (9.4-12.4); Monocytes Absolute Auto 0.3 X10*3/uL (0.1-1.2); Monocytes Percent Auto 8.2 % (2-11); Neutrophils Absolute Auto 2.2 x10*3/uL (2.0-8.3); Neutrophils Percent Auto 63.6 % (45-73); Red Blood Count 4.31 X10*6/uL (4.60-5.80)
[2022-06-02 22:40] LABS: Appearance Urine Clear; Color Urine Yellow; Glucose Urine UA >=1000 mg/dL (Negative); Leukocyte Esterase Urine Negative (Negative); Nitrite Urine Negative (Negative); Specific Gravity - Urine >= 1.030 (1.005-1.025); UMIC TRIGGER UA YES; Urine Blood Negative (Negative); Urine Ketones Negative (Negative); Urine Protein Negative (Neg-Trace)
[2022-06-02 22:45] LABS: Bacteria Urine None Seen (None Seen); Hyaline Casts Urine 0-2 /LPF (0-2); RBC Urine 0-2 /HPF (0-2); Squamous Epithelial Cell Urine 0-2 /HPF (0-2); WBC Urine 0-5 /HPF (0-5)
[2022-06-02 22:58] LABS: Platelet Count 72 X10*3/uL (160-400); White Blood Count 3.5 X10*3/uL (4.8-10.8)
[2022-06-02 22:59] LABS: SLIDE REVIEW VERIFIED
[2022-06-02 23:07] LABS: Anion Gap 13 (12-20); Blood Urea Nitrogen 7 mg/dL (9-16); Calcium 8.9 mg/dL (8.4-10.2); Carbon Dioxide 27 mmol/L (22-29); Chloride 102 mmol/L (96-108); Creatinine Clr Calc Pharmacy 91.7; Estimated Glomerular Filt Rate > 60; Glucose Random 362 mg/dL (60-115); Lipase 15 U/L (8-78); Potassium 3.9 mmol/L (3.3-5.1); Sodium 138 mmol/L (135-145)
[2022-06-03 01:00] LABS: Alanine Aminotransferase 48 U/L (0-40); Albumin Level 3.7 g/dL (3.5-5.0); Alkaline Phosphatase 252 U/L (39-117); Aspartate Amino Transferase 59 U/L (5-37); Bilirubin Direct 0.3 mg/dL (0.0-0.5); Bilirubin Total 0.3 mg/dL (0.0-1.0); Total Protein 6.8 g/dL (6.5-8.0)
[2022-06-03 01:48] VITALS: BP 121/70; PULSE 83; RESP 20; TEMP 37.2; O2SAT 97
--- NOTE | 2022-06-03 02:28 | ED_ITS ---
HPI - Abdominal Pain General Chief Complaint: Abdominal Pain Stated Complaint: Abd pain Time Seen by Provider: 06/03/22 02:04 History of Present Illness HPI narrative: 56 year old with history of compensated cirrhosis with history of alcohol abuse, pancytopenia, non-insulin dependent type 2 diabetes, anemia, bilateral PE diagnosed March 2022 on eliquis and GERD who presents with 1-2 month of left- sided abdominal pain with intermittent diarrhea and nausea. The patient states that he gets abdominal pain daily, worse at night. He points to his left lower quadrant when asked to localize the pain. Describes the pain as a pressure pain which is greater than 10/10. The patient was seen in the emergency department on 05/19/2022 with a similar presentation and had a CT scan of the abdomen pelvis which revealed diffuse mesenteric edema and diffuse colonic wall thickening consistent with colitis. Patient was also seen in the emergency department on 04/17/2022 with a fever of 103 degrees F, diagnosed with right-sided colitis, right splenic fracture, and he was admitted with IV antibiotics. . Related Data Home Medications Medication Instructions Recorded Confirmed glipizide 5 mg tablet 1 tab PO BID 04/01/22 04/17/22 apixaban 5 mg tablet (Eliquis) 5 mg PO BID 04/17/22 04/17/22 lisinopril 5 mg tablet 1 tab PO DAILY 04/17/22 04/17/22 metformin 1,000 mg tablet 1 tab PO BIDAC 04/17/22 04/17/22 blood pressure test kit-large #1 ea 05/26/22 ferrous sulfate 325 mg (65 mg 325 mg PO DAILY 05/26/22 iron) tablet (FeroSul) nadolol 20 mg tablet 10 mg PO DAILY 05/26/22 Previous Rx's Medication Instructions Recorded blood sugar diagnostic (FreeStyle #100 ea 01/15/22 Lite Strips) blood-glucose meter (FreeStyle #1 ea 01/15/22 Lite Meter kit) ferrous sulfate 324 mg (65 mg 324 mg PO DAILY 30 days #30 tabs 01/15/22 iron) tablet,delayed release lancets (Lancets,Ultra Thin) #100 ea 01/15/22 pantoprazole 40 mg tablet,delayed 40 mg PO DAILY 30 days #30 tabs 01/15/22 release lactulose 20 gram/30 mL oral 20 g (30 mL) PO TID 1 month #2,700 10/04/22 solution mL peg 3350-electrolytes 236 240 ml PO Q10M colonoscopy #4,000 05/05/22 gram-22.74 gram-6.74 gram-5.86 mL gram solution (Golytely) nitrofurantoin 100 mg PO Q12H 7 days #14 caps 05/23/22 monohydrate/macrocrystals 100 mg capsule (Macrobid) food supplemt, lactose-reduced 1 ea PO TID 30 days #414 mL 05/26/22 (Ensure Active High Protein oral liquid) levofloxacin 500 mg tablet 500 mg PO DAILY 7 days #7 tabs 06/03/22 metronidazole 500 mg tablet 500 mg PO TID 7 days #21 tabs 06/03/22 morphine 15 mg immediate release 15 mg PO Q4-6H PRN pain #10 tabs 06/03/22 tablet Allergies Allergy/AdvReac Type Severity Reaction Status Date / Time Penicillins [PCN] AdvReac Angioedema Verified 05/26/22 11:46 Review of Systems Review of Systems Yes all other systems are reviewed and are negative [facility] Past Medical History [facility] Narrative: Social history: Patient denies tobacco use. He states he stop drinking alcohol least 8 years prior. He denies drug use. Medical History Bacteremia Cirrhosis Diabetes GERD (gastroesophageal reflux disease) Pancytopenia Pulmonary emboli Family History Family History Father CVA (cerebral vascular accident) Social History Social History Household Members: Family Housing: House Do you presently have visiting nurse or other home services: No Alcohol intake: former Patient Tobacco Use Status: Never used Tobacco Smoked in Last 30 Days: No e-Cigarette/Vaping Use: Never Used Second Hand Smoke Exposure: No Use of substances other than those prescribed or required for medical reasons: No Advance Directives: Yes Advance Directives on File: Yes Advance Directives Date on File: 04/02/22 service: No Current occupational status: employed Physical Exam ED Vital Signs: Vital Signs - 24 hr 06/02/22 22:03 06/03/22 01:48 Temperature 98.0 F 99.0 F Pulse Rate 97 83 Respiratory Rate 16 20 Blood Pressure 115/82 121/70 Pulse Oximetry 99 97 Oxygen Delivery Method Room Air Room Air BMI result Body Mass Index 28.1 Const Other: Awake, alert, male patient, he is pleasant, cooperative, he does appear to be in distress secondary to his pain, he answers all questions appropriately HENMT Head: Yes normal to inspection, Yes normocephalic and Yes atraumatic Ears: external ears normal General nose exam: Normal external nose present Face and sinus: Yes normal facial exam Mouth: Normal oral and palatal mucosa present Throat: Yes posterior oropharynx normal Eyes General: appearance normal, both eyes and all related structures Pupils: Equal, round and reactive pupils present Neck Neck: Yes normal visual inspection, Yes no lymphadenopathy, Yes trachea midline and Yes supple Chest Chest palpation & inspection: normal inspection of the chest and normal palpation of entire chest wall Resp Effort & Inspection: normal respiratory effort and able to speak in complete sentences Auscultation: clear to auscultation bilaterally Cardio Rate: regular rate Rhythm: regular rhythm Heart sounds: S1 normal heart sound present, S2 normal heart sound present and no murmurs GI Other: Abdomen appears to be distended, he has very localize left lower quadrant tenderness which is moderate, there is no rebound is normoactive bowel sounds Palpation (GI): Tenderness to palpation present (GI) and Guarding due to palpation present (GI) General: Yes no CVA tenderness Back/Spine/Pelvis Back: no CVA tenderness Skin General skin exam: no rashes or lesions noted Neuro Cranial nerves: Yes CN's II-XII intact bilaterally and Yes Equal, round and reactive pupils present Cognition (Neuro): normal cognition Motor exam (neuro): 5/5 motor strength present throughout Extrem General: Yes normal to inspection Psych Appearance: grossly normal Speech and movement: Normal speech and movement present Affect: normal affect Attitude: cooperative Thought process: Normal thought process present Thought content: Normal thought content present Course Course Course Narrative: 57-year-old male with history of alcohol use disorder and cirrhosis who presents emergency department for evaluation of 1-2 months of lower abdominal pain, patient was seen in the emergency department 05/19/2022 with similar presentation and was found to have diffuse mesenteric edema with diffuse colonic wall thickening and prior to that he was admitted for colitis and fever requiring antibiotic treatment. Patient was afebrile and his vital signs were stable. The patient does have very localize left lower quadrant tenderness at this time. Patient's laboratory evaluation is consistent with his pancytopenia otherwise was unremarkable. I did order lactated Ringer's 500 cc IV, morphine 4 mg IV and Zofran 4 mg IV. I will obtain a CT scan of the abdomen pelvis with IV contrast. 0518: Radiology evaluation: CT scan of the abdomen pelvis with IV contrast, radiology interpretation is as follows: IMPRESSION: 1. Thick-walled appearance of the descending and sigmoid colon, similar to 05/19/2022 accounting for differences in luminal distention. This could reflect sequelae of portal colopathy, though infectious or inflammatory colitis would be difficult to entirely exclude in the proper clinical setting. No focal diverticulitis identified. 2. Redemonstrated findings of cirrhosis and portal hypertension. 3. Redemonstrated mildly prominent retroperitoneal lymph nodes, similar to prior and which may be reactive. 4. Redemonstrated linear metallic density in the proximal duodenum, favoring a clip. Dictated By:Trey Reagan MD Given this finding of persistent colitis and the patient's persistent pain, I will treat the patient with a course of Levaquin 500 mg once a day for 7 days and metronidazole 500 mg 3 times a day for 7 days. Patient was also given a prescription for morphine and Zofran ODT. Patient was given printed and verbal instructions advised to follow-up with his PCP. MDM - Abdominal Pain Lab Data Result diagrams: 06/02/22 22:11 06/02/22 22:11 Labs: Lab Results 06/02/22 06/02/22 06/02/22 Range/Units 22:11 22:11 22:26 WBC 3.5 L (4.8-10.8) X10*3/uL RBC 4.31 L (4.60-5.80) X10*6/uL Hgb 10.1 L (14.0-18.0) g/dl Hct 31.9 L (42.0-52.0) % MCV 74.0 L (80.0-98.0) fL MCH 23.4 L (27.0-33.0) pg MCHC 31.7 (31.0-36.0) g/dl RDW 17.2 H (11.0-16.0) % Plt Count 72 L (160-400) X10*3/uL MPV 10.5 (9.4-12.4) fL Immature Gran % (Auto) 0.0 (0.0-0.4) % Neut % (Auto) 63.6 (45-73) % Lymph % (Auto) 25.6 (20-40) % [place] % (Auto) 8.2 (2-11) % Eos % (Auto) 2.6 (0-4) % Baso % (Auto) 0.0 (0-2) % Lymph # (Auto) 0.9 L (1.2-4.9) X10*3/uL [place] # (Auto) 0.3 (0.1-1.2) X10*3/uL Eos # (Auto) 0.1 (0.0-0.4) X10*3/uL Baso # (Auto) 0.0 (0.0-0.2) X10*3/uL Abs Immat Gran (auto) 0.00 (0.00-0.03) X10*3/uL Absolute Neuts (auto) 2.2 (2.0-8.3) x10*3/uL Absolute Nucleated RBC 0.000 (0.0-0.012) X10*3/uL Nucleated RBC % (auto) 0.0 (0.0-0.2) /100WBC Smear Tech's Comments VERIFIED Sodium 138 (135-145) mmol/L Potassium 3.9 (3.3-5.1) mmol/L Chloride 102 (96-108) mmol/L Carbon Dioxide 27 (22-29) mmol/L Anion Gap 13 (12-20) BUN 7 L (9-16) mg/dL Creatinine 0.84 (0.5-1.4) mg/dL Estim Creat Clear Calc 91.7 Estimated GFR > 60 Random Glucose 362 H* (60-115) mg/dL Calcium 8.9 (8.4-10.2) mg/dL Total Bilirubin (0.0-1.0) mg/dL Direct Bilirubin (0.0-0.5) mg/dL AST (5-37) U/L ALT (0-40) U/L Alkaline Phosphatase (39-117) U/L Total Protein (6.5-8.0) g/dL Albumin (3.5-5.0) g/dL Lipase 15 (8-78) U/L Urine Color Yellow Urine Appearance Clear Urine pH 5.0 (5.0-9.0) Ur Specific [place] >= 1.030 H (1.005-1.025) Urine Protein Negative (Neg-Trace) mg/dL Urine Glucose (UA) >=1000 H (Negative) mg/dL Urine Ketones Negative (Negative) mg/dL Urine Blood Negative (Negative) Urine Nitrite Negative (Negative) Ur Leukocyte Esterase Negative (Negative) Urine RBC 0-2 (0-2) /HPF Urine WBC 0-5 (0-5) /HPF Ur Squamous Epith Cells 0-2 (0-2) /HPF Urine Bacteria None Seen (None Seen) Hyaline Casts 0-2 (0-2) /LPF 06/03/22 Range/Units 00:34 WBC (4.8-10.8) X10*3/uL RBC (4.60-5.80) X10*6/uL Hgb (14.0-18.0) g/dl Hct (42.0-52.0) % MCV (80.0-98.0) fL MCH (27.0-33.0) pg MCHC (31.0-36.0) g/dl RDW (11.0-16.0) % Plt Count (160-400) X10*3/uL MPV (9.4-12.4) fL Immature Gran % (Auto) (0.0-0.4) % Neut % (Auto) (45-73) % Lymph % (Auto) (20-40) % [place] % (Auto) (2-11) % Eos % (Auto) (0-4) % Baso % (Auto) (0-2) % Lymph # (Auto) (1.2-4.9) X10*3/uL [place] # (Auto) (0.1-1.2) X10*3/uL Eos # (Auto) (0.0-0.4) X10*3/uL Baso # (Auto) (0.0-0.2) X10*3/uL Abs Immat Gran (auto) (0.00-0.03) X10*3/uL Absolute Neuts (auto) (2.0-8.3) x10*3/uL Absolute Nucleated RBC (0.0-0.012) X10*3/uL Nucleated RBC % (auto) (0.0-0.2) /100WBC Smear Tech's Comments Sodium (135-145) mmol/L Potassium (3.3-5.1) mmol/L Chloride (96-108) mmol/L Carbon Dioxide (22-29) mmol/L Anion Gap (12-20) BUN (9-16) mg/dL Creatinine (0.5-1.4) mg/dL Estim Creat Clear Calc Estimated GFR Random Glucose (60-115) mg/dL Calcium (8.4-10.2) mg/dL Total Bilirubin 0.3 (0.0-1.0) mg/dL Direct Bilirubin 0.3 (0.0-0.5) mg/dL AST 59 H (5-37) U/L ALT 48 H (0-40) U/L Alkaline Phosphatase 252 H D (39-117) U/L Total Protein 6.8 (6.5-8.0) g/dL Albumin 3.7 (3.5-5.0) g/dL Lipase (8-78) U/L Urine Color Urine Appearance Urine pH (5.0-9.0) Ur Specific [place] (1.005-1.025) Urine Protein (Neg-Trace) mg/dL Urine Glucose (UA) (Negative) mg/dL Urine Ketones (Negative) mg/dL Urine Blood (Negative) Urine Nitrite (Negative) Ur Leukocyte Esterase (Negative) Urine RBC (0-2) /HPF Urine WBC (0-5) /HPF Ur Squamous Epith Cells (0-2) /HPF Urine Bacteria (None Seen) Hyaline Casts (0-2) /LPF Discharge Plan Discharge Clinical Impression: Colitis Patient Disposition: Home, Self-Care Instructions: Colitis (ED) Additional Instructions: Your blood work was unremarkable. Your CT scan revealed inflammation of your colon on the left side of your belly, this is similar to your previous CT scans. Since your pain is persisting I am going to treat you your colitis with antibiotics. Take Levaquin 500 mg pills, 1 pill once a day for 7 days. Take Flagyl (metronidazole) 500 mg, 1 pill 3 times a day for 7 days. Take morphine 15 mg pills, 1 pill every 4 hours as needed for pain. This medication will make you sleepy, do not drive or work while taking this medication. Morphine is a narcotic medication and can be addicting. If you are concerned about addiction you can ask the pharmacist for less pills or do not get this prescription filled. Take Zofran ODT 4 mg pills, 1 pill dissolved in your mouth every 8 hours as needed for nausea and vomiting. Follow-up with your doctor in 2 days. Please return to the emergency department if your symptoms get worse or if you develop any symptoms that are concerning to you. Prescriptions: New levofloxacin 500 mg tablet 500 mg PO DAILY 7 Days Qty: 7 0RF metronidazole 500 mg tablet 500 mg PO TID 7 Days Qty: 21 0RF morphine 15 mg tablet 15 mg PO Q4-6H PRN (Reason: pain) Qty: 10 0RF Rx Instructions: The patient may ask for partial fill; Partial Fill upon patient request. No Action glipizide 5 mg tablet 1 tab PO BID ferrous sulfate 324 mg (65 mg iron) Tablet,Delayed Release (Dr/Ec) 324 mg PO DAILY 30 Days Qty: 30 0RF pantoprazole 40 mg tablet,delayed release (DR/EC) 40 mg PO DAILY 30 Days Qty: 30 0RF (DME) blood-glucose meter [FreeStyle Lite Meter] Kit See Rx Instructions .Route Qty: 1 0RF Rx Instructions: As directed (DME) FreeStyle Lite Strips Strip See Rx Instructions .Route Qty: 100 0RF Rx Instructions: As directed (DME) lancets [Lancets,Ultra Thin] Misc See Rx Instructions .Route Qty: 100 0RF Rx Instructions: As directed metformin 1,000 mg tablet 1 tab PO BIDAC lisinopril 5 mg tablet 1 tab PO DAILY Hold Instructions: BP soft, follow up with PCP before resuming Eliquis 5 mg tablet 5 mg PO BID Hold Instructions: Resume on 04/24/22. Rx Instructions: 10mg bid for 6 more days, then decrease to 5mg bid nitrofurantoin monohyd/m-cryst [Macrobid] 100 mg capsule 100 mg PO Q12H 7 Days Qty: 14 0RF Rx Instructions: must administer with a meal/food lactulose 20 gram/30 mL solution 20 g PO TID 30 Days Qty: 2700 1RF peg 3350-electrolytes [Golytely] 236-22.74-6.74 -5.86 gram recon soln 240 ml PO Q10M Qty: 4000 0RF Rx Instructions: as per split prep instructions, until fecal effluent is clear (DME) blood pressure test kit-large Kit See Rx Instructions .ROUTE .MEDSUPPLY Qty: 1 Rx Instructions: As directed nadolol 20 mg tablet 10 mg PO DAILY ferrous sulfate [FeroSul] 325 mg (65 mg iron) tablet 325 mg PO DAILY Ensure Active High Protein Liquid 1 ea PO TID 30 Days Qty: 414 0RF
[2022-06-03] MEDS: Morphine Sulfate 4 MG/ML CARTRIDGE IVPUSH ×2 (02:40→06:03)
[2022-06-03] MEDS: ondansetron HCL 4 MG/2 ML VIAL IVPUSH (02:41)
[2022-06-03] MEDS: Lactated Ringers 500 ML IV (02:47)
[2022-06-03] MEDS: iohexoL 350 MG/ML 100 ML INFUS..BTL 85 ML IV (03:56)
[2022-06-03] MEDS: levoFLOXacin 500 MG TABLET PO (06:03)
[2022-06-03] MEDS: metroNIDAZOLE 500 MG TABLET PO (06:03)
== END 2022-06-03 06:08 | disposition home or self-care (01) ==
PROVIDERS: Emergency Provider Emergency Medicine Emergency Medical Services
DX: K52.9 Noninfective gastroenteritis and colitis, unspecified (principal); Z79.899 Other long term (current) drug therapy
CPT/HCPCS: 36415; 74177; 80048; 80076; 81001; 83690; 85025; 96361; 96374; 96375; 96376; 99284; J2270; J2405; Q9967

== ENCOUNTER 2022-07-02 08:01 | Day surgery (SDC) | payer OTHER, SELFPAY ==
[2022-06-29 10:42] VITALS: BMI 28.0
--- NOTE | 2022-07-01 10:13 | HO.ANESPROP2 ---
Documented by User: More Heredia NP 07/01/22 10:17 HPI - Anesthesia Eval Consult details Narrative: 57yo M for Upper Endoscopy and Colonoscopy s/p same 04/2022 with MAC during [facility] admit ETOH cirrhosis Eliquis for PE (on hold) PMFSH Active Problems Active Problems: All Active Problems (Updated 06/04/22 @ 00:02 by Background Chinedu) Thrombocytopenia (Acute) Abnormal finding on EKG (Acute) Chest discomfort (Acute) Shortness of breath (Acute) Hospital discharge follow-up (Acute) Shortness of breath (Acute) Hyperglycemia (Acute) Colitis (Acute) Occult blood positive stool (Acute) Anemia (Acute) Esophageal varices (Acute) Hepatic encephalopathy (Acute) Frailty (Acute) Cirrhosis (Acute) Pancytopenia (Acute) GERD (gastroesophageal reflux disease) (Acute) Bacteremia (Acute) Past Medical History Medical History (Updated 06/04/22 @ 00:02 by Background Chinedu) Bacteremia Cirrhosis Diabetes GERD (gastroesophageal reflux disease) Pancytopenia Pulmonary emboli Family History Family History Father CVA (cerebral vascular accident) Family history of problems with anesthesia: No Surgical History Surgical History (Updated 06/29/22 @ 10:39 by Margy Colby RN) History of esophagogastroduodenoscopy (EGD) History of Problems with Anesthesia: No Social History Social History Household Members: Family Housing: House Do you presently have visiting nurse or other home services: No Alcohol intake: former Patient Tobacco Use Status: Never used Tobacco e-Cigarette/Vaping Use: Never Used Second Hand Smoke Exposure: No Use of substances other than those prescribed or required for medical reasons: No Are you DNR?: No Advance Directives: Yes Advance Directives on File: Yes Advance Directives Date on File: 04/02/22 service: No Current occupational status: employed Meds Allergies Allergy/AdvReac Type Severity Reaction Status Date / Time Penicillins [PCN] AdvReac Angioedema Verified 05/26/22 11:46 Home Medications Medication Instructions Recorded Confirmed Last Taken Type glipizide 5 mg tablet 1 tab PO BID 04/01/22 06/29/22 04/17/22 History apixaban 5 mg tablet (Eliquis) 5 mg PO BID 04/17/22 07/02/22 06/25/22 History lisinopril 5 mg tablet 1 tab PO DAILY 04/17/22 06/29/22 04/17/22 History metformin 1,000 mg tablet 1 tab PO BIDAC 04/17/22 06/29/22 04/17/22 History blood pressure test kit-large #1 ea 05/26/22 Unknown History ferrous sulfate 325 mg (65 mg 325 mg PO DAILY 05/26/22 06/29/22 06/30/22 History iron) tablet (FeroSul) nadolol 20 mg tablet 10 mg PO DAILY 05/26/22 06/29/22 Unknown History Exam Exam Date and Time: July 01, 2022 1013 Height,Weight and Vital Signs: Height 5 ft 4 in Weight 74 kg Pertinent Lab Results Pertinent Lab Results: Laboratory Tests 06/02/22 22:11 Sodium 138 Potassium 3.9 Chloride 102 BUN 7 L Creatinine 0.84 Narrative Narrative: CT abdomen pelvis w IV con 06/2022 IMPRESSION: 1.? Thick-walled appearance of the descending and sigmoid colon, similar to 05/19/2022 accounting for differences in luminal distention. This could reflect sequelae of portal colopathy, though infectious or inflammatory colitis would be difficult to entirely exclude in the proper clinical setting. No focal diverticulitis identified. 2.? Redemonstrated findings of cirrhosis and portal hypertension. 3.? Redemonstrated mildly prominent retroperitoneal lymph nodes, similar to prior and which may be reactive. 4.? Redemonstrated linear metallic density in the proximal duodenum, favoring a clip. Assessment and Plan Assessment Anesthesia Assessment: Chart Reviewed Final Anesthetic Review Family History of Problems with Anesthesia: No History of Problems with Anesthesia: No Documented by User: Deyvi Baxter MD 07/02/22 10:20 [facility] Past Medical History Medical History (Updated 06/04/22 @ 00:02 by Nohemi Che) Bacteremia Cirrhosis Diabetes GERD (gastroesophageal reflux disease) Pancytopenia Pulmonary emboli Family History Family History Father CVA (cerebral vascular accident) Surgical History Surgical History (Updated 06/29/22 @ 10:39 by Margy Colby RN) History of esophagogastroduodenoscopy (EGD) Social History Social History Household Members: Family Housing: House Do you presently have visiting nurse or other home services: No Alcohol intake: former Patient Tobacco Use Status: Never used Tobacco e-Cigarette/Vaping Use: Never Used Second Hand Smoke Exposure: No Use of substances other than those prescribed or required for medical reasons: No Are you DNR?: No Advance Directives: Yes Advance Directives on File: Yes Advance Directives Date on File: 04/02/22 service: No Current occupational status: employed Meds Allergies Allergy/AdvReac Type Severity Reaction Status Date / Time Penicillins [PCN] AdvReac Angioedema Verified 05/26/22 11:46 Home Medications Medication Instructions Recorded Confirmed Last Taken Type glipizide 5 mg tablet 1 tab PO BID 04/01/22 06/29/22 04/17/22 History apixaban 5 mg tablet (Eliquis) 5 mg PO BID 04/17/22 07/02/22 06/25/22 History lisinopril 5 mg tablet 1 tab PO DAILY 04/17/22 06/29/22 04/17/22 History metformin 1,000 mg tablet 1 tab PO BIDAC 04/17/22 06/29/22 04/17/22 History blood pressure test kit-large #1 ea 05/26/22 Unknown History ferrous sulfate 325 mg (65 mg 325 mg PO DAILY 05/26/22 06/29/22 06/30/22 History iron) tablet (FeroSul) nadolol 20 mg tablet 10 mg PO DAILY 05/26/22 06/29/22 Unknown History Exam Airway Mallampati Class: II TM Dist: >3cm Neck ROM: Full Denture: Upper and Lower Heart: rrr Lungs: clear Assessment and Plan Final Anesthetic Review NPO: Yes ASA Class: IV Final Preanesthetic Review: No Changes in Pt Med Stat, Meds/Allgs Chart Reviewed, Consent Obtained/Reviewed and Anes Risks/Benef Reviewed Patient Risk: High Procedure Risk: Low Anesthetic Plan Anesthetic Plan: MAC: Disposition: Standard PACU
[2022-07-02 08:53] LABS: Glucose, Whole Blood 174 mg/dL (60-115)
[2022-07-02 08:54] VITALS: BP 107/62; PULSE 77; RESP 18; TEMP 36.6; O2SAT 99; BMI 29.3
[2022-07-02 09:38] LABS: Hematocrit 32.5 % (42.0-52.0); Hemoglobin 10.8 g/dl (14.0-18.0); Mean Corpuscular HGB Conc 33.2 g/dl (31.0-36.0); Mean Corpuscular Hemoglobin 25.4 pg (27.0-33.0); Mean Corpuscular Volume 76.5 fL (80.0-98.0); Mean Platelet Volume 8.6 fL (9.4-12.4); Red Blood Count 4.25 X10*6/uL (4.60-5.80); Red Cell Distribution Width 18.1 % (11.0-16.0)
[2022-07-02 09:39] LABS: Platelet Count 61 X10*3/uL (160-400)
[2022-07-02 09:44] LABS: INTERNATIONAL NORM RATIO 1.2 (0.9-1.1); Prothrombin Time 13.8 SEC (10.0-13.1)
[2022-07-02] MEDS: Lactated Ringers 1,000 ML 50 ML IVCONT (09:56)
--- NOTE | 2022-07-02 10:20 | MHC.SHP ---
Pre-Procedural Eval Section A Date of Service: 07/02/22 Section B Chief Complaint: cirrhosis of liver,esophageal varcies Details of Present Illness: 57 y.o M with hx of cirrhosis, underwent EGD/colo in Apr 2022 for anemia with EVBL of high risk varices for primary prophylaxis. Here for follow up EGD. Pt also reports he continues to lose weight. Was unable to get protein shakes from pharmacy. Relevant Social History: Alcohol Use Present Medications: see Short Stay Collaborative assessment Medical History: Significant History (cirrhosis, varices, GERD) Allergies: Allergies Allergy/AdvReac Type Severity Reaction Status Date / Time Penicillins [PCN] AdvReac Angioedema Verified 05/26/22 11:46 Review of Systems Review of Systems Comment: 10 point ROS negative except as mentioned above Exam Exam Comment: Gen appear: No acute distress, malnourished HEENT: no icterus, no cervical lymphadenopathy Chest: No overt resp distress Abd: soft, nontender, nondistended Psych: Stable affect, answering questions appropriately Neuro: A/Ox3 noted to move all extremities spontaneously Ext: no peripheral edema Plan Diagnosis/Plan: Unchanged I have reviewed the history and physical and performed a pertinent physical examination on my patient. No changes have occurred unless specified.
--- NOTE | 2022-07-02 10:29 | P.OP_ITS ---
Operative Note Operative Note Date of Service: 07/02/22 Narrative: Procedure: Esophagogastroduodenoscopy Endoscopist: Perla To MD Indication: Cirrhosis, varices Anesthesia Provider: Dr Deyvi Baxter Anesthesia Type: MAC ?? EGD Procedure:?? The procedure, indications, preparation and potential complications were revi ewed with the patient, who indicated understanding and gave written informed consent to proceed. A physical exam was performed. The endoscope was introduced through the mouth, and advanced to the fourth part of duodenum. The mucosa was carefully examined on slow withdrawal of the endoscope. The patient tolerated the procedure well. There were no immediate complications.? ? EGD Findings:? * Esophagus:? One large varix was noted from 40 cm to 35 cm. Scarring from previous banding was noted at 38 and 37 cm. The Z line was at 40 cm. Using a [employer] multiple band ligator, 1 band was placed at 36 cm with complete collapse of the variceal column. * Stomach:?Diffuse congestion and erythema in mosaic pattern consistent with portal hypertensive gastropathy was noted in the whole stomach. * Duodenum: A few subcentimeter nodules were noted in the second portion of the duodenum. These have previously been biopsied. A previously placed hemoclip was noted in the second portion of the duodenum. Major papilla appeared normal. ? EGD Impressions:? * Esophageal varix (EVBL) * Portal hypertensive gastropathy * Duodenal nodules (previously biopsied and benign) ?? Recommendations:?? * Start Nadolol 20 mg once daily. Titrate to 40mg max as long as HR 55-60 bpm and SBP > 90 mm Hg. * If unable to tolerate Nadolol, will schedule him for a repeat EGD in a year for continued surveillance and management with EVBL as needed. * Patient was also reminded to get his US liver done. * Follow up in GI office as scheduled
[2022-07-02 11:04] VITALS: BP 99/74; PULSE 92; RESP 18; TEMP 36.3; O2SAT 96
[2022-07-02 11:19] VITALS: BP 108/72; PULSE 73; RESP 18; O2SAT 97
[2022-07-02 11:38] VITALS: BP 112/72; PULSE 73; RESP 18; TEMP 37.1; O2SAT 97
== END 2022-07-02 12:51 | disposition home or self-care (01) ==
PROVIDERS: Nurse Practitioner; Visit Provider Internal Medicine
PROC: 0DJ08ZZ Inspection of Upper Intestinal Tract, Via Natural or Artificial Opening Endoscopic (ICD-10-PCS; CPT 43235; principal; 2022-07-02 09:50)
DX: K70.30 Alcoholic cirrhosis of liver without ascites (principal); I85.10 Secondary esophageal varices without bleeding; K76.6 Portal hypertension; K31.89 Other diseases of stomach and duodenum; D13.2 Benign neoplasm of duodenum; D64.9 Anemia, unspecified; E11.9 Type 2 diabetes mellitus without complications; Z86.711 Personal history of pulmonary embolism; Z79.01 Long term (current) use of anticoagulants; Z79.84 Long term (current) use of oral hypoglycemic drugs; Z79.899 Other long term (current) drug therapy; Z88.0 Allergy status to penicillin
CPT/HCPCS: 43244; 36415; 82947; 85027; 85610

== ENCOUNTER → 2022-07-22 14:35 | Outpatient (BNVA) | payer OTHER, SELFPAY | PROVIDERS: Visit Provider Internal Medicine | DX: K74.60 Unspecified cirrhosis of liver (principal); I85.00 Esophageal varices without bleeding; R54 Age-related physical debility; Z78.9 Other specified health status | CPT/HCPCS: 99212 ==

== ENCOUNTER 2022-08-17 07:20 | Emergency (ER) | payer OTHER, SELFPAY ==
--- NOTE | ~2022-08-17 | CT_ITS ---
EXAMINATION: CT ABDOMEN AND PELVIS WITHOUT CONTRAST CLINICAL INFORMATION: Abdominal pain COMPARISON: [address] scans of the abdomen and pelvis since 04/17/2022, the most recent of which was 06/03/2022 TECHNIQUE: Multidetector volumetric imaging was performed from the superior aspect of the liver through the pubic symphysis. Sagittal and coronal reformatted images were obtained on the technologist's workstation. This CT examination was performed using dose optimization techniques as appropriate, variously including the following: *Automated exposure control *Adjustment of mA and/or kV according to patient size (this includes techniques or standardized protocols for targeted exams where dose is matched to indication/reason for exam; i.e. extremities or head) *Use of iterative reconstruction technique DLP: 601 mGy-cm FINDINGS: LUNG BASES: The visualized lung bases are unremarkable. LIVER, GALLBLADDER, AND BILIARY TREE: The liver appears cirrhotic with a nodular border and hypertrophy of the left lobe and caudate. Layering calculi are present in the gallbladder (3:29). Tiny bit of gas seen in gallbladder appears to be vacuum phenomena within stones. These stones were not appreciated on the time of the prior exam PANCREAS: Fatty infiltration of the pancreas. SPLEEN: Again noted is splenomegaly with the spleen measuring 16.3 cm ADRENAL GLANDS: Unremarkable. KIDNEYS AND URETERS: The kidneys are normal in size, shape, and attenuation. No hydronephrosis, hydroureter, or calculi seen. No perinephric stranding. BLADDER: Nearly empty, but unremarkable GASTROINTESTINAL TRACT: Metallic clip again noted in the second portion of duodenum. Again seen are edematous changes throughout the colon with thickening of the lateral conal fascia anterior pararenal fascia. Findings are suggestive of colitis although portal colopathy could produce similar findings. Edematous changes are also seen in the mesentery, unchanged from prior. No free intraperitoneal air. No portal venous gas. No pneumatosis. Appendix unremarkable. ABDOMINAL WALL: No significant hernia is appreciated. LYMPH NODES: Again seen are prominent retroperitoneal lymph nodes but not grossly VASCULAR: No aortic aneurysm. Splenic vein mildly dilated consistent with elevated portal pressures. PELVIC VISCERA: Surgically removed OSSEOUS STRUCTURES: Unremarkable. Some mild degenerative changes are seen in the lower thoracic spine. CT/CT abdomen pelvis wo IV con IMPRESSION: 1. Cirrhotic liver with splenomegaly and evidence of elevated portal pressures. 2. Cholelithiasis without evidence of cholecystitis. Ultrasound would be useful for further evaluation. 3. Diffuse colonic wall thickening with pericolonic inflammatory changes suggestive of colitis. Differential diagnosis would include portal colopathy. 4. Other incidental findings as described above including prominent retroperitoneal lymph nodes with mesenteric edema, fatty infiltration of the pancreas, fatty infiltration of the pancreas and metallic clip in the second portion of the duodenum. Fleischner guidelines were followed.
[2022-08-17 07:58] VITALS: BP 123/78; PULSE 54; RESP 18; TEMP 36.4; O2SAT 100; BMI 29.2
[2022-08-17 08:48] LABS: MANUAL DIFF FLAG NO
[2022-08-17 08:58] LABS: Basophils Percent Auto 0.2 % (0-2); Eosinophils Absolute Auto 0.1 X10*3/uL (0.0-0.4); Eosinophils Percent Auto 1.4 % (0-4); Hematocrit 32.9 % (42.0-52.0); Hemoglobin 10.8 g/dl (14.0-18.0); Imm Gran Abs Auto 0.02 X10*3/uL (0.00-0.03); Imm Gran Pct Auto 0.4 % (0.0-0.4); Lymphocytes Absolute Auto 0.8 X10*3/uL (1.2-4.9); Mean Corpuscular HGB Conc 32.8 g/dl (31.0-36.0); Mean Corpuscular Hemoglobin 25.7 pg (27.0-33.0); Mean Corpuscular Volume 78.3 fL (80.0-98.0); Mean Platelet Volume 9.1 fL (9.4-12.4); Monocytes Absolute Auto 0.3 X10*3/uL (0.1-1.2); Monocytes Percent Auto 5.5 % (2-11); Neutrophils Percent Auto 77.5 % (45-73); Red Cell Distribution Width 15.1 % (11.0-16.0); White Blood Count 5.1 X10*3/uL (4.8-10.8)
[2022-08-17 08:59] LABS: Platelet Count 92 X10*3/uL (160-400)
[2022-08-17 09:07] LABS: Alanine Aminotransferase 37 U/L (0-40); Albumin Level 3.6 g/dL (3.5-5.0); Alkaline Phosphatase 169 U/L (39-117); Anion Gap 13 (12-20); Aspartate Amino Transferase 39 U/L (5-37); Bilirubin Total 0.8 mg/dL (0.0-1.0); Blood Urea Nitrogen 9 mg/dL (9-16); Calcium 8.9 mg/dL (8.4-10.2); Carbon Dioxide 23 mmol/L (22-29); Chloride 104 mmol/L (96-108); Creatinine Clr Calc Pharmacy 108.8; Estimated Glomerular Filt Rate > 60; Glucose Random 249 mg/dL (60-115); Sodium 136 mmol/L (135-145); Total Protein 6.8 g/dL (6.5-8.0)
--- NOTE | 2022-08-17 09:18 | ED_ITS ---
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 Patient states that he has been having left lower quadrant abdominal pain and bright red blood in his stool for the last 4 days. Patient states that he has been intermittently nauseous. Patient denies any dizziness, lightheadedness, vomiting, fever, chills, blurry vision, double vision, loss of vision, chest pain, difficulty breathing, shortness of breath, back pain, night sweats, pain with urination, increased urinary frequency, increased urinary urgency, blood in his urine, syncope or a near syncopal episode, recent trauma or falls, bowel incontinence, bladder incontinence, bowel retention, bladder retention, or any other complaints at this time. Onset (ago): day(s) (4) Location: abdomen Radiation: non-radiation Severity: mild Severity scale (1-10): 2 Relieving factors: none Exacerbating factors: none Associated symptoms: nausea/vomiting Treatments prior to arrival: none Related Data Home Medications Medication Instructions Recorded Confirmed glipizide 5 mg tablet 1 tab PO BID 04/01/22 06/29/22 apixaban 5 mg tablet (Eliquis) 5 mg PO BID 04/17/22 07/02/22 lisinopril 5 mg tablet 1 tab PO DAILY 04/17/22 06/29/22 metformin 1,000 mg tablet 1 tab PO BIDAC 04/17/22 06/29/22 blood pressure test kit-large #1 ea 05/26/22 ferrous sulfate 325 mg (65 mg 325 mg PO DAILY 05/26/22 06/29/22 iron) tablet (FeroSul) Previous Rx's Medication Instructions Recorded blood sugar diagnostic (FreeStyle #100 ea 01/15/22 Lite Strips) blood-glucose meter (FreeStyle #1 ea 01/15/22 Lite Meter kit) lancets (Lancets,Ultra Thin) #100 ea 01/15/22 pantoprazole 40 mg tablet,delayed 40 mg PO DAILY 30 days #30 tabs 01/15/22 release lactulose 20 gram/30 mL oral 20 g (30 mL) PO TID 1 month #2,700 05/05/22 solution mL nitrofurantoin 100 mg PO Q12H 7 days #14 caps 05/23/22 monohydrate/macrocrystals 100 mg capsule (Macrobid) food supplemt, lactose-reduced 1 ea PO TID 30 days #414 mL 05/26/22 (Ensure Active High Protein oral liquid) levofloxacin 500 mg tablet 500 mg PO DAILY 7 days #7 tabs 06/03/22 metronidazole 500 mg tablet 500 mg PO TID 7 days #21 tabs 06/03/22 morphine 15 mg immediate release 15 mg PO Q4-6H PRN pain #10 tabs 06/03/22 tablet nadolol 20 mg tablet 20 mg PO DAILY 30 days #30 tabs 07/02/22 ondansetron 4 mg disintegrating 4 mg PO Q8H 3 days #9 tabs 08/17/22 tablet Allergies Allergy/AdvReac Type Severity Reaction Status Date / Time Penicillins [PCN] AdvReac Angioedema Verified 07/22/22 14:44 Review of Systems Constitutional: Constitutional: Reports no additional constitutional complaints, Denies chills, Denies fever(s) and Denies night sweats Eyes: Eyes: Reports no additional eye complaints, Denies blurry vision, Denies change in vision, Denies diplopia, Denies eye discharge, Denies loss of vision and Denies eye pain ENT: Denies dizziness Cardiovascular: Cardiovascular: Reports no additional cardiovascular complaints, Denies chest pain, Denies lightheadedness, Denies Loss of Consciousness and Denies dyspnea Respiratory: Respiratory: Reports no additional respiratory complaints and Denies dyspnea Gastrointestinal: Gastrointestinal: Reports no additional gastrointestinal complaints, Reports abdominal pain, Denies melena, Reports hematochezia, Denies change in bowel habits, Denies change in stool character and Reports nausea Genitourinary: Genitourinary: Reports no additional male genitourinary complaints, Denies hematuria, Denies oliguria, Denies difficulty urinating, Denies dysuria, Denies urinary frequency, Denies urinary hesitancy, Denies ur inary incontinence and Denies urinary urgency Musculoskeletal: Musculoskeletal: Reports no additional musculoskeletal complaints, Denies numbness and Denies tingling Neurologic: Denies dizziness, Denies loss of vision, Denies numbness and Denies tingling Psychiatric: Psychiatric: Reports no additional psychiatric complaints Endocrine: Endocrine: Reports no additional endocrine complaints Hematologic/Lymphatic: Hematologic/Lymphatic: Reports no additional hematologic/lymphatic complaints Allergic/Immunologic: Allergic/Immunologic: Reports no additional allergic/immunologic complaints PMFSH Past Medical History Attestation statement: The following information was validated with the patient. Source: old records reviewed and nursing notes reviewed Medical History Bacteremia Cirrhosis Diabetes GERD (gastroesophageal reflux disease) Pancytopenia Pulmonary emboli Surgical History History of esophagogastroduodenoscopy (EGD) Family History Family History Father CVA (cerebral vascular accident) Social History Social History Household Members: Family Housing: House Do you presently have visiting nurse or other home services: No Alcohol intake: never Patient Tobacco Use Status: Never used Tobacco Smoked in Last 30 Days: No e-Cigarette/Vaping Use: Never Used Second Hand Smoke Exposure: No Use of substances other than those prescribed or required for medical reasons: No Advance Directives: Yes Advance Directives on File: Yes Advance Directives Date on File: 04/02/22 service: No Current occupational status: employed Physical Exam ED Vital Signs: Vital Signs - 24 hr 08/17/22 07:58 08/17/22 10:46 Temperature 97.5 F 98.1 F Pulse Rate 54 77 Respiratory Rate 18 Blood Pressure 123/78 122/74 Pulse Oximetry 100 96 Oxygen Delivery Method Room Air Room Air BMI result Body Mass Index 29.2 Const General: cooperative, no acute distress, alert and awake Nutritional Appearance: well nourished Orientation/consciousness: patient oriented x3 Limitations: no limitations HENMT Head: Yes normal to inspection and Yes atraumatic Ears: hearing grossly normal bilaterally and external ears normal General nose exam: Normal external nose present, no nasal discharge noted and no epistaxis Face and sinus: Yes normal facial exam, No abrasion and No laceration Mouth: Normal oral and palatal mucosa present, no drooling and no muffled voice Eyes General: appearance normal, both eyes and all related structures Periorbital: periorbital findings normal Eyelids: Yes eyelids normal Conjunctivae: conjunctivae normal Pupils: Equal, round and reactive pupils present EOM: EOMs intact bilaterally Neck Neck: Yes normal visual inspection, Yes full ROM and Yes no lymphadenopathy Chest Chest palpation & inspection: normal inspection of the chest Resp Effort & Inspection: normal respiratory effort and able to speak in complete sentences Auscultation: clear to auscultation bilaterally Cardio Rate: regular rate Rhythm: regular rhythm GI Inspection: Yes normal to inspection Palpation (GI): Soft to palpation, not firm, nontender, no guarding and not rigid Neuro General: patient oriented x3 and moves all extremities Cranial nerves: Yes Equal, round and reactive pupils present Cognition (Neuro): normal cognition Motor exam (neuro): 5/5 motor strength present throughout Sensory Exam: Normal double simultaneous stimulation for sensation Coordination: [id number] test normal Extrem General: Yes normal to inspection, Yes full ROM and Yes capillary refill normal Psych Appearance: grossly normal Mental Status: mental status grossly normal Affect: normal affect Attitude: cooperative Thought process: Normal thought process present Thought content: Normal thought content present Insight: Good insight present (Psych) Medications Administered Discontinued Medications Generic Name Dose Route Start Last Admin Trade Name Freq PRN Reason Stop Dose Admin Ondansetron HCl 4 mg 08/17/22 09:32 08/17/22 09:40 Ondansetron Odt 4 Mg Tab.Rapdis TRANSLINGU 08/17/22 09:33 4 mg ONCE ONE Administration Medical Decision Making Medical Decision Making [facility] Narrative: Patient is a 57 year old assigned male at with a history of cirrhosis presenting to the emergency department today with left lower quadrant abdominal pain. Patient's physical exam was unremarkable. Patient was non-toxic appearing. Patient refused rectal exam. Patient's blood work was unremarkable and consistent with his baseline. Patient's abdominal CT showed acute colitis and other chronic findings as listed in the report within this chart. I explained my physical exam findings as well as all test results to the patient. I answered all questions asked by the patient. Patient received ODT Zofran which she stated helped his symptoms significantly. I stressed the importance of the patient taking his medication as prescribed. I stressed the importance of the patient following up with his primary care provider. I stressed the importance of the patient returning to the emergency department immediately if his symptoms were to worsen or if he were to develop any dizziness, shortness of breath, difficulty breathing, chest pain, blurry vision, loss of vision, nausea, vomiting, abdominal pain, fever, chills, back pain, or any other complaints. Patient verbalized agreement and understanding with this treatment plan and discharge. Differential Diagnosis Differential Diagnoses: The differential diagnosis associated with the presentation includes colitis, abdominal pain Lab Data MDM Lab Attestation statement: I reviewed the patient's lab results. 08/17/22 08:37 08/17/22 08:37 Labs: Lab Results 08/17/22 08/17/22 08/17/22 Range/Units 08:37 08:37 10:10 WBC 5.1 (4.8-10.8) X10*3/uL RBC 4.20 L (4.60-5.80) X10*6/uL Hgb 10.8 L (14.0-18.0) g/dl Hct 32.9 L (42.0-52.0) % MCV 78.3 L (80.0-98.0) fL MCH 25.7 L (27.0-33.0) pg MCHC 32.8 (31.0-36.0) g/dl RDW 15.1 (11.0-16.0) % Plt Count 92 L D (160-400) X10*3/uL MPV 9.1 L (9.4-12.4) fL Immature Gran % (Auto) 0.4 (0.0-0.4) % Neut % (Auto) 77.5 H (45-73) % Lymph % (Auto) 15.0 L (20-40) % [place] % (Auto) 5.5 (2-11) % Eos % (Auto) 1.4 (0-4) % Baso % (Auto) 0.2 (0-2) % Lymph # (Auto) 0.8 L (1.2-4.9) X10*3/uL [place] # (Auto) 0.3 (0.1-1.2) X10*3/uL Eos # (Auto) 0.1 (0.0-0.4) X10*3/uL Baso # (Auto) 0.0 (0.0-0.2) X10*3/uL Abs Immat Gran (auto) 0.02 (0.00-0.03) X10*3/uL Absolute Neuts (auto) 4.0 (2.0-8.3) x10*3/uL Absolute Nucleated RBC 0.000 (0.0-0.012) X10*3/uL Nucleated RBC % (auto) 0.0 (0.0-0.2) /100WBC Sodium 136 (135-145) mmol/L Potassium 4.0 (3.3-5.1) mmol/L Chloride 104 (96-108) mmol/L Carbon Dioxide 23 (22-29) mmol/L Anion Gap 13 (12-20) BUN 9 (9-16) mg/dL Creatinine 0.72 (0.5-1.4) mg/dL Estim Creat Clear Calc 108.8 Estimated GFR > 60 Random Glucose 249 H (60-115) mg/dL Calcium 8.9 (8.4-10.2) mg/dL Total Bilirubin 0.8 (0.0-1.0) mg/dL AST 39 H (5-37) U/L ALT 37 (0-40) U/L Alkaline Phosphatase 169 H (39-117) U/L Total Protein 6.8 (6.5-8.0) g/dL Albumin 3.6 (3.5-5.0) g/dL Urine Color Dark Yellow Urine Appearance Clear Urine pH 5.0 (5.0-9.0) Ur Specific Brick >= 1.030 H (1.005-1.025) Urine Protein Negative (Neg-Trace) mg/dL Urine Glucose (UA) >=1000 H (Negative) mg/dL Urine Ketones Negative (Negative) mg/dL Urine Blood Negative (Negative) Urine Nitrite Negative (Negative) Ur Leukocyte Esterase Negative (Negative) Urine RBC 0-2 (0-2) /HPF Urine WBC 6-10 H (0-5) /HPF Urine WBC Clumps Ur Squamous Epith Cells 0-2 (0-2) /HPF Ur Transition Epith Cell Ur Renal Epithelial Cell Calcium Oxalate Crystal Leucine Crystals Cystine Crystals Tyrosine Crystals Other Crystals Urine Bacteria None Seen (None Seen) Urine Parasites Bilirubin Casts Epithelial Casts Fatty Casts Hyaline Casts 0-2 (0-2) /LPF Granular Casts Waxy Casts Broad Casts RBC Casts WBC Casts Other Casts Urine Trichomonas Urine Yeast 08/17/22 Range/Units 10:10 WBC (4.8-10.8) X10*3/uL RBC (4.60-5.80) X10*6/uL Hgb (14.0-18.0) g/dl Hct (42.0-52.0) % MCV (80.0-98.0) fL MCH (27.0-33.0) pg MCHC (31.0-36.0) g/dl RDW (11.0-16.0) % Plt Count (160-400) X10*3/uL MPV (9.4-12.4) fL Immature Gran % (Auto) (0.0-0.4) % Neut % (Auto) (45-73) % Lymph % (Auto) (20-40) % [place] % (Auto) (2-11) % Eos % (Auto) (0-4) % Baso % (Auto) (0-2) % Lymph # (Auto) (1.2-4.9) X10*3/uL [place] # (Auto) (0.1-1.2) X10*3/uL Eos # (Auto) (0.0-0.4) X10*3/uL Baso # (Auto) (0.0-0.2) X10*3/uL Abs Immat Gran (auto) (0.00-0.03) X10*3/uL Absolute Neuts (auto) (2.0-8.3) x10*3/uL Absolute Nucleated RBC (0.0-0.012) X10*3/uL Nucleated RBC % (auto) (0.0-0.2) /100WBC Sodium (135-145) mmol/L Potassium (3.3-5.1) mmol/L Chloride (96-108) mmol/L Carbon Dioxide (22-29) mmol/L Anion Gap (12-20) BUN (9-16) mg/dL Creatinine (0.5-1.4) mg/dL Estim Creat Clear Calc Estimated GFR Random Glucose (60-115) mg/dL Calcium (8.4-10.2) mg/dL Total Bilirubin (0.0-1.0) mg/dL AST (5-37) U/L ALT (0-40) U/L Alkaline Phosphatase (39-117) U/L Total Protein (6.5-8.0) g/dL Albumin (3.5-5.0) g/dL Urine Color Cancelled Urine Appearance Cancelled Urine pH Cancelled (5.0-9.0) Ur Specific Brick Cancelled (1.005-1.025) Urine Protein Cancelled (Neg-Trace) mg/dL Urine Glucose (UA) Cancelled (Negative) mg/dL Urine Ketones Cancelled (Negative) mg/dL Urine Blood Cancelled (Negative) Urine Nitrite Cancelled (Negative) Ur Leukocyte Esterase Cancelled (Negative) Urine RBC Cancelled (0-2) /HPF Urine WBC Cancelled (0-5) /HPF Urine WBC Clumps Cancelled Ur Squamous Epith Cells Cancelled (0-2) /HPF Ur Transition Epith Cell Cancelled Ur Renal Epithelial Cell Cancelled Calcium Oxalate Crystal Cancelled Leucine Crystals Cancelled Cystine Crystals Cancelled Tyrosine Crystals Cancelled Other Crystals Cancelled Urine Bacteria Cancelled (None Seen) Urine Parasites Cancelled Bilirubin Casts Cancelled Epithelial Casts Cancelled Fatty Casts Cancelled Hyaline Casts Cancelled (0-2) /LPF Granular Casts Cancelled Waxy Casts Cancelled Broad Casts Cancelled RBC Casts Cancelled WBC Casts Cancelled Other Casts Cancelled Urine Trichomonas Cancelled Urine Yeast Cancelled Radiology Impression Discussion of test interpretation with radiology: I have reviewed the radiologist's reading. Radiologist Impression: My interpretation is in agreement with the radiologist's impression of this imaging study. EXAMINATION: CT ABDOMEN AND PELVIS WITHOUT CONTRAST? CLINICAL INFORMATION: Abdominal pain? COMPARISON: [address] scans of the abdomen and pelvis since 04/17/2022, the most recent of which was 06/03/2022? TECHNIQUE: Multidetector volumetric imaging was performed from the superior aspect of the liver through the pubic symphysis. Sagittal and coronal reformatted images were obtained on the technologist's workstation.? This CT examination was performed using dose optimization techniques as appropriate, variously including the following: *Automated exposure control *Adjustment of mA and/or kV according to patient size (this includes techniques or standardized protocols for targeted exams where dose is matched to indication/reason for exam; i.e. extremities or head) *Use of iterative reconstruction technique DLP: 601 mGy-cm FINDINGS: LUNG BASES: The visualized lung bases are unremarkable.? LIVER, GALLBLADDER, AND BILIARY TREE: The liver appears cirrhotic with a nodular border and hypertrophy of the left lobe and caudate. Layering calculi are present in the gallbladder (3:29). Tiny bit of gas seen in gallbladder appears to be vacuum phenomena within stones. These stones were not appreciated on the time of the prior exam PANCREAS: Fatty infiltration of the pancreas.? SPLEEN: Again noted is splenomegaly with the spleen measuring 16.3 cm? ADRENAL GLANDS: Unremarkable.? KIDNEYS AND URETERS: The kidneys are normal in size, shape, and attenuation. No hydronephrosis, hydroureter, or calculi seen. No perinephric stranding. ? BLADDER: Nearly empty, but unremarkable? GASTROINTESTINAL TRACT: Metallic clip again noted in the second portion of duodenum. Again seen are edematous changes throughout the colon with thickening of the lateral conal fascia anterior pararenal fascia. Findings are suggestive of colitis although portal colopathy could produce similar findings. Edematous changes are also seen in the mesentery, unchanged from prior. No free intraperitoneal air. No portal venous gas. No pneumatosis. Appendix unremarkable. ABDOMINAL WALL: No significant hernia is appreciated.? LYMPH NODES: Again seen are prominent retroperitoneal lymph nodes but not grossly VASCULAR: No aortic aneurysm. Splenic vein mildly dilated consistent with elevated portal pressures. PELVIC VISCERA: Surgically removed? OSSEOUS STRUCTURES: Unremarkable. Some mild degenerative changes are seen in the lower thoracic spine. CT/CT abdomen pelvis wo IV con IMPRESSION: 1.? Cirrhotic liver with splenomegaly and evidence of elevated portal pressures. 2.? Cholelithiasis without evidence of cholecystitis. Ultrasound would be useful for further evaluation. 3.? Diffuse colonic wall thickening with pericolonic inflammatory changes suggestive of colitis. Differential diagnosis would include portal colopathy. 4.? Other incidental findings as described above including prominent retroperitoneal lymph nodes with mesenteric edema, fatty infiltration of the pancreas, fatty infiltration of the pancreas and metallic clip in the second portion of the duodenum. ? Fleischner guidelines were followed. Dictated By: Negrito Hayward MD Signed By: Electronically signed by Negrito Hayward MD 08/17/22 1044 Discharge Plan Discharge Clinical Impression: Colitis Patient Disposition: Home, Self-Care Instructions: Colitis (ED) Additional Instructions: Follow up with your primary care provider. Return to the emergency department immediately if your symptoms worsen or if you develop any dizziness, shortness of breath, difficulty breathing, chest pain, blurry vision, loss of vision, nausea, vomiting, abdominal pain, fever, chills, back pain, or any other complaints. Donna un seguimiento con cuenca proveedor de atenci?n primaria. Regrese al de partamento de emergencias de inmediato si kenyon s?ntomas empeoran o si presenta mareos, falta de aire, dificultad para respirar, dolor de pecho, visi?n borrosa, p?rdida de la visi?n, n?useas, v?mitos, dolor abdominal, fiebre, escalofr?os, dolor de espalda o cualquier otras quejas. Prescriptions: New ondansetron 4 mg tablet,disintegrating 4 mg PO Q8H 3 Days Qty: 9 0RF No Action glipizide 5 mg tablet 1 tab PO BID pantoprazole 40 mg tablet,delayed release (DR/EC) 40 mg PO DAILY 30 Days Qty: 30 0RF (DME) blood-glucose meter [FreeStyle Lite Meter] Kit See Rx Instructions .Route Qty: 1 0RF Rx Instructions: As directed (DME) FreeStyle Lite Strips Strip See Rx Instructions .Route Qty: 100 0RF Rx Instructions: As directed (DME) lancets [Lancets,Ultra Thin] Misc See Rx Instructions .Route Qty: 100 0RF Rx Instructions: As directed metformin 1,000 mg tablet 1 tab PO BIDAC lisinopril 5 mg tablet 1 tab PO DAILY Hold Instructions: BP soft, follow up with PCP before resuming Eliquis 5 mg tablet 5 mg PO BID Hold Instructions: Resume on 04/24/22. Rx Instructions: 10mg bid for 6 more days, then decrease to 5mg bid nitrofurantoin monohyd/m-cryst [Macrobid] 100 mg capsule 100 mg PO Q12H 7 Days Qty: 14 0RF Rx Instructions: must administer with a meal/food nadolol 20 mg tablet 20 mg PO DAILY 30 Days Qty: 30 3RF levofloxacin 500 mg tablet 500 mg PO DAILY 7 Days Qty: 7 0RF metronidazole 500 mg tablet 500 mg PO TID 7 Days Qty: 21 0RF morphine 15 mg tablet 15 mg PO Q4-6H PRN (Reason: pain) Qty: 10 0RF Rx Instructions: The patient may ask for partial fill; Partial Fill upon patient request. lactulose 20 gram/30 mL solution 20 g PO TID 30 Days Qty: 2700 1RF (DME) blood pressure test kit-large Kit See Rx Instructions .ROUTE .MEDSUPPLY Qty: 1 Rx Instructions: As directed ferrous sulfate [FeroSul] 325 mg (65 mg iron) tablet 325 mg PO DAILY Ensure Active High Protein Liquid 1 ea PO TID 30 Days Qty: 414 0RF Referrals: [facility] Family Medicine [Provider Group] (Call to establish and follow up with a primary care provider. If you already have a primary care provider, please follow up with them. Llame para establecer y hacer un seguimiento con un proveedor de atenci?n primaria. Si ya tiene un proveedor de atenci?n primaria, donna un seguimiento con ?l.) [facility] Primary [facility] [Provider Group] (Call to establish and follow up with a primary care provider. If you already have a primary care provider, please follow up with them. Llame para establecer y hacer un seguimiento con un proveedor de atenci?n primaria. Si ya tiene un proveedor de atenci?n primaria, donna un seguimiento con ?l.) [facility] Primary [facility] [Provider Group] (Call to establish and follow up with a primary care provider. If you already have a primary care provider, please follow up with them. Llame para establecer y hacer un seguimiento con un proveedor de atenci?n primaria. Si ya tiene un proveedor de atenci?n primaria, donna un seguimiento con ?l.) Stand Alone Forms: Work/School Release Interventions: ED Discharge Assessment Last Done: 08/17/22 11:06 Discharge Date/Time: 08/17/22 11:06 Print Language: Telugu
[2022-08-17] MEDS: Ondansetron ODT 4 MG TAB.RAPDIS TRANSLINGU (09:40)
[2022-08-17 10:18] LABS: Appearance Urine Clear; Color Urine Dark Yellow; Glucose Urine UA >=1000 mg/dL (Negative); Leukocyte Esterase Urine Negative (Negative); Nitrite Urine Negative (Negative); Specific Gravity - Urine >= 1.030 (1.005-1.025); UMIC TRIGGER UACC YES; Urine Blood Negative (Negative); Urine Ketones Negative (Negative); Urine Protein Negative (Neg-Trace)
[2022-08-17 10:20] LABS: Bacteria Urine None Seen (None Seen); Hyaline Casts Urine 0-2 /LPF (0-2); RBC Urine 0-2 /HPF (0-2); Squamous Epithelial Cell Urine 0-2 /HPF (0-2); UACC Culture Trigger YES
[2022-08-17 10:46] VITALS: BP 122/74; PULSE 77; TEMP 36.7; O2SAT 96
== END 2022-08-17 11:06 | disposition home or self-care (01) ==
PROVIDERS: Physician Assistant Medical; Emergency Provider Emergency Medicine
DX: K52.9 Noninfective gastroenteritis and colitis, unspecified (principal); R10.32 Left lower quadrant pain; E11.9 Type 2 diabetes mellitus without complications; K74.60 Unspecified cirrhosis of liver; Z86.711 Personal history of pulmonary embolism; Z79.01 Long term (current) use of anticoagulants; Z79.84 Long term (current) use of oral hypoglycemic drugs; Z79.899 Other long term (current) drug therapy
CPT/HCPCS: 36415; 74176; 80053; 81001; 85025; 87086; 87147; 99284

== ENCOUNTER → 2022-09-02 14:28 | Outpatient (BNVA) | payer OTHER, SELFPAY | PROVIDERS: Visit Provider Internal Medicine | DX: K74.60 Unspecified cirrhosis of liver (principal); I85.00 Esophageal varices without bleeding; R54 Age-related physical debility; Z78.9 Other specified health status | CPT/HCPCS: 99212 ==

== ENCOUNTER → 2022-09-30 13:36 | Outpatient (BNVA) | payer OTHER, SELFPAY | PROVIDERS: Visit Provider Internal Medicine | DX: K74.60 Unspecified cirrhosis of liver (principal); I85.00 Esophageal varices without bleeding; R54 Age-related physical debility; Z78.9 Other specified health status | CPT/HCPCS: 99212 ==

== ENCOUNTER 2022-10-02 12:19 | Outpatient (REF) | payer OTHER, SELFPAY ==
--- NOTE | ~2022-10-02 | US_ITS ---
EXAMINATION: US ABDOMEN LIMITED CLINICAL INFORMATION: Other ascites. COMPARISON: CT abdomen and pelvis 08/17/2022. Ultrasound abdomen complete 04/17/2022. Limited abdominal ultrasound 01/12/2022. TECHNIQUE: Real-time imaging of the right upper quadrant abdominal viscera. FINDINGS: PANCREAS: The pancreas appears unremarkable, without masses or ductal dilatation, with the exception of the tail which is obscured by bowel gas. LIVER: The liver is normal in size. The liver contour is normal. Echogenicity is heterogeneous as well as increased suggesting hepatic steatosis. No focal hepatic lesion. There is no intrahepatic biliary duct dilatation seen. GALLBLADDER: The layering calculi seen on the 08/17/2022 CT scan are not appreciated on this exam. The gallbladder is physiologically distended without evidence of stones, sludge, polyps, wall thickening or pericholecystic fluid. COMMON BILE DUCT: Normal in caliber measuring 0.3 cm in diameter. RIGHT KIDNEY: No hydronephrosis. No renal calculi or focal parenchymal lesions. The kidney measures 11.4 cm in maximum dimension. FREE FLUID: None. US/US abdomen limited IMPRESSION: No ascites is seen.
== END 2022-10-02 12:20 | disposition home or self-care (01) ==
LOC: HO.US 12:19
PROVIDERS: Visit Provider Internal Medicine
DX: R18.8 Other ascites (principal)
CPT/HCPCS: 76705

== ENCOUNTER → 2022-10-28 13:17 | Outpatient (BNVA) | payer OTHER, SELFPAY | PROVIDERS: Visit Provider Internal Medicine | DX: K74.60 Unspecified cirrhosis of liver (principal); I85.00 Esophageal varices without bleeding; R54 Age-related physical debility; Z78.9 Other specified health status | CPT/HCPCS: 99212 ==

== ENCOUNTER 2022-11-12 04:02 | Emergency (ER) | payer OTHER, SELFPAY ==
--- NOTE | ~2022-11-12 | CT_ITS ---
EXAMINATION: CT HEAD WITHOUT CONTRAST CLINICAL INFORMATION: Severe headache. Thrombocytopenia. COMPARISON: None available. TECHNIQUE: Contiguous axial imaging was performed from the skull base to vertex without intravenous administration of contrast. This CT examination was performed using dose optimization techniques as appropriate, variously including the following: *Automated exposure control *Adjustment of mA and/or kV according to patient size (this includes techniques or standardized protocols for targeted exams where dose is matched to indication/reason for exam; i.e. extremities or head) *Use of iterative reconstruction technique DLP: 592 mGy-cm FINDINGS: There is no evidence of acute intracranial hemorrhage or territorial infarction. No abnormal mass effect or midline shift is seen. Pollack to white matter differentiation is well preserved. No extra-axial fluid collections are identified. No hydrocephalus. No significant volume loss. There is no abnormal attenuation within the brain parenchyma. No acute osseous or soft tissue abnormality. The mastoid air cells and visualized portions of the paranasal sinuses are well aerated. CT/CT head/brain wo IV con IMPRESSION: No acute intracranial pathology.
[2022-11-12 04:10] VITALS: BP 138/90; PULSE 118; RESP 16; TEMP 37.1; O2SAT 95; BMI 31.0
[2022-11-12 04:29] LABS: MANUAL DIFF FLAG NO
[2022-11-12 04:31] LABS: Basophils Percent Auto 0.1 % (0-2); Eosinophils Percent Auto 0.2 % (0-4); Hematocrit 33.2 % (42.0-52.0); Hemoglobin 11.3 g/dl (14.0-18.0); Imm Gran Abs Auto 0.04 X10*3/uL (0.00-0.03); Imm Gran Pct Auto 0.4 % (0.0-0.4); Lymphocytes Absolute Auto 0.5 X10*3/uL (1.2-4.9); Lymphocytes Percent Auto 5.5 % (20-40); Mean Corpuscular Hemoglobin 26.3 pg (27.0-33.0); Mean Corpuscular Volume 77.2 fL (80.0-98.0); Mean Platelet Volume 9.7 fL (9.4-12.4); Monocytes Absolute Auto 0.6 X10*3/uL (0.1-1.2); Monocytes Percent Auto 6.3 % (2-11); Neutrophils Absolute Auto 8.1 x10*3/uL (2.0-8.3); Neutrophils Percent Auto 87.5 % (45-73); Red Cell Distribution Width 14.1 % (11.0-16.0); White Blood Count 9.3 X10*3/uL (4.8-10.8)
--- NOTE | 2022-11-12 04:31 | PC.NURSE ---
Pt aox3 at the bedside reporting generalized body ache and headache, 10/10. Labs drawn and sent. IV line started with 20G on the L ac. Pt tolerated well. Pending lab results and physician xavier. Pt aware.
[2022-11-12 04:32] LABS: Platelet Count 65 X10*3/uL (160-400)
[2022-11-12 04:43] LABS: COVID-19 Test Negative (Negative); IDNOW Serial# BCCEAD1C
[2022-11-12 04:47] LABS: IDNOW Serial# 08D9AD1C; Influenza A Negative (Negative); Influenza B2 Negative (Negative)
[2022-11-12 04:49] LABS: Alanine Aminotransferase 46 U/L (0-40); Albumin Level 3.7 g/dL (3.5-5.0); Alkaline Phosphatase 168 U/L (39-117); Anion Gap 13 (12-20); Aspartate Amino Transferase 42 U/L (5-37); Bilirubin Total 1.6 mg/dL (0.0-1.0); Blood Urea Nitrogen 9 mg/dL (9-16); Calcium 8.8 mg/dL (8.4-10.2); Carbon Dioxide 22 mmol/L (22-29); Chloride 106 mmol/L (96-108); Estimated Glomerular Filt Rate > 60; Glucose Random 261 mg/dL (60-115); Potassium 3.7 mmol/L (3.3-5.1); Sodium 137 mmol/L (135-145); Total Protein 6.5 g/dL (6.5-8.0)
--- NOTE | 2022-11-12 04:54 | ED.GENADULT ---
HPI - General Adult General Chief complaint: Nausea/Vomiting/Diarrhea Stated complaint: leg pain, unable to hold in stool Time Seen by Provider: 11/12/22 04:45 Source: patient Mode of arrival: ambulatory Limitations: no limitations History of Present Illness HPI narrative: Patient 57 years old with history of alcoholic cirrhosis, type 2 diabetes, anemia, GERD, history of bilateral PE was on Eliquis hold for now comes in for multiple complaints including body aches back ache like pain diarrhea and the headache no recent fall or head injury never had similar headache before notices headache just prior to arrival no nausea no vomiting Related Data Home Medications Medication Instructions Recorded Confirmed glipizide 5 mg tablet 1 tab PO BID 04/01/22 06/29/22 apixaban 5 mg tablet (Eliquis) 5 mg PO BID 04/17/22 07/02/22 lisinopril 5 mg tablet 1 tab PO DAILY 04/17/22 06/29/22 metformin 1,000 mg tablet 1 tab PO BIDAC 04/17/22 06/29/22 blood pressure test kit-large #1 ea 05/26/22 ferrous sulfate 325 mg (65 mg 325 mg PO DAILY 05/26/22 06/29/22 iron) tablet (FeroSul) diclofenac sodium 1 % topical gel 2 g topical QID 09/02/22 docusate sodium 50 mg capsule 50 mg PO DAILY 09/02/22 glucose 4 gram chewable tablet 4 g PO Q15M PRN 09/02/22 (Dex4 Glucose) Previous Rx's Medication Instructions Recorded blood sugar diagnostic (FreeStyle #100 ea 01/15/22 Lite Strips) blood-glucose meter (FreeStyle #1 ea 01/15/22 Lite Meter kit) lancets (Lancets,Ultra Thin) #100 ea 01/15/22 pantoprazole 40 mg tablet,delayed 40 mg PO DAILY 30 days #30 tabs 01/15/22 release food supplemt, lactose-reduced 1 ea PO TID 30 days #414 mL 05/26/22 (Ensure Active High Protein oral liquid) ondansetron 4 mg disintegrating 4 mg PO Q8H 3 days #9 tabs 08/17/22 tablet lactulose 20 gram/30 mL oral 20 g (30 mL) PO TID 1 month #2,700 09/02/22 solution mL nadolol 20 mg tablet 20 mg PO DAILY 30 days #30 tabs 02/01/23 rifaximin 550 mg tablet 550 mg PO BID 30 days #60 tabs 09/03/22 Allergies Allergy/AdvReac Type Severity Reaction Status Date / Time Penicillins [PCN] AdvReac Angioedema Verified 10/28/22 13:34 Review of Systems Review of Systems: Yes all other systems are reviewed and are negative PMFSH Past Medical History Medical History Bacteremia Cirrhosis Diabetes GERD (gastroesophageal reflux disease) Pancytopenia Pulmonary emboli Surgical History History of esophagogastroduodenoscopy (EGD) Hx of colonoscopy Family History Family History Father CVA (cerebral vascular accident) Social History Social History Household Members: Family Housing: House Do you presently have visiting nurse or other home services: No Alcohol intake: never Patient Tobacco Use Status: Never used Tobacco Smoked in Last 30 Days: No e-Cigarette/Vaping Use: Never Used Second Hand Smoke Exposure: No Use of substances other than those prescribed or required for medical reasons: No Advance Directives: Yes Advance Directives on File: Yes Advance Directives Date on File: 04/02/22 service: No Current occupational status: employed Physical Exam ED Vital Signs: Vital Signs - 24 hr 11/12/22 04:10 11/12/22 06:39 Temperature 98.8 F 99.0 F Pulse Rate 118 H 106 H Respiratory Rate 16 14 Blood Pressure 138/90 H 111/72 Pulse Oximetry 95 95 Oxygen Delivery Method Room Air Room Air BMI result Body Mass Index 31.0 Medical Decision Making Medical Decision Making MDM Narrative: Patient with new onset headache with history of thrombocytopenia will get head CT to rule out subarachnoid hemorrhage patient also complaining of depression with multiple other complaints denies any SI Head CT is negative for acute patient looks very comfortable ambulatory denies any headache and during stay in the ER now Lab Data MDM Lab Attestation statement: I reviewed the patient's lab results. 11/12/22 04:23 11/12/22 04:23 Labs: Lab Results 11/12/22 11/12/22 11/12/22 Range/Units 04:23 04:23 04:23 WBC 9.3 (4.8-10.8) X10*3/uL RBC 4.30 L (4.60-5.80) X10*6/uL Hgb 11.3 L (14.0-18.0) g/dl Hct 33.2 L (42.0-52.0) % MCV 77.2 L (80.0-98.0) fL MCH 26.3 L (27.0-33.0) pg MCHC 34.0 (31.0-36.0) g/dl RDW 14.1 (11.0-16.0) % Plt Count 65 L D (160-400) X10*3/uL MPV 9.7 (9.4-12.4) fL Immature Gran % (Auto) 0.4 (0.0-0.4) % Neut % (Auto) 87.5 H (45-73) % Lymph % (Auto) 5.5 L (20-40) % [place] % (Auto) 6.3 (2-11) % Eos % (Auto) 0.2 (0-4) % Baso % (Auto) 0.1 (0-2) % Lymph # (Auto) 0.5 L (1.2-4.9) X10*3/uL [place] # (Auto) 0.6 (0.1-1.2) X10*3/uL Eos # (Auto) 0.0 (0.0-0.4) X10*3/uL Baso # (Auto) 0.0 (0.0-0.2) X10*3/uL Abs Immat Gran (auto) 0.04 H (0.00-0.03) X10*3/uL Absolute Neuts (auto) 8.1 (2.0-8.3) x10*3/uL Absolute Nucleated RBC 0.000 (0.0-0.012) X10*3/uL Nucleated RBC % (auto) 0.0 (0.0-0.2) /100WBC Sodium 137 (135-145) mmol/L Potassium 3.7 (3.3-5.1) mmol/L Chloride 106 (96-108) mmol/L Carbon Dioxide 22 (22-29) mmol/L Anion Gap 13 (12-20) BUN 9 (9-16) mg/dL Creatinine 0.72 (0.5-1.4) mg/dL Estim Creat Clear Calc 112.0 Estimated GFR > 60 Random Glucose 261 H (60-115) mg/dL Calcium 8.8 (8.4-10.2) mg/dL Total Bilirubin 1.6 H (0.0-1.0) mg/dL AST 42 H (5-37) U/L ALT 46 H (0-40) U/L Alkaline Phosphatase 168 H (39-117) U/L Total Protein 6.5 (6.5-8.0) g/dL Albumin 3.7 (3.5-5.0) g/dL COVID-19 (JACKIE) (Negative) COVID-19 Clin Com Influenza Type A (DEMARCUS) Negative (Negative) Influenza Type B (DEMARCUS) Negative (Negative) Influenza A & B Note See Note 11/12/22 Range/Units 04:23 WBC (4.8-10.8) X10*3/uL RBC (4.60-5.80) X10*6/uL Hgb (14.0-18.0) g/dl Hct (42.0-52.0) % MCV (80.0-98.0) fL MCH (27.0-33.0) pg MCHC (31.0-36.0) g/dl RDW (11.0-16.0) % Plt Count (160-400) X10*3/uL MPV (9.4-12.4) fL Immature Gran % (Auto) (0.0-0.4) % Neut % (Auto) (45-73) % Lymph % (Auto) (20-40) % [place] % (Auto) (2-11) % Eos % (Auto) (0-4) % Baso % (Auto) (0-2) % Lymph # (Auto) (1.2-4.9) X10*3/uL [place] # (Auto) (0.1-1.2) X10*3/uL Eos # (Auto) (0.0-0.4) X10*3/uL Baso # (Auto) (0.0-0.2) X10*3/uL Abs Immat Gran (auto) (0.00-0.03) X10*3/uL Absolute Neuts (auto) (2.0-8.3) x10*3/uL Absolute Nucleated RBC (0.0-0.012) X10*3/uL Nucleated RBC % (auto) (0.0-0.2) /100WBC Sodium (135-145) mmol/L Potassium (3.3-5.1) mmol/L Chloride (96-108) mmol/L Carbon Dioxide (22-29) mmol/L Anion Gap (12-20) BUN (9-16) mg/dL Creatinine (0.5-1.4) mg/dL Estim Creat Clear Calc Estimated GFR Random Glucose (60-115) mg/dL Calcium (8.4-10.2) mg/dL Total Bilirubin (0.0-1.0) mg/dL AST (5-37) U/L ALT (0-40) U/L Alkaline Phosphatase (39-117) U/L Total Protein (6.5-8.0) g/dL Albumin (3.5-5.0) g/dL COVID-19 (JACKIE) Negative (Negative) COVID-19 Clin Com See Note Influenza Type A (DEMARCUS) (Negative) Influenza Type B (DEMARCUS) (Negative) Influenza A & B Note Discharge Plan Discharge Clinical Impression: Head ache, Depression Patient Disposition: Home, Self-Care Instructions: Depression (ED), General Headache (ED) Additional Instructions: Rest at home Taking medication as prescribed and follow with PCP Tylenol for pain/headache Prescriptions: No Action rifaximin 550 mg tablet 550 mg PO BID 30 Days Qty: 60 1RF glipizide 5 mg tablet 1 tab PO BID pantoprazole 40 mg tablet,delayed release (DR/EC) 40 mg PO DAILY 30 Days Qty: 30 0RF (DME) blood-glucose meter [FreeStyle Lite Meter] Kit See Rx Instructions .Route Qty: 1 0RF Rx Instructions: As directed (DME) FreeStyle Lite Strips Strip See Rx Instructions .Route Qty: 100 0RF Rx Instructions: As directed (DME) lancets [Lancets,Ultra Thin] Misc See Rx Instructions .Route Qty: 100 0RF Rx Instructions: As directed metformin 1,000 mg tablet 1 tab PO BIDAC lisinopril 5 mg tablet 1 tab PO DAILY Hold Instructions: BP soft, follow up with PCP before resuming Eliquis 5 mg tablet 5 mg PO BID Hold Instructions: Resume on 04/24/22. Rx Instructions: 10mg bid for 6 more days, then decrease to 5mg bid ondansetron 4 mg tablet,disintegrating 4 mg PO Q8H 3 Days Qty: 9 0RF (DME) blood pressure test kit-large Kit See Rx Instructions .ROUTE .MEDSUPPLY Qty: 1 Rx Instructions: As directed ferrous sulfate [FeroSul] 325 mg (65 mg iron) tablet 325 mg PO DAILY Ensure Active High Protein Liquid 1 ea PO TID 30 Days Qty: 414 0RF glucose [Dex4 Glucose] 4 gram tablet,chewable 4 g PO Q15M PRN Rx Instructions: until symptoms of low blood sugar are controlled docusate sodium 50 mg capsule 50 mg PO DAILY diclofenac sodium 1 % gel 2 g topical QID nadolol 20 mg tablet 20 mg PO DAILY 30 Days Qty: 30 3RF lactulose 20 gram/30 mL solution 20 g PO TID 30 Days Qty: 2700 1RF Stand Alone Forms: Work/School Release Interventions: ED Discharge Assessment Last Done: 11/12/22 06:40 Discharge Date/Time: 11/12/22 06:41
[2022-11-12 06:39] VITALS: BP 111/72; PULSE 106; RESP 14; TEMP 37.2; O2SAT 95
--- NOTE | 2022-11-12 06:40 | PC.NURSE ---
IV line removed. Pt tolerated well. Discharge instructions reviewed with pt. Pt verbalizes understanding.
== END 2022-11-12 06:41 | disposition home or self-care (01) ==
PROVIDERS: Emergency Provider Internal Medicine; PCP Internal Medicine
DX: R51.9 Headache, unspecified (principal); F33.1 Major depressive disorder, recurrent, moderate; Z20.822 Contact with and (suspected) exposure to COVID-19; Z20.828 Contact with and (suspected) exposure to other viral communicable diseases; Z79.899 Other long term (current) drug therapy; Z86.711 Personal history of pulmonary embolism; Z79.01 Long term (current) use of anticoagulants
CPT/HCPCS: 36415; 70450; 80053; 85025; 87502; 87635; 99284

== ENCOUNTER 2022-12-18 13:47 | Emergency (ER) | payer OTHER, SELFPAY ==
--- NOTE | ~2022-12-18 | XR_ITS ---
EXAMINATION: XR SHOULDER, LEFT CLINICAL INFORMATION: Left shoulder pain. COMPARISON: None available. TECHNIQUE: Three views of the left shoulder. FINDINGS: Nonacute deformity seen at the level the greater tuberosity. Moderate humeral acromial degenerative joint changes are seen. The left glenohumeral joint and acromioclavicular joint are intact. The visualized left ribs are intact. XR/XR shoulder LT min 2V IMPRESSION: Nonacute deformity in the humeral head suggesting Hill-Sachs deformity from prior dislocation. Correlate with patient history and physical exam. Degenerative joint changes without overt acute abnormality.
[2022-12-18 14:05] VITALS: BP 136/81; PULSE 84; RESP 16; TEMP 36.6; O2SAT 97; BMI 29.3
--- NOTE | 2022-12-18 14:12 | ED.EXTPRO ---
HPI - Extremity Problem General Chief complaint: Extremity Injury, Upper Stated complaint: L Shoulder Arm Pain S/P Work Injury Time Seen by Provider: 12/18/22 14:02 Source: patient Mode of arrival: ambulatory Limitations: no limitations History of Present Illness HPI Narrative: 57-year-old male with a past medical history of anemia, GERD, DM, and PE on Eliquis presents the emergency department after sustaining a mechanical fall onto his left shoulder at work. He reports difficulty with range of motion and weakness of the LUE due to discomfort. He denies any head strike, loss of consciousness, nausea, vomiting, confusion after falling. At this time he denies any paresthesias, chest pain, shortness of breath, abdominal pain, headache, or vision changes. Pertinent positives and negatives discussed in HPI. Related Data Home Medications Medication Instructions Recorded Confirmed glipizide 5 mg tablet 1 tab PO BID 04/01/22 06/29/22 apixaban 5 mg tablet (Eliquis) 5 mg PO BID 04/17/22 07/02/22 lisinopril 5 mg tablet 1 tab PO DAILY 04/17/22 06/29/22 metformin 1,000 mg tablet 1 tab PO BIDAC 04/17/22 06/29/22 blood pressure test kit-large #1 ea 05/26/22 ferrous sulfate 325 mg (65 mg 325 mg PO DAILY 05/26/22 06/29/22 iron) tablet (FeroSul) diclofenac sodium 1 % topical gel 2 g topical QID 09/02/22 docusate sodium 50 mg capsule 50 mg PO DAILY 09/02/22 glucose 4 gram chewable tablet 4 g PO Q15M PRN 09/02/22 (Dex4 Glucose) Previous Rx's Medication Instructions Recorded blood sugar diagnostic (FreeStyle #100 ea 01/15/22 Lite Strips) blood-glucose meter (FreeStyle #1 ea 01/15/22 Lite Meter kit) lancets (Lancets,Ultra Thin) #100 ea 01/15/22 pantoprazole 40 mg tablet,delayed 40 mg PO DAILY 30 days #30 tabs 01/15/22 release food supplemt, lactose-reduced 1 ea PO TID 30 days #414 mL 05/26/22 (Ensure Active High Protein oral liquid) ondansetron 4 mg disintegrating 4 mg PO Q8H 3 days #9 tabs 08/17/22 tablet lactulose 20 gram/30 mL oral 20 g (30 mL) PO TID 1 month #2,700 09/02/22 solution mL nadolol 20 mg tablet 20 mg PO DAILY 30 days #30 tabs 09/02/22 rifaximin 550 mg tablet 550 mg PO BID 30 days #60 tabs 12/07/22 Allergies Allergy/AdvReac Type Severity Reaction Status Date / Time Penicillins [PCN] AdvReac Angioedema Verified 10/28/22 13:34 Review of Systems Review of Systems: Yes all other systems are reviewed and are negative [facility] Past Medical History Attestation statement: The following information was validated with the patient. Source: old records reviewed and obtained from family Medical History Bacteremia Cirrhosis Diabetes GERD (gastroesophageal reflux disease) Pancytopenia Pulmonary emboli Surgical History History of esophagogastroduodenoscopy (EGD) Hx of colonoscopy Family History Family History Father CVA (cerebral vascular accident) Social History Social History Household Members: Family Housing: House Do you presently have visiting nurse or other home services: No Alcohol intake: never Patient Tobacco Use Status: Never used Tobacco e-Cigarette/Vaping Use: Never Used Second Hand Smoke Exposure: No Advance Directives: Yes Advance Directives on File: Yes Advance Directives Date on File: 04/02/22 service: No Current occupational status: employed Physical Exam Vital Signs: Vital Signs: Last Vital Signs Temp 97.9 F 12/18/22 14:05 Pulse 62 12/18/22 15:16 Resp 18 12/18/22 15:16 BP 158/55 H 12/18/22 15:16 Pulse Ox 95 12/18/22 15:16 O2 Del Method Room Air 12/18/22 15:16 BMI result Body Mass Index 29.3 Nursing notes and vital signs reviewed. GENERAL APPEARANCE: A&0 x 4, generally well appearing, no acute distress HENMT: Normal to inspection, atraumatic, face symmetrical. Normal external ears, nose, and oropharynx clear. EYE: PERRLA, EOM intact, structures appear normal NECK: Supple without lymphadenopathy. No stiffness or restricted ROM. CHEST: Normal to inspection HEART: Normal rate and regular rhythm, normal S1/S2, no M/R/G LUNGS: LS CTA, moving air well. Able to speak in complete sentences. No crackles, wheezes, or rhonchi auscultated ABDOMEN: Soft, nontender, nondistended. Normal bowel sounds noted BACK: No CVAT, no obvious deformity EXTREMITIES: Difficulty with ROM of LUE due to pain. No cyanosis, clubbing, or edema. Normal capillary refill. NEUROLOGICAL: Alert and oriented. CN not formally tested but appearing grossly intact. Observed to ambulate with normal gait. Cognition normal SKIN: Warm and dry without any lesions, rash, or visible sores PSYCH: Cooperative, normal affect, normal thought process Medications Administered Discontinued Medications Generic Name Dose Route Start Last Admin Trade Name Freq PRN Reason Stop Dose Admin Acetaminophen 650 mg 12/18/22 14:10 12/18/22 14:22 Acetaminophen 325 Mg Tablet PO 12/18/22 14:11 650 mg ONCE ONE Administration Medical Decision Making Medical Decision Making MDM Narrative: 1410: Old records reviewed for previous imaging, lab studies, ECGs, or notes. Additionally to be obtained from patient's friend. Patient was assessed the emergency department. No acute distress or toxicity noted. Patient is A&O x4, LS CTA, ANGUIANO x4 with good strength. Based on HPI and PE plan for tylenol for discomfort and Lt shoulder xr to rule out fracture or dislocation. 1530: I have independently interpreted the left shoulder x-ray as negative for acute dislocations or fractures. Patient's symptoms consistent with a left shoulder contusion due to trauma from fall. Low suspicion at this time for tendon or ligament damage, fracture, dislocation, infection, malignancy. Patient is safe for discharge at this time with plan for [id number] Tylenol for discomfort with dosing as per packaging. HPI, PE, diagnostics, and plan discussed with patient and family with no unanswered questions at this time. Strict return precautions given to return to the emergency department with new, worsening, or concerning emergent symptoms. Recommended to follow-up with there primary care provider in 24-48 hours for further treatment and management. Differential Diagnosis see above Independent Interpretation I performed an independent interpretation of an: Plain X-Ray Interpretation: See MDM Radiology Impression Discussion of test interpretation with radiology: I have reviewed the radiologist's reading. Discharge Plan Discharge Clinical Impression: Contusion of left shoulder Patient Disposition: Home, Self-Care Instructions: Contusion in Adults (ED), R.I.C.E. Treatment (ED) Additional Instructions: Your seen in the emergency department for concerns Of left shoulder pain. Your x-ray showed no new fractures or dislocations. You are safe for discharge at this time with plan for management of fever or discomfort with [id number] Tylenol with dosing as per packaging. DO NOT USE ibuprofen or naproxen as you are on a blood thinner. Please return to the emergency department with new, worsening, or concerning emergent symptoms. Recommended to follow-up with your primary care provider in 24-48 hours for further treatment and management. Thank you for choosing [employer]. Prescriptions: No Action rifaximin 550 mg tablet 550 mg PO BID 30 Days Qty: 60 1RF glipizide 5 mg tablet 1 tab PO BID pantoprazole 40 mg tablet,delayed release (DR/EC) 40 mg PO DAILY 30 Days Qty: 30 0RF (DME) blood-glucose meter [FreeStyle Lite Meter] Kit See Rx Instructions .Route Qty: 1 0RF Rx Instructions: As directed (DME) FreeStyle Lite Strips Strip See Rx Instructions .Route Qty: 100 0RF Rx Instructions: As directed (DME) lancets [Lancets,Ultra Thin] Misc See Rx Instructions .Route Qty: 100 0RF Rx Instructions: As directed metformin 1,000 mg tablet 1 tab PO BIDAC lisinopril 5 mg tablet 1 tab PO DAILY Hold Instructions: BP soft, follow up with PCP before resuming Eliquis 5 mg tablet 5 mg PO BID Hold Instructions: Resume on 04/24/22. Rx Instructions: 10mg bid for 6 more days, then decrease to 5mg bid ondansetron 4 mg tablet,disintegrating 4 mg PO Q8H 3 Days Qty: 9 0RF (DME) blood pressure test kit-large Kit See Rx Instructions .ROUTE .MEDSUPPLY Qty: 1 Rx Instructions: As directed ferrous sulfate [FeroSul] 325 mg (65 mg iron) tablet 325 mg PO DAILY Ensure Active High Protein Liquid 1 ea PO TID 30 Days Qty: 414 0RF glucose [Dex4 Glucose] 4 gram tablet,chewable 4 g PO Q15M PRN Rx Instructions: until symptoms of low blood sugar are controlled docusate sodium 50 mg capsule 50 mg PO DAILY diclofenac sodium 1 % gel 2 g topical QID nadolol 20 mg tablet 20 mg PO DAILY 30 Days Qty: 30 3RF lactulose 20 gram/30 mL solution 20 g PO TID 30 Days Qty: 2700 1RF Referrals: Tomasa Harry MD [Primary Care Provider] - Stand Alone Forms: Work/School Release Print Language: Irish
[2022-12-18] MEDS: Acetaminophen 325 MG TABLET 650 MG PO (14:22)
[2022-12-18 15:16] VITALS: BP 158/55; PULSE 62; RESP 18; O2SAT 95
== END 2022-12-18 15:46 | disposition home or self-care (01) ==
PROVIDERS: Emergency Provider Emergency Medicine Emergency Medical Services; PCP Internal Medicine
DX: S40.012A Contusion of left shoulder, initial encounter (principal); M25.512 Pain in left shoulder; W01.0XXA Fall on same level from slipping, tripping and stumbling without subsequent striking against object, initial encounter; Y93.9 Activity, unspecified; Y92.9 Unspecified place or not applicable; Y99.0 Civilian activity done for income or pay; Z79.899 Other long term (current) drug therapy
CPT/HCPCS: 73030; 99283

== ENCOUNTER → 2022-12-30 15:00 | Outpatient (BNVA) | payer OTHER, SELFPAY | PROVIDERS: PCP Internal Medicine; Referring Provider Internal Medicine; Visit Provider Internal Medicine | DX: Z51.81 Encounter for therapeutic drug level monitoring (principal); K74.60 Unspecified cirrhosis of liver; F10.90 Alcohol use, unspecified, uncomplicated; E11.9 Type 2 diabetes mellitus without complications; D64.9 Anemia, unspecified; K21.9 Gastro-esophageal reflux disease without esophagitis; I26.99 Other pulmonary embolism without acute cor pulmonale; Z79.01 Long term (current) use of anticoagulants | CPT/HCPCS: 99211 ==

== ENCOUNTER 2023-01-03 22:32 | Emergency (ER) | payer OTHER, SELFPAY ==
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
[2023-01-03 22:44] VITALS: BP 127/76; PULSE 93; RESP 18; TEMP 36.6; O2SAT 96; BMI 31.4
[2023-01-03 23:46] LABS: MANUAL DIFF FLAG NO
[2023-01-03 23:48] LABS: Basophils Percent Auto 0.2 % (0-2); Eosinophils Absolute Auto 0.1 X10*3/uL (0.0-0.4); Eosinophils Percent Auto 2.3 % (0-4); Hematocrit 35.2 % (42.0-52.0); Hemoglobin 11.5 g/dl (14.0-18.0); Imm Gran Abs Auto 0.01 X10*3/uL (0.00-0.03); Imm Gran Pct Auto 0.2 % (0.0-0.4); Lymphocytes Absolute Auto 0.7 X10*3/uL (1.2-4.9); Lymphocytes Percent Auto 12.2 % (20-40); Mean Corpuscular HGB Conc 32.7 g/dl (31.0-36.0); Mean Corpuscular Hemoglobin 26.2 pg (27.0-33.0); Mean Corpuscular Volume 80.2 fL (80.0-98.0); Mean Platelet Volume 9.1 fL (9.4-12.4); Monocytes Absolute Auto 0.5 X10*3/uL (0.1-1.2); Monocytes Percent Auto 8.5 % (2-11); Neutrophils Absolute Auto 4.1 x10*3/uL (2.0-8.3); Neutrophils Percent Auto 76.6 % (45-73); Red Blood Count 4.39 X10*6/uL (4.60-5.80); Red Cell Distribution Width 15.8 % (11.0-16.0); White Blood Count 5.3 X10*3/uL (4.8-10.8)
[2023-01-03 23:49] LABS: Platelet Count 83 X10*3/uL (160-400)
[2023-01-04 00:01] LABS: Alanine Aminotransferase 38 U/L (0-40); Albumin Level 3.5 g/dL (3.5-5.0); Alkaline Phosphatase 162 U/L (39-117); Anion Gap 12 (12-20); Aspartate Amino Transferase 36 U/L (5-37); Bilirubin Total 1.6 mg/dL (0.0-1.0); Blood Urea Nitrogen 9 mg/dL (9-16); Calcium 8.6 mg/dL (8.4-10.2); Carbon Dioxide 24 mmol/L (22-29); Chloride 106 mmol/L (96-108); Creatinine Clr Calc Pharmacy 117.5; Estimated Glomerular Filt Rate > 60; Glucose Random 200 mg/dL (60-115); Lipase 8 U/L (8-78); Potassium 3.7 mmol/L (3.3-5.1); Sodium 138 mmol/L (135-145); Total Protein 6.4 g/dL (6.5-8.0)
[2023-01-04 00:03] LABS: Color Urine Dark Yellow; Glucose Urine UA 250 mg/dL (Negative); Leukocyte Esterase Urine Moderate (2+) (Negative); Nitrite Urine Negative (Negative); PH 5.5 (5.0-9.0); Specific Gravity - Urine >= 1.030 (1.005-1.025); UMIC TRIGGER UACC YES; Urine Blood Moderate (2+) (Negative); Urine Ketones Trace mg/dL (Negative); Urine Protein 30 (1+) mg/dL (Neg-Trace)
[2023-01-04 00:04] LABS: Bacteria Urine 2+ (None Seen); UACC Culture Trigger YES; WBC Urine >50 /HPF (0-5)
[2023-01-04 00:06] LABS: Appearance Urine Clear
[2023-01-04 01:20] VITALS: BP 129/82; PULSE 90; RESP 18; TEMP 36.7; O2SAT 96
[2023-01-04 02:00] VITALS: BP 130/75; PULSE 87; RESP 18; TEMP 37; O2SAT 97
--- NOTE | 2023-01-04 02:15 | ED_ITS ---
HPI - Abdominal Pain General Chief Complaint: Abdominal Pain Stated Complaint: abd pain/dizziness Time Seen by Provider: 01/04/23 01:48 Source: patient Mode of arrival: ambulatory Limitations: no limitations History of Present Illness HPI narrative: 57-year-old male came in for evaluation of abdominal pain. Abdominal pain started 2 days ago mid/left upper quadrant abdominal pain, pain is described as constant wane and waxes sometimes, pain is associated with nausea but no vomiting and nonbloody watery diarrhea. No fever, no chills, passing flatus, no blood per rectum. Never had intra-abdominal surgery history. Related Data Home Medications Medication Instructions Recorded Confirmed glipizide 5 mg tablet 1 tab PO BID 04/01/22 06/29/22 apixaban 5 mg tablet (Eliquis) 5 mg PO BID 04/17/22 07/02/22 lisinopril 5 mg tablet 1 tab PO DAILY 04/17/22 06/29/22 metformin 1,000 mg tablet 1 tab PO BIDAC 04/17/22 06/29/22 blood pressure test kit-large #1 ea 05/26/22 ferrous sulfate 325 mg (65 mg 325 mg PO DAILY 05/26/22 06/29/22 iron) tablet (FeroSul) diclofenac sodium 1 % topical gel 2 g topical QID 09/02/22 docusate sodium 50 mg capsule 50 mg PO DAILY 09/02/22 glucose 4 gram chewable tablet 4 g PO Q15M PRN 09/02/22 (Dex4 Glucose) Previous Rx's Medication Instructions Recorded blood sugar diagnostic (FreeStyle #100 ea 01/15/22 Lite Strips) blood-glucose meter (FreeStyle #1 ea 01/15/22 Lite Meter kit) lancets (Lancets,Ultra Thin) #100 ea 01/15/22 pantoprazole 40 mg tablet,delayed 40 mg PO DAILY 30 days #30 tabs 01/15/22 release food supplemt, lactose-reduced 1 ea PO TID 30 days #414 mL 05/26/22 (Ensure Active High Protein oral liquid) ondansetron 4 mg disintegrating 4 mg PO Q8H 3 days #9 tabs 08/17/22 tablet lactulose 20 gram/30 mL oral 20 g (30 mL) PO TID 1 month #2,700 09/02/22 solution mL nadolol 20 mg tablet 20 mg PO DAILY 30 days #30 tabs 09/02/22 rifaximin 550 mg tablet 550 mg PO BID 30 days #60 tabs 12/07/22 Allergies Allergy/AdvReac Type Severity Reaction Status Date / Time Penicillins [PCN] AdvReac Angioedema Verified 01/03/23 22:43 Review of Systems Review of Systems All other systems are reviewed and are negative Constitutional: Reports as per HPI and Reports no additional constitutional complaints Eyes: Reports as per HPI and Reports no additional eye complaints Reports system reviewed and no additional complaints, except as documented Cardiovascular: Reports as per HPI and Reports no additional cardiovascular complaints Respiratory: Reports as per HPI and Reports no additional respiratory complaints Gastrointestinal: Reports as per HPI and Reports no additional gastrointestinal complaints Genitourinary: Reports no additional female genitourinary complaints Musculoskeletal: Reports no additional musculoskeletal complaints Skin/Breast: Reports system reviewed and no additional complaints, except as docu Psychiatric: Reports no additional psychiatric complaints Endocrine: Reports no additional endocrine complaints Hematologic/Lymphatic: Reports no additional hematologic/lymphatic complaints Allergic/Immunologic: Reports no additional allergic/immunologic complaints Reports system reviewed and no additional complaints, except as documented and Reports Abnormal speech present [facility] Past Medical History Medical History Bacteremia Cirrhosis Diabetes GERD (gastroesophageal reflux disease) Pancytopenia Pulmonary emboli Surgical History History of esophagogastroduodenoscopy (EGD) Hx of colonoscopy Family History Family History Father CVA (cerebral vascular accident) Social History Social History Household Members: Family Housing: House Do you presently have visiting nurse or other home services: No Alcohol intake: never Patient Tobacco Use Status: Never used Tobacco e-Cigarette/Vaping Use: Never Used Second Hand Smoke Exposure: No Advance Directives: Yes Advance Directives on File: Yes Advance Directives Date on File: 04/02/22 service: No Current occupational status: employed Physical Exam ED Vital Signs: Vital Signs - 24 hr 01/03/23 22:44 01/04/23 01:20 Temperature 97.8 F 98.1 F Pulse Rate 93 90 Respiratory Rate 18 18 Blood Pressure 127/76 129/82 Pulse Oximetry 96 96 Oxygen Delivery Method Room Air Room Air BMI result Body Mass Index 31.4 Vital signs have been reviewed as appeared to be correct. Blood pressure normal. Heart rate normal. Respiration rate normal. Temperature normal. Oxygen saturation normal. Appearance: Alert. Oriented X3. No acute distress. Head: Normal external exam. Normocephalic. Atraumatic. No Nichols signs noted. No raccoon eyes noted Eyes: PERRLA. EOMI. Conjunctiva and sclera normal. Eyelids normal. ENT: TM's Normal. Pharynx normal. Uvula midline. Moist mucous membranes. No trismus noted. No drooling noted. No muffled voice noted. Neck: Normal inspection. Neck supple. FROM. No adenopathy. Thyroid Normal. No meningeal signs. No neck mass noted. CVS: Normal heart rate and rhythm. Heart sound normal. No murmurs noted. Pulses normal throughout. Respiratory: No respiratory distress. Painless inspiration. Breath sounds normal. No wheezes/rales/rhonchi noted. Chest nontender. No accessory muscle usage noted or decreased air movement noted. Abdomen: Soft and nontender. Bowel sounds normal in all 4 quadrants. No distention noted. No organomegaly noted. No visible injury noted. Back: No CVA tenderness. Full range of motion noted. Skin: Skin warm and dry. Normal skin color. Normal skin turgor. No rashes/lesions/lacerations noted. Extremities: No lower extremity edema. Extremities exhibit normal range of motion. Extremities nontender. Neuro: Oriented X 3. Cranial nerve exam: II-XII are grossly intact No motor deficit. No sensory deficit. Reflexes normal. Course Course Course Narrative: 57-year-old male came in with abdominal pain, nausea, vomiting, nonbloody watery diarrhea and occasional headache with dizziness, patient received IV hydration and Zofran patient feels better and able to tolerate p.o. intake. Medical Decision Making Differential Diagnosis Differential Diagnoses: The differential diagnosis associated with the presentation includes (Pancreatitis, colitis, diverticulitis, appendicitis, electrolyte abnormalities, UTI, severe anemia.) Admission/Observation Consideration of admission/observation: Escalation of care including admission/observation considered Lab Data MDM Lab Attestation statement: I reviewed the patient's lab results. 01/03/23 23:39 01/03/23 23:39 Labs: Lab Results 01/03/23 01/03/23 01/03/23 Range/Units 23:39 23:39 23:46 WBC 5.3 (4.8-10.8) X10*3/uL RBC 4.39 L (4.60-5.80) X10*6/uL Hgb 11.5 L (14.0-18.0) g/dl Hct 35.2 L (42.0-52.0) % MCV 80.2 (80.0-98.0) fL MCH 26.2 L (27.0-33.0) pg MCHC 32.7 (31.0-36.0) g/dl RDW 15.8 (11.0-16.0) % Plt Count 83 L D (160-400) X10*3/uL MPV 9.1 L (9.4-12.4) fL Immature Gran % (Auto) 0.2 (0.0-0.4) % Neut % (Auto) 76.6 H (45-73) % Lymph % (Auto) 12.2 L (20-40) % Leake % (Auto) 8.5 (2-11) % Eos % (Auto) 2.3 (0-4) % Baso % (Auto) 0.2 (0-2) % Lymph # (Auto) 0.7 L (1.2-4.9) X10*3/uL Leake # (Auto) 0.5 (0.1-1.2) X10*3/uL Eos # (Auto) 0.1 (0.0-0.4) X10*3/uL Baso # (Auto) 0.0 (0.0-0.2) X10*3/uL Abs Immat Gran (auto) 0.01 (0.00-0.03) X10*3/uL Absolute Neuts (auto) 4.1 (2.0-8.3) x10*3/uL Absolute Nucleated RBC 0.000 (0.0-0.012) X10*3/uL Nucleated RBC % (auto) 0.0 (0.0-0.2) /100WBC Sodium 138 (135-145) mmol/L Potassium 3.7 (3.3-5.1) mmol/L Chloride 106 (96-108) mmol/L Carbon Dioxide 24 (22-29) mmol/L Anion Gap 12 (12-20) BUN 9 (9-16) mg/dL Creatinine 0.69 (0.5-1.4) mg/dL Estim Creat Clear Calc 117.5 Estimated GFR > 60 Random Glucose 200 H (60-115) mg/dL Calcium 8.6 (8.4-10.2) mg/dL Total Bilirubin 1.6 H (0.0-1.0) mg/dL AST 36 (5-37) U/L ALT 38 (0-40) U/L Alkaline Phosphatase 162 H (39-117) U/L Total Protein 6.4 L (6.5-8.0) g/dL Albumin 3.5 (3.5-5.0) g/dL Lipase 8 (8-78) U/L Urine Color Dark Yellow Urine Appearance Clear Urine pH 5.5 (5.0-9.0) Ur Specific [place] >= 1.030 H (1.005-1.025) Urine Protein 30 (1+) H (Neg-Trace) mg/dL Urine Glucose (UA) 250 H (Negative) mg/dL Urine Ketones Trace (Negative) mg/dL Urine Blood Moderate (2+) H (Negative) Urine Nitrite Negative (Negative) Ur Leukocyte Esterase Moderate (2+) H (Negative) Urine RBC 11-20 H (0-2) /HPF Urine WBC >50 H (0-5) /HPF Ur Squamous Epith Cells 6-10 (0-2) /HPF Urine Bacteria 2+ (None Seen) Hyaline Casts 3-5 (0-2) /LPF Independent Interpretation I performed an independent interpretation of an: CT Scan (Abdomen and pelvis: No acute intra-abdominal pathology.) Radiology Impression Discussion of test interpretation with radiology: I have reviewed the radiologist's reading. Discharge Plan Discharge Clinical Impression: Abdominal pain, Gastroenteritis Patient Disposition: Home, Self-Care Instructions: Gastroenteritis (ED) Prescriptions: No Action rifaximin 550 mg tablet 550 mg PO BID 30 Days Qty: 60 1RF glipizide 5 mg tablet 1 tab PO BID pantoprazole 40 mg tablet,delayed release (DR/EC) 40 mg PO DAILY 30 Days Qty: 30 0RF (DME) blood-glucose meter [FreeStyle Lite Meter] Kit See Rx Instructions .Route Qty: 1 0RF Rx Instructions: As directed (DME) FreeStyle Lite Strips Strip See Rx Instructions .Route Qty: 100 0RF Rx Instructions: As directed (DME) lancets [Lancets,Ultra Thin] Misc See Rx Instructions .Route Qty: 100 0RF Rx Instructions: As directed metformin 1,000 mg tablet 1 tab PO BIDAC lisinopril 5 mg tablet 1 tab PO DAILY Hold Instructions: BP soft, follow up with PCP before resuming Eliquis 5 mg tablet 5 mg PO BID Hold Instructions: Resume on 04/24/22. Rx Instructions: 10mg bid for 6 more days, then decrease to 5mg bid ondansetron 4 mg tablet,disintegrating 4 mg PO Q8H 3 Days Qty: 9 0RF (DME) blood pressure test kit-large Kit See Rx Instructions .ROUTE .MEDSUPPLY Qty: 1 Rx Instructions: As directed ferrous sulfate [FeroSul] 325 mg (65 mg iron) tablet 325 mg PO DAILY Ensure Active High Protein Liquid 1 ea PO TID 30 Days Qty: 414 0RF glucose [Dex4 Glucose] 4 gram tablet,chewable 4 g PO Q15M PRN Rx Instructions: until symptoms of low blood sugar are controlled docusate sodium 50 mg capsule 50 mg PO DAILY diclofenac sodium 1 % gel 2 g topical QID nadolol 20 mg tablet 20 mg PO DAILY 30 Days Qty: 30 3RF lactulose 20 gram/30 mL solution 20 g PO TID 30 Days Qty: 2700 1RF Referrals: Tomasa Harry MD [Primary Care Provider] -
[2023-01-04] MEDS: 0.9 % Sodium Chloride 1,000 ML 999 ML IV (03:06)
[2023-01-04] MEDS: Famotidine/PF 20 MG/2 ML VIAL IVPUSH (03:06)
[2023-01-04] MEDS: Magnesium Hydrox/Alum Hydrox 30 ML ORAL.SUSP PO (03:06)
[2023-01-04] MEDS: ondansetron HCL 4 MG/2 ML VIAL IVPUSH (03:06)
[2023-01-04] MEDS: Loperamide HCl 2 MG CAPSULE PO (03:06)
[2023-01-04 04:00] VITALS: BP 127/80; PULSE 70; RESP 16; TEMP 36.9; O2SAT 97
== END 2023-01-04 06:52 | disposition home or self-care (01) ==
PROVIDERS: Emergency Provider Emergency Medicine; PCP Internal Medicine
DX: K52.9 Noninfective gastroenteritis and colitis, unspecified (principal); R10.12 Left upper quadrant pain; E11.9 Type 2 diabetes mellitus without complications; Z86.711 Personal history of pulmonary embolism; Z79.01 Long term (current) use of anticoagulants; Z79.899 Other long term (current) drug therapy; Z79.84 Long term (current) use of oral hypoglycemic drugs
CPT/HCPCS: 36415; 74176; 80053; 81001; 81003; 83690; 85025; 87086; 96361; 96374; 96375; 99211; 99284; J2405

== ENCOUNTER 2023-02-17 17:07 | Emergency (ER) | payer OTHER, SELFPAY ==
--- NOTE | ~2023-02-17 | US_ITS ---
EXAMINATION: US VENOUS ULTRASOUND WITH DOPPLER LOWER EXTREMITY, LEFT CLINICAL INFORMATION: Edema. COMPARISON: 04/01/2022. TECHNIQUE: Ultrasound of the deep veins is performed from the hip to the calf with compression sonography and color and pulse Doppler assessment. Spectral analysis with color-flow imaging is performed. FINDINGS: There is normal venous compression and respiratory variation and augmented flow. The visualized common femoral vein, superficial femoral vein, profunda femoral vein, popliteal vein, and the trifurcation region shows no evidence of deep venous thrombosis. There is no significant popliteal fossa cyst. Enlarged left inguinal lymph node measuring 2.6 x 1.4 cm with overall reniform shape, preserved fatty caleb and no significant cortical thickening most likely reactive. If the patient's symptoms persist, followup ultrasound in 5 days 7 days might be of value to exclude proximal propagation from a non-visualized calf vein. US/US venous duplex LE LT IMPRESSION: 1. No DVT demonstrated in the left lower extremity. 2. Enlarged left inguinal lymph node, likely reactive. A short-term follow-up ultrasound could be obtained as clinically indicated.
[2023-02-17 17:30] VITALS: BP 106/71; PULSE 85; RESP 18; TEMP 36.4; O2SAT 98; BMI 31.1
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
[2023-02-17 18:10] LABS: MANUAL DIFF FLAG NO
--- NOTE | 2023-02-17 18:15 | PC.NURSE ---
Pt able to ambulate from waiting room with US shi at bedside currently for US. Pt is Indonesian speaking. labs pending at this time
[2023-02-17 18:17] LABS: Eosinophils Absolute Auto 0.1 X10*3/uL (0.0-0.4); Eosinophils Percent Auto 2.5 % (0-4); Hematocrit 28.9 % (42.0-52.0); Hemoglobin 9.5 g/dl (14.0-18.0); Imm Gran Abs Auto 0.02 X10*3/uL (0.00-0.03); Imm Gran Pct Auto 0.5 % (0.0-0.4); Lymphocytes Absolute Auto 0.9 X10*3/uL (1.2-4.9); Lymphocytes Percent Auto 23.2 % (20-40); Mean Corpuscular HGB Conc 32.9 g/dl (31.0-36.0); Mean Corpuscular Hemoglobin 26.8 pg (27.0-33.0); Mean Corpuscular Volume 81.6 fL (80.0-98.0); Mean Platelet Volume 9.7 fL (9.4-12.4); Monocytes Absolute Auto 0.3 X10*3/uL (0.1-1.2); Monocytes Percent Auto 7.4 % (2-11); Neutrophils Absolute Auto 2.4 x10*3/uL (2.0-8.3); Neutrophils Percent Auto 66.4 % (45-73); Red Blood Count 3.54 X10*6/uL (4.60-5.80); Red Cell Distribution Width 15.4 % (11.0-16.0); White Blood Count 3.7 X10*3/uL (4.8-10.8)
[2023-02-17 18:26] LABS: INTERNATIONAL NORM RATIO 1.3 (0.9-1.1); Prothrombin Time 14.5 SEC (10.0-13.1)
[2023-02-17 18:29] LABS: Partial Thromboplastin Time 30.5 SEC (26.0-36.4)
[2023-02-17 18:30] LABS: Platelet Count 87 X10*3/uL (160-400)
[2023-02-17 18:35] LABS: Lactic Acid 1.5 mmol/L (0.5-2.0)
[2023-02-17 18:39] LABS: Alanine Aminotransferase 32 U/L (0-40); Albumin Level 3.5 g/dL (3.5-5.0); Alkaline Phosphatase 151 U/L (39-117); Anion Gap 9 (12-20); Aspartate Amino Transferase 38 U/L (5-37); Bilirubin Direct 0.4 mg/dL (0.0-0.5); Blood Urea Nitrogen 10 mg/dL (9-16); C Reactive Protein 0.74 mg/dL (< or = 0.50); Calcium 9.1 mg/dL (8.4-10.2); Carbon Dioxide 27 mmol/L (22-29); Chloride 107 mmol/L (96-108); Creatinine Clr Calc Pharmacy 136.7; Estimated Glomerular Filt Rate > 60; Glucose Random 138 mg/dL (60-115); Magnesium 1.8 mg/dL (1.6-2.6); Potassium 4.1 mmol/L (3.3-5.1); Sodium 139 mmol/L (135-145)
[2023-02-17 18:42] LABS: B Type Natriuretic Peptide 89 pg/mL (<100)
[2023-02-17 19:25] LABS: Erythrocyte Sedimentation Rate 16 MM/HR (0-15)
[2023-02-17] MEDS: Diphth,Pertus(ACell),Tet Adult 0.5 ML SYRINGE IM (19:34)
[2023-02-17 19:35] VITALS: BP 109/58; PULSE 85; RESP 22; TEMP 36.9; O2SAT 98
[2023-02-17] MEDS: Doxycycline Monohydrate 100 MG CAPSULE PO (19:35)
[2023-02-17] MEDS: cephALEXin 500 MG CAPSULE PO (19:35)
== END 2023-02-17 19:41 | disposition home or self-care (01) ==
PROVIDERS: Physician Assistant; Emergency Provider Internal Medicine; PCP Internal Medicine
DX: L03.116 Cellulitis of left lower limb (principal); M79.662 Pain in left lower leg; D69.6 Thrombocytopenia, unspecified; E11.9 Type 2 diabetes mellitus without complications; Z86.711 Personal history of pulmonary embolism; Z79.84 Long term (current) use of oral hypoglycemic drugs; Z79.899 Other long term (current) drug therapy
CPT/HCPCS: 36415; 80048; 80076; 82550; 83605; 83735; 83880; 85025; 85610; 85652; 85730; 86140; 87040; 90471; 90715; 93971; 99284

== ENCOUNTER 2023-02-23 20:13 | Emergency (ER) | payer OTHER, SELFPAY ==
--- NOTE | ~2023-02-23 | XR_ITS ---
EXAMINATION: LEFT KNEE, LEFT ANKLE CLINICAL INFORMATION: Trauma COMPARISON: None available. TECHNIQUE: 4 views left knee, 3 views left ankle FINDINGS: Knee: Some minimal degenerative changes are seen with some lateral tibial plateau osteophytes. No fractures, effusions or chondrocalcinosis is seen. Ankle: There is mild soft tissue swelling seen laterally. The ankle mortise appears stable. No joint effusion is seen. No fractures or dislocations. Incidental note made of a plantar calcaneal spur. XR/XR knee LT 4V IMPRESSION: No evidence of an acute osseous injury.
--- NOTE | ~2023-02-23 | XR_ITS ---
EXAMINATION: LEFT KNEE, LEFT ANKLE CLINICAL INFORMATION: Trauma COMPARISON: None available. TECHNIQUE: 4 views left knee, 3 views left ankle FINDINGS: Knee: Some minimal degenerative changes are seen with some lateral tibial plateau osteophytes. No fractures, effusions or chondrocalcinosis is seen. Ankle: There is mild soft tissue swelling seen laterally. The ankle mortise appears stable. No joint effusion is seen. No fractures or dislocations. Incidental note made of a plantar calcaneal spur. XR/XR ankle LT min 3V IMPRESSION: No evidence of an acute osseous injury.
--- NOTE | ~2023-02-23 | US_ITS ---
EXAMINATION: US VENOUS ULTRASOUND WITH DOPPLER LOWER EXTREMITY, LEFT CLINICAL INFORMATION: Worsening left lower extremity pain and edema COMPARISON: Left leg DVT study 02/17/2023 TECHNIQUE: Ultrasound of the deep veins is performed from the hip to the calf with compression sonography and color and pulse Doppler assessment. Spectral analysis with color-flow imaging is performed. FINDINGS: There is normal venous compression and respiratory variation and augmented flow. The visualized common femoral vein, superficial femoral vein, profunda femoral vein, popliteal vein, and the trifurcation region shows no evidence of deep venous thrombosis. There is no significant popliteal fossa cyst. Prominent lymph nodes are present in the left groin measuring 1.4 and 2.8 cm, unchanged from prior. The contralateral right common femoral vein is unremarkable. US/US venous duplex LE LT IMPRESSION: No DVT demonstrated in the left lower extremity.
[2023-02-23 20:23] VITALS: BP 130/77; PULSE 79; RESP 18; TEMP 36.4; O2SAT 96; BMI 31.1
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
[2023-02-23 21:50] LABS: MANUAL DIFF FLAG NO
[2023-02-23 21:52] LABS: Basophils Percent Auto 0.3 % (0-2); Eosinophils Absolute Auto 0.1 X10*3/uL (0.0-0.4); Eosinophils Percent Auto 2.7 % (0-4); Hematocrit 28.8 % (42.0-52.0); Hemoglobin 9.3 g/dl (14.0-18.0); Imm Gran Abs Auto 0.01 X10*3/uL (0.00-0.03); Imm Gran Pct Auto 0.3 % (0.0-0.4); Lymphocytes Absolute Auto 0.7 X10*3/uL (1.2-4.9); Lymphocytes Percent Auto 19.4 % (20-40); Mean Corpuscular HGB Conc 32.3 g/dl (31.0-36.0); Mean Corpuscular Hemoglobin 26.3 pg (27.0-33.0); Mean Corpuscular Volume 81.6 fL (80.0-98.0); Mean Platelet Volume 9.2 fL (9.4-12.4); Monocytes Absolute Auto 0.3 X10*3/uL (0.1-1.2); Monocytes Percent Auto 8.8 % (2-11); Neutrophils Absolute Auto 2.6 x10*3/uL (2.0-8.3); Neutrophils Percent Auto 68.5 % (45-73); Red Blood Count 3.53 X10*6/uL (4.60-5.80); Red Cell Distribution Width 15.7 % (11.0-16.0); White Blood Count 3.8 X10*3/uL (4.8-10.8)
[2023-02-23 21:58] LABS: Platelet Count 93 X10*3/uL (160-400)
[2023-02-23 22:07] LABS: Alanine Aminotransferase 28 U/L (0-40); Albumin Level 3.3 g/dL (3.5-5.0); Alkaline Phosphatase 158 U/L (39-117); Anion Gap 12 (12-20); Aspartate Amino Transferase 34 U/L (5-37); Bilirubin Total 0.8 mg/dL (0.0-1.0); Blood Urea Nitrogen 10 mg/dL (9-16); Calcium 8.5 mg/dL (8.4-10.2); Carbon Dioxide 27 mmol/L (22-29); Chloride 103 mmol/L (96-108); Creatinine Clr Calc Pharmacy 118.6; Estimated Glomerular Filt Rate > 60; Glucose Random 206 mg/dL (60-115); Lipase 12 U/L (8-78); Potassium 3.9 mmol/L (3.3-5.1); Sodium 138 mmol/L (135-145); Total Protein 6.7 g/dL (6.5-8.0)
[2023-02-23 22:18] LABS: Lactic Acid 2.6 mmol/L (0.5-2.0)
[2023-02-23 23:48] LABS: Reflex Lactate? Lactic Acid Added
[2023-02-24] VITALS (9 sets, daily range): BP systolic 101–135; BP diastolic 69–84; PULSE 67–89; RESP 12–18; TEMP 36.3–36.9; O2SAT 96–99
[2023-02-24 00:48] LABS: ~Lactic Acid-LAB USE ONLY 1.6 mmol/L (0.5-2.0)
[2023-02-24] MEDS: oxyCODONE HCl Immed Release 5 MG TABLET PO (01:18)
--- NOTE | 2023-02-24 01:37 | PC.NURSE ---
Attempted to ambulate patient. Patient unable to stand due to pain in left lower ext. Patient states that pain in mostly in calf area.
--- NOTE | 2023-02-24 07:26 | PC.NURSE ---
Pt denied any pain, stated only discofort to left lower leg from the knee down, leg noted to have some swelling, warm to touch, toes are anjelica. no fever noted. call ayala with in reach, Pt stated he need to urinate, urinal given.
--- NOTE | 2023-02-24 07:56 | PC.NURSE ---
correction, toes bruised, not anjelica. Pt noted to have a wound to left upper calf, stated he is seeing wound care for this and was given a cream for the wound but he left the cream at home.
[2023-02-24 09:03] LABS: COVID-19 Test Negative (Negative); IDNOW Serial# BCCEAD1C
--- NOTE | 2023-02-24 09:49 | PC.NURSE ---
Pt currently resting, no apparent pain or discomfort noted. Call ayala with in reach.
--- NOTE | 2023-02-24 11:23 | MHC.CM.ED ---
Addendum entered by Sima Drummond 02/24/23 14:43: [facility]. [facility]. Patient aware and accepts. [facility] is in the process of going for ins auth. Original Note: Received case management consult overnight. Patient came to ER due to foot pain. Work up essentially negative. Physical therapy eval completed. Short term rehab is recommended. Met with patient in regards to discharge planning. Patient lives alone, uses a cane for mobility and had no services prior to coming to the hospital. PCP verified. Copy of HCP verified to be on file. Patient has never been to short term rehab. Patient is agreeable. Patient received 2 Pfizer vaccines. Not boosted. Patient agreeable to referral being broadcasted in [facility] to see which facilities can offer beds. [facility], [place] and [facility] bed. Patient and sister Jojo choose [facility]. [facility] been asked to [facility] ins [facility]. Continue to monitor for d/c needs.
--- NOTE | 2023-02-24 11:59 | PC.NURSE ---
Pt currently lying down, denies any pain or discomfort, stated only when standing. Urinal emptied, call ayala with in reach.
--- NOTE | 2023-02-24 16:15 | MHC.EDTECH ---
this pct assumed care of patient at 1515 ,vitals sign taken ,belongings list done ,pt is resting quietly in bed .
--- NOTE | 2023-02-24 16:38 | PHA.MEDREC ---
Pharmacy Consult ? Medication Reconciliation Pharmacy has completed the medication reconciliation. Patient is a medbox patient at [facility]. Received list from pharmacy. Tabatha Malhotra, AmritD
--- NOTE | 2023-02-24 17:38 | PC.NURSE ---
Pt brought to Overflow d/t PT/CM status, he was able to transfer off stretcher and will staff assist use cane and get to new bed, pt reporting increased pain in leg with ambulation and putting pressure on extremity. Pt oriented to unit, call ayala, urinal given, pt given dinner tray. Pt in agreement with plan, all questions answered, all needs met at this time
--- NOTE | 2023-02-24 20:16 | PC.NURSE ---
assumed care of pt at 1900 - pt resting comfortably on stretcher, pt has 2 visitors at the bedside. pt is A&Ox4, speaking clear full sentences in no apparent distress. according to notes, pharmacy came to verify patient's home meds today but medications have not yet been ordered by provider, will call over to main ED provider to have home mediations ordered for bedtime. call ayala within reach, will ctm.
--- NOTE | 2023-02-24 20:17 | MHC.CM.ED ---
[facility] is not contracted with patient's insurance. [facility] has offered a bed. Authorization pending.
[2023-02-24] MEDS: Doxycycline Monohydrate 100 MG CAPSULE PO (20:59)
[2023-02-24] MEDS: Apixaban 5 MG TABLET PO (20:59)
[2023-02-24] MEDS: cephALEXin 500 MG CAPSULE PO (20:59)
[2023-02-24] MEDS: glipiZIDE 5 MG TABLET PO (20:59)
[2023-02-24] MEDS: metFORMIN HCl 1,000 MG TABLET 1000 MG PO (20:59)
[2023-02-24] MEDS: nadoloL 20 MG TABLET PO (20:59)
[2023-02-24] MEDS: rifAXIMin 550 MG TABLET PO (21:00)
[2023-02-24] MEDS: Mupirocin 2 % Oint 22 GM TUBE 1 APPL TOPICAL (21:03)
[2023-02-25 06:00] VITALS: BP 98/68; PULSE 78; RESP 16; TEMP 36.7; O2SAT 96
[2023-02-25] MEDS: Omeprazole 20 MG CAPSULE.DR PO (06:38)
[2023-02-25 08:59] VITALS: BP 112/68; PULSE 71
--- NOTE | 2023-02-25 09:12 | MHC.EDTECH ---
pt assisted to bedside commode. bed linens changed. pt cleaned and assisted back into bed. call ayala placed within reach
[2023-02-25] MEDS: Ferrous Sulfate 324 MG TABLET.DR PO (09:28)
[2023-02-25] MEDS: Doxycycline Monohydrate 100 MG CAPSULE PO (09:28)
[2023-02-25] MEDS: Apixaban 5 MG TABLET PO (09:28)
[2023-02-25] MEDS: cephALEXin 500 MG CAPSULE PO ×2 (09:28→13:29)
[2023-02-25] MEDS: metFORMIN HCl 1,000 MG TABLET 1000 MG PO (09:28)
[2023-02-25] MEDS: Mupirocin 2 % Oint 22 GM TUBE 1 APPL TOPICAL (09:36)
[2023-02-25] MEDS: rifAXIMin 550 MG TABLET PO (09:36)
[2023-02-25] MEDS: glipiZIDE 5 MG TABLET PO (09:36)
[2023-02-25] MEDS: nadoloL 20 MG TABLET PO (09:36)
--- NOTE | 2023-02-25 14:04 | MHC.CM.ED ---
Patient remains in ER overflow. Insurance auth has been obtained by [facility]. Patient can leave at 330pm. Shruti MEDEIROS booked. Patient, Ratna PANIAGUA, and Alexa RONQUILLO aware. Continue to monitor for d/c needs.
[2023-02-25 14:47] VITALS: BP 111/75; PULSE 74; RESP 16; TEMP 36.5; O2SAT 96
--- NOTE | 2023-02-25 15:56 | PC.NURSE ---
Unable to provide handoff to [place] # [phone] - attempted twice. [facility] obtained but no pickup after being transferred.
== END 2023-02-25 15:52 | disposition skilled nursing facility (03) ==
PROVIDERS: Physician Assistant; Registered Nurse Emergency; Emergency Provider Emergency Medicine; PCP Internal Medicine
DX: M79.662 Pain in left lower leg (principal); R26.2 Difficulty in walking, not elsewhere classified; Z20.822 Contact with and (suspected) exposure to COVID-19; E11.9 Type 2 diabetes mellitus without complications; Z86.711 Personal history of pulmonary embolism; Z79.899 Other long term (current) drug therapy; Z79.01 Long term (current) use of anticoagulants
CPT/HCPCS: 36415; 73564; 73610; 80053; 83605; 83690; 85025; 87040; 87635; 93971; 97162; 99284; 99285